=== PATIENT | male | born 1950 | race Caucasian/White ===

== ENCOUNTER 2017-02-10 11:37 | Inpatient (IN) ==
--- NOTE | 2017-02-10 12:19 | Emergency Department Note ---
Disposition Clinical Impression: Tracheostomy in place, Peritoneal dialysis catheter in place, ESRD (end stage renal disease) on dialysis Syncope Qualifiers: Syncope type: unspecified Qualified Code(s): R55 - Syncope and collapse Disposition: Admitted As Inpatient Condition: Fair Time of Disposition: 15:28 Syncope HPI - General Chief Complaint: ED Syncope Stated Complaint: Syncopal Episode Time Seen by Provider: 02/10/17 11:48 Source: patient, family, EMS Limitations: other - History of Present Illness HPI Narrative: 58-year-old male history of laryngeal cancer with tracheostomy, and peritoneal dialysis, ESRD, presents after 2 episodes of syncopal events at home. Patient states that he was about an hour or so after dialysis, was bending over to tie his shoes, got up and then slumped over this was witnessed by his and son, he had a few seconds of loss of consciousness, and laid down for a while, EMS arrived and evaluated the patient. He then subsequently had another episode where he lost consciousness for a few seconds, is at the bedside, and had an episode of urinary incontinence as well. Patient does not really events, denies any chest pain or shortness of breath prior, does report a mild headache and has a history of headaches. Patient states that this has happened before, he has been on peritoneal dialysis for 3 years. 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 Number of episodes: 2 Duration: second(s) Prodromal Symptoms: none, other (after peritoneal dialysis) Witnessed: no Current Symptoms: back to baseline History: none - Related Data Home Medications Medication Instructions Recorded Confirmed Ferrous Sulfate 325 mg PO BID 06/23/15 03/19/16 Multivits,Ca,Min/Iron/FA/Lycop 1 tab PO DAILY 06/23/15 03/19/16 [Centrum Men's Tablet] Hydrocodone/Acetaminophen [Xodol 2.5 - 500 mg PO 1-3XD 08/24/15 03/19/16 10-300 Tablet] Doxazosin [Cardura] 1 mg PO DAILY 01/03/16 03/19/16 Aspirin [Adult Low Dose Aspirin EC] 81 mg PO DAILY 01/27/16 03/19/16 Folic Acid/Vit Bcomp,C [Dialyvite 1 tab PO DAILY 01/27/16 03/19/16 Tablet] Thiamine (B-1) [Vitamin B-1] 100 mg PO DAILY 01/27/16 03/19/16 Previous Rx's Medication Instructions Recorded OxyCODONE/APAP 5/325 [Percocet 1 tab PO Q8H PRN #15 tablet 01/29/16 5/325 MG] HYDROcodone/Acet 5/325 mg [Llewellyn 1 tab PO Q8H PRN #30 tab 03/08/16 5-325 mg] Levothyroxine [Synthroid] 50 mcg PO DAILY #30 tablet 03/08/16 Bacitracin/PolymyxinB OINT 1 appl TP BID #1 tube 03/17/16 [Polysporin] OxyCODONE Oral Soln [OxyCODONE 7.5 mg PO QID #100 mls 03/19/16 ORAL SOLN] Bacitracin/PolymyxinB OINT 1 appl TP BID tube 03/28/16 [Polysporin] Darbepoetin [Aranesp] 100 mcg SQ QWEEK syringe 03/28/16 FentaNYL PATCH [Duragesic] 75 mcg TD Q72H patch.td72 03/28/16 Gentamicin Oint [Garamycin] 1 appl TP DAILY tube 03/28/16 HYDROmorphone (PF) [Dilaudid] 2 mg IV Q3HR PRN #0 syringe 03/28/16 Levothyroxine Sodium [Synthroid] 25 mcg IV DAILY vial 03/28/16 MVI, adult with vitamin K 10 ml IV DAILY@1800 vial 03/28/16 [M.v.i. Adult] Naloxone [Narcan] 0.4 mg IV Q2MIN PRN #0 inj 03/28/16 Ondansetron [Zofran] 4 mg IV Q8HR PRN #0 vial 03/28/16 Perit. Dialysis with Dex 1.5 % 2,000 ml PERITONEAL Q6HR #0 ip.soln 03/28/16 [Dianeal with 1.5% Dextrose] Vancomycin [Vancocin] 1,000 mg IV Q48H vial 03/28/16 OxyCODONE Oral Soln [OxyCODONE 10 ml PO Q4-6H PRN #150 mls 04/19/16 ORAL SOLN] Allergies Allergy/AdvReac Type Severity Reaction Status Date / Time diazepam Allergy Intermediate Agitated Verified 02/22/16 14:39 Zolpidem [From Ambien] Crystal Hallucinati Verified 01/03/16 14:39 ng All systems ED: reviewed and negative except as stated. Constitutional: Denies: fever, chills, weakness ENT ED: Denies: ear pain, throat pain Cardiovascular: Denies: chest pain, palpitations Respiratory: Denies: cough, dyspnea, wheezes Gastrointestinal: Denies: abdominal pain, nausea, vomiting Genitourinary: Denies: urgency, dysuria, frequency Musculoskeletal: Denies: back pain, neck pain Integumentary: Denies: rash, abrasion Past Medical History - Past Medical History Attestation: Yes The following information was validated with the patient. Source: patient Medical history: Reports: cancer, dialysis, hypertension, renal disease, thyroid disease, other Surgical history: Reports: cataract, cholecystectomy, other (Hernia repair, laryngectomy) Psychiatric history: Reports: no psych history - Social History Smoking Status: Former smoker Smokeless Tobacco Status: No Alcohol use: Reports: none Drug use: Reports: none Physical Exam Constitutional: alert and oriented, in NAD, vital signs reviewed and wnl HEENT: NCAT, sclera anicteric, PERRLA bilaterally, normal external ears bilaterally, nasal septum nondeviated, average dentition, dry mucous membranes Neck: Midline tracheostomy is patent Resp: normal chest inspection, CTA bilaterally, no resp distress CV: RRR, no m/g/r GI: Soft, NTND, BS present, peritoneal dialysis port is patent Back: normal inspection, no tenderness to palpation Neuro: A&O3, no gross motor or sensory deficits bilaterally Skin: No rashes, skin warm, dry, intact - General Limitations: other General appearance: alert, in no apparent distress Course Course Narrative: 66-year-old male with 2 episodes of syncope, and appears to be possibly orthostatic versus vasovagal but he just had dialysis likely hypovolemic, his vital signs are within normal limits as is now low likelihood that this was a seizure, the setting of the 58-year-old dialysis patient with laryngeal cancer, we will get a baseline CT head and soft tissue neck to evaluate for space- occupying lesion or mass causing syncope fluids, treat headache reassess - Reevaluation(s) Reevaluation #1: Admitted to [facility] in stable condition Time: 15:27 Vital Signs Temperature 98.4 F 02/10/17 11:39 Pulse Rate 94 02/10/17 11:39 Respiratory Rate 16 02/10/17 11:39 Blood Pressure 139/69 02/10/17 11:39 O2 Sat by Pulse Oximetry 96 02/10/17 11:39 Temperature 98.4 F 02/10/17 11:39 Pulse Rate 99 02/10/17 14:05 Respiratory Rate 18 02/10/17 14:05 Blood Pressure 125/60 02/10/17 14:05 O2 Sat by Pulse Oximetry 100 02/10/17 14:05 Oxygen Delivery Oxygen Delivery Room Air Syncope - MDM Narrative Medical decision making narrative: 66-year-old admitted for syncope, risk factors of laryngeal cancer and peritoneal dialysis, likely this is a post dialysis hypotension, will admit for observation hospitalist service accepting, patient stable condition at time of admission is symptomatically - Differential Diagnosis Likely: syncope due to orthostatic hypotension, vasovagal syncope - Medical Records Medical records reviewed: Yes I reviewed the patient's medical records. - Lab Data Lab results reviewed: Yes I reviewed the patient's lab results. Result diagrams: 02/10/17 12:15 02/10/17 12:15 Lab Results 02/10/17 02/10/17 02/10/17 Range/Units 12:15 12:15 12:15 WBC 12.8 H (4.3-11.1) K/mcL RBC 3.03 L (4.19-5.50) M/mcL Hgb 9.3 L (12.9-16.9) g/dL Hct 29.4 L (37.5-50.1) % MCV 97.0 (83.0-100.0) fL MCH 30.7 (28.0-33.3) pg MCHC 31.6 (31.6-35.5) g/dL RDW 14.0 (11.5-14.5) % Plt Count 327 (140-400) K/mcL MPV 10.0 (9.4-12.4) fL Immature Gran % 0.6 (0-4) % Seg Neutrophils % 88.5 % Lymphocytes % 4.3 % Monocytes % 6.1 % Eosinophils % 0.3 % Basophils % 0.2 % Neutrophils # 11.3 H (1.6-8.9) K/mcL Lymphocytes # 0.6 (0.6-4.6) K/mcL Monocytes # 0.8 (0.0-1.3) K/mcL Eosinophils # 0.0 (0.0-0.6) K/mcL Basophils # 0.0 (0.0-0.2) K/mcL Immature Plt Fraction 2.8 (1.1-6.1) % PT 20.9 H (9.4-12.1) Seconds INR 1.9 APTT 33.5 (26.0-36.0) Seconds Sodium 140 (136-145) mEq/L Potassium 3.8 (3.5-4.5) mEq/L Chloride 103 (98-109) mEq/L Carbon Dioxide 25 (19-29) mEq/L BUN 42 H (8-26) mg/dL Creatinine 2.86 H (0.72-1.25) mg/dL Est GFR ( Amer) 27 L (> 60) Est GFR (Non-Af Amer) 22 L (> 60) BUN/Creatinine Ratio 15 (6-26) Glucose 143 H (70-99) mg/dL Calculated Osmolality 303 H (280-300) Calcium 8.8 (8.6-10.8) mg/dL Troponin I (0-0.03) ng/mL 02/10/17 Range/Units 12:15 WBC (4.3-11.1) K/mcL RBC (4.19-5.50) M/mcL Hgb (12.9-16.9) g/dL Hct (37.5-50.1) % MCV (83.0-100.0) fL MCH (28.0-33.3) pg MCHC (31.6-35.5) g/dL RDW (11.5-14.5) % Plt Count (140-400) K/mcL MPV (9.4-12.4) fL Immature Gran % (0-4) % Seg Neutrophils % % Lymphocytes % % Monocytes % % Eosinophils % % Basophils % % Neutrophils # (1.6-8.9) K/mcL Lymphocytes # (0.6-4.6) K/mcL Monocytes # (0.0-1.3) K/mcL Eosinophils # (0.0-0.6) K/mcL Basophils # (0.0-0.2) K/mcL Immature Plt Fraction (1.1-6.1) % PT (9.4-12.1) Seconds INR APTT (26.0-36.0) Seconds Sodium (136-145) mEq/L Potassium (3.5-4.5) mEq/L Chloride (98-109) mEq/L Carbon Dioxide (19-29) mEq/L BUN (8-26) mg/dL Creatinine (0.72-1.25) mg/dL Est GFR ( Amer) (> 60) Est GFR (Non-Af Amer) (> 60) BUN/Creatinine Ratio (6-26) Glucose (70-99) mg/dL Calculated Osmolality (280-300) Calcium (8.6-10.8) mg/dL Troponin I 0.03 (0-0.03) ng/mL - Radiology Data Radiology results reviewed: Yes I reviewed the patient's radiology results. Chest X-Ray 02/10/17 11:56 IMPRESSION: Mild bibasilar atelectasis versus pneumonia. D/ / Kolby Silva MD / Kolby Silva MD Interpreting Provider: Kolby Silva MD Head CT 02/10/17 11:56 IMPRESSION: No acute intracranial abnormality. Chronic small vessel ischemic changes similar to previous exam. Chronic sinus disease. D/ / Ramy Ventura MD / Ramy Ventura MD Interpreting Provider: Ramy Ventura MD Soft Tissue Neck CT 02/10/17 12:07 IMPRESSION: 1. Evaluation of the soft tissues is compromised due to lack of IV contrast. 2. Status post interval laryngectomy and tracheostomy. There is marked soft tissue swelling in the oropharynx and hypopharynx which may represent a combination of residual/recurrent tumor, as well as mucosal edema from post radiation changes. 3. Enlarged left cervical lymph nodes suspicious for metastatic lymphadenopathy. D/ / 02/10/2017 13:33:57 Maru Briggs MD / earnold Interpreting Provider: Maru Briggs MD - EKG Data EKG attestation: Yes I reviewed and interpreted this EKG. EKG shows normal: sinus rhythm (93 bpm ND 162 QRS 154 QTc 463 right bundle- branch block similar to previous EKG) [place]/QRS: RBBB Interpretation: no acute changes - Core Measures AMI Core Measures Followed: No Measure Exclusions: not indicated
[2017-02-10 12:21] LABS: Basophils % 0.2 %; Eosinophils % 0.3 %; Hematocrit 29.4 % (37.5-50.1); Hemoglobin 9.3 g/dL (12.9-16.9); Immature Granulocytes % 0.6 % (0-4); Immature Platelets 2.8 % (1.1-6.1); Lymphocytes # 0.6 K/mcL (0.6-4.6); Lymphocytes % 4.3 %; Mean Corpuscular HGB Conc 31.6 g/dL (31.6-35.5); Mean Corpuscular Hemoglobin 30.7 pg (28.0-33.3); Monocytes # 0.8 K/mcL (0.0-1.3); Monocytes % 6.1 %; Neutrophils # 11.3 K/mcL (1.6-8.9); Platelet Count 327 K/mcL (140-400); Red Blood Count 3.03 M/mcL (4.19-5.50); Segmented Neutrophils % 88.5 %
[2017-02-10 12:26] LABS: INR 1.9; Prothrombin Time 20.9 Seconds (9.4-12.1)
[2017-02-10 12:28] LABS: Activated Partial Thrombo Time 33.5 Seconds (26.0-36.0)
[2017-02-10 12:32] LABS: Calcium 8.8 mg/dL (8.6-10.8); Potassium 3.8 mEq/L (3.5-4.5)
[2017-02-10] MEDS ORDERED: 0.9 % Sodium Chloride 500 ML IVC ONE (13:00)
[2017-02-10] MEDS ORDERED: Ondansetron 4 MG/2 ML VIAL IVP ONE (13:01)
[2017-02-10] MEDS ORDERED: *HR* Morphine 2 MG/ML SYRINGE IV ONE (13:01)
--- NOTE | 2017-02-10 13:17 | Emergency Department Note ---
START Narrative - START START: I examined this patient and my medical decision-making was reviewed with the GLASS BLOWER/PA/Advanced Practice Nurse/Resident Physician. I agree with the documented findings, disposition and treatment plan as described except to the extent set forth below. 66-year-old male presents after a syncopal episode at home. Patient apparently had finished his daily peritoneal dialysis when he became lightheaded and lost consciousness. states the patient was sitting at the side of the bed, became incontinent, eyes rolled back in his head and tongue was sticking out of his mouth. No history of seizures in the past. Although patient has had similar occurrences before but was not worked up. No chest pain, shortness of breath, palpitations, diaphoresis noted today. Patient is cared for at [facility] for his throat cancer. He had a recent MRI 1 month ago showing enlargement of the cancer and no evidence of metastases at that time. Initial ECG shows normal sinus rhythm with a rate of 93 and multiple PACs. I recommended the patient be admitted to the hospital for continuation of Syncope. Patient initially requested to be transferred to [facility] for continuation of care as they follow the oncologist there. While arranging transfer the patient changed his mind and now agrees to stay at [facility]. 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 Jiménez within the next week.
[2017-02-10] MEDS ORDERED: *HR* Heparin 5,000 UNIT/ML VIAL IVP PRN (16:37)
[2017-02-10 17:10] LABS: Hematocrit 34.9 % (37.5-50.1); Mean Corpuscular HGB Conc 31.5 g/dL (31.6-35.5); Mean Corpuscular Hemoglobin 30.9 pg (28.0-33.3); Mean Platelet Volume 10.5 fL (9.4-12.4); Platelet Count 361 K/mcL (140-400); Red Blood Count 3.56 M/mcL (4.19-5.50)
[2017-02-10] MEDS ORDERED: Perit. Dialysis with Dex 1.5 % 2,000 ML PERITONEAL SCH (17:15)
--- NOTE | 2017-02-10 17:15 | Internal Med History&Physical ---
Date of Encounter: 02/10/17 Time of Encounter: 17:33 Assessment and Plan (1) ESRD (end stage renal disease) on dialysis Current visit: Yes Status: Acute Nephrology consul for peritoneal dialysis. Patient mentions that he is at his dry weight. denies that he is below his dry weight. (2) Atrial extrasystole Current visit: Yes Status: Acute I will start the patient metoprolol 25 mg twice a day. Check electrolytes and replace accordingly. Cardiology consultation (3) Laryngeal cancer Current visit: Yes Status: Acute Patient has a tracheostomy tube. Denies any increase in secretions or increasing shortness of breath. (4) Syncope Current visit: Yes Status: Acute Etiology unclear. He has prior history of DVT is on Coumadin INR is 1.9 will have to rule a pulmonary embolism. VQ scan will be ordered. Till then he will be started on heparin drip. Patients makes urine still have some kidney functions and so I do not want to give him any contrast. Orthotics will be checked. He had received a liter of fluid in the emergency room. Because of episode of loss of confidence to and I will also check EEG. 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 He will be under continuous telemetry monitoring. Start metoprolol 25 mg twice a day. Cardiology consultation. He really did not have any prodrome prior to the syncopal episodes. He mentioned that he had a very small ammount of red blood in his stool 3 days ago. Will monitor for any GI bleed Qualifiers: Syncope type: unspecified Qualified Code(s): R55 - Syncope and collapse Internal Medicine - H&P: HPI Chief complaint: syncope History of present illness: Mr. Porras is a 66 year old male with a history of laryngeal cancer, end-stage renal disease on peritoneal dialysis presents to the emergency room today with a global episode. Today patient had 2 episodes of syncope. 1st occurred while he was sitting on the kitchen table slid down his chair and lost consciousness for a short period less than a minute after which she regained consciousness spontaneously. He does not recall a prodrome prior to this event. Shortly afterwards he had another similar episode. mentioned that he had lost continent stearin but has not seen any seizure activity or tongue biting. She mentioned that he had these epistles before. He has history of DVT in mid-2016 is on Coumadin INR is 1.9. He denies any chest pain. He denies any increase in shortness of breath or sputum production throughout the tracheostomy. He denies any fevers or chills. mentioned that he was sweaty during this episode. No recent febrile illness. Patient analyzes every day peritoneal dialysis. He mentioned that his weight stable. he denies that he is below his dry weight. Past Med Surg Social Fam HX - Past Medical History Medical history: cancer, dialysis, hypertension, renal disease, thyroid disease , other Psychiatric history: no psych history - Past Surgical History Surgical History: cataract, cholecystectomy, other - Social History Smoking Status: Former smoker Smokeless Tobacco Status: No Alcohol use: none Drug use: none - Family History Mother History Unknown: Yes Adopted: No Family Member Ethnicity: Non- Living Status: Hx Family Cardiac Disorders: No Hx Family Respiratory Disorders: No Hx Family Cancer: No Hx Family GI Disorders: No Hx Family Endocrine Disorder: No Hx Family Neuromuscular Disorders: No Hx Family Neurologic Disorders: Yes Hx Family HEENT Disorders: No Hx Family Autoimmune Disorders: No Brother History Unknown: Yes Hx Family Cardiac Disorders: Yes (Hypertension) Hx Family Cancer: Yes (colon and prostate) Internal Medicine - H&P: Meds Ferrous Sulfate 325 mg PO BID 06/23/15 [History] Multivits,Ca,Min/Iron/FA/Lycop [Centrum Men's Tablet] 1 tab PO DAILY 06/23/15 [ History] Bacitracin/PolymyxinB OINT [Polysporin] 1 appl TP BID tube 03/28/16 [Rx] Calcium Carbonate [Tums] 500 mg PO TID 02/10/17 [History] Levothyroxine [Synthroid] 100 mcg PO DAILY 02/10/17 [History] Nut.tx.impaired Renal Fxn,Soy [Nepro Carb Steady] 1 each GTUBE AD 02/10/17 [ History] OxyCODONE Immed Rel [Roxicodone 5 MG] 5 - 10 mg PO Q4H PRN 02/10/17 [History] Warfarin [Coumadin] 5 mg PO SUMOWEFR 02/10/17 [History] Warfarin [Coumadin] 7.5 mg PO TUTHSA 02/10/17 [History] Allergies diazepam Allergy (Intermediate, Verified 02/22/16 14:39) Agitated Zolpidem [From Ambien] Adverse Reaction (Verified 01/03/16 14:39) Hallucinating All Systems PM: A 10-system review of systems was performed and is negative for pertinent findings except as documented above in the HPI. Review of systems: 10 point ROS is negative except for HPI - Constitutional Vitals: Temp Pulse Resp BP Pulse Ox 98.1 F 84 18 165/75 99 02/10/17 16:40 02/10/17 16:40 02/10/17 16:40 02/10/17 16:40 02/10/17 16:40 Exam: Gen.: patient is alert oriented not in distress. Cardiac: Normal S1 S2 frequent extrasystoles chest: clear to auscultation abdomen soft nontender nondistended normal bowel sounds lower extremity: lax calf muscles neuro no focal deficit Internal Med - H&P Results - Labs CBC & Chem 7: 02/10/17 16:54 02/10/17 12:15
[2017-02-10 17:16] LABS: INR 1.8
[2017-02-10 17:19] LABS: Activated Partial Thrombo Time 33.4 Seconds (26.0-36.0)
[2017-02-10] MEDS: Heparin 25,000 UNIT/500 ML D5W 25,000 UNIT/500 ML MLS IVC SCH (17:36)
[2017-02-10 19:35] LABS: Bilirubin,Urine Negative (Negative); Blood,Urine Small (Negative); Clarity,Urine Clear (Clear); Color,Urine Yellow (Yellow); Glucose,Urine (UA) Normal (Normal); Ketones,Urine Negative (Negative); Leukocyte Esterase,Urine Trace (Negative); Nitrite,Urine Negative (Negative); Protein,Urine >=300 mg/dL (Neg-Trace); Specific Gravity,Urine 1.013 (1.010-1.025); Urobilinogen,Urine Normal (Normal)
[2017-02-10 19:37] LABS: Bacteria,Urine None Seen per hpf (None-Few); Hyaline Casts,Urine None Seen per lpf (None-Few); RBC,Urine 0-3 per hpf (0-3); Squamous Epithelial Cell,Urine Moderate per lpf (None-Few); WBC,Urine 30-50 per hpf (0-3)
[2017-02-10] MEDS: *HR* OxyCODONE Immed Rel 5 MG TABLET PO PRN ×2 (20:04→23:56)
[2017-02-11 03:28] LABS: Calcium 8.5 mg/dL (8.6-10.8); Magnesium 1.3 mg/dL (1.6-2.6); Potassium 3.7 mEq/L (3.5-4.5)
[2017-02-11] MEDS: *HR* OxyCODONE Immed Rel 5 MG TABLET PO PRN ×5 (06:29→22:33)
[2017-02-11] MEDS ORDERED: *HR* Heparin 5,000 UNIT/ML VIAL ONE (08:40)
[2017-02-11 08:47] LABS: Basophils % 0.3 %; Eosinophils # 0.1 K/mcL (0.0-0.6); Eosinophils % 1.1 %; Hematocrit 29.2 % (37.5-50.1); Immature Granulocytes % 0.9 % (0-4); Lymphocytes # 1.1 K/mcL (0.6-4.6); Lymphocytes % 9.2 %; Mean Corpuscular HGB Conc 31.2 g/dL (31.6-35.5); Mean Corpuscular Hemoglobin 31.2 pg (28.0-33.3); Mean Platelet Volume 11.1 fL (9.4-12.4); Monocytes % 8.4 %; Neutrophils # 9.6 K/mcL (1.6-8.9); Platelet Count 321 K/mcL (140-400); Red Blood Count 2.92 M/mcL (4.19-5.50); Red Cell Distribution Width 14.1 % (11.5-14.5); Segmented Neutrophils % 80.1 %
[2017-02-11 08:48] LABS: Hemoglobin 9.1 g/dL (12.9-16.9)
[2017-02-11] MEDS: Multivit/Ca/Min/Fe/FA 1 TAB TABLET PO SCH (08:50)
[2017-02-11] MEDS: Bacitracin/PolymyxinB OINT 14.17 GM TUBE TP SCH ×3 (08:56→20:45)
[2017-02-11] MEDS: Perit. Dialysis with Dex 1.5 % 2,000 ML PERITONEAL SCH ×4 (08:59→20:40)
[2017-02-11] MEDS ORDERED: Magnesium Sulfate 2 GM in D5% in Water 100 ML IVPB ONE (10:16)
[2017-02-11] MEDS ORDERED: *HR* Morphine 2 MG/ML SYRINGE IV ONE (10:42)
[2017-02-11] MEDS ORDERED: *HR* Morphine 2 MG/ML SYRINGE ONE (10:48)
[2017-02-11 11:49] LABS: Prothrombin Time 22.4 Seconds (9.4-12.1)
--- NOTE | 2017-02-11 13:25 | Internal Med Progress Note ---
Date of Encounter: 02/11/17 Time of Encounter: 13:23 - Assessment and plan (1) Syncope Current Visit: Yes Status: Acute Assessment and plan: unclear if he passed out. as per the , he rolled his eyes and was unresposive for ~1 min. EKG does show PVCs, was started on BB, no PVCS on tele today. hemodynamically stable. has been started on heparin drip for possible PE, he is high risk with h/o DVT and active cancer. will continue until INR becomes therapeutic, CT with contrast not done due to CKD and he could not complete V/Q scan. he is not hypoxic and has no chest pain, clinically PE less likely. EEG was ordered to r/o seizures, will follow results. he has no prior h/o seizures, CT head is negative. Qualifiers: Syncope type: unspecified Qualified Code(s): R55 - Syncope and collapse (2) Hypomagnesemia Current Visit: No Status: Acute Assessment and plan: has been replaced (3) Tracheostomy in place Current Visit: Yes Status: Acute (4) ESRD (end stage renal disease) on dialysis Current Visit: Yes Status: Acute Assessment and plan: on peritoneal HD. renal on board. (5) Laryngeal cancer Current Visit: Yes Status: Acute Assessment and plan: recent neck CT shows clinical progression of the disease he follows at [facility] and he does not want any oncological intervention here at [place] HE has f/u at [facility] on March, he was supposed to start new chemo pill which he refused initially but is agreeable to start now. He wishes to reamain full code for now. - Time Spent With Patient 25 - 35 minutes - Subjective Interval history: seen at the bedside, reports that he has headache. cannot talk due to trach but looks very restless and diaphoretic. denies chest pain or sob, fsg checked is 154. vitals stable and sats are stable. - Constitutional Vitals: Temp Pulse Resp BP Pulse Ox 98.1 F 78 16 150/78 92 02/11/17 11:23 02/11/17 11:23 02/11/17 11:23 02/11/17 11:23 02/11/17 11:23 General appearance: Present: A&O X 3 Exam: Gen.: patient is alert oriented Cardiac: Normal S1 S2 , no m/r/g chest: clear to auscultation abdomen soft nontender nondistended normal bowel sounds lower extremity: lax calf muscles neuro no focal deficit Internal Medicine: Result - Labs CBC & Chem 7: 02/11/17 03:03 02/11/17 03:03 Labs: Short CBC 02/10/17 02/11/17 Range/Units 16:54 03:03 WBC 15.0 H 11.9 H (4.3-11.1) K/mcL Hgb 11.0 L D 9.1 L D (12.9-16.9) g/dL Hct 34.9 L 29.2 L (37.5-50.1) % Plt Count 361 321 (140-400) K/mcL Neutrophils # 9.6 H (1.6-8.9) K/mcL BMP 02/11/17 03:03 Sodium 137 Potassium 3.7 Chloride 104 Carbon Dioxide 22 BUN 43 H Creatinine 2.88 H Glucose 139 H Calcium 8.5 L Urine 02/10/17 Range/Units 19:25 Urine Color Yellow (Yellow) Urine Clarity Clear (Clear) Urine pH 7.0 (5.0-8.0) pH Units Ur Specific [place] 1.013 (1.010-1.025) Urine Protein >=300 H (Neg-Trace) mg/dL Urine Glucose (UA) Normal (Normal) mg/dL - ABG Interpretation ABG results: PT/INR, D-dimer PT 22.4 Seconds (9.4-12.1) H 02/11/17 08:33 Consult Discharge Plan - Plan Referrals: Figueroa Navarro DO [Primary Care Provider] -
--- NOTE | 2017-02-11 13:59 | Electrocardiograph Report ---
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
--- NOTE | 2017-02-11 14:15 | Nephrology Consult Note ---
Date of Encounter: 02/11/17 Time of Encounter: 13:00 Assessment and Plan (1) ESRD (end stage renal disease) on dialysis Current Visit: Yes Status: Acute Pt typically does his PD at night via a cycler machine but since we do not have cyclers yet in the hospital, will revert to manual. Hemodynamics appears stable and appears euvolemic, hence will use regimen of 1.5 % dianeal every 6 hours Will check phos and start nepro Start laxative and stool softners (2) Laryngeal cancer Current Visit: Yes Status: Acute Per [facility] on outpatient (3) Syncope Current Visit: Yes Status: Acute Agree with beta-indira, telemetry and cardio evaluation Qualifiers: Syncope type: unspecified Qualified Code(s): R55 - Syncope and collapse (4) Hypomagnesemia Current Visit: No Status: Acute s/p repletion, will monitor levels (5) Acute blood loss anemia Current Visit: No Status: Acute Obtain stool guaiac and check iron levels History of Present Illness - Reason for Consult Consult date: 02/11/17 end stage renal disease Requesting physician: Adolfo Dennis - History of Present Illness 66 y o male with PMH of ESRD on PD for the past 3 years and recurrent head and neck cancer s/p resection and chemo admitted s/p witnessed possible syncope. Per , Pt had an episode of unresponsiveness yesterday and another last night in the hospital and again this am each time preceeded by headaches. He denied lisa chest pain, palpitations N/V/D. He is actually scheduled to see Dr Jiménez tomorrow for recent onset of PVCs seen on EKG at our last appt. No fevers or chills. No abdominal pain though he reports some constipation the past week. Magnesium noted low requiring repletion today. He was also started on a beta-indira and on heparin gtt as his inr was sub-therapeuic. He is set to start new chemotherapy with everlimus but has yet to take. Past Med Surg Social Fam HX - Past Medical History Medical history: cancer, dialysis, hypertension, renal disease, thyroid disease , other Psychiatric history: no psych history - Past Surgical History Surgical History: cataract, cholecystectomy, other - Social History Smoking Status: Former smoker Smokeless Tobacco Status: No Alcohol use: none Drug use: none - Family History Mother History Unknown: Yes Adopted: No Family Member Ethnicity: Non- Living Status: Hx Family Cardiac Disorders: No Hx Family Respiratory Disorders: No Hx Family Cancer: No Hx Family GI Disorders: No Hx Family Endocrine Disorder: No Hx Family Neuromuscular Disorders: No Hx Family Neurologic Disorders: Yes Hx Family HEENT Disorders: No Hx Family Autoimmune Disorders: No Brother History Unknown: Yes Hx Family Cardiac Disorders: Yes (Hypertension) Hx Family Cancer: Yes (colon and prostate) Medications and Allergies Ferrous Sulfate 325 mg PO BID 06/23/15 [History] Multivits,Ca,Min/Iron/FA/Lycop [Centrum Men's Tablet] 1 tab PO DAILY 06/23/15 [ History] Bacitracin/PolymyxinB OINT [Polysporin] 1 appl TP BID tube 03/28/16 [Rx] Calcium Carbonate [Tums] 500 mg PO TID 02/10/17 [History] Levothyroxine [Synthroid] 100 mcg PO DAILY 02/10/17 [History] Nut.tx.impaired Renal Fxn,Soy [Nepro Carb Steady] 1 each GTUBE AD 02/10/17 [ History] OxyCODONE Immed Rel [Roxicodone 5 MG] 5 - 10 mg PO Q4H PRN 02/10/17 [History] Warfarin [Coumadin] 5 mg PO SUMOWEFR 02/10/17 [History] Warfarin [Coumadin] 7.5 mg PO TUTHSA 02/10/17 [History] Allergies diazepam Allergy (Intermediate, Verified 01/03/16 14:39) Agitated Zolpidem [From Ambien] Adverse Reaction (Verified 01/03/16 14:39) Hallucinating Review of Systems All Systems: reviewed and no additional remarkable complaints except as stated ( 10 systems reviewed) Exam - Vital Signs Vital signs: Initial Vital Signs Temp Pulse Resp BP Pulse Ox 98.4 F 94 16 139/69 96 02/10/17 11:39 02/10/17 11:39 02/10/17 11:39 02/10/17 11:39 02/10/17 11:39 Vital Signs - Last 8 Hours Temp Pulse Resp BP Pulse Ox 02/11/17 11:23 98.1 F 78 16 150/78 92 02/11/17 07:50 98.4 F 75 16 151/80 100 Intake and Output 02/10/17 02/11/17 02/11/17 23:59 07:59 15:59 Intake Total 0 / 0 550 / 550 537 / 537 Output Total 300 / 300 1000 / 1000 400 / 400 Balance -300 / -300 -450 / -450 137 / 137 Intake: IV Fluids 250 / 250 57 / 57 Heparin 25,000 UNIT/500 250 / 250 57 / 57 ML D5W 25,000 unit In 500 ml @ 11.6 UNIT/KG/HR 19. 994 mls/hr IVC .Q24H SUE Rx#:[id number] Oral 0 / 0 300 / 300 480 / 480 Output: Urine 300 / 300 1000 / 1000 400 / 400 Other: Meal Lunch Percent of Meal Consumed 75% Total Peritoneal Dialysis 2000 0 Output Weight 89.3 kg 86.239 kg Blood Glucose* 154 Patient Weight 02/11/17 23:59 Weight 86.239 kg - General Appearance General appearance: chronically ill (NAD) EENT: ATNC, mucous membranes moist Additional Comments: + trach Neck: no JVD, supple Cardiology: no edema, normal S1, normal S2 Gastrointestinal: no tenderness, no guarding Integumentary: warm and dry Neurologic: no focal deficit Musculoskeletal: no deformities Psychiatric: mood/affect appropriate, cooperative Results - Lab Results 02/12/17 02:44 02/12/17 02:44 Most recent lab results Calcium 8.5 mg/dL (8.6-10.8) L 02/11/17 03:03 Magnesium 1.3 mg/dL (1.6-2.6) L 02/11/17 03:03 Consult Discharge Plan - Plan Referrals: ColFigueroa alford DO [Primary Care Provider] - (Patient will call for an appointment per office)
[2017-02-11] MEDS ORDERED: *HR* Heparin 5,000 UNIT/ML VIAL IVP PRN (15:09)
[2017-02-11] MEDS: Heparin 25,000 UNIT/500 ML D5W 25,000 UNIT/500 ML MLS IVC SCH (15:51)
[2017-02-11 16:44] LABS: Albumin 2.3 g/dL (3.5-5.0); Phosphorous 3.7 mg/dL (2.3-4.7)
[2017-02-11 16:47] LABS: % Iron Saturation 24 % (20-55); Iron 57 mcg/dL (65-175); Transferrin 173 mg/dL (174-364)
[2017-02-11 17:07] LABS: Ferritin 1242 ng/ml (22-275)
[2017-02-12] MEDS: Perit. Dialysis with Dex 1.5 % 2,000 ML PERITONEAL SCH ×4 (02:20→19:55)
[2017-02-12] MEDS: *HR* OxyCODONE Immed Rel 5 MG TABLET PO PRN ×2 (02:46→08:10)
[2017-02-12 03:20] LABS: Basophils % 0.2 %; Eosinophils # 0.1 K/mcL (0.0-0.6); Hematocrit 30.1 % (37.5-50.1); Hemoglobin 9.5 g/dL (12.9-16.9); Immature Granulocytes % 0.9 % (0-4); Lymphocytes # 1.3 K/mcL (0.6-4.6); Lymphocytes % 10.3 %; Mean Corpuscular HGB Conc 31.6 g/dL (31.6-35.5); Mean Corpuscular Hemoglobin 30.8 pg (28.0-33.3); Mean Corpuscular Volume 97.7 fL (83.0-100.0); Mean Platelet Volume 10.7 fL (9.4-12.4); Monocytes % 7.8 %; Neutrophils # 10.1 K/mcL (1.6-8.9); Platelet Count 337 K/mcL (140-400); Red Blood Count 3.08 M/mcL (4.19-5.50); Red Cell Distribution Width 14.4 % (11.5-14.5); Segmented Neutrophils % 79.8 %
[2017-02-12 03:30] LABS: Calcium 8.8 mg/dL (8.6-10.8)
[2017-02-12 03:34] LABS: INR 1.8
[2017-02-12] MEDS: Multivit/Ca/Min/Fe/FA 1 TAB TABLET PO SCH (08:11)
[2017-02-12] MEDS: Bacitracin/PolymyxinB OINT 14.17 GM TUBE TP SCH ×2 (08:21→20:37)
[2017-02-12] MEDS: *HR* OxyCODONE/APAP 10/325 TABLET PO PRN ×3 (11:35→20:26)
[2017-02-12] MEDS: Heparin 25,000 UNIT/500 ML D5W 25,000 UNIT/500 ML MLS IVC SCH (11:35)
--- NOTE | 2017-02-12 11:59 | Nephrology Progress Note ---
Date of Encounter: 02/12/17 Time of Encounter: 11:30 - Assessment and Plan (1) ESRD (end stage renal disease) on dialysis Current Visit: Yes Status: Acute Continue PD q6 with 1.5% till discharge and then resume home regimen via cycler Continue nepro with meals, albumin of 2.3 noted Phos WNL off binders, will monitor (2) Laryngeal cancer Current Visit: Yes Status: Acute Per [facility] on outpatient (3) Syncope Current Visit: Yes Status: Acute Agree with cardio eval. No further syncopal episodes No events on telemetry Qualifiers: Syncope type: unspecified Qualified Code(s): R55 - Syncope and collapse (4) Hypomagnesemia Current Visit: No Status: Acute Repleted yesterday, will recheck level today. Will probably need magnesium supplements on discharge (5) Acute blood loss anemia Current Visit: No Status: Acute Hgb low but stable. Awaiting stool guaiac Iron studies noted, will dose with aranesp Subjective Interval history: Pt seen and examined with complaint of neck pain along with headache. He did not have breakfast as a result. Per nurse, PD proceeding very well with no complications. Objective - Vital Signs Vital signs: Vital Signs Temp Pulse Resp BP Pulse Ox 02/12/17 11:38 98 F 74 18 133/82 02/12/17 08:10 99 F 74 18 170/82 97 02/12/17 05:46 98.8 F 93 17 152/84 97 02/12/17 00:40 98.7 F 89 17 164/74 99 02/11/17 19:00 98.2 F 85 16 148/70 98 02/11/17 15:13 98.2 F 71 16 132/75 100 Intake and Output 02/11/17 02/12/17 02/12/17 23:59 07:59 15:59 Intake Total 480 / 480 500 / 500 Output Total 650 / 650 600 / 600 Balance 480 / 480 -650 / -650 -100 / -100 Intake: IV Fluids 500 / 500 Heparin 25,000 UNIT/500 500 / 500 ML D5W 25,000 unit In 500 ml @ 11.6 UNIT/KG/HR 19. 994 mls/hr IVC .Q24H SUE Rx#:[id number] Oral 480 / 480 Output: Urine 650 / 650 600 / 600 Other: Meal Dinner Percent of Meal Consumed 100% Total Peritoneal Dialysis 0 -100 -500 Output Weight 87.7 kg 87.6 kg 90.9 kg Patient Weight 02/12/17 23:59 Weight 90.9 kg - General Appearance General appearance: Present: chronically ill, frail EENT: Present: ATNC, mucous membranes moist Neck: Present: no JVD, supple Additional Comments: Good areation ant bilat Cardiology: Present: no edema, normal S1, normal S2 Gastrointestinal: Present: no tenderness, no guarding Additional Comments: PD catheter exit site with no drainage or erythema, flesh tone. +hernia around old healed NGT site Integumentary: Present: warm and dry Neurologic: Present: no focal deficit Musculoskeletal: Present: no deformities Psychiatric: Present: mood/affect appropriate - Lab 02/12/17 02:44 02/12/17 02:44 Most recent lab results Calcium 8.8 mg/dL (8.6-10.8) 02/12/17 02:44 Phosphorus 3.7 mg/dL (2.3-4.7) 02/11/17 14:47 Magnesium 1.3 mg/dL (1.6-2.6) L 02/11/17 03:03 Consult Discharge Plan - Plan Referrals: Figueroa Navarro DO [Primary Care Provider] - (Patient will call for an appointment per office)
[2017-02-12 12:05] LABS: Hepatitis B Surface Antigen Nonreactive (Nonreactive)
[2017-02-12 12:06] LABS: Hepatitis B Surface Antibody 13.59 mIU/mL
--- NOTE | 2017-02-12 12:15 | Cardiology Consult Note ---
Date of Encounter: 02/12/17 Time of Encounter: 12:00 Assessment and Plan (1) Syncope Current Visit: Yes Status: Acute x2 reported syncopal episodes in the past 2 weeks--both episodes occurred while seated. Etiology unclear. Telemetry reviewed, no significant findings to account for syncopal episodes. Check TSH, carotid (given hx of neck radiation), and limited echocardiogram. Will continue to monitor. Qualifiers: Syncope type: unspecified Qualified Code(s): R55 - Syncope and collapse (2) PVC (premature ventricular contraction) Current Visit: Yes Status: Acute Patient initially referred to [facility] d/t abnormal ECG with PVCs. Appointment canceled due to unexpected hospitalization. Telemetry reviewed: avg HR=85 SR. Frequent PACs and PVCs noted. Few multifocal PVCs. No NSVT noted. Agree with betablocker, continue to monitor telemetry (3) ESRD (end stage renal disease) on dialysis Current Visit: Yes Status: Acute ESRD on PD, Nephrology following. (4) Laryngeal cancer Current Visit: Yes Status: Acute Follows with [facility] as outpatient. Patient states he was recently started on a new oral chemotherapy agent. Discussion w patient/family: The assessment and plan as outlined above was discussed with the patient and/or family members who expressed understanding and agreement. All questions were answered. Thank you for involving us in the care of your patient. Please call with any questions. The patient will be discussed and reviewed with Dr. Strauss; changes to be made accordingly. History of Present Illness Consult date: 02/12/17 Requesting physician: Yana Richard Consult reason: PVCs--patient had outpatient Cardio appt Chief complaint: Syncope History of present illness: Mr. Porras is a 66 year old male with PMH significant for laryngeal CA (radical sx, chemo/radiation) s/p tracheostomy, DVT on coumadin, HTN, and ESRD (PD) who presented to the ED after x2 syncopal episodes over the past 2 weeks. He reports on both occurrences he was sitting up in a chair, developed a headache and lost consciousness for a few moments. Per H&P, family reported "seizure like " activity. Upon presentation to ED, CXR demonstrated mild bibasilar atelectasis vs. PNA; WBC elevated at 15.0. Upon exam this morning, low grade temp 99.0 noted. He was scheduled to see Dr. Locke as outpatient today (new visit) for abnormal ECG. Prior CV testing includes : TTE 03/23/16: EF 65%, mild LVDD Past Med Surg Social Fam HX - Past Medical History Attestation: Yes The following information was validated with the patient. Source: patient, old records reviewed Medical history: cancer, dialysis, hypertension, renal disease, thyroid disease Psychiatric history: no psych history - Past Surgical History Surgical History: cancer surgery, cataract, cholecystectomy, other (status post total laryngectomy) - Social History Smoking Status: Former smoker Smokeless Tobacco Status: No Alcohol use: none Drug use: none - Family History Mother History Unknown: Yes Adopted: No Family Member Ethnicity: Non- Living Status: Hx Family Cardiac Disorders: No Hx Family Respiratory Disorders: No Hx Family Cancer: No Hx Family GI Disorders: No Hx Family Endocrine Disorder: No Hx Family Neuromuscular Disorders: No Hx Family Neurologic Disorders: Yes Hx Family HEENT Disorders: No Hx Family Autoimmune Disorders: No Brother History Unknown: Yes Hx Family Cardiac Disorders: Yes (Hypertension) Hx Family Cancer: Yes (colon and prostate) Medications and Allergies Ferrous Sulfate 325 mg PO BID 06/23/15 [History] Multivits,Ca,Min/Iron/FA/Lycop [Centrum Men's Tablet] 1 tab PO DAILY 06/23/15 [ History] Bacitracin/PolymyxinB OINT [Polysporin] 1 appl TP BID tube 03/28/16 [Rx] Calcium Carbonate [Tums] 500 mg PO TID 02/10/17 [History] Levothyroxine [Synthroid] 100 mcg PO DAILY 02/10/17 [History] Nut.tx.impaired Renal Fxn,Soy [Nepro Carb Steady] 1 each GTUBE AD 02/10/17 [ History] OxyCODONE Immed Rel [Roxicodone 5 MG] 5 - 10 mg PO Q4H PRN 02/10/17 [History] Warfarin [Coumadin] 5 mg PO SUMOWEFR 02/10/17 [History] Warfarin [Coumadin] 7.5 mg PO TUTHSA 02/10/17 [History] Allergies diazepam Allergy (Intermediate, Verified 01/03/16 14:39) Agitated Zolpidem [From Ambien] Adverse Reaction (Verified 01/03/16 14:39) Hallucinating All Systems Review: A 10-system review of systems was performed and is negative for pertinent findings except as documented above in the HPI. - Cardiovascular Cardiovascular: as per HPI Physical Examination Vital Signs, Last 4 Hours Temp Pulse Resp BP 02/12/17 11:38 98 F 74 18 133/82 General: Conversant (tracheostomy), No Apparent Distress HEENT: Atraumatic Neck: Other (tracheostomy) Cardiac: Reg Rate and Rhythm, Normal S1 and S2 Lungs: Normal Breath Sounds Neuro: Alert and responsive Abdomen: Soft Extremities: Other (mild BLE edema) Results 02/12/17 02:44 02/12/17 02:44 Lab Results 02/11/17 02/11/17 02/12/17 14:47 21:20 02:44 WBC 12.6 H Hgb 9.5 L Hct 30.1 L Plt Count 337 INR APTT 78.6 H 78.7 H Sodium Potassium Chloride Carbon Dioxide BUN Creatinine Glucose Calcium 02/12/17 02/12/17 02:44 02:44 WBC Hgb Hct Plt Count INR 1.8 APTT Sodium 137 Potassium 4.0 Chloride 103 Carbon Dioxide 21 BUN 48 H Creatinine 3.02 H Glucose 107 H Calcium 8.8 Active Medications Bacitracin/Polymyxin B Sulfate (Polysporin) 1 appl TP BID [facility] Stop: 08/12/17 21:01 Last Admin: 02/12/17 08:21 Dose: Not Given Calcium Carbonate (Tums) 500 mg PO TID SUE PRN Reason: Protocol Stop: 08/12/17 21:01 Last Admin: 02/12/17 08:11 Dose: 500 mg Darbepoetin Lazaro (Aranesp) 100 mcg SQ QWEEK SUE PRN Reason: Protocol Stop: 08/14/17 12:16 Docusate Sodium (Colace) 100 mg PO BID SUE PRN Reason: Protocol Stop: 08/13/17 14:46 Last Admin: 02/12/17 08:11 Dose: 100 mg Ferrous Sulfate (Ferrous Sulfate) 325 mg PO BIDWM [facility] Stop: 08/14/17 17:01 Heparin Sodium (Porcine) (Heparin) 2,000 unit IVP Q6H PRN PRN Reason: SEE COMMENTS Stop: 08/12/17 16:38 Last Admin: 02/11/17 08:52 Dose: 2,000 unit Heparin Sodium (Porcine) (Heparin) 4,000 unit IVP Q6HR PRN PRN Reason: PROTOCOL Stop: 08/13/17 15:10 Heparin Sodium/Dextrose (Heparin 25,000 Unit/500 Ml D5w) 25,000 unit in 500 mls @ 19.994 mls/hr IVC .Q24H SUE; 11.6 UNIT/KG/HR PRN Reason: Protocol Stop: 08/12/17 16:46 Last Admin: 02/12/17 11:35 Dose: 15.02 unit/kg/hr, 25.9 mls/hr Peritoneal Dialysis Solution (Dianeal With 1.5% Dextrose) 2,000 mls @ 2,000 mls /hr PERITONEAL Q6H [facility] Stop: 08/13/17 14:01 Last Admin: 02/12/17 09:06 Dose: 2,000 mls/hr Levothyroxine Sodium (Synthroid) 100 mcg PO DAILY [facility] Stop: 08/13/17 09:01 Last Admin: 02/12/17 08:11 Dose: 100 mcg Metoprolol Tartrate (Lopressor) 25 mg PO BID [facility] Stop: 08/12/17 17:01 Last Admin: 02/12/17 08:11 Dose: 25 mg Multivitamins/Calcium (Thera M Plus) 1 tab PO DAILY [facility] Stop: 08/13/17 09:01 Last Admin: 02/12/17 08:11 Dose: 1 tab Oxycodone HCl (Roxicodone) 5 mg PO Q4H PRN PRN Reason: Moderate Pain (4-6) Stop: 08/12/17 16:39 Oxycodone/Acetaminophen (Percocet 10/325) 1 each PO Q4HR PRN PRN Reason: Severe Pain (7-10) Stop: 08/14/17 11:11 Last Admin: 02/12/17 11:35 Dose: 1 each Polyethylene Glycol (Miralax) 17 gm PO DAILY PRN PRN Reason: Constipation Stop: 08/13/17 14:32 Last Admin: 02/11/17 18:05 Dose: 17 gm Warfarin Sodium (Coumadin) 5 mg PO SUMOWEFR [facility] Stop: 08/14/17 18:01 Warfarin Sodium (Coumadin) 7.5 mg PO TUTHSA [facility] Stop: 08/15/17 18:01 - Imaging and Cardiology Echo: pending, report reviewed Other Results: 24 hour tele: avg HR=85 SR. Frequent PACs, PVCs. Multifocal at times - EKG Interpretation EKG results cardiology: personally reviewed Consult Discharge Plan - Plan Referrals: Figueroa Navarro DO [Primary Care Provider] - (Patient will call for an appointment per office)
[2017-02-12 12:35] LABS: Magnesium 1.9 mg/dL (1.6-2.6)
[2017-02-12 13:01] LABS: Thyroid Stimulating Hormone 80.111 mcIU/mL (0.350-4.840)
--- NOTE | 2017-02-12 13:14 | EEG/EMG/Oth Biometrics Report ---
EEG Procedure Report Date of procedure: 02/12/17 EEG Procedure: Routine EEG Procedure Note: This EEG was acquired with standard international 1020 system with EKG recording. The background EEG activity was characterized by the presence of posterior dominant alpha rhythm with the best frequency up to 10 Hz. The background activity was reactive to eye openings. Sleep stages were characterized by the presence of background fragmentation, vertex waves, K complexes, and sleep spindles. There are no electrographic seizures identified during this tracing. There are no epileptiform discharges and focal slowing noted during this recording. Photic stimulation produced no abnormalities. Hyperventilation procedure was not performed EKG tracing showed no significant cardiac dysrhythmia. Impression: This is essentially a normal awake and asleep EEG. Clinical Correlation: Normal EEGs, however, do not exclude epilepsy. Clinical correlation advised.
[2017-02-12] MEDS: Darbepoetin 100 MCG/0.5 ML SYRINGE SQ SCH (14:14)
--- NOTE | 2017-02-12 14:18 | Internal Med Progress Note ---
Date of Encounter: 02/12/17 Time of Encounter: 14:15 - Assessment and plan (1) Syncope Current Visit: Yes Status: Acute Assessment and plan: unclear if he passed out. as per the , he rolled his eyes and was unresposive for ~1 min. EKG does show PVCs, was started on BB, no PVCS on tele , cardio has been consulted. have ordered ECHO. follow results. hemodynamically stable. has been started on heparin drip for possible PE, he is high risk with h/o DVT and active cancer. will continue until INR becomes therapeutic, CT with contrast not done due to CKD and he could not complete V/Q scan. he is not hypoxic and has no chest pain, clinically PE less likely. EEG was ordered to r/o seizures, negative he has no prior h/o seizures, CT head is negative. TSH is high, will order free t3 and t4, but will not add thyroid medication for now, will need TFTs to be rechecked when stable Qualifiers: Syncope type: unspecified Qualified Code(s): R55 - Syncope and collapse (2) Hypomagnesemia Current Visit: No Status: Acute Assessment and plan: has been replaced (3) Tracheostomy in place Current Visit: Yes Status: Acute (4) ESRD (end stage renal disease) on dialysis Current Visit: Yes Status: Acute Assessment and plan: on peritoneal HD. renal on board. (5) Laryngeal cancer Current Visit: Yes Status: Acute Assessment and plan: recent neck CT shows clinical progression of the disease he follows at [facility] and he does not want any oncological intervention here at [place] HE has f/u at [facility] on March, he was supposed to start new chemo pill which he refused initially but is agreeable to start now. He wishes to reamain full code for now. - Time Spent With Patient 25 - 35 minutes - Subjective Interval history: seen at the bedside, appears much better but says he still has some headache cannot talk due to trach but looks comfortable today. denies chest pain or so. - Constitutional Vitals: Temp Pulse Resp BP Pulse Ox 98 F 74 18 133/82 97 02/12/17 11:38 02/12/17 11:38 02/12/17 11:38 02/12/17 11:38 02/12/17 08:10 General appearance: Present: A&O X 3 Exam: Gen.: patient is alert oriented Cardiac: Normal S1 S2 , no m/r/g chest: clear to auscultation abdomen soft nontender nondistended normal bowel sounds lower extremity: lax calf muscles neuro no focal deficit Internal Medicine: Result - Labs CBC & Chem 7: 02/12/17 02:44 02/12/17 02:44 Labs: Short CBC 02/12/17 Range/Units 02:44 WBC 12.6 H (4.3-11.1) K/mcL Hgb 9.5 L (12.9-16.9) g/dL Hct 30.1 L (37.5-50.1) % Plt Count 337 (140-400) K/mcL Neutrophils # 10.1 H (1.6-8.9) K/mcL BMP 02/12/17 02:44 Sodium 137 Potassium 4.0 Chloride 103 Carbon Dioxide 21 BUN 48 H Creatinine 3.02 H Glucose 107 H Calcium 8.8 Liver Function 02/11/17 Range/Units 14:47 Albumin 2.3 L (3.5-5.0) g/dL - ABG Interpretation ABG results: PT/INR, D-dimer PT 20.0 Seconds (9.4-12.1) H 02/12/17 02:44 Consult Discharge Plan - Plan Referrals: Figueroa Navarro DO [Primary Care Provider] - (Patient will call for an appointment per office)
[2017-02-12] MEDS: *HR* Warfarin 5 MG TABLET PO SCH (17:59)
[2017-02-13] MEDS: Perit. Dialysis with Dex 1.5 % 2,000 ML PERITONEAL SCH ×4 (02:13→20:53)
[2017-02-13] MEDS: *HR* OxyCODONE/APAP 10/325 TABLET PO PRN ×4 (02:17→20:53)
[2017-02-13] MEDS: Multivit/Ca/Min/Fe/FA 1 TAB TABLET PO SCH (07:58)
--- NOTE | 2017-02-13 08:23 | ECHO - Doppler Report ---
Limited Echocardiogram Name: Wilfredo Porras Date of Study: 02/12/2017 Date: 1950 Ht: 69.0 in Medical Record#: [id number] Age: 66 Wt: 200.0 lb Gender: Male BSA: 2.07 Order #: [id number] Location: [facility] Room #: [id number] Reading Physician: Ney Michael MD, [facility] Stone Layer: Cecily Penn Ordering Physician: Yenifer Macario CNP Primary Physician: Figueroa Navarro DO Indications: PVC'S, Syncope Impressions: Normal LV systolic function, LVEF 65%. Mild concentric left ventricular hypertrophy. Normal right ventricular size and function. Mildly dilated left atrium. Mildly dilated right atrium. The aortic root is mildly dilated, measuring 4.1cm at the sinuses of Valsalva. There is an echodensity on the anterior leaflet of the mitral valve concerning for a vegetation. Valvular function was not assessed on this limited study. Consider ordering a complete echocardiogram to evaluate valvular function. Left Ventricular Wall Motion: Rest Echo Findings All wall segments showed normal motion. Findings: Study Quality * Technically sub-optimal due to clinical status. Patient sitting up during exam. ECG Findings * Sinus rhythm with PACs. Left Ventricle * Normal LV systolic function, LVEF 65%. * Normal LV chamber size. * Mild concentric left ventricular hypertrophy. Right Ventricle * Normal right ventricular size and function. Left Atrium * Mildly dilated left atrium. Right Atrium * Mildly dilated right atrium. Mitral Valve * Moderate mitral annular calcification * Mildly thickened mitral valve leaflets. * There is an echodensity on the anterior leaflet of the mitral valve concerning for a vegetation. Aorta * The aortic root is mildly dilated, measuring 4.1cm at the sinuses of Valsalva. Pericardium * There is no pericardial effusion present. IVC * The IVC is not well evaluated. Appears mildly dilated. History 03/23/2016 a Previous Echo was performed. Measurements: BP: 133/ 82 2D Normal Values RVIDd: 3.30 cm IVSd: 1.20 cm 0.6 - 1.0 cm LVIDd: 4.90 cm 3.7 - 5.6 cm LVPWd: 1.20 cm 0.6 - 1.1 cm LVIDs: 3.20 cm 1.5 - 3.6 cm AO: 4.10 cm < 4.0 cm %FS: 34.70 cm >25 % LA volume: 72 Updated by Ney Michael MD, FACC on 02/13/2017 8:18:05 AM electronically signed on 02/13/2017 8:18:41 AM with status of Final Wall Motion Murphy: 1=Normal, 2=Hypokinesis, 3=Akinesis, 4=Dyskinesis, 5=Aneurysmal, 6=Hyperkinetic, X=Not Visualized (Blank)=Missing
[2017-02-13 09:04] LABS: INR 1.5; Prothrombin Time 16.8 Seconds (9.4-12.1)
[2017-02-13 09:07] LABS: Activated Partial Thrombo Time 61.1 Seconds (26.0-36.0)
--- NOTE | 2017-02-13 10:07 | Cardiology Progress Note ---
Date of Encounter: 02/13/17 Time of Encounter: 10:02 Assessment and Plan (1) Syncope Current Visit: Yes Status: Acute Reported syncopal episode x2 during peritoneal dialysis witnessed by . No recurrent episodes. May be secondary to hypotension during peritoneal dialysis. TTE-EF 65%, mild concentric LVH, mildly dilated bilateral atrium, mildly dilated aortic root at 4.1cm, echodensity seen on anterior leaflet of mitral valve, possible vegitation. Full echocardiogram for further evaluation recommended. Not a good candidate for MERLIN. Echo ordered. He is afebrile. Denies chills. WBC mildly elevated. 24 hour Telemetry review shows SR with PAC and occasional PVC. Occasional multifocal scott seen. Metoprolol was started for PVC. Orthostatic vitals negative. EEG was negative for seizures. Carotid US pending. Primary team started heparin gtt d/t concern for possible PE. He cannot undergo CT d/t CKD. He is on coumadin for DVT and was subtherapeutic on INR. We will follow echocardiogram with you. Qualifiers: Syncope type: unspecified Qualified Code(s): R55 - Syncope and collapse Discussion w patient/family: The assessment and plan as outlined above was discussed with the patient and/or family members who expressed understanding and agreement. All questions were answered. Thank you for involving us in the care of your patient. Please call with any questions. Subjective Principal diagnosis: syncope Interval history: No new events overnight. reports pt was coughing up yellow sputum yesterday. He denies fever or chills. Objective Vital Signs, Last 4 Hours Temp Pulse Resp BP Pulse Ox 02/13/17 08:06 98.5 F 85 18 177/75 97 General: Conversant, No Apparent Distress HEENT: Atraumatic, Normocephaly, Mucus Membranes Moist Neck: No JVD, Normal carotid pulses Cardiac: Reg Rate and Rhythm, Normal S1 and S2, No Murmur Lungs: Normal Breath Sounds, No Wheeze, Rales, Rhonchi, Other (diminished bases) Neuro: Alert and responsive, No focal deficits noted Abdomen: Soft, Non-Tender Skin: No rashes noted on visualized skin Musculoskeletal: No Chest Wall Tenderness Extremities: No Clubbing, No Cyanosis, Normal Pulses, Other (Trace BLE edema. ) Results 02/12/17 02:44 02/12/17 02:44 Lab Results 02/12/17 02/12/17 02/13/17 02:44 22:05 01:34 INR APTT > 360.0 H* D 33.3 D Magnesium 1.9 TSH 80.111 H 02/13/17 08:26 INR 1.5 APTT 61.1 H D Magnesium TSH - Imaging and Cardiology Chest Xray: report reviewed Echo: report reviewed (EF 65%, mild concentric LVH, mildly dilated bilateral atrium, mildly dilated aortic root at 4.1cm, echodensity seen on anterior leaflet of mitral valve.) Other Results: EEG -normal - EKG Interpretation EKG results cardiology: other (Telemetry review shows SR with PAC and occasional PVC. Occasional multifocal scott seen.) Consult Discharge Plan - Plan Referrals: Figueroa Navarro DO [Primary Care Provider] - (Patient will call for an appointment per office)
[2017-02-13] MEDS: Heparin 25,000 UNIT/500 ML D5W 25,000 UNIT/500 ML MLS IVC SCH (10:48)
[2017-02-13] MEDS: Bacitracin/PolymyxinB OINT 14.17 GM TUBE TP SCH ×2 (13:22→21:28)
[2017-02-13] MEDS: *HR* OxyCODONE Immed Rel 5 MG TABLET PO PRN (14:02)
--- NOTE | 2017-02-13 15:26 | Carotid Imaging Report ---
Carotid Duplex Patient Name:Wilfredo Porras Order Number:[id number] Procedure Date:02/12/2017 Date:9Age:66 yrs Gender:Male Lt BP:133 / 82 mmHg Rt.BP:133 / 82 mmHgHeart Rate: Location:[facility] Room #: 2A35 Investment Manager:Cecily Penn Referring MD:Yenifer Macario [employer] TEACHER button tacker:Figueroa Navarro DO Reading MD:Arcenio Cali MD , FACS Primary Indications:syncope Impressions: Findings: Bilateral mid ICA has a severe, 60-79% stenosis. Recommendations: Risk Factor Modification, Suggest clinical correlation, and Follow up exam 6 months. After imaging the patient returned to their room. Findings Carotid Duplex: Right: The right proximal common carotid artery has a PSV of 110 cm/s and a EDV of 13 cm/s. The right mid common carotid artery has a PSV of 112 cm/s and a EDV of 17 cm/s. The right distal common carotid artery has a PSV of 101 cm/s and a EDV of 18 cm/s. The right bifurcation has a PSV of 90 cm/s and a EDV of 20 cm/s. There is 60-79% stenosis in the right proximal internal carotid artery with a PSV of 215 cm/s and a EDV of 44 cm/s. There is 60-79% stenosis in the right mid internal carotid artery with a PSV of 257 cm/s and a EDV of 58 cm/s. There is 40-59% stenosis in the right distal internal carotid artery with a PSV of 223 cm/s and a EDV of 36 cm/s. The right eca has a PSV of 119 cm/s and a EDV of 13 cm/s. The right vertebral artery has a PSV of 39 cm/s and a EDV of 11 cm/s. Left: The left proximal common carotid artery has a PSV of 92 cm/s and a EDV of 13 cm/s. The left mid common carotid artery has a PSV of 90 cm/s and a EDV of 8 cm/s. The left distal common carotid artery has a PSV of 80 cm/s and a EDV of 9 cm/s. The left bifurcation has a PSV of 54 cm/s and a EDV of 8 cm/s. There is 40-59% stenosis in the left proximal internal carotid artery with a PSV of 184 cm/s and a EDV of 45 cm/s. There is 60-79% stenosis in the left mid internal carotid artery with a PSV of 332 cm/s and a EDV of 57 cm/s. There is 40-59% stenosis in the left distal internal carotid artery with a PSV of 163 cm/s and a EDV of 26 cm/s. The left eca has a PSV of 93 cm/s and a EDV of 11 cm/s. The left vertebral artery has a PSV of 66 cm/s and a EDV of 7 cm/s. Prior Study: No prior study available for comparison. Carotid Results Right PSV EDV Assessment Proximal CCA 110 13 Normal Mid CCA 112 17 Normal Distal CCA 101 18 Normal Bifurcation 90 20 Normal Proximal ICA 215 44 60-79% stenosis Mid ICA 257 58 60-79% stenosis Distal ICA 223 36 40-59% stenosis ECA 119 13 Normal Vertebral Artery 39 11 Normal Left PSV EDV Assessment Proximal CCA 92 13 Normal Mid CCA 90 8 Normal Distal CCA 80 9 Normal Bifurcation 54 8 Normal Proximal ICA 184 45 40-59% stenosis Mid ICA 332 57 60-79% stenosis Distal ICA 163 26 40-59% stenosis ECA 93 11 Normal Vertebral Artery 66 7 Normal Ratio's Right ICA/CCA Ratio: 2.29 ICA/CCA Values: 257/112 Left ICA/CCA Ratio: 3.69 ICA/CCA Values: 332/90 Updated by Arcenio Cali MD, FACS on 02/13/2017 3:20:04 PM Arcenio Cali MD electronically signed on 02/13/2017 3:20:32 PM with status of Final
--- NOTE | 2017-02-13 17:09 | Nephrology Progress Note ---
Date of Encounter: 02/13/17 Time of Encounter: 17:07 - Assessment and Plan (1) ESRD (end stage renal disease) on dialysis Current Visit: Yes Status: Chronic Cont PD 1.5% dextrose q6hr If edema were to worsens, then would add 2.5% if needed Will check cell count with diff, given the WBC elevation (2) Leukocytosis Current Visit: Yes Status: Acute See above Qualifiers: Leukocytosis type: other Qualified Code(s): D72.828 - Other elevated white blood cell count Subjective Principal diagnosis: syncope Interval history: pt was s/e earlier today/this AM. His was at bedside. He did not report any N/V/D or abd pain. He denied any cloudiness or fibrin in the PD effluent. Objective - Vital Signs Vital signs: Vital Signs Temp Pulse Resp BP Pulse Ox 02/13/17 17:01 98.2 F 77 18 132/70 97 02/13/17 08:06 98.5 F 85 18 177/75 97 02/13/17 04:08 98.8 F 84 16 148/62 99 02/13/17 00:11 99.3 F 85 16 153/74 99 02/12/17 20:58 98.4 F 81 18 146/71 99 Intake and Output 02/13/17 02/13/17 02/13/17 07:59 15:59 23:59 Intake Total 0 / 0 695 / 695 Output Total 550 / 550 775 / 775 Balance -550 / -550 -80 / -80 Intake: IV Fluids 0 / 0 575 / 575 Heparin 25,000 UNIT/500 0 / 0 575 / 575 ML D5W 25,000 unit In 500 ml @ 11.6 UNIT/KG/HR 19. 994 mls/hr IVC .Q24H [facility] Rx#:[id number] Oral 0 / 0 120 / 120 Output: Urine 550 / 550 775 / 775 Other: Meal Lunch Percent of Meal Consumed 70% Total Peritoneal Dialysis 400 Output Weight 90.4 kg Patient Weight 02/13/17 23:59 Weight 90.4 kg - General Appearance General appearance: Present: well-developed, well-nourished, appears started age EENT: Present: PERRL, mucous membranes moist Additional Comments: previous scars noted Respiratory: Present: clear Cardiology: Present: edema (trace noted b/l), regular rate, normal S1, normal S2 Dialysis Vascular Access: Arteriovenous Fistula thrill: Yes bruit: Yes Additional Comments: Abd PD catheter with dressing C/D/I Gastrointestinal: Present: normoactive bowel sounds, no tenderness, no guarding Integumentary: Present: no rash, warm and dry Neurologic: Present: no focal deficit, no asterixis, alert and oriented x3 Additional Comments: Unable to impart loud vocalizations Musculoskeletal: Present: no deformities, no erythema, no cyanosis Psychiatric: Present: mood/affect appropriate, cooperative - Lab 02/12/17 02:44 02/12/17 02:44 Most recent lab results Calcium 8.8 mg/dL (8.6-10.8) 02/12/17 02:44 Phosphorus 3.7 mg/dL (2.3-4.7) 02/11/17 14:47 Magnesium 1.9 mg/dL (1.6-2.6) 02/12/17 02:44 Consult Discharge Plan - Plan Referrals: Figueroa Navarro DO [Primary Care Provider] - (Patient will call for an appointment per office)
[2017-02-13] MEDS ORDERED: *HR* Warfarin 7.5 MG TABLET PO SCH (18:00)
--- NOTE | 2017-02-13 21:01 | Vascular/Endovasc Consult Note ---
Date of Encounter: 02/13/17 Time of Encounter: 20:58 Assessment and Plan (1) Carotid stenosis, bilateral Current Visit: Yes Status: Chronic The patient demonstrates bilateral carotid artery disease by duplex scanning. The degree of stenosis is 60-79% by our criteria. There appears to be no acute thrombus in the vessel or dissection. I doubt that the carotid artery disease as the cause of his 3 syncopal episodes. I reviewed this with the patient and his . I suggested follow-up scanning of the carotid artery in 6 months. I do not recommend angiography at this time. - History of Present Illness Consult date: 02/13/17 Consult reason: Syncope/abnormal carotid duplex scan Chief complaint: Syncope History of present illness: Mr. Porras is a 66 year old male Who was admitted on Sunday after 2 episodes of syncope while at home. The patient then had a third episode on Sunday while here at the hospital. These episodes last only 30-60 seconds. The patient does realize after they occur that he has had a syncopal episode. He denies any previous similar problems. He has no residual effect or post ictal issues. He did have one episode which was a second episode on Sunday when he lost bladder continence. He had a carotid duplex scan performed which demonstrates a 6079% stenosis bilaterally. Of note he is status post laryngeal resection with a permanent tracheostomy. He is also status post radiation therapy of 35 treatments to his left neck. The patient does not recall any previous carotid duplex scans. The patient does not have a history of previous strokes or TIAs. Past Med Surg Social Fam HX - Past Medical History Medical history: cancer, dialysis, hypertension, renal disease, thyroid disease Psychiatric history: no psych history - Past Surgical History Surgical History: cancer surgery, cataract, cholecystectomy, other (status post total laryngectomy) - Social History Smoking Status: Former smoker Smokeless Tobacco Status: No Alcohol use: none Drug use: none - Family History Mother History Unknown: Yes Adopted: No Family Member Ethnicity: Non- Living Status: Hx Family Cardiac Disorders: No Hx Family Respiratory Disorders: No Hx Family Cancer: No Hx Family GI Disorders: No Hx Family Endocrine Disorder: No Hx Family Neuromuscular Disorders: No Hx Family Neurologic Disorders: Yes Hx Family HEENT Disorders: No Hx Family Autoimmune Disorders: No Brother History Unknown: Yes Hx Family Cardiac Disorders: Yes (Hypertension) Hx Family Cancer: Yes (colon and prostate) Medications and Allergies Ferrous Sulfate 325 mg PO BID 06/23/15 [History] Multivits,Ca,Min/Iron/FA/Lycop [Centrum Men's Tablet] 1 tab PO DAILY 06/23/15 [ History] Bacitracin/PolymyxinB OINT [Polysporin] 1 appl TP BID tube 03/28/16 [Rx] Calcium Carbonate [Tums] 500 mg PO TID 02/10/17 [History] Levothyroxine [Synthroid] 100 mcg PO DAILY 02/10/17 [History] Nut.tx.impaired Renal Fxn,Soy [Nepro Carb Steady] 1 each GTUBE AD 02/10/17 [ History] OxyCODONE Immed Rel [Roxicodone 5 MG] 5 - 10 mg PO Q4H PRN 02/10/17 [History] Warfarin [Coumadin] 5 mg PO SUMOWEFR 02/10/17 [History] Warfarin [Coumadin] 7.5 mg PO TUTHSA 02/10/17 [History] Allergies diazepam Allergy (Intermediate, Verified 01/03/16 14:39) Agitated Zolpidem [From Ambien] Adverse Reaction (Verified 01/03/16 14:39) Hallucinating All Systems Review: A 10-system review of systems was performed and is negative for pertinent findings except as documented above in the HPI. Exam Vital Signs, Last 4 Hours Temp Pulse Resp BP Pulse Ox 02/13/17 17:01 98.2 F 77 18 132/70 97 General: Present: No Apparent Distress HEENT: Present: Other (Patient has facial symmetry. He is status post previous radical neck dissection and has a permanent tracheostomy. This is a minimally effective at speech.) Consult Discharge Plan - Plan Referrals: Figueroa Navarro DO [Primary Care Provider] - (Patient will call for an appointment per office)
[2017-02-14] MEDS: Perit. Dialysis with Dex 1.5 % 2,000 ML PERITONEAL SCH ×4 (02:05→20:21)
[2017-02-14] MEDS: Ondansetron 4 MG/2 ML VIAL IV PRN ×3 (02:05→23:07)
[2017-02-14] MEDS: *HR* OxyCODONE/APAP 10/325 TABLET PO PRN ×4 (02:05→21:21)
[2017-02-14 05:59] LABS: Basophils % 0.3 %; Eosinophils # 0.1 K/mcL (0.0-0.6); Eosinophils % 1.1 %; Hematocrit 23.3 % (37.5-50.1); Immature Granulocytes % 2.2 % (0-4); Lymphocytes # 1.1 K/mcL (0.6-4.6); Mean Corpuscular HGB Conc 31.8 g/dL (31.6-35.5); Mean Corpuscular Hemoglobin 31.5 pg (28.0-33.3); Mean Corpuscular Volume 99.1 fL (83.0-100.0); Mean Platelet Volume 11.6 fL (9.4-12.4); Monocytes # 1.1 K/mcL (0.0-1.3); Monocytes % 8.5 %; Neutrophils # 10.5 K/mcL (1.6-8.9); Platelet Count 278 K/mcL (140-400); Red Blood Count 2.35 M/mcL (4.19-5.50); Red Cell Distribution Width 14.6 % (11.5-14.5); Segmented Neutrophils % 79.9 %
[2017-02-14 06:03] LABS: Hemoglobin 7.4 g/dL (12.9-16.9)
[2017-02-14 06:09] LABS: Calcium 8.3 mg/dL (8.6-10.8); Potassium 3.6 mEq/L (3.5-4.5)
--- NOTE | 2017-02-14 08:49 | Cardiology Progress Note ---
Date of Encounter: 02/14/17 Time of Encounter: 08:44 Assessment and Plan (1) Syncope Current Visit: Yes Status: Acute Reported syncopal episode x2 during peritoneal dialysis witnessed by . No recurrent episodes. May be secondary to hypotension during peritoneal dialysis. Currently receiving peritoneal dialysis and c/o lightheadedness, dizziness, nausea and vomiting. B/p currently stable. No arrhythmias seen. Also had nausea and vomiting through the night. TTE-EF 65%, mild concentric LVH, mildly dilated bilateral atrium, mildly dilated aortic root at 4.1cm, echodensity seen on anterior leaflet of mitral valve, possible vegetation. Full echocardiogram for further evaluation recommended. Not a good candidate for MERLIN. Echo ordered. He is afebrile. Denies chills. WBC mildly elevated. 24 hour Telemetry review shows SR with PAC and occasional PVC. Occasional multifocal scott seen.Avg HR 68. Metoprolol was started for PVC. Orthostatic vitals negative. EEG was negative for seizures. Carotid US showed bilateral 60-70% stenosis. Vascular surgery consulted. Syncope likely not caused by stenosis per vascular. Primary team started heparin gtt d/t concern for possible PE. He cannot undergo CT d/t CKD. He is on coumadin for DVT and was subtherapeutic on INR. We will follow echocardiogram with you. Qualifiers: Syncope type: unspecified Qualified Code(s): R55 - Syncope and collapse (2) Anemia Current Visit: No Status: Chronic Acute on chronic anemia. Hgb 7.4 this morning. C/o nausea and vomiting. Emesis is a ocasio to brown color per nursing staff. Occult stool ordered. Recommend serial hgb. B/p stable. Recommendations for anemia per primary team. Qualifiers: Anemia type: other cause Other causes of anemia: other cause, not classified Qualified Code(s): D64.89 - Other specified anemias (3) Carotid stenosis Current Visit: Yes Status: Acute Bilateral carotid stenosis at 60-79%. Vascular surgery consulted. Symptoms likely not d/t carotid stenosis per vascular surgery. F/u US/ angiogram in 6 mo. Qualifiers: Laterality: bilateral Qualified Code(s): I65.23 - Occlusion and stenosis of bilateral carotid arteries Discussion w patient/family: The assessment and plan as outlined above was discussed with the patient and/or family members who expressed understanding and agreement. All questions were answered. Thank you for involving us in the care of your patient. Please call with any questions. Subjective Principal diagnosis: syncope Interval history: No new events overnight. Objective Vital Signs, Last 4 Hours Temp Pulse Resp BP Pulse Ox 02/14/17 07:47 99.5 F 107 20 123/70 100 02/14/17 05:30 98.5 F 101 18 124/62 95 General: Conversant, No Apparent Distress, Other (Nonverbal) HEENT: Atraumatic, Normocephaly, Mucus Membranes Moist Neck: No JVD, Normal carotid pulses, Other (trach intact, moist cough) Cardiac: Reg Rate and Rhythm, Normal S1 and S2, No Murmur Lungs: Normal Breath Sounds, No Wheeze, Rales, Rhonchi Neuro: Alert and responsive, No focal deficits noted Abdomen: Soft, Non-Tender Skin: No rashes noted on visualized skin Musculoskeletal: No Chest Wall Tenderness Extremities: No Clubbing, No Cyanosis, No Edema, Normal Pulses Results 02/14/17 04:27 02/14/17 04:27 Lab Results 02/14/17 02/14/17 04:27 04:27 WBC 13.2 H Hgb 7.4 L D Hct 23.3 L Plt Count 278 Sodium 138 Potassium 3.6 Chloride 100 Carbon Dioxide 26 BUN 64 H D Creatinine 2.84 H Glucose 125 H Calcium 8.3 L - Imaging and Cardiology Echo: pending Consult Discharge Plan - Plan Referrals: Figueroa Navarro DO [Primary Care Provider] - (Patient will call for an appointment per office)
[2017-02-14] MEDS: Multivit/Ca/Min/Fe/FA 1 TAB TABLET PO SCH (09:23)
[2017-02-14 09:53] LABS: INR 2.2; Prothrombin Time 24.7 Seconds (9.4-12.1)
[2017-02-14] MEDS: Heparin 25,000 UNIT/500 ML D5W 25,000 UNIT/500 ML MLS IVC SCH (10:26)
--- NOTE | 2017-02-14 10:28 | ECHO - Doppler Report ---
Echocardiogram Name: Wilfredo Porras Date of Study: 02/13/2017 Date: 1950 Ht: 69.0 in Medical Record#: [id number] Age: 66 Wt: 199.0 lb Gender: Male BSA: 2.06 Order #: [id number] Location: [facility] Room #: [id number] Reading Physician: Jcoelyne Amaral DO Payroll Administrative Assistant: Ara Coles Ordering Physician: Phong Bledsoe CNP Primary Physician: Figueroa Navarro DO Indications: Possible vegetation on MV Impressions: LVEF 65%. Mild concentric hypertrophy of the left ventricle with basal septal hypertrophy. Normal right ventricular size and function. There is a small echodensity attached to the anterior mitral valve leaflet concerning for vegetation. Mild mitral regurgitation. No pulmonary hypertension. Dilated aortic root and ascending aorta. Findings communicated to ordering clinician. Left Ventricular Wall Motion: Rest Echo Findings All wall segments showed normal motion. Findings: Study Quality * Technically sub-optimal due to COPD. ECG Findings * Normal sinus rhythm. Mitral Valve * Mild mitral regurgitation. * Mild mitral annular calcification * There is a mobile echodensity possibly attached to AMVL. * No mitral stenosis. Aortic Valve * No aortic regurgitation. * Mildly calcified aortic valve leaflets. * No aortic stenosis. * Trileaflet aortic valve. Aorta * Dilated aortic root measuring 4.1 cm. * Dilated ascending aorta, measuring 4.5 cm. Tricuspid Valve * Trace tricuspid regurgitation. * Normal tricuspid valve structure. * Estimated RA pressure is 3 mmHg. * Estimated RVSP is 30 mmHg. * No pulmonary hypertension. Pulmonic Valve * Pulmonic valve is not well visualized. * No pulmonic stenosis. * Trace pulmonic regurgitation. Pulmonary Artery * Pulmonary artery not well visualized. Right Ventricle * Normal right ventricular structure and function. Left Ventricle * Mild left ventricular diastolic dysfunction. * Basal septal hypertrophy. No LVOTO. * Mild concentric left ventricular hypertrophy. * LVEF 65%. Right Atrium * Normal right atrial size. Interatrial Septum * No evidence of PFO by color Doppler. IVC * Normal IVC dimensions and inspiratory collapse. Pericardium * There is no pericardial effusion present. Left Atrium * Moderately dilated left atrium. History Hypertension Years 50 Packs 1 02/12/2017 a Previous Echo was performed. Measurements: BP: 132/ 70 2D Normal Values IVSd: 2.10 cm 0.6 - 1.0 cm LVIDd: 3.90 cm 3.7 - 5.6 cm LVPWd: 1.10 cm 0.6 - 1.1 cm LVIDs: 2.40 cm 1.5 - 3.6 cm AO: 3.70 cm < 4.0 cm %FS: 38.50 cm >25 % LA volume: Mitral Valve Peak E:1.01 m/sec Peak A:1.20 m/sec E/A Ratio:0.8 Peak E' Lat Jose:7.7 cm/s Peak E' Med Jose:5.36 cm/s E/E' Lat Ratio:13.1 E/E' Med Ratio:18.8 Tricuspid Valve TV Regurg Peak Grad: 27.00mmHg TV Regurg Peak Jose: 2.61m/sec Updated by Jocelyne Amaral on 02/14/2017 10:19:58 AM electronically signed on 02/14/2017 10:23:57 AM with status of Final Wall Motion Murphy: 1=Normal, 2=Hypokinesis, 3=Akinesis, 4=Dyskinesis, 5=Aneurysmal, 6=Hyperkinetic, X=Not Visualized (Blank)=Missing
--- NOTE | 2017-02-14 10:53 | Nephrology Progress Note ---
Date of Encounter: 02/14/17 Time of Encounter: 10:50 - Assessment and Plan (1) ESRD (end stage renal disease) on dialysis Current Visit: Yes Status: Chronic Cont PD 1.5% dextrose q6hr. No signs of Peritonitis. If edema were to worsens, then would add 2.5% prn Constipation can affect PD, by delaying emptying of an exchange. See below. Continue to follow a renal protective strategy. Thank you. (2) Leukocytosis Current Visit: Yes Status: Acute See above Qualifiers: Leukocytosis type: other Qualified Code(s): D72.828 - Other elevated white blood cell count (3) Constipation Current Visit: Yes Status: Acute Agree with Miralax, but he continues to have constipation and now associated with nausea this AM. I recommend a more potent laxative and/or enema. Qualifiers: Constipation type: slow transit constipation Qualified Code(s): K59.01 - Slow transit constipation (4) Syncope Current Visit: Yes Status: Acute As per primary. Qualifiers: Syncope type: unspecified Qualified Code(s): R55 - Syncope and collapse Subjective Principal diagnosis: syncope Interval history: pt was s/e earlier today/this AM. His was at bedside. He denied any cloudiness or fibrin in the PD effluent. Evaluated by cardio and CTS with carotid stenosis. Experiencing constipation and worsening nausea since yesterday Objective - Vital Signs Vital signs: Vital Signs Temp Pulse Resp BP Pulse Ox 02/14/17 07:47 99.5 F 107 20 123/70 100 02/14/17 05:30 98.5 F 101 18 124/62 95 02/14/17 02:05 98.9 F 99 18 119/59 94 02/13/17 21:09 98.3 F 90 18 151/67 02/13/17 20:59 98.3 F 90 16 151/67 93 02/13/17 17:01 98.2 F 77 18 132/70 97 Intake and Output 02/13/17 02/14/17 02/14/17 23:59 07:59 15:59 Intake Total 425 / 425 Output Total 275 / 275 Balance -275 / -275 425 / 425 Intake: IV Fluids 425 / 425 Heparin 25,000 UNIT/500 425 / 425 ML D5W 25,000 unit In 500 ml @ 11.6 UNIT/KG/HR 19. 994 mls/hr IVC .Q24H [facility] Rx#:[id number] Output: Urine 275 / 275 Other: Total Peritoneal Dialysis 400 200 Output Weight 89.5 kg 89.42 kg Patient Weight 02/14/17 23:59 Weight 89.42 kg - General Appearance General appearance: Present: well-developed, well-nourished, appears started age EENT: Present: PERRL, mucous membranes moist Additional Comments: neck scars noted Neck: Present: supple Respiratory: Present: clear Cardiology: Present: edema (trace pretibial pitting edema b/l), regular rate, regular rhythm, normal S1, normal S2 Dialysis Vascular Access: Arteriovenous Fistula thrill: Yes bruit: Yes Additional Comments: PD catheter without erythema. Undergoing an exchange during my exam. Gastrointestinal: Present: normoactive bowel sounds, no tenderness, no guarding , distended Integumentary: Present: no rash, warm and dry Neurologic: Present: no focal deficit, no asterixis, alert and oriented x3 Musculoskeletal: Present: no deformities, no erythema, no cyanosis Psychiatric: Present: mood/affect appropriate, cooperative - Lab 02/14/17 04:27 02/14/17 04:27 Most recent lab results Calcium 8.3 mg/dL (8.6-10.8) L 02/14/17 04:27 Phosphorus 3.7 mg/dL (2.3-4.7) 02/11/17 14:47 Magnesium 1.9 mg/dL (1.6-2.6) 02/12/17 02:44 Consult Discharge Plan - Plan Referrals: Figueroa Navarro DO [Primary Care Provider] - (Patient will call for an appointment per office)
[2017-02-14] MEDS ORDERED: Milk and Molasses Enema 200 ML RC ONE (10:55)
[2017-02-14 12:31] LABS: Appearance of Body Fluid Clear (Clear); Volume of Body Fluid 23 mL
--- NOTE | 2017-02-14 16:30 | Neurology - Consult Note ---
Date of Encounter: 02/14/17 Time of Encounter: 16:23 Assessment and Plan (1) Syncope Current Visit: Yes Status: Acute Patient has developed few episodes of syncopal episodes lasting less than one minute in duration, both in standing and sitting position, not associated with motor activity convulsion or tongue biting but one episodes was associated with urinary incontinence. Patient does have significant medical conditions wth ESRD on hemodialysis and acute blood loss, on top of bilateral carotid artery stenosis, it would be more likely that the syncopal episodes could be secondary to cerebral hypoperfusion, in which optimization of bp and hydration still the treatment. It is my opinion that these episodes are unlikely epileptic seizures. Other possible causes would include vertebrobasilar insufficiency which would require antiplatelet therapy and the patient is currently on coumadin, therefore further MRA of brain testing would likely not change and management. I offered empirical treatment for seizures but patient declinded and i agree with the decision. Next step would be to obtain prolonged ambulatory EEG recording as an outpatient. Please continue medical and supportive care. Thank you for the consultation Qualifiers: Syncope type: unspecified Qualified Code(s): R55 - Syncope and collapse History of Present Illness Chief complaint: syncopal episodes HPI: Mr. Porras is a 66 year old male with PMH significant for HTN, anemia, CKD on hemodialysis, history of recurrent syncope who is consulted regarding recurrent episodes of passing out spells. Patient interviewed in the presence of his , who provided the history. Patient has had few episodes of passing out spells lately. He also had one episode of such spell on Sunday. mentions that few years ago when he was not on Hemodialysis he developed 2-3 episodes and he had extensive work up and no significant causes were identified. Recently, he had few similar episodes, the first one was not witnessed by his . Reportedly he was standing up and passed out. The other few episodes can occur in sitting position. his eyes rolled back and he would slowly collapse, looks like he could hear his but would not respond. The spells last no more than one minute and they were not associated with motor activity. One episode was associated with urinary incontinence. No tongue biting was reported. Does ahve bilateral carotid artery stenosis of 60-79%. CT of head showed no acute intracranial abnormality. During the episodes, his bp could be around 120/50-60 range. EEG was reported normal study. Past Med Surg Social Fam HX - Past Medical History Medical history: cancer, dialysis, hypertension, renal disease, thyroid disease Psychiatric history: no psych history - Past Surgical History Surgical History: cancer surgery, cataract, cholecystectomy, other (status post total laryngectomy) - Social History Smoking Status: Former smoker Smokeless Tobacco Status: No Alcohol use: none Drug use: none - Family History Mother History Unknown: Yes Adopted: No Family Member Ethnicity: Non- Living Status: Hx Family Cardiac Disorders: No Hx Family Respiratory Disorders: No Hx Family Cancer: No Hx Family GI Disorders: No Hx Family Endocrine Disorder: No Hx Family Neuromuscular Disorders: No Hx Family Neurologic Disorders: Yes Hx Family HEENT Disorders: No Hx Family Autoimmune Disorders: No Brother History Unknown: Yes Hx Family Cardiac Disorders: Yes (Hypertension) Hx Family Cancer: Yes (colon and prostate) Medications and Allergies Ferrous Sulfate 325 mg PO BID 06/23/15 [History] Multivits,Ca,Min/Iron/FA/Lycop [Centrum Men's Tablet] 1 tab PO DAILY 06/23/15 [ History] Bacitracin/PolymyxinB OINT [Polysporin] 1 appl TP BID tube 03/28/16 [Rx] Calcium Carbonate [Tums] 500 mg PO TID 02/10/17 [History] Levothyroxine [Synthroid] 100 mcg PO DAILY 02/10/17 [History] Nut.tx.impaired Renal Fxn,Soy [Nepro Carb Steady] 1 each GTUBE AD 02/10/17 [ History] OxyCODONE Immed Rel [Roxicodone 5 MG] 5 - 10 mg PO Q4H PRN 02/10/17 [History] Warfarin [Coumadin] 5 mg PO SUMOWEFR 02/10/17 [History] Warfarin [Coumadin] 7.5 mg PO TUTHSA 02/10/17 [History] Allergies diazepam Allergy (Intermediate, Verified 01/03/16 14:39) Agitated Zolpidem [From Ambien] Adverse Reaction (Verified 01/03/16 14:39) Hallucinating All Systems: A 10-system review of systems was performed and is negative for pertinent findings except as documented above in the HPI. Physical Examination - Vital Signs Vital Signs: Initial Vital Signs Temp Pulse Resp BP Pulse Ox 98.4 F 94 16 139/69 96 02/10/17 11:39 02/10/17 11:39 02/10/17 11:39 02/10/17 11:39 02/10/17 11:39 - Constitutional General appearance: comfortable - Neurologic Sensorimotor examination: intact Detailed motor examination: grossly full strength in all extremities Motor examination - right side: 03/16: deltoids, biceps, triceps, wrist flexion, wrist extension, cigar packer and picker, hip flexors, tibialis Anterior, quadriceps, toe extension (EHL), plantarflexion Motor examination - left side: 03/16: deltoids, biceps, triceps, wrist flexion, wrist extension, hip flexors, cigar packer and picker, quadriceps, tibialis Anterior, toe extension (EHL), plantarflexion Detailed sensory examination: intact Posture: other Reflexes: Biceps: 1+, Triceps: 1+, Brachioradialis: 1+, Patella: 1+, Achilles: 1 + Mental Status Examination: awake, alert, oriented to person, oriented to place, oriented to time, follows commands appropriately, answers questions appropriately, no agnosia, no aphasia, no aproxia Cranial nerve examination: PERRL, EOMI, visual chery intact, corneal reflexes brisk symmetrically, sensory to face intact, mastication intact, no facial asymmetry is present, no dysarthria, hearing is intact symmetrically, soft palate elevates bilaterally upon phonation, gag reflex intact, flexes SCM and trapezius muscles symmetrically with full power, tongue protrudes midline, no atrophy or facial fasiculations present Results - Laboratory Findings CBC and BMP: 02/14/17 04:27 02/14/17 04:27 Abnormal lab findings: Abnormal lab results WBC 13.2 K/mcL (4.3-11.1) H 02/14/17 04:27 RBC 2.35 M/mcL (4.19-5.50) L 02/14/17 04:27 Hgb 7.4 g/dL (12.9-16.9) L D 02/14/17 04:27 Hct 23.3 % (37.5-50.1) L 02/14/17 04:27 RDW 14.6 % (11.5-14.5) H 02/14/17 04:27 Neutrophils # 10.5 K/mcL (1.6-8.9) H 02/14/17 04:27 PT 24.7 Seconds (9.4-12.1) H 02/14/17 09:41 APTT 71.7 Seconds (26.0-36.0) H 02/13/17 14:54 BUN 64 mg/dL (8-26) H D 02/14/17 04:27 Creatinine 2.84 mg/dL (0.72-1.25) H 02/14/17 04:27 Est GFR ( Amer) 27 (> 60) L 02/14/17 04:27 Est GFR (Non-Af Amer) 22 (> 60) L 02/14/17 04:27 Glucose 125 mg/dL (70-99) H 02/14/17 04:27 POC Glucose 154 (58-89) H 02/11/17 10:38 Calculated Osmolality 306 (280-300) H 02/14/17 04:27 Calcium 8.3 mg/dL (8.6-10.8) L 02/14/17 04:27 Iron 57 mcg/dL (65-175) L 02/11/17 14:47 Transferrin 173 mg/dL (174-364) L 02/11/17 14:47 Ferritin 1242 ng/ml (22-275) H 02/11/17 14:47 Albumin 2.3 g/dL (3.5-5.0) L 02/11/17 14:47 TSH 80.111 mcIU/mL (0.350-4.840) H 02/12/17 02:44 Urine Protein >=300 mg/dL (Neg-Trace) H 02/10/17 19:25 Urine Blood Small (Negative) H 02/10/17 19:25 Ur Leukocyte Esterase Trace (Negative) H 02/10/17 19:25 Urine Microscopic WBC 30-50 per hpf (0-3) H 02/10/17 19:25 Ur Squamous Epith Cells Moderate per lpf (None-Few) H 02/10/17 19:25 Nasal Screen MRSA (PCR) Positive (Negative) A 02/12/17 21:00 Consult Discharge Plan - Plan Referrals: Colopy,Figueroa Blunt DO [Primary Care Provider] - (Patient will call for an appointment per office)
--- NOTE | 2017-02-14 17:30 | Internal Med Progress Note ---
Date of Encounter: 02/13/17 Time of Encounter: 12:45 - Assessment and plan (1) Syncope Current Visit: Yes Status: Acute Assessment and plan: Admitted with recurrent episodes of syncope and near syncope. Telemetry monitoring uneventful. Serial troponins not suggestive of ACS. Cardiology follow-up appreciated. Limited Echocardiogram shows preserved EF and possible density suggestive of vegetation on mitral valve leaflet. Recommend complete TTE. Patient is a poor candidate for [facility] due to underlying laryngeal cancer and tracheostomy. CT head done in the emergency room showed no acute abnormality. EEG has been done, not suggestive of seizure. Bilateral carotid Doppler reviewed, shows 60- 79% stenosis in bilateral mid ICA, will consult vascular surgery for further recommendations. Qualifiers: Syncope type: unspecified Qualified Code(s): R55 - Syncope and collapse (2) Tracheostomy in place Current Visit: Yes Status: Chronic (3) Hypothyroidism Current Visit: Yes Status: Chronic Assessment and plan: Continue home dose of levothyroxine. TSH noted to be elevated, we will check free T4 and free T3. Qualifiers: Hypothyroidism type: unspecified Qualified Code(s): E03.9 - Hypothyroidism , unspecified (4) ESRD (end stage renal disease) on dialysis Current Visit: Yes Status: Chronic Assessment and plan: Nephrology has been consulted for dialysis needs. Patient continues to receive regular peritoneal dialysis sessions while in the hospital. (5) Laryngeal cancer Current Visit: Yes Status: Chronic Assessment and plan: Patient follows with [facility]. (6) Carotid stenosis, bilateral Current Visit: Yes Status: Chronic Assessment and plan: Vascular surgery consulted, will follow-up recommendations. (7) Secondary hyperparathyroidism (of renal origin) Current Visit: Yes Status: Chronic - Subjective Interval history: Feels better. Unable to verbalize much information due to the presence of tracheostomy. History obtained from at bedside. Continues to have intermittent episodes of syncope and near syncope. No weakness seizure like activity. No chest pain, shortness of breath or dizziness. - Constitutional Vitals: Temp Pulse Resp BP Pulse Ox 98.3 F 88 18 117/67 95 02/14/17 16:01 02/14/17 16:01 02/14/17 16:01 02/14/17 16:01 02/14/17 16:01 General appearance: Present: A&O X 3 - Neck Neck exam general surgery: Present: supple, trachea midline. Absent: lymphadenopathy Additional comments: Tracheostomy in place. - Respiratory Respiratory exam: Present: CTAB. Absent: accessory muscle use, rales, rhonchi, wheezes - Cardiovascular Cardiovascular exam: Present: RRR, +S1, +S2. Absent: diastolic murmur, gallop, rubs, systolic murmur - GI/Abdominal GI/Abdominal exam: Present: normal bowel sounds, soft, no peritoneal signs. Absent: distended, tenderness - Extremities Exam Extremities exam: Present: full ROM, pedal edema, warm, radial pulses palpable and symetrical. Absent: calf tenderness, cyanotic - Neurological Exam Neurological exam: Present: CN II-XII intact, oriented X3, no focal deficits. Absent: pronater drift, facial droop, speech deficit Internal Medicine: Result - Labs CBC & Chem 7: 02/14/17 04:27 02/14/17 04:27 Labs: Short CBC 02/14/17 Range/Units 04:27 WBC 13.2 H (4.3-11.1) K/mcL Hgb 7.4 L D (12.9-16.9) g/dL Hct 23.3 L (37.5-50.1) % Plt Count 278 (140-400) K/mcL Neutrophils # 10.5 H (1.6-8.9) K/mcL BMP 02/14/17 04:27 Sodium 138 Potassium 3.6 Chloride 100 Carbon Dioxide 26 BUN 64 H D Creatinine 2.84 H Glucose 125 H Calcium 8.3 L - ABG Interpretation ABG results: PT/INR, D-dimer PT 24.7 Seconds (9.4-12.1) H 02/14/17 09:41 Consult Discharge Plan - Plan Referrals: Figueroa Navarro DO [Primary Care Provider] - (Patient will call for an appointment per office)
[2017-02-14] MEDS: *HR* Warfarin 5 MG TABLET PO SCH (17:45)
[2017-02-14] MEDS ORDERED: Vancomycin 1 EACH in D5% in Water 250 ML IVPB SCH (18:00)
[2017-02-14] MEDS ORDERED: 0.9 % Sodium Chloride 250 ML ONE (18:10)
[2017-02-14] MEDS ORDERED: Vancomycin 1,750 MG in D5% in Water 500 ML IVPB ONE (18:26)
[2017-02-14] MEDS: *HR* OxyCODONE Immed Rel 5 MG TABLET PO PRN (18:26)
[2017-02-14] MEDS ORDERED: Vancomycin 1,250 MG in D5% in Water 250 ML IVPB ONE (18:31)
[2017-02-14] MEDS: Bacitracin/PolymyxinB OINT 14.17 GM TUBE TP SCH ×2 (19:47→22:04)
[2017-02-15] MEDS ORDERED: 0.9 % Sodium Chloride 250 ML ONE (02:27)
[2017-02-15] MEDS: Perit. Dialysis with Dex 1.5 % 2,000 ML PERITONEAL SCH ×4 (02:42→20:09)
[2017-02-15] MEDS: *HR* OxyCODONE/APAP 10/325 TABLET PO PRN ×4 (02:42→20:12)
[2017-02-15] MEDS: Multivit/Ca/Min/Fe/FA 1 TAB TABLET PO SCH (08:03)
[2017-02-15] MEDS: Bacitracin/PolymyxinB OINT 14.17 GM TUBE TP SCH ×2 (08:04→20:13)
--- NOTE | 2017-02-15 08:21 | Nephrology Progress Note ---
Date of Encounter: 02/15/17 Time of Encounter: 08:21 - Assessment and Plan (1) ESRD (end stage renal disease) on dialysis Current Visit: Yes Status: Acute Continue PD treatments as prescribed Getting better exchanges now that patient has had a BM Needs renal diet Avoid nephrotoxins if possible (2) Syncope Current Visit: Yes Status: Acute per primary team Qualifiers: Syncope type: unspecified Qualified Code(s): R55 - Syncope and collapse (3) Laryngeal cancer Current Visit: Yes Status: Chronic (4) Anemia Current Visit: No Status: Chronic Yesterday hgb 7.5 Today's labs pending Received transfusion last night Positive stool occult blood Recommend GI workup Transfuse per parameters Goal hgb 10-11 Qualifiers: Anemia type: other cause Other causes of anemia: other cause, not classified Qualified Code(s): D64.89 - Other specified anemias Subjective Principal diagnosis: syncope Interval history: Patient seen and examined. at bedside. Denies any N/V/D. Had BM yesterday with positive occult blood. Received transfusion last night, today's labs pending. Objective - Vital Signs Vital signs: Vital Signs Temp Pulse Resp BP Pulse Ox 02/15/17 07:00 98.5 F 92 17 131/64 95 02/15/17 05:51 98.8 F 101 16 118/65 95 02/15/17 03:14 98.9 F 16 131/67 02/15/17 02:59 98.1 F 16 126/52 96 02/14/17 23:23 98.6 F 95 17 130/56 93 02/14/17 21:15 97.6 F 89 18 118/62 97 02/14/17 19:47 98.2 F 87 16 128/70 99 02/14/17 18:39 98.2 F 82 14 133/63 97 02/14/17 18:16 97.8 F 97 14 125/62 99 02/14/17 16:01 98.3 F 88 18 117/67 95 02/14/17 11:58 99.0 F 102 19 118/68 98 Intake and Output 02/14/17 02/15/17 02/15/17 23:59 07:59 15:59 Intake Total 450 / 450 75 / 75 Output Total 250 / 250 Balance 200 / 200 75 / 75 Intake: IV Fluids 100 / 100 Rocephin 2,000 MG In 100 / 100 Dextrose 5% (Minibag+) 100 ML 100 ML @ 200 mls/ hr IVPB Q12HR [facility] Rx#: [id number] Oral 0 / 0 Blood Product 350 / 350 75 / 75 Rbcs Leuko Poor As-1 350 / 350 Unit [id number] Rbcs Leuko Poor As-1 75 / 75 Unit [id number] Output: Urine 250 / 250 Other: Total Peritoneal Dialysis 200 Output Stool Consistency formed Stool Color Black Weight 90.8 kg - General Appearance General appearance: Present: well-developed, well-nourished, chronically ill EENT: Present: ATNC, hearing intact, vision intact Neck: Present: supple Respiratory: Present: clear (decreased) Cardiology: Present: no edema, normal S1, normal S2 Gastrointestinal: Present: no tenderness, no guarding Integumentary: Present: warm and dry Neurologic: Present: alert and oriented x3 Psychiatric: Present: mood/affect appropriate, cooperative - Lab 02/14/17 04:27 02/14/17 04:27 Most recent lab results Calcium 8.3 mg/dL (8.6-10.8) L 02/14/17 04:27 Phosphorus 3.7 mg/dL (2.3-4.7) 02/11/17 14:47 Magnesium 1.9 mg/dL (1.6-2.6) 02/12/17 02:44 Consult Discharge Plan - Plan Referrals: Figueroa Navarro DO [Primary Care Provider] - (Patient will call for an appointment per office)
[2017-02-15 08:39] LABS: Basophils % 0.3 %; Eosinophils # 0.2 K/mcL (0.0-0.6); Eosinophils % 1.3 %; Hematocrit 25.5 % (37.5-50.1); Hemoglobin 8.4 g/dL (12.9-16.9); Immature Granulocytes % 2.4 % (0-4); Lymphocytes # 1.1 K/mcL (0.6-4.6); Lymphocytes % 7.1 %; Mean Corpuscular HGB Conc 32.9 g/dL (31.6-35.5); Mean Corpuscular Hemoglobin 31.5 pg (28.0-33.3); Mean Corpuscular Volume 95.5 fL (83.0-100.0); Monocytes # 1.3 K/mcL (0.0-1.3); Monocytes % 8.3 %; Neutrophils # 12.6 K/mcL (1.6-8.9); Nucleated Red Blood Cells 0.2 /100 WBC (0); Platelet Count 275 K/mcL (140-400); Red Blood Count 2.67 M/mcL (4.19-5.50); Red Cell Distribution Width 16.2 % (11.5-14.5); Segmented Neutrophils % 80.6 %
[2017-02-15 08:41] LABS: INR 2.9; Prothrombin Time 32.4 Seconds (9.4-12.1)
--- NOTE | 2017-02-15 10:03 | Cardiology Progress Note ---
Date of Encounter: 02/15/17 Time of Encounter: 09:57 Assessment and Plan (1) Endocarditis Current Visit: Yes Status: Acute Echocardiogram shows small, mobile echodensity noted on the atrial side of the mitral valve. Noted pt had MRSA bacteremia in March 2016. Discussed with Dr. Strauss, recommended treatment for possible vegetation. ID consulted and blood cultures pending. Qualifiers: Endocarditis type: infective Infective endocarditis organism: unspecified organism Chronicity: subacute Qualified Code(s): I33.0 - Acute and subacute infective endocarditis (2) Wide-complex tachycardia Current Visit: Yes Status: Acute 13 beat run wide complex tachycardia, slightly irregular, few multi-focal scott seen in telemetry review. Potassium 3.7 and magnesium 1.5 today. Replace to keep potassium 4.0 and magnesium at 2.0 or greater. Increase metoprolol as tolerated. TTE shows normal LVEF. EF 65%, mild concentric LVH, basal septal hypertrophy. Small echodensity seen on anterior mitral valve leaflet, concern for vegitation. Mild MR. Mild pulmonary hypertension. Continue to monitor telemetry. (3) Syncope Current Visit: Yes Status: Acute Reported syncopal episode x2 during peritoneal dialysis witnessed by . No recurrent episodes. May be secondary to hypotension during peritoneal dialysis. CT head negative. TTE-EF 65%, mild concentric LVH, mildly dilated bilateral atrium, mildly dilated aortic root at 4.1cm, echodensity seen on anterior leaflet of mitral valve, possible vegetation. 24 hour Telemetry review shows SR with PAC and occasional PVC. Occasional multifocal scott seen. One 13 beat run of VT seen at 0335. Avg HR 68. Metoprolol was started for PVC/ NSVT. Increase metoprolol Orthostatic vitals negative. EEG was negative for seizures. Carotid US showed bilateral 60-70% stenosis. Vascular surgery consulted. Syncope likely not caused by stenosis per vascular. Continue to monitor telemetry. Qualifiers: Syncope type: unspecified Qualified Code(s): R55 - Syncope and collapse (4) Anemia Current Visit: No Status: Chronic Yesterday hgb 7.5 improved to 8.4 after 2 units PRBC. C/o recurrent N/V with dark brown emesis. Stool occult positive. Recommend GI evaluation. Qualifiers: Anemia type: other cause Other causes of anemia: other cause, not classified Qualified Code(s): D64.89 - Other specified anemias (5) Carotid stenosis Current Visit: Yes Status: Acute Bilateral carotid stenosis at 60-79%. Vascular surgery consulted. Symptoms likely not d/t carotid stenosis per vascular surgery. F/u US/ angiogram in 6 mo. Qualifiers: Laterality: bilateral Qualified Code(s): I65.23 - Occlusion and stenosis of bilateral carotid arteries Discussion w patient/family: The assessment and plan as outlined above was discussed with the patient and/or family members who expressed understanding and agreement. All questions were answered. Thank you for involving us in the care of your patient. Please call with any questions. Subjective Principal diagnosis: syncope Interval history: No new events overnight. Competed peritoneal dialysis this morning without symptoms. C/o dizziness yesterday. Continued to have n/v last night with dark brown emesis. Objective Vital Signs, Last 4 Hours Temp Pulse Resp BP Pulse Ox 02/15/17 07:00 98.5 F 92 17 131/64 95 General: Conversant, No Apparent Distress, Other (non-verbal, shakes head yes and no. ) HEENT: Atraumatic, Normocephaly, Mucus Membranes Moist Neck: No JVD, Normal carotid pulses Cardiac: Reg Rate and Rhythm, Normal S1 and S2, No Murmur Lungs: Normal Breath Sounds, No Wheeze, Rales, Rhonchi, Other (Trach in place. ) Neuro: Alert and responsive, No focal deficits noted Abdomen: Soft, Non-Tender, Other (Peritoneal catheter intact with clear straw colored fluid. ) Skin: No rashes noted on visualized skin Musculoskeletal: No Chest Wall Tenderness Extremities: No Clubbing, No Cyanosis, No Edema, Normal Pulses Results 02/15/17 07:48 02/15/17 07:48 Lab Results 02/14/17 02/15/17 02/15/17 09:41 07:48 07:48 WBC 15.6 H Hgb 8.4 L Hct 25.5 L Plt Count 275 INR 2.2 2.9 - Imaging and Cardiology Echo: report reviewed - EKG Interpretation EKG results cardiology: other Consult Discharge Plan - Plan Referrals: Figueroa Navarro DO [Primary Care Provider] - (Patient will call for an appointment per office)
[2017-02-15 10:46] LABS: Calcium 8.3 mg/dL (8.6-10.8); Magnesium 1.5 mg/dL (1.6-2.6); Potassium 3.7 mEq/L (3.5-4.5)
[2017-02-15] MEDS ORDERED: Potassium Chloride Elixir 20 MEQ/15 ML UDC PO ONE (11:03)
[2017-02-15] MEDS ORDERED: Magnesium Sulfate 2 GM in D5% in Water 100 ML IVPB ONE (11:03)
--- NOTE | 2017-02-15 11:54 | Infectious Disease Consult ---
Date of Encounter: 02/15/17 Time of Encounter: 11:56 Assessment and Plan (1) Leukocytosis Status: Acute Assessment and plan: Etiology unclear. Not sure if this is related to the patient's mitral valve vegetation. Review of the record reveals that the patient has labs done at [facility] in November and his WBC was elevated at that time. No other labs have been done since then. CXR negative. Urinalysis negative. CT of the head negative. CT of the neck shows marked soft tissue swelling and enlarged cervical lymph nodes, but no mass or abscess. The patient denies any focal complaints. Peritoneal dialysis fluid sent for analysis and is negative. WBC up to 15.6 this morning with absolute neutrophilia. Blood cultures obtained 02/14/17 are pending x 2 sets. Vanc and Rocephin started by the primary team. Await culture results. Qualifiers: Leukocytosis type: unspecified Qualified Code(s): D72.829 - Elevated white blood cell count, unspecified (2) Mitral valve vegetation Status: Acute Assessment and plan: TTE revealed echodensity on the anterior leaf of the mitral valve, concerning for vegetation. Blood cultures drawn 02/14/17 are pending x 2 sets. The patient does have a history of MRSA bacteremia (MERLIN negative) in 03/2016, but according to the [facility] records, the patient received a four week course of IV Vancomycin, which would have been adequate treatment. The patient is immunocompromised secondary to his laryngeal cancer. He is getting ready to start PO everolimus chemotherapy. The patient meets one major Modified Daniels's Criteria. Await blood culture results. Check rheumatoid factor. Check Coxiella burnetti, Q-fever, and Brucella serologies. Repeat additional three sets of blood cultures now. Continue Vancomycin IV. Pharmacy to dose. Goal trough approximately 15. Continue Rocephin 2 grams IV Q24H. Duration of treatment depends on the clinical picture. Monitor renal function and for drug toxicities and dose-adjust antibiotics. (3) Syncope Status: Acute Assessment and plan: Etiology remains unclear. CT of the head, EEG, carotid dopplers, and cardiac workup negative for findings that can explain the patient's symptoms. Neurology, vascular, and cardiology consulted. Qualifiers: Syncope type: unspecified Qualified Code(s): R55 - Syncope and collapse (4) Carotid stenosis Status: Acute Assessment and plan: Vascular surgery consulted. No further workup required at this time. Per Vascular, unlikely cause of the patient's syncope. Qualifiers: Laterality: bilateral Qualified Code(s): I65.23 - Occlusion and stenosis of bilateral carotid arteries (5) Constipation Status: Acute Assessment and plan: Likely secondary to the pain medication use and decreased PO intake. Management per the primary team. 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 Status post total laryngectomy with tracheostomy. Repeat evaluation in July 2016 showed that the patient's cancer had advanced and is unresectable. (7) Status post tracheostomy Status: Acute (8) Chronic lower back pain Status: Chronic Qualifiers: Back pain laterality: unspecified Sciatica presence: without sciatica Qualified Code(s): M54.5 - Low back pain; G89.29 - Other chronic pain (9) End stage renal disease Status: Chronic Assessment and plan: Performs peritoneal dialysis. Nephrology consulted and following. (10) Anemia Status: Chronic Assessment and plan: Etiology unclear, but possible multifactorial. Stool guiac +. Hgb dropped to 7.4. Received 2 units of PRBCs. Improved to 8.4 today. Management per the primary team. Qualifiers: Anemia type: other cause Other causes of anemia: other cause, not classified Qualified Code(s): D64.89 - Other specified anemias Infectious Disease HPI - Data of Consult Patient: known to practice within the last 3 years Consult date: 02/15/17 Requesting Physician: Julee Webb MD Primary Care Provider: Figueroa Blunt Colopy - Consult Narrative Reason for consult: Endocarditis History of present illness: Mr. Porras is a 66 year old male with past medical history of laryngeal cancer status post total laryngectomy and tracheostomy, end-stage renal disease on peritoneal dialysis, hypertension, and hypothyroidism. The patient was admitted to the hospital February 10 for syncope. We are consulted February 15 for further evaluation and treatment recommendations regarding a mitral valve vegetation. The patient is a 66-year-old male with past medical history as stated above. The patient presented to the emergency department after he experienced 2 episodes of syncope while at home. Upon arrival, the patient was afebrile. He was mildly tachycardic, but otherwise hemodynamically stable. Laboratory studies revealed a white blood cell count 12.8 thousand with neutrophilic predominance. Troponin was negative. CT of the head was negative. Urinalysis was negative. X-ray showed mild basilar atelectasis versus pneumonia. A CT of the neck revealed marketed soft tissue swelling and a large left cervical lymph nodes, but no mass. The patient was admitted to the hospital for further evaluation and treatment. Nephrology was consulted for the management of the patient's peritoneal dialysis. Cardiology was consulted for workup regarding the syncope. Wears showed some stenosis and the vascular team was consulted. No further intervention was recommended at this time. Neurology was consulted and patient underwent an EEG that was negative. Transthoracic echo showed an echodensity on the anterior leaflet of the mitral valve. Blood cultures were obtained 2 sets. The patient was started on empiric vancomycin and Rocephin. We 've been asked to evaluate and make further recommendations. During my exam today, the patient endorses a history as stated above. His is at the bedside and due to the patient being unable to speak secondary to his total laryngectomy, she provides most of the history. She denies any fevers or chills or rigors. He denies any chest pain, shortness of breath, or cough. He denies any nausea or vomiting prior to admission, but states he has been spitting up some dark brown emesis. He denies any abdominal pain or urinary complaints. He states his appetite is been okay. He does report some chronic fatigue, but denies any night sweats. He states that the syncope does not appear to be related to any particular activity. He denies any prodromal symptoms. He does report a headache associated with the syncopal episodes that is located in the frontal region. He reports chronic anterior neck pain secondary to his previous radiation, but denies any neck stiffness. He complains of chronic lower back pain, but states this is his baseline. He denies any pain in his joints. He denies any oral thrush or new skin lesions. The patient lives at home his . He does not smoke, drink alcohol, or partaken any illicit drug use. He is retired. He denies any recent travel. He does have 2 dogs and a cat at home. He sees the [facility] for treatment of his laryngeal cancer. He is getting ready to start oral chemotherapy agent. CC: Julee Webb MD Past Med Surg Social Fam HX - Past Medical History Attestation: Yes The following information was validated with the patient. Source: patient, old records reviewed, nursing notes reviewed Medical history: cancer (SCC larynx status post total laryngectomy and chemo/ radiation), dialysis (Peritoneal dialysis), hypertension, renal disease, thyroid disease Psychiatric history: no psych history - Past Surgical History Surgical History: cancer surgery, cataract, cholecystectomy, tracheostomy, other (status post total laryngectomy) - Social History Smoking Status: Former smoker Smokeless Tobacco Status: No Alcohol use: none Drug use: none Occupational status: retired Current living situation: Home, With Family Activity Level: Independent ambulation Recent Out of Country Travel Within the Last 8 Weeks: No Exposure or Possible Exposure to Illness During Travel: No - Family History Mother History Unknown: Yes Adopted: No Family Member Ethnicity: Non- Living Status: Hx Family Cardiac Disorders: No Hx Family Respiratory Disorders: No Hx Family Cancer: No Hx Family GI Disorders: No Hx Family Endocrine Disorder: No Hx Family Neuromuscular Disorders: No Hx Family Neurologic Disorders: Yes Hx Family HEENT Disorders: No Hx Family Autoimmune Disorders: No Brother History Unknown: Yes Hx Family Cardiac Disorders: Yes (Hypertension) Hx Family Cancer: Yes (colon and prostate) Infectious Disease-CN:Meds Ferrous Sulfate 325 mg PO BID 06/23/15 [History] Multivits,Ca,Min/Iron/FA/Lycop [Centrum Men's Tablet] 1 tab PO DAILY 06/23/15 [ History] Bacitracin/PolymyxinB OINT [Polysporin] 1 appl TP BID tube 03/28/16 [Rx] Calcium Carbonate [Tums] 500 mg PO TID 02/10/17 [History] Levothyroxine [Synthroid] 100 mcg PO DAILY 02/10/17 [History] Nut.tx.impaired Renal Fxn,Soy [Nepro Carb Steady] 1 each GTUBE AD 02/10/17 [ History] OxyCODONE Immed Rel [Roxicodone 5 MG] 5 - 10 mg PO Q4H PRN 02/10/17 [History] Warfarin [Coumadin] 5 mg PO SUMOWEFR 02/10/17 [History] Warfarin [Coumadin] 7.5 mg PO TUTHSA 02/10/17 [History] Allergies diazepam Allergy (Intermediate, Verified 01/03/16 14:39) Agitated Zolpidem [From Ambien] Adverse Reaction (Verified 01/03/16 14:39) Hallucinating All systems: reviewed and no additional remarkable complaints except as stated Exam - Constitutional Vitals: Temp Pulse Resp BP Pulse Ox 98.5 F 92 17 131/64 95 02/15/17 07:00 02/15/17 07:00 02/15/17 07:00 02/15/17 07:00 02/15/17 07:00 General appearance: average body habitus, cooperative, no acute distress - Head Head exam: Present: atraumatic, normal inspection, normocephalic - Eye Eye exam: Present: EOMI, normal appearance, PERRL Pupils: Present: normal accommodation Additional comments: No subconjunctival hemorrhage noted. - ENT ENT exam: Present: mucous membranes moist - Neck Neck exam: Absent: lymphadenopathy, meningismus Additional comments: Tracheostomy midline with no drainage or erythema noted. - Respiratory Respiratory exam: Present: CTAB. Absent: rales, respiratory distress, rhonchi, wheezes - Cardiovascular Cardiovascular exam: Present: RRR, +S1, +S2. Absent: diastolic murmur, systolic murmur - GI/Abdominal GI/Abdominal exam: Present: normal bowel sounds, soft. Absent: distended, tenderness Additional comments: PD catheter noted to the left lower quadrant. No erythema, drainage, or tenderness noted. - Extremities Exam Extremities exam: Present: normal inspection. Absent: joint swelling, pedal edema, tenderness Additional comments: No endocarditis stigmata noted. - Back Exam Back exam: Present: normal inspection. Absent: paraspinal tenderness, vertebral tenderness - Neurological Exam Neurological exam: Present: alert, oriented X3, no focal deficits - Psychiatric Psychiatric exam: Present: normal affect, normal mood - Skin Skin exam: Present: dry, intact, normal color, warm Infectious Disease CN: Results - Labs CBC & Chem 7: 02/15/17 07:48 02/15/17 07:48 Serology: Serology 02/14/17 02/14/17 Range/Units 17:40 10:35 Fluid Source PD fluid Fluid Volume 23 mL Fluid Appearance Clear (Clear) Fluid RBC < 0.002 (No Ref Range) M/mcL Fld Tot Nucleated Cell 9 TNC/mcL Fluid Seg Neutrophil % 40.0 % Fld Band Neutrophil % TNP Fluid Lymphocytes % 60.0 % Fluid Monocytes % TNP Fluid Eosinophils % TNP Fluid Basophils % TNP Fluid Other Cells % TNP Stool Occult Blood Positive A (Negative) Consult Discharge Plan - Plan Referrals: ColopyFigueroa DO [Primary Care Provider] - (Patient will call for an appointment per office)
[2017-02-15] MEDS: *HR* OxyCODONE Immed Rel 5 MG TABLET PO PRN (12:18)
[2017-02-15] MEDS: Sennosides/Docusate Sodium TABLET PO SCH ×2 (13:32→20:12)
[2017-02-15] MEDS ORDERED: *HR* Warfarin 5 MG TABLET PO SCH (18:00)
[2017-02-15] MEDS ORDERED: Warfarin perPT PO PRN (18:00)
[2017-02-16] MEDS ORDERED: Vancomycin 1,500 MG in D5% in Water 250 ML IVPB ONE (02:00)
[2017-02-16] MEDS: Perit. Dialysis with Dex 1.5 % 2,000 ML PERITONEAL SCH ×4 (02:54→19:52)
[2017-02-16] MEDS: *HR* OxyCODONE/APAP 10/325 TABLET PO PRN ×2 (03:09→22:39)
[2017-02-16 04:37] LABS: Basophils % 0.3 %; Eosinophils # 0.3 K/mcL (0.0-0.6); Eosinophils % 2.1 %; Hematocrit 26.8 % (37.5-50.1); Hemoglobin 8.4 g/dL (12.9-16.9); Immature Granulocytes % 2.9 % (0-4); Lymphocytes # 1.1 K/mcL (0.6-4.6); Lymphocytes % 9.1 %; Mean Corpuscular HGB Conc 31.3 g/dL (31.6-35.5); Mean Corpuscular Hemoglobin 30.2 pg (28.0-33.3); Mean Corpuscular Volume 96.4 fL (83.0-100.0); Monocytes # 1.1 K/mcL (0.0-1.3); Monocytes % 8.8 %; Neutrophils # 9.3 K/mcL (1.6-8.9); Nucleated Red Blood Cells 0.5 /100 WBC (0); Platelet Count 278 K/mcL (140-400); Red Blood Count 2.78 M/mcL (4.19-5.50); Red Cell Distribution Width 16.5 % (11.5-14.5); Segmented Neutrophils % 76.8 %
[2017-02-16 04:48] LABS: INR 3.5; Prothrombin Time 39.4 Seconds (9.4-12.1)
[2017-02-16 04:53] LABS: Calcium 8.6 mg/dL (8.6-10.8)
[2017-02-16] MEDS: Sennosides/Docusate Sodium TABLET PO SCH ×2 (08:04→20:30)
[2017-02-16] MEDS: Multivit/Ca/Min/Fe/FA 1 TAB TABLET PO SCH (08:04)
[2017-02-16] MEDS: *HR* OxyCODONE Immed Rel 5 MG TABLET PO PRN ×4 (08:12→20:38)
[2017-02-16] MEDS: Bacitracin/PolymyxinB OINT 14.17 GM TUBE TP SCH ×2 (08:14→20:30)
--- NOTE | 2017-02-16 08:55 | Nephrology Progress Note ---
Date of Encounter: 02/16/17 Time of Encounter: 08:54 - Assessment and Plan (1) ESRD (end stage renal disease) on dialysis Current Visit: Yes Status: Chronic Cont PD 1.5% dextrose q6hr. No signs of Peritonitis. If edema were to worsens, then would add 2.5% prn. The pt indicated to me that he does not want 2.5% dextrose dwelling at this time, to avoid the cramping that he always has with his bag. The higher the dextrose the more the UF, which would help his edema. Will monitor. Constipation can affect PD, by delaying emptying of an exchange. See below. Appreciate ID and Pharmacy, re: Abx. Continue to follow a renal protective strategy. Thank you. (2) Leukocytosis Current Visit: Yes Status: Acute See above Qualifiers: Leukocytosis type: other Qualified Code(s): D72.828 - Other elevated white blood cell count (3) Constipation Current Visit: Yes Status: Acute Avoid constipation to help his PD draining process. Add prn enemas if needed. Qualifiers: Constipation type: slow transit constipation Qualified Code(s): K59.01 - Slow transit constipation (4) Syncope Current Visit: Yes Status: Acute As per primary. Qualifiers: Syncope type: unspecified Qualified Code(s): R55 - Syncope and collapse Subjective Principal diagnosis: syncope Interval history: pt was s/e earlier today/this AM. His was at bedside. He denied any cloudiness or fibrin in the PD effluent. Feeling well overall. Periodic constipation he said. He has been started on Abx for potential I.E.; discussed with Pharmacy yesterday afternoon. The pt indicated that he does not want to use 2.5% dextrose while here to avoid cramping. Objective - Vital Signs Vital signs: Vital Signs Temp Pulse Resp BP Pulse Ox 02/16/17 04:03 97.8 F 81 16 163/65 92 02/15/17 23:49 98.1 F 85 16 149/69 97 02/15/17 20:09 98.1 F 86 15 151/76 96 02/15/17 16:20 97.5 F L 78 17 134/68 94 02/15/17 11:00 97.4 F L 77 17 160/72 95 Intake and Output 02/15/17 02/16/17 02/16/17 23:59 07:59 15:59 Intake Total 100 / 100 0 / 0 120 / 120 Output Total 0 / 0 300 / 300 800 / 800 Balance 100 / 100 -300 / -300 -680 / -680 Intake: IV Fluids 100 / 100 Rocephin 2,000 MG In 100 / 100 Dextrose 5% (Minibag+) 100 ML 100 ML @ 200 mls/ hr IVPB Q12HR [facility] Rx#: [id number] Oral 0 / 0 0 / 0 120 / 120 Output: Urine 0 / 0 300 / 300 800 / 800 Other: Meal Breakfast Percent of Meal Consumed 10% Total Peritoneal Dialysis 200 -100 0 Output Weight 92.9 kg 93.5 kg 91.6 kg Patient Weight 02/16/17 23:59 Weight 91.6 kg - General Appearance General appearance: Present: well-developed, well-nourished, appears started age EENT: Present: PERRL, mucous membranes moist Additional Comments: Neck scars Neck: Present: supple Respiratory: Present: clear Cardiology: Present: edema (trace to 1+ pretibial pitting edema. ), normal S1, normal S2 Dialysis Vascular Access: Arteriovenous Fistula thrill: Yes bruit: Yes Additional Comments: Also PD catheter is C/D/I. No fibrin seen in the PD effluent yesterday. Gastrointestinal: Present: normoactive bowel sounds, no tenderness, no guarding Integumentary: Present: no rash, warm and dry Neurologic: Present: no focal deficit, no asterixis, alert and oriented x3 Musculoskeletal: Present: no deformities, no erythema, no cyanosis Psychiatric: Present: mood/affect appropriate, cooperative - Lab 02/16/17 03:20 02/16/17 03:20 Most recent lab results Calcium 8.6 mg/dL (8.6-10.8) 02/16/17 03:20 Phosphorus 3.0 mg/dL (2.3-4.7) 02/15/17 07:48 Magnesium 1.5 mg/dL (1.6-2.6) L 02/15/17 07:48 Consult Discharge Plan - Plan Referrals: Figueroa Navarro DO [Primary Care Provider] - (Patient will call for an appointment per office)
--- NOTE | 2017-02-16 09:11 | Infectious Disease Progress No ---
Date of Encounter: 02/16/17 Time of Encounter: 09:08 - Assessment and Plan (1) Leukocytosis Current Visit: No Status: Acute Etiology unclear. Not sure if this is related to the patient's mitral valve vegetation. Review of the record reveals that the patient has labs done at [facility] in November and his WBC was elevated at that time. No other labs have been done since then. CXR negative. Urinalysis negative. CT of the head negative. CT of the neck shows marked soft tissue swelling and enlarged cervical lymph nodes, but no mass or abscess. The patient denies any focal complaints. Peritoneal dialysis fluid sent for analysis and is negative. WBC improved to 12 this morning. Blood cultures obtained 02/14/17 are pending x 2 sets. Additional three sets drawn 02/16/16 are pending as well. Vanc and Rocephin started by the primary team. Await culture results. Qualifiers: Leukocytosis type: unspecified Qualified Code(s): D72.829 - Elevated white blood cell count, unspecified (2) Mitral valve vegetation Current Visit: Yes Status: Acute TTE revealed echodensity on the anterior leaf of the mitral valve, concerning for vegetation. Blood cultures drawn 02/14/17 are pending x 2 sets. The patient does have a history of MRSA bacteremia (MERLIN negative) in 03/2016, but according to the [facility] records, the patient received a four week course of IV Vancomycin, which would have been adequate treatment. The patient is immunocompromised secondary to his laryngeal cancer. He is getting ready to start PO everolimus chemotherapy. The patient meets one major Modified Daniels's Criteria. Await blood culture results. Check rheumatoid factor --> add to AM labs. Check Coxiella burnetti, Q-fever, and Brucella serologies --> pending. Blood cultures drawn 02/14/17 x 2 sets and 02/15/17 x 3 sets are pending. Continue Vancomycin IV. Pharmacy to dose. Goal trough approximately 15. Continue Rocephin 2 grams IV Q12H. Duration of treatment depends on the clinical picture. Monitor renal function and for drug toxicities and dose-adjust antibiotics. (3) Syncope Current Visit: Yes Status: Acute Etiology remains unclear. CT of the head, EEG, carotid dopplers, and cardiac workup negative for findings that can explain the patient's symptoms. Neurology, vascular, and cardiology consulted. Qualifiers: Syncope type: unspecified Qualified Code(s): R55 - Syncope and collapse (4) Carotid stenosis Current Visit: Yes Status: Acute Vascular surgery consulted. No further workup required at this time. Per Vascular, unlikely cause of the patient's syncope. Qualifiers: Laterality: bilateral Qualified Code(s): I65.23 - Occlusion and stenosis of bilateral carotid arteries (5) Constipation Current Visit: Yes Status: Acute Likely secondary to the pain medication use and decreased PO intake. Management per the primary team. Qualifiers: Constipation type: slow transit constipation Qualified Code(s): K59.01 - Slow transit constipation (6) Laryngeal squamous cell carcinoma Current Visit: Yes Status: Chronic Follows with the [facility] at [facility]. Status post total laryngectomy with tracheostomy. Repeat evaluation in July 2016 showed that the patient's cancer had advanced and is unresectable. (7) Status post tracheostomy Current Visit: No Status: Acute (8) Chronic lower back pain Current Visit: No Status: Chronic Qualifiers: Back pain laterality: unspecified Sciatica presence: without sciatica Qualified Code(s): M54.5 - Low back pain; G89.29 - Other chronic pain (9) End stage renal disease Current Visit: No Status: Chronic Performs peritoneal dialysis. Nephrology consulted and following. (10) Anemia Current Visit: No Status: Chronic Etiology unclear, but possible multifactorial. Stool guiac +. Hgb dropped to 7.4. Received 2 units of PRBCs. Improved to 8.4 today. Management per the primary team. Qualifiers: Anemia type: other cause Other causes of anemia: other cause, not classified Qualified Code(s): D64.89 - Other specified anemias - Subjective Interval history: Patient seen and examined. No acute events noted overnight. Patient sitting up on the side of the bed with his at the bedside. States he feels okay today. Reports frontal headache and chronic neck and back pain. Denies fevers or chills or rigors. Denies chest pain, shortness of breath, or cough. Denies nausea or vomiting. States he did not eat breakfast this morning because it was cold. Denies abdominal pain, but states he is constipated. Denies oral thrush or skin lesions. Denies syncope or dizziness. Infect Dis PN-Objective Data - Labs CBC & Chem 7: 02/16/17 03:20 02/16/17 03:20 Labs: Laboratory Results - last 24 hr 02/15/17 02/15/17 02/16/17 07:48 22:23 03:20 WBC RBC Hgb Hct MCV MCH MCHC RDW Plt Count MPV Immature Gran % Seg Neutrophils % Lymphocytes % Monocytes % Eosinophils % Basophils % Neutrophils # Lymphocytes # Monocytes # Eosinophils # Basophils # Nucleated RBCs/100 WBC PT 39.4 H INR 3.5 Sodium 136 Potassium 3.7 Chloride 102 Carbon Dioxide 22 BUN 63 H Creatinine 2.87 H Est GFR ( Amer) 27 L Est GFR (Non-Af Amer) 22 L BUN/Creatinine Ratio 22 Glucose 139 H Calculated Osmolality 302 H Calcium 8.3 L Phosphorus 3.0 Magnesium 1.5 L Iron 62 L % Saturation 28 Transferrin 161 L Ferritin 864 H Random Vancomycin 7.2 02/16/17 02/16/17 03:20 03:20 WBC 12.2 H RBC 2.78 L Hgb 8.4 L Hct 26.8 L MCV 96.4 MCH 30.2 MCHC 31.3 L RDW 16.5 H Plt Count 278 MPV 11.0 Immature Gran % 2.9 Seg Neutrophils % 76.8 Lymphocytes % 9.1 Monocytes % 8.8 Eosinophils % 2.1 Basophils % 0.3 Neutrophils # 9.3 H Lymphocytes # 1.1 Monocytes # 1.1 Eosinophils # 0.3 Basophils # 0.0 Nucleated RBCs/100 WBC 0.5 H PT INR Sodium 137 Potassium 4.0 Chloride 103 Carbon Dioxide 22 BUN 57 H Creatinine 3.03 H Est GFR ( Amer) 25 L Est GFR (Non-Af Amer) 21 L BUN/Creatinine Ratio 19 Glucose 111 H Calculated Osmolality 301 H Calcium 8.6 Phosphorus Magnesium Iron % Saturation Transferrin Ferritin Random Vancomycin Cultures: Serology 02/14/17 02/14/17 Range/Units 17:40 10:35 Fluid Source PD fluid Fluid Volume 23 mL Fluid Appearance Clear (Clear) Fluid RBC < 0.002 (No Ref Range) M/mcL Fld Tot Nucleated Cell 9 TNC/mcL Fluid Seg Neutrophil % 40.0 % Fld Band Neutrophil % TNP Fluid Lymphocytes % 60.0 % Fluid Monocytes % TNP Fluid Eosinophils % TNP Fluid Basophils % TNP Fluid Other Cells % TNP Stool Occult Blood Positive A (Negative) Exam - Constitutional Vitals: Temp Pulse Resp BP Pulse Ox 97.8 F 81 16 163/65 92 02/16/17 04:03 02/16/17 04:03 02/16/17 04:03 02/16/17 04:03 02/16/17 04:03 General appearance: average body habitus, cooperative, no acute distress - Head Head exam: Present: atraumatic, normal inspection, normocephalic - Eye Eye exam: Present: EOMI, normal appearance Pupils: Present: normal accommodation, PERRL Additional comments: No subconjunctival hemorrhage noted. - ENT ENT exam: Present: mucous membranes moist - Neck Neck exam: Present: normal inspection Additional comments: Trachea midline. Tracheostomy without erythema or drainage. Cannula out per patient at this time. - Respiratory Respiratory exam: Present: CTAB. Absent: rales, respiratory distress, rhonchi, wheezes - Cardiovascular Cardiovascular exam: Present: RRR, +S1, +S2 - GI/Abdominal GI/Abdominal exam: Present: distended (PD fluid dwelling), normal bowel sounds, soft. Absent: tenderness Additional comments: Upper abdominal hernia noted, easily reducible, minimal pain with palpation. - Extremities Exam Extremities exam: Present: normal inspection. Absent: joint swelling, pedal edema, tenderness - Back Exam Back exam: Present: normal inspection. Absent: paraspinal tenderness, vertebral tenderness - Neurological Exam Neurological exam: Present: alert, oriented X3, no focal deficits - Psychiatric Psychiatric exam: Present: normal affect, normal mood - Skin Skin exam: Present: dry, intact, normal color, warm Consult Discharge Plan - Plan Referrals: ColFigueroa alford DO [Primary Care Provider] - (Patient will call for an appointment per office)
[2017-02-16] MEDS ORDERED: Iron Sucrose Complex 200 MG in 0.9 % Sodium Chloride 100 ML IVPB ONE (16:00)
--- NOTE | 2017-02-16 17:30 | Internal Med Progress Note ---
Date of Encounter: 02/14/17 Time of Encounter: 13:00 - Assessment and plan (1) Endocarditis Current Visit: Yes Status: Acute Assessment and plan: Cardiology on board. Complete Echocardiogram still shows possibility of vegetation on the atrial side of the mitral valve. Case discussed with cardiology, given his underlying history of laryngeal cancer and that he is planning on beginning chemotherapy in a few weeks, it is decided to treat him for subacute bacterial endocarditis with long-term IV antibiotics. He only has one major Lynn criteria at this time. We will send 2 sets of blood cultures. Will start IV Rocephin and vancomycin given his previous MRSA bacteremia. Will consult ID for further recommendations. Qualifiers: Endocarditis type: infective Infective endocarditis organism: unspecified organism Chronicity: subacute Qualified Code(s): I33.0 - Acute and subacute infective endocarditis (2) Syncope Current Visit: Yes Status: Acute Assessment and plan: Admitted with recurrent episodes of syncope and near syncope. Telemetry monitoring uneventful. Serial troponins not suggestive of ACS. Cardiology follow-up appreciated. No cardiac etiology for syncope determined at this time. CT head done in the emergency room showed no acute abnormality. EEG has been done, not suggestive of seizure. Neurology consulted, could be vertebral basilar disease, for which no treatment can be offered at this time. Patient could also be having possible episodes of seizures and empiric antiepileptic therapy has been suggested to the patient who declined at this time. Bilateral carotid Doppler reviewed, shows 60-79% stenosis in bilateral mid ICA ; vascular surgery consult appreciated, recommend repeat carotid ultrasound in 6 months and no further intervention at this time. Qualifiers: Syncope type: unspecified Qualified Code(s): R55 - Syncope and collapse (3) Tracheostomy in place Current Visit: Yes Status: Chronic (4) Hypothyroidism Current Visit: Yes Status: Chronic Assessment and plan: Continue home dose of levothyroxine. Qualifiers: Hypothyroidism type: unspecified Qualified Code(s): E03.9 - Hypothyroidism , unspecified (5) ESRD (end stage renal disease) on dialysis Current Visit: Yes Status: Chronic Assessment and plan: Nephrology has been consulted for dialysis needs. Patient continues to receive regular peritoneal dialysis sessions while in the hospital. Patient is noted to be severely constipated which is affecting peritoneal dialysate return. Enema has been ordered, will follow up. (6) Laryngeal cancer Current Visit: Yes Status: Chronic Assessment and plan: Patient follows with [facility]. (7) Carotid stenosis, bilateral Current Visit: Yes Status: Chronic Assessment and plan: Vascular surgery consulted, plan as above. (8) Secondary hyperparathyroidism (of renal origin) Current Visit: Yes Status: Chronic - Subjective Interval history: Denies chest pain, shortness of breath, palpitations. Tolerates oral diet. at bedside reports another episode of syncope earlier this morning. - Constitutional Vitals: Temp Pulse Resp BP Pulse Ox 98.3 F 71 17 164/77 98 02/16/17 16:09 02/16/17 16:09 02/16/17 16:09 02/16/17 16:09 02/16/17 16:09 General appearance: Present: A&O X 3 - Respiratory Respiratory exam: Present: CTAB. Absent: accessory muscle use, rales, rhonchi, wheezes - Cardiovascular Cardiovascular exam: Present: RRR, +S1, +S2. Absent: diastolic murmur, gallop, rubs, systolic murmur - GI/Abdominal GI/Abdominal exam: Present: normal bowel sounds, soft, no peritoneal signs. Absent: distended, tenderness - Neurological Exam Neurological exam: Present: CN II-XII intact, oriented X3, no focal deficits. Absent: pronater drift, facial droop, speech deficit Internal Medicine: Result - Labs CBC & Chem 7: 02/16/17 03:20 02/16/17 03:20 Labs: Short CBC 02/16/17 Range/Units 03:20 WBC 12.2 H (4.3-11.1) K/mcL Hgb 8.4 L (12.9-16.9) g/dL Hct 26.8 L (37.5-50.1) % Plt Count 278 (140-400) K/mcL Neutrophils # 9.3 H (1.6-8.9) K/mcL BMP 02/16/17 03:20 Sodium 137 Potassium 4.0 Chloride 103 Carbon Dioxide 22 BUN 57 H Creatinine 3.03 H Glucose 111 H Calcium 8.6 - ABG Interpretation ABG results: PT/INR, D-dimer PT 39.4 Seconds (9.4-12.1) H 02/16/17 03:20 Consult Discharge Plan - Plan Referrals: Figueroa Navarro DO [Primary Care Provider] - (Patient will call for an appointment per office)
[2017-02-17] MEDS: Perit. Dialysis with Dex 1.5 % 2,000 ML PERITONEAL SCH ×4 (02:12→19:59)
[2017-02-17] MEDS ORDERED: Vancomycin 1,250 MG in D5% in Water 250 ML IVPB ONE (03:00)
[2017-02-17] MEDS: *HR* OxyCODONE Immed Rel 5 MG TABLET PO PRN ×3 (04:40→22:16)
[2017-02-17] MEDS: *HR* OxyCODONE/APAP 10/325 TABLET PO PRN (06:30)
[2017-02-17 06:47] LABS: INR 3.5; Prothrombin Time 39.5 Seconds (9.4-12.1)
[2017-02-17 06:55] LABS: BUN/Creatinine Ratio 15 (6-26); Calcium 8.5 mg/dL (8.6-10.8); Carbon Dioxide 22 mEq/L (19-29); Chloride 104 mEq/L (98-109); Glucose 123 mg/dL (70-99); Osmolality,Calculated 295 (280-300); Potassium 3.8 mEq/L (3.5-4.5); Sodium 137 mEq/L (136-145); eGFR For African Americans 28 (> 60); eGFR For Non-African Americans 23 (> 60)
[2017-02-17 06:56] LABS: Basophils % 0.4 %; Eosinophils # 0.2 K/mcL (0.0-0.6); Eosinophils % 2.2 %; Hematocrit 25.1 % (37.5-50.1); Hemoglobin 7.9 g/dL (12.9-16.9); Immature Granulocytes % 2.3 % (0-4); Lymphocytes # 0.8 K/mcL (0.6-4.6); Lymphocytes % 8.7 %; Mean Corpuscular HGB Conc 31.5 g/dL (31.6-35.5); Mean Corpuscular Volume 98.4 fL (83.0-100.0); Mean Platelet Volume 10.6 fL (9.4-12.4); Monocytes % 10.7 %; Neutrophils # 7.2 K/mcL (1.6-8.9); Nucleated Red Blood Cells 0.5 /100 WBC (0); Platelet Count 254 K/mcL (140-400); Red Blood Count 2.55 M/mcL (4.19-5.50); Red Cell Distribution Width 16.3 % (11.5-14.5); Segmented Neutrophils % 75.7 %
[2017-02-17 07:06] LABS: Blood Urea Nitrogen 41 mg/dL (8-26)
[2017-02-17 07:20] LABS: Triiodothyronine (T3) Free 1.35 pg/mL (1.71-3.71)
[2017-02-17] MEDS: Multivit/Ca/Min/Fe/FA 1 TAB TABLET PO SCH (08:05)
[2017-02-17] MEDS: Sennosides/Docusate Sodium TABLET PO SCH ×2 (08:06→20:12)
[2017-02-17] MEDS: Bacitracin/PolymyxinB OINT 14.17 GM TUBE TP SCH ×2 (09:33→20:00)
--- NOTE | 2017-02-17 09:49 | Nephrology Progress Note ---
Date of Encounter: 02/17/17 Time of Encounter: 09:15 - Assessment and Plan (1) ESRD (end stage renal disease) on dialysis Current Visit: Yes Status: Chronic No new recommendations, but continue PD 1.5% dextrose q6hr. No signs of Peritonitis. If edema were to worsen, then would add 2.5% prn. The pt indicated to me that he does not want 2.5% dextrose dwelling at this time, to avoid the cramping that he always has with his bag. The higher the dextrose the more the UF, which would help his edema. Will monitor. Constipation can affect PD, by delaying emptying of an exchange. See below. Appreciate ID and Pharmacy, re: Abx. Continue to follow a renal protective strategy. Thank you. (2) Leukocytosis Current Visit: Yes Status: Acute See above Qualifiers: Leukocytosis type: other Qualified Code(s): D72.828 - Other elevated white blood cell count (3) Constipation Current Visit: Yes Status: Acute Avoid constipation to help his PD draining process. Add prn enemas if needed. Qualifiers: Constipation type: slow transit constipation Qualified Code(s): K59.01 - Slow transit constipation (4) Syncope Current Visit: Yes Status: Acute As per primary. Qualifiers: Syncope type: unspecified Qualified Code(s): R55 - Syncope and collapse (5) Anemia Current Visit: No Status: Chronic Acute on chronic anemia: trend H/H and despite having received Aranesp (a form of EPO), his Hgb has been dropping again after having received 2U PRBCs a few days ago. Will defer any GIB work up to the primary team, if indicated. The pt will be due for another dose of Aranesp next week. Qualifiers: Anemia type: other cause Other causes of anemia: chronic disease, other Qualified Code(s): D63.8 - Anemia in other chronic diseases classified elsewhere Subjective Principal diagnosis: syncope Interval history: pt was s/e earlier today/this AM. His was at bedside. He indicated that he did not sleep well last night. He was in the middle of a PD exchange and the effluent bag did not demonstrate fibrin or blood, just clear in color. He did not report any new complaints but was wanting to rest. Objective - Vital Signs Vital signs: Vital Signs Temp Pulse Resp BP Pulse Ox 02/17/17 06:15 98.0 F 83 18 158/73 94 02/17/17 03:54 98 F 88 18 145/68 96 02/16/17 23:35 98.3 F 90 18 158/80 96 02/16/17 19:59 98.0 F 82 22 170/74 94 02/16/17 16:09 98.3 F 71 17 164/77 98 02/16/17 11:27 98.0 F 76 20 155/74 98 Intake and Output 02/16/17 02/17/17 02/17/17 23:59 07:59 15:59 Intake Total 600 / 600 0 / 0 Output Total 600 / 600 Balance 600 / 600 -600 / -600 Intake: IV Fluids 100 / 100 Rocephin 2,000 MG In 100 / 100 Dextrose 5% (Minibag+) 100 ML 100 ML @ 200 mls/ hr IVPB Q12HR [facility] Rx#: [id number] Oral 500 / 500 0 / 0 Output: Urine 600 / 600 Other: Total Peritoneal Dialysis 0 -500 -100 Output Weight 92.4 kg 91.3 kg 90.8 kg Patient Weight 02/17/17 23:59 Weight 90.8 kg - General Appearance General appearance: Present: well-developed, well-nourished, fatigue EENT: Present: PERRL, mucous membranes moist Neck: Present: supple Respiratory: Present: clear Cardiology: Present: edema (trace to 1+ pretibial pitting edema b/l), regular rate, normal S1, normal S2 Dialysis Vascular Access: Arteriovenous Fistula thrill: Yes bruit: Yes Additional Comments: PD catheter was C/D/I Gastrointestinal: Present: normoactive bowel sounds, no tenderness, no guarding , no organomegaly Integumentary: Present: no rash, warm and dry Neurologic: Present: no focal deficit, no asterixis, alert and oriented x3 Musculoskeletal: Present: no deformities, no erythema, no cyanosis Psychiatric: Present: mood/affect appropriate, cooperative - Lab 02/17/17 06:09 02/17/17 06:09 Most recent lab results Calcium 8.5 mg/dL (8.6-10.8) L 02/17/17 06:09 Phosphorus 3.0 mg/dL (2.3-4.7) 02/15/17 07:48 Magnesium 1.5 mg/dL (1.6-2.6) L 02/15/17 07:48 Consult Discharge Plan - Plan Referrals: Colopy,Figueroa Blunt DO [Primary Care Provider] - (Patient will call for an appointment per office)
[2017-02-18] MEDS: Perit. Dialysis with Dex 1.5 % 2,000 ML PERITONEAL SCH ×4 (02:28→20:05)
[2017-02-18] MEDS: *HR* OxyCODONE Immed Rel 5 MG TABLET PO PRN ×3 (06:55→17:10)
[2017-02-18 07:33] LABS: Basophils % 0.3 %; Eosinophils # 0.2 K/mcL (0.0-0.6); Hematocrit 27.7 % (37.5-50.1); Hemoglobin 8.8 g/dL (12.9-16.9); Immature Granulocytes % 1.4 % (0-4); Lymphocytes # 1.1 K/mcL (0.6-4.6); Lymphocytes % 12.5 %; Mean Corpuscular HGB Conc 31.8 g/dL (31.6-35.5); Mean Corpuscular Hemoglobin 31.1 pg (28.0-33.3); Mean Corpuscular Volume 97.9 fL (83.0-100.0); Mean Platelet Volume 10.5 fL (9.4-12.4); Monocytes # 0.9 K/mcL (0.0-1.3); Monocytes % 10.3 %; Neutrophils # 6.4 K/mcL (1.6-8.9); Platelet Count 280 K/mcL (140-400); Red Blood Count 2.83 M/mcL (4.19-5.50); Red Cell Distribution Width 16.6 % (11.5-14.5); Segmented Neutrophils % 73.5 %
[2017-02-18 07:38] LABS: INR 2.3
[2017-02-18 07:51] LABS: Calcium 8.7 mg/dL (8.6-10.8); Magnesium 1.7 mg/dL (1.6-2.6); Phosphorous 3.1 mg/dL (2.3-4.7)
[2017-02-18] MEDS: Multivit/Ca/Min/Fe/FA 1 TAB TABLET PO SCH (08:04)
[2017-02-18] MEDS: Sennosides/Docusate Sodium TABLET PO SCH ×2 (08:04→20:11)
[2017-02-18] MEDS: Bacitracin/PolymyxinB OINT 14.17 GM TUBE TP SCH ×2 (08:05→20:11)
[2017-02-18] MEDS ORDERED: Vancomycin 1,000 MG in D5% in Water 250 ML IVPB ONE (11:00)
--- NOTE | 2017-02-18 12:22 | Nephrology Progress Note ---
Date of Encounter: 02/18/17 Time of Encounter: 09:15 - Assessment and Plan (1) ESRD (end stage renal disease) on dialysis Current Visit: Yes Status: Chronic Continue PD 1.5% dextrose q6hr, but I will add in 2.5% dextrose to target his edema, which appears to have worsened in the last 24-48hr. No signs of Peritonitis. Constipation can affect PD, by delaying emptying of an exchange. He is indicating that he wants another enema. Avoid constipation for PD patients. Appreciate ID and Pharmacy, re: Abx. Continue to follow a renal protective strategy. Thank you. (2) Leukocytosis Current Visit: Yes Status: Acute See above Qualifiers: Leukocytosis type: other Qualified Code(s): D72.828 - Other elevated white blood cell count (3) Constipation Current Visit: Yes Status: Acute Avoid constipation to help his PD draining process. Add prn enemas if needed. Qualifiers: Constipation type: slow transit constipation Qualified Code(s): K59.01 - Slow transit constipation (4) Syncope Current Visit: Yes Status: Acute As per primary. Qualifiers: Syncope type: unspecified Qualified Code(s): R55 - Syncope and collapse (5) Anemia Current Visit: No Status: Chronic Acute on chronic anemia: trend H/H and despite having received Aranesp (a form of EPO), his Hgb has been dropping again after having received 2U PRBCs a few days ago. Will defer any GIB work up to the primary team, if indicated. The pt will be due for another dose of Aranesp next week. Qualifiers: Anemia type: other cause Other causes of anemia: chronic disease, other Qualified Code(s): D63.8 - Anemia in other chronic diseases classified elsewhere Subjective Principal diagnosis: syncope Interval history: pt was s/e earlier today/this AM. His was at bedside. Worsening constipation again, he reported. He asked for more of the 2.5% dextrose ( earlier this week, he had asked to avoid 2.5% dextrose for his PD, which tends to cause cramping). He did not indicate any new PD issues. Objective - Vital Signs Vital signs: Vital Signs Temp Pulse Resp BP Pulse Ox 02/18/17 10:50 97.9 F 73 17 146/69 99 02/18/17 07:13 98.0 F 83 18 152/64 96 02/18/17 03:20 98.9 F 86 18 160/68 96 02/17/17 21:33 98.1 F 82 18 163/73 100 02/17/17 14:51 98.0 F 72 17 121/71 99 Intake and Output 02/17/17 02/18/17 02/18/17 23:59 07:59 15:59 Intake Total 200 / 200 0 / 0 100 / 100 Output Total 450 / 450 Balance 200 / 200 0 / 0 -350 / -350 Intake: IV Fluids 100 / 100 100 / 100 Rocephin 2,000 MG In 100 / 100 100 / 100 Dextrose 5% (Minibag+) 100 ML 100 ML @ 200 mls/ hr IVPB Q12HR [facility] Rx#: [id number] Oral 100 / 100 0 / 0 Output: Urine 450 / 450 Other: Total Peritoneal Dialysis -100 0 0 Output # Voids 1 Weight 92.1 kg 90.9 kg 90.7 kg Patient Weight 02/18/17 23:59 Weight 90.7 kg - General Appearance General appearance: Present: well-developed, well-nourished, appears started age EENT: Present: ATNC, mucous membranes moist Additional Comments: Neck scars Respiratory: Present: clear Cardiology: Present: edema (1-2+ pretibial pitting edema b/l), regular rate, regular rhythm, normal S1, normal S2 Dialysis Vascular Access: Arteriovenous Fistula thrill: Yes bruit: Yes Additional Comments: PD catheter was C/D/I Gastrointestinal: Present: normoactive bowel sounds, no tenderness, no guarding Integumentary: Present: no rash, warm and dry Neurologic: Present: no focal deficit, no asterixis, alert and oriented x3 Musculoskeletal: Present: no deformities, no erythema, no cyanosis Psychiatric: Present: mood/affect appropriate, cooperative - Lab 02/18/17 07:03 02/18/17 07:03 Most recent lab results Calcium 8.7 mg/dL (8.6-10.8) 02/18/17 07:03 Phosphorus 3.1 mg/dL (2.3-4.7) 02/18/17 07:03 Magnesium 1.7 mg/dL (1.6-2.6) 02/18/17 07:03 Consult Discharge Plan - Plan Referrals: Colopy,Figueroa R, DO [Primary Care Provider] - (Patient will call for an appointment per office)
[2017-02-18] MEDS ORDERED: Milk and Molasses Enema 200 ML RC ONE (12:30)
[2017-02-18] MEDS ORDERED: PERITON. DIALYSIS 13-DEX 2.5 % 2,000 ML PERITONEAL ONE ×2 (14:00→16:00)
--- NOTE | 2017-02-18 14:35 | Internal Med Progress Note ---
Date of Encounter: 02/18/17 Time of Encounter: 14:30 - Assessment and plan (1) Endocarditis Current Visit: Yes Status: Acute Assessment and plan: Complete Echocardiogram shows possibility of vegetation on the atrial side of the mitral valve. He only has one major Bullock criteria at this time. Consulted infectious diseases, who agrees with current management; preliminary blood cultures remain negative. Continue IV vancomycin and Rocephin. Patient will require at least 4 weeks of IV antibiotics given his underlying immunosuppression and preparation for chemotherapy. Needs PICC line after negative blood cultures. Qualifiers: Endocarditis type: infective Infective endocarditis organism: unspecified organism Chronicity: subacute Qualified Code(s): I33.0 - Acute and subacute infective endocarditis (2) Syncope Current Visit: Yes Status: Resolved Qualifiers: Syncope type: unspecified Qualified Code(s): R55 - Syncope and collapse (3) Tracheostomy in place Current Visit: Yes Status: Chronic (4) Hypothyroidism Current Visit: Yes Status: Chronic Qualifiers: Hypothyroidism type: unspecified Qualified Code(s): E03.9 - Hypothyroidism , unspecified (5) ESRD (end stage renal disease) on dialysis Current Visit: Yes Status: Chronic Assessment and plan: Nephrology has been consulted for dialysis needs. Patient continues to receive regular peritoneal dialysis sessions while in the hospital. (6) Laryngeal cancer Current Visit: Yes Status: Chronic (7) Carotid stenosis, bilateral Current Visit: Yes Status: Chronic (8) Secondary hyperparathyroidism (of renal origin) Current Visit: Yes Status: Chronic - Subjective Interval history: Noted to be straining to defecate, just received enema. Complains of rectal pain. No nausea, vomiting, abdominal pain. No chest pain or shortness of breath. - Constitutional Vitals: Temp Pulse Resp BP Pulse Ox 97.9 F 73 17 146/69 99 02/18/17 10:50 02/18/17 10:50 02/18/17 10:50 02/18/17 10:50 02/18/17 10:50 General appearance: Present: A&O X 3, answers questions appropriately - Respiratory Respiratory exam: Present: CTAB. Absent: accessory muscle use, rales, rhonchi, wheezes - GI/Abdominal GI/Abdominal exam: Present: distended, normal bowel sounds, soft, no peritoneal signs. Absent: tenderness - Extremities Exam Extremities exam: Present: full ROM, pedal edema, warm, radial pulses palpable and symetrical. Absent: calf tenderness, cyanotic Internal Medicine: Result - Labs CBC & Chem 7: 02/22/17 04:30 02/22/17 04:30 Labs: Short CBC 02/18/17 Range/Units 07:03 WBC 8.7 (4.3-11.1) K/mcL Hgb 8.8 L (12.9-16.9) g/dL Hct 27.7 L (37.5-50.1) % Plt Count 280 (140-400) K/mcL Neutrophils # 6.4 (1.6-8.9) K/mcL BMP 02/18/17 07:03 Sodium 137 Potassium 4.0 Chloride 102 Carbon Dioxide 24 BUN 38 H Creatinine 3.03 H Glucose 126 H Calcium 8.7 - ABG Interpretation ABG results: PT/INR, D-dimer PT 26.0 Seconds (9.4-12.1) H 02/18/17 07:03 Consult Discharge Plan - Plan Referrals: Figueroa Navarro DO [Primary Care Provider] - (Patient will call for an appointment per office) Renetta Coles, IDENTIFICATION TECHNICIAN [Advanced Practice Nurse] - 03/06/17 9:00 am Prescriptions: CefTRIAXone [Rocephin] 2,000 mg IVPB Q12HR 37 Days Vancomycin [Vancocin] 1,000 mg IV DAILY 37 Days
--- NOTE | 2017-02-18 17:24 | Internal Med Progress Note ---
Date of Encounter: 02/15/17 Time of Encounter: 12:00 - Assessment and plan (1) Endocarditis Current Visit: Yes Status: Acute Assessment and plan: Complete Echocardiogram still shows possibility of vegetation on the atrial side of the mitral valve. He only has one major Campbell criteria at this time. Consulted infectious diseases, who agrees with current management and recommended sending 3 more sets of blood cultures. Follow final cultures and continue IV Rocephin and vancomycin at this time. Patient will require at least 4 weeks of IV antibiotics given his underlying immunosuppression and preparation for chemotherapy. Qualifiers: Endocarditis type: infective Infective endocarditis organism: unspecified organism Chronicity: subacute Qualified Code(s): I33.0 - Acute and subacute infective endocarditis (2) Syncope Current Visit: Yes Status: Acute Assessment and plan: Admitted with recurrent episodes of syncope and near syncope. Telemetry monitoring uneventful. Serial troponins not suggestive of ACS. Cardiology follow-up appreciated. No cardiac etiology for syncope determined at this time. CT head done in the emergency room showed no acute abnormality. EEG has been done, not suggestive of seizure. Neurology consulted, could be vertebral basilar disease, for which no treatment can be offered at this time. Patient could also be having possible episodes of seizures and empiric antiepileptic therapy has been suggested to the patient who declined at this time. Bilateral carotid Doppler reviewed, shows 60-79% stenosis in bilateral mid ICA ; vascular surgery consult appreciated, recommend repeat carotid ultrasound in 6 months and no further intervention at this time. Patient is having no further episodes of syncope now. Qualifiers: Syncope type: unspecified Qualified Code(s): R55 - Syncope and collapse (3) Tracheostomy in place Current Visit: Yes Status: Chronic (4) Hypothyroidism Current Visit: Yes Status: Chronic Assessment and plan: Continue home dose of levothyroxine. Qualifiers: Hypothyroidism type: unspecified Qualified Code(s): E03.9 - Hypothyroidism , unspecified (5) ESRD (end stage renal disease) on dialysis Current Visit: Yes Status: Chronic Assessment and plan: Nephrology has been consulted for dialysis needs. Patient continues to receive regular peritoneal dialysis sessions while in the hospital. (6) Laryngeal cancer Current Visit: Yes Status: Chronic (7) Carotid stenosis, bilateral Current Visit: Yes Status: Chronic (8) Secondary hyperparathyroidism (of renal origin) Current Visit: Yes Status: Chronic - Subjective Interval history: Reports no new complaints. Noted to be ambulating in hallways. No chest pain or shortness of breath. - Constitutional Vitals: Temp Pulse Resp BP Pulse Ox 98.0 F 75 16 122/63 100 02/18/17 15:21 02/18/17 15:21 02/18/17 15:21 02/18/17 15:21 02/18/17 15:21 General appearance: Present: A&O X 3, answers questions appropriately - Respiratory Respiratory exam: Present: CTAB. Absent: accessory muscle use, rales, rhonchi, wheezes - Cardiovascular Cardiovascular exam: Present: RRR, +S1, +S2. Absent: diastolic murmur, gallop, rubs, systolic murmur - GI/Abdominal GI/Abdominal exam: Present: normal bowel sounds, soft, no peritoneal signs. Absent: distended, tenderness Internal Medicine: Result - Labs CBC & Chem 7: 02/18/17 07:03 02/18/17 07:03 Labs: Short CBC 02/18/17 Range/Units 07:03 WBC 8.7 (4.3-11.1) K/mcL Hgb 8.8 L (12.9-16.9) g/dL Hct 27.7 L (37.5-50.1) % Plt Count 280 (140-400) K/mcL Neutrophils # 6.4 (1.6-8.9) K/mcL BMP 02/18/17 07:03 Sodium 137 Potassium 4.0 Chloride 102 Carbon Dioxide 24 BUN 38 H Creatinine 3.03 H Glucose 126 H Calcium 8.7 - ABG Interpretation ABG results: PT/INR, D-dimer PT 26.0 Seconds (9.4-12.1) H 02/18/17 07:03 Consult Discharge Plan - Plan Referrals: Figueroa Navarro DO [Primary Care Provider] - (Patient will call for an appointment per office)
[2017-02-18] MEDS: *HR* OxyCODONE/APAP 10/325 TABLET PO PRN (22:05)
[2017-02-19] MEDS: Perit. Dialysis with Dex 1.5 % 2,000 ML PERITONEAL SCH ×4 (02:18→20:11)
[2017-02-19 05:24] LABS: Basophils % 0.2 %; Eosinophils # 0.1 K/mcL (0.0-0.6); Hematocrit 28.1 % (37.5-50.1); Hemoglobin 8.8 g/dL (12.9-16.9); Immature Granulocytes % 1.1 % (0-4); Lymphocytes # 0.9 K/mcL (0.6-4.6); Lymphocytes % 6.8 %; Mean Corpuscular HGB Conc 31.3 g/dL (31.6-35.5); Mean Corpuscular Hemoglobin 31.1 pg (28.0-33.3); Mean Corpuscular Volume 99.3 fL (83.0-100.0); Mean Platelet Volume 10.6 fL (9.4-12.4); Monocytes # 1.2 K/mcL (0.0-1.3); Monocytes % 9.5 %; Neutrophils # 10.3 K/mcL (1.6-8.9); Platelet Count 313 K/mcL (140-400); Red Blood Count 2.83 M/mcL (4.19-5.50); Red Cell Distribution Width 16.4 % (11.5-14.5); Segmented Neutrophils % 81.4 %
[2017-02-19 05:27] LABS: INR 1.7; Prothrombin Time 18.6 Seconds (9.4-12.1)
[2017-02-19 05:39] LABS: Potassium 3.7 mEq/L (3.5-4.5)
[2017-02-19] MEDS: *HR* OxyCODONE/APAP 10/325 TABLET PO PRN ×4 (06:50→22:47)
[2017-02-19 08:20] LABS: Brucella Antibody Total <1:20 (<1:20)
[2017-02-19] MEDS: Sennosides/Docusate Sodium TABLET PO SCH ×2 (08:26→20:11)
[2017-02-19] MEDS: Multivit/Ca/Min/Fe/FA 1 TAB TABLET PO SCH (08:26)
[2017-02-19] MEDS: Bacitracin/PolymyxinB OINT 14.17 GM TUBE TP SCH ×2 (08:27→20:12)
--- NOTE | 2017-02-19 11:39 | Infectious Disease Progress No ---
Date of Encounter: 02/19/17 Time of Encounter: 11:36 - Assessment and Plan (1) Leukocytosis Current Visit: No Status: Acute Etiology unclear. Not sure if this is related to the patient's mitral valve vegetation. Improved. WBC 12.7 this morning. Review of the record reveals that the patient has labs done at [facility] in November and his WBC was elevated at that time. No other labs have been done since then. CXR negative. Urinalysis negative. CT of the head negative. CT of the neck shows marked soft tissue swelling and enlarged cervical lymph nodes, but no mass or abscess. The patient denies any focal complaints. Peritoneal dialysis fluid sent for analysis and is negative. Blood cultures obtained 02/14/17 are NGTD x 2 sets. Additional three sets drawn 02/16/16 are NGTD as well. Vanc and Rocephin started by the primary team. Qualifiers: Leukocytosis type: unspecified Qualified Code(s): D72.829 - Elevated white blood cell count, unspecified (2) Mitral valve vegetation Current Visit: Yes Status: Acute TTE revealed echodensity on the anterior leaf of the mitral valve, concerning for vegetation. Blood cultures drawn 02/14/17 are NGTD x 2 sets. The patient does have a history of MRSA bacteremia (MERLIN negative) in 03/2016, but according to the [facility] records, the patient received a four week course of IV Vancomycin, which would have been adequate treatment. The patient is immunocompromised secondary to his laryngeal cancer. He is getting ready to start PO everolimus chemotherapy. The patient meets one major Modified Daniels's Criteria. Rheumatoid factor negative. Check Coxiella burnetti, Q-fever, and Brucella serologies --> pending. Blood cultures drawn 02/14/17 x 2 sets and 02/15/17 x 3 sets are NGTD. Continue Vancomycin IV. Pharmacy to dose. Goal trough approximately 15. Continue Rocephin 2 grams IV Q12H. Duration of treatment depends on the clinical picture, but likely 6 weeks for culture negative endocarditis. Monitor renal function and for drug toxicities and dose-adjust antibiotics. Interventional radiology has been consulted for tunneled PICC line placement Check weekly CBC, BMP, and Vanc trough for the duration of treatment. Weekly PICC care per protocol. Follow up with ID 03/06/17 at 0900. The patient will need a repeat ECHO at the completion of treatment. (3) Syncope Current Visit: Yes Status: Acute Etiology remains unclear. CT of the head, EEG, carotid dopplers, and cardiac workup negative for findings that can explain the patient's symptoms. Neurology, vascular, and cardiology consulted. Qualifiers: Syncope type: unspecified Qualified Code(s): R55 - Syncope and collapse (4) Carotid stenosis Current Visit: Yes Status: Acute Vascular surgery consulted. No further workup required at this time. Per Vascular, unlikely cause of the patient's syncope. Qualifiers: Laterality: bilateral Qualified Code(s): I65.23 - Occlusion and stenosis of bilateral carotid arteries (5) Constipation Current Visit: Yes Status: Resolved Likely secondary to the pain medication use and decreased PO intake. Resolved. Management per the primary team. 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 Status post total laryngectomy with tracheostomy. Repeat evaluation in July 2016 showed that the patient's cancer had advanced and is unresectable. (7) Status post tracheostomy Current Visit: No Status: Acute (8) Chronic lower back pain Current Visit: No Status: Chronic Qualifiers: Back pain laterality: unspecified Sciatica presence: without sciatica Qualified Code(s): M54.5 - Low back pain; G89.29 - Other chronic pain (9) End stage renal disease Current Visit: No Status: Chronic Performs peritoneal dialysis. Nephrology consulted and following. (10) Anemia Current Visit: No Status: Chronic Etiology unclear, but possible multifactorial. Stool guiac +. Hgb dropped to 7.4. Received 2 units of PRBCs 4/5 and 4/6. Improved to 8.8 today. Management per the primary team. Qualifiers: Anemia type: other cause Other causes of anemia: chronic disease, other Qualified Code(s): D63.8 - Anemia in other chronic diseases classified elsewhere - Subjective Interval history: Patient seen and examined. Weekend notes reviewed. No acute events noted. Patient ambulating in the room with his at the bedside. States he feels okay today. Reports frontal headache and chronic neck and back pain. Denies fevers or chills or rigors. Denies chest pain, shortness of breath, or cough. Denies nausea or vomiting. Is currently NPO for possible tunneled PICC placement today, but states his appetite is improved. Denies abdominal pain. Reports liquid stool since he has been getting large amount of laxatives due to being constipated. Denies oral thrush or skin lesions. Denies syncope or dizziness. Infect Dis PN-Objective Data - Labs CBC & Chem 7: 02/19/17 04:05 02/19/17 04:05 Labs: Laboratory Results - last 24 hr 02/16/17 02/19/17 02/19/17 11:07 04:05 04:05 WBC RBC Hgb Hct MCV MCH MCHC RDW Plt Count MPV Immature Gran % Seg Neutrophils % Lymphocytes % Monocytes % Eosinophils % Basophils % Neutrophils # Lymphocytes # Monocytes # Eosinophils # Basophils # PT 18.6 H INR 1.7 Sodium Potassium Chloride Carbon Dioxide BUN Creatinine Est GFR ( Amer) Est GFR (Non-Af Amer) BUN/Creatinine Ratio Glucose Calculated Osmolality Calcium Random Vancomycin 20.4 Brucella Tot Ab Aggl <1:20 02/19/17 02/19/17 04:05 04:05 WBC 12.7 H RBC 2.83 L Hgb 8.8 L Hct 28.1 L MCV 99.3 MCH 31.1 MCHC 31.3 L RDW 16.4 H Plt Count 313 MPV 10.6 Immature Gran % 1.1 Seg Neutrophils % 81.4 Lymphocytes % 6.8 Monocytes % 9.5 Eosinophils % 1.0 Basophils % 0.2 Neutrophils # 10.3 H Lymphocytes # 0.9 Monocytes # 1.2 Eosinophils # 0.1 Basophils # 0.0 PT INR Sodium 136 Potassium 3.7 Chloride 98 Carbon Dioxide 26 BUN 38 H Creatinine 3.14 H Est GFR ( Amer) 24 L Est GFR (Non-Af Amer) 20 L BUN/Creatinine Ratio 12 Glucose 120 H Calculated Osmolality 292 Calcium 9.0 Random Vancomycin Brucella Tot Ab Aggl Cultures: Cultures 02/16/17 03:20 Blood Culture - Preliminary Peripheral Venipuncture No growth. 02/15/17 14:33 Blood Culture - Preliminary Peripheral Venipuncture No growth. 02/15/17 07:52 Blood Culture - Preliminary Peripheral Venipuncture No growth. 02/15/17 07:48 Blood Culture - Preliminary Peripheral Venipuncture No growth. Serology 02/16/17 02/14/17 02/14/17 Range/Units 11:07 17:40 10:35 Fluid Source PD fluid Fluid Volume 23 mL Fluid Appearance Clear (Clear) Fluid RBC < 0.002 (No Ref Range) M/mcL Fld Tot Nucleated Cell 9 TNC/mcL Fluid Seg Neutrophil % 40.0 % Fld Band Neutrophil % TNP Fluid Lymphocytes % 60.0 % Fluid Monocytes % TNP Fluid Eosinophils % TNP Fluid Basophils % TNP Fluid Other Cells % TNP Stool Occult Blood Positive A (Negative) Brucella Tot Ab Aggl <1:20 (<1:20) Exam - Constitutional Vitals: Temp Pulse Resp BP Pulse Ox 97.8 F 88 16 120/68 97 02/19/17 11:30 02/19/17 11:30 02/19/17 11:30 02/19/17 11:30 02/19/17 11:30 General appearance: average body habitus, cooperative, no acute distress - Head Head exam: Present: atraumatic, normal inspection, normocephalic - Eye Eye exam: Present: EOMI, normal appearance, PERRL Pupils: Present: normal accommodation Additional comments: No subconjunctival hemorrhage noted. - ENT ENT exam: Present: mucous membranes moist - Neck Neck exam: Present: normal inspection Additional comments: Tracheostomy stoma without erythema or drainage. Cannula in place. - Respiratory Respiratory exam: Present: CTAB. Absent: rales, respiratory distress, rhonchi, wheezes - Cardiovascular Cardiovascular exam: Present: RRR, +S1, +S2 - GI/Abdominal GI/Abdominal exam: Present: distended (PD fluid currently dwelling.), normal bowel sounds, soft. Absent: tenderness Additional comments: Large abdominal hernia noted to the supraumbilical area. PD catheter noted to the LLQ. - Extremities Exam Extremities exam: Present: normal inspection. Absent: joint swelling, pedal edema, tenderness Additional comments: No endocarditis stigmata noted. - Neurological Exam Neurological exam: Present: alert, oriented X3, no focal deficits - Psychiatric Psychiatric exam: Present: normal affect, normal mood - Skin Skin exam: Present: dry, intact, normal color, warm Consult Discharge Plan - Plan Referrals: ColFigueroa alford DO [Primary Care Provider] - (Patient will call for an appointment per office) Renetta Coles, FLANGE TURNER [Advanced Practice Nurse] - 03/06/17 9:00 am
[2017-02-19] MEDS ORDERED: Vancomycin 500 MG in D5% in Water (Mini-Bag+) 100 ML IVPB ONE (12:00)
[2017-02-19] MEDS: Darbepoetin 100 MCG/0.5 ML SYRINGE SQ SCH (13:12)
[2017-02-19] MEDS ORDERED: *HR* Heparin 5,000 UNIT/ML VIAL IVP ONE (14:00)
[2017-02-19] MEDS ORDERED: *HR* Heparin 5,000 UNIT/ML VIAL IVP PRN ×2 (14:00)
[2017-02-19 14:23] LABS: Hemoglobin 8.1 g/dL (12.9-16.9); Mean Corpuscular HGB Conc 31.2 g/dL (31.6-35.5); Mean Corpuscular Hemoglobin 31.5 pg (28.0-33.3); Mean Corpuscular Volume 101.2 fL (83.0-100.0); Mean Platelet Volume 10.6 fL (9.4-12.4); Platelet Count 291 K/mcL (140-400); Red Blood Count 2.57 M/mcL (4.19-5.50)
[2017-02-19 14:31] LABS: INR 1.7; Prothrombin Time 18.4 Seconds (9.4-12.1)
[2017-02-19 14:36] LABS: Activated Partial Thrombo Time 30.8 Seconds (26.0-36.0)
[2017-02-19] MEDS ORDERED: 0.9 % Sodium Chloride 1,000 ML ONE (14:52)
[2017-02-19] MEDS: Heparin 25,000 UNIT/500 ML D5W 25,000 UNIT/500 ML MLS IVC SCH (15:05)
--- NOTE | 2017-02-19 17:57 | Internal Med Progress Note ---
Date of Encounter: 02/16/17 Time of Encounter: 13:00 - Assessment and plan (1) Endocarditis Current Visit: Yes Status: Acute Assessment and plan: Complete Echocardiogram shows possibility of vegetation on the atrial side of the mitral valve. He only has one major [place] criteria at this time. Consulted infectious diseases, who agrees with current management; follow-up blood cultures results. Continue IV vancomycin and Rocephin. Patient will require at least 4 weeks of IV antibiotics given his underlying immunosuppression and preparation for chemotherapy. Needs PICC line after negative blood cultures. Qualifiers: Endocarditis type: infective Infective endocarditis organism: unspecified organism Chronicity: subacute Qualified Code(s): I33.0 - Acute and subacute infective endocarditis (2) Constipation Current Visit: Yes Status: Acute Assessment and plan: Patient continues to have constipation despite being on senna plus; we will start scheduled MiraLAX and monitor closely. Qualifiers: Constipation type: slow transit constipation Qualified Code(s): K59.01 - Slow transit constipation (3) Syncope Current Visit: Yes Status: Acute Qualifiers: Syncope type: unspecified Qualified Code(s): R55 - Syncope and collapse (4) Tracheostomy in place Current Visit: Yes Status: Chronic (5) Hypothyroidism Current Visit: Yes Status: Chronic Assessment and plan: Continue home dose of levothyroxine. Qualifiers: Hypothyroidism type: unspecified Qualified Code(s): E03.9 - Hypothyroidism , unspecified (6) ESRD (end stage renal disease) on dialysis Current Visit: Yes Status: Chronic Assessment and plan: Nephrology has been consulted for dialysis needs. Patient continues to receive regular peritoneal dialysis sessions while in the hospital. (7) Laryngeal cancer Current Visit: Yes Status: Chronic (8) Carotid stenosis, bilateral Current Visit: Yes Status: Chronic (9) Secondary hyperparathyroidism (of renal origin) Current Visit: Yes Status: Chronic - Subjective Interval history: Reports no new complaints. Noted to be ambulating in hallways. No chest pain or shortness of breath. - Constitutional Vitals: Temp Pulse Resp BP Pulse Ox 98.6 F 80 16 102/68 97 02/19/17 16:58 02/19/17 16:58 02/19/17 16:58 02/19/17 16:58 02/19/17 16:58 General appearance: Present: A&O X 3, answers questions appropriately - Respiratory Respiratory exam: Present: CTAB. Absent: accessory muscle use, rales, rhonchi, wheezes - Cardiovascular Cardiovascular exam: Present: RRR, +S1, +S2. Absent: diastolic murmur, gallop, rubs, systolic murmur - GI/Abdominal GI/Abdominal exam: Present: normal bowel sounds, soft, no peritoneal signs. Absent: distended, tenderness - Extremities Exam Extremities exam: Present: full ROM, pedal edema, warm, radial pulses palpable and symetrical. Absent: calf tenderness, cyanotic Internal Medicine: Result - Labs CBC & Chem 7: 02/19/17 14:11 02/19/17 04:05 Labs: Short CBC 02/19/17 02/19/17 Range/Units 04:05 14:11 WBC 12.7 H 14.8 H (4.3-11.1) K/mcL Hgb 8.8 L 8.1 L (12.9-16.9) g/dL Hct 28.1 L 26.0 L (37.5-50.1) % Plt Count 313 291 (140-400) K/mcL Neutrophils # 10.3 H (1.6-8.9) K/mcL BMP 02/19/17 04:05 Sodium 136 Potassium 3.7 Chloride 98 Carbon Dioxide 26 BUN 38 H Creatinine 3.14 H Glucose 120 H Calcium 9.0 - ABG Interpretation ABG results: PT/INR, D-dimer PT 18.4 Seconds (9.4-12.1) H 02/19/17 14:11 Consult Discharge Plan - Plan Referrals: Figueroa Navarro DO [Primary Care Provider] - (Patient will call for an appointment per office) Renetta Coles, SKEIN YARN DRIER [Advanced Practice Nurse] - 03/06/17 9:00 am
[2017-02-20] MEDS: Perit. Dialysis with Dex 1.5 % 2,000 ML PERITONEAL SCH ×4 (02:05→20:09)
[2017-02-20 05:45] LABS: INR 1.4; Prothrombin Time 15.6 Seconds (9.4-12.1)
--- NOTE | 2017-02-20 06:24 | Nephrology Progress Note ---
Date of Encounter: 02/19/17 Time of Encounter: 06:21 - Assessment and Plan (1) ESRD (end stage renal disease) on dialysis Current Visit: Yes Status: Acute Patient is on CAPD. Will continue with current prescription. Patient seems to be doing well from a renal standpoint. (2) Endocarditis Current Visit: Yes Status: Acute Patient on antibiotics. Awaiting tunneled line for outpatient antibiotics. Qualifiers: Endocarditis type: infective Infective endocarditis organism: unspecified organism Chronicity: subacute Qualified Code(s): I33.0 - Acute and subacute infective endocarditis Subjective Principal diagnosis: syncope Interval history: Patient seen and evaluated. He is sitting on the edge of the bed. He has no new complaints, but is frustrated at not being able to leave. His family member is at the bedside. Objective - Vital Signs Vital signs: Vital Signs Temp Pulse Resp BP Pulse Ox 02/20/17 04:21 98.1 F 90 18 152/60 95 02/19/17 23:53 98.2 F 80 18 147/68 95 02/19/17 19:21 98.9 F 76 18 120/69 92 02/19/17 16:58 98.6 F 80 16 102/68 97 02/19/17 13:12 120/68 02/19/17 11:30 97.8 F 88 16 120/68 97 02/19/17 07:52 97.7 F 97 18 145/70 97 Intake and Output 02/19/17 02/19/17 02/20/17 15:59 23:59 07:59 Intake Total 472 / 472 28 / 28 Output Total 150 / 150 450 / 450 Balance 322 / 322 -422 / -422 Intake: IV Fluids 272 / 272 28 / 28 Heparin 25,000 UNIT/500 172 / 172 28 / 28 ML D5W 25,000 unit In 500 ml @ 14 UNIT/KG/HR 25. 088 mls/hr IVC .[id number] SUE Rx#:[id number] Rocephin 2,000 MG In 100 / 100 Dextrose 5% (Minibag+) 100 ML 100 ML @ 200 mls/ hr IVPB Q12HR SUE Rx#: [id number] Oral 200 / 200 Output: Urine 150 / 150 450 / 450 Other: Total Peritoneal Dialysis 0 0 100 Output Stool Size Large Stool Consistency formed Weight 89.6 kg 90.6 kg 92.6 kg Patient Weight 02/20/17 23:59 Weight 92.6 kg - General Appearance General appearance: Present: well-developed, well-nourished EENT: Present: ATNC Neck: Present: supple Respiratory: Present: clear Cardiology: Present: regular rate Integumentary: Present: warm and dry Additional Comments: ambulating in the room and in the hallway Psychiatric: Present: mood/affect appropriate - Lab 02/19/17 14:11 02/19/17 04:05 Most recent lab results Calcium 9.0 mg/dL (8.6-10.8) 02/19/17 04:05 Phosphorus 3.1 mg/dL (2.3-4.7) 02/18/17 07:03 Magnesium 1.7 mg/dL (1.6-2.6) 02/18/17 07:03 Consult Discharge Plan - Plan Referrals: Figueroa Navarro DO [Primary Care Provider] - (Patient will call for an appointment per office) Renetta Coles, [employer] TUBE TENDER [Advanced Practice Nurse] - 03/06/17 9:00 am
[2017-02-20] MEDS: Sennosides/Docusate Sodium TABLET PO SCH ×2 (08:32→20:09)
[2017-02-20] MEDS: Multivit/Ca/Min/Fe/FA 1 TAB TABLET PO SCH (08:33)
[2017-02-20] MEDS: Bacitracin/PolymyxinB OINT 14.17 GM TUBE TP SCH ×2 (08:33→21:03)
[2017-02-20] MEDS: *HR* OxyCODONE/APAP 10/325 TABLET PO PRN ×4 (08:46→22:22)
--- NOTE | 2017-02-20 09:49 | Nephrology Progress Note ---
Date of Encounter: 02/20/17 Time of Encounter: 09:47 - Assessment and Plan (1) ESRD (end stage renal disease) on dialysis Current Visit: Yes Status: Acute Continue PD treatments as prescribed Vanco to be dosed by pharmacy Avoid nephrotoxins if possible (2) Syncope Current Visit: Yes Status: Acute per primary team Qualifiers: Syncope type: unspecified Qualified Code(s): R55 - Syncope and collapse (3) Laryngeal cancer Current Visit: Yes Status: Chronic (4) Anemia Current Visit: No Status: Chronic Yesterday hgb 8.1 No labs yet today Transfuse per parameters Goal hgb 10-11 Qualifiers: Anemia type: other cause Other causes of anemia: chronic disease, other Qualified Code(s): D63.8 - Anemia in other chronic diseases classified elsewhere (5) Endocarditis Current Visit: Yes Status: Acute Continue antibiotics Awaiting tunneled line for outpatient antibiotics Qualifiers: Endocarditis type: infective Infective endocarditis organism: unspecified organism Chronicity: subacute Qualified Code(s): I33.0 - Acute and subacute infective endocarditis Subjective Principal diagnosis: syncope Interval history: Patient seen and examined. at bedside. Denies any N/V/D. States getting a PICC line and may even get to go home today. Objective - Vital Signs Vital signs: Vital Signs Temp Pulse Resp BP Pulse Ox 02/20/17 06:53 98.6 F 85 18 162/69 95 02/20/17 04:21 98.1 F 90 18 152/60 95 02/19/17 23:53 98.2 F 80 18 147/68 95 02/19/17 19:21 98.9 F 76 18 120/69 92 02/19/17 16:58 98.6 F 80 16 102/68 97 02/19/17 13:12 120/68 02/19/17 11:30 97.8 F 88 16 120/68 97 Intake and Output 02/19/17 02/20/17 02/20/17 23:59 07:59 15:59 Intake Total 472 / 472 288 / 288 39 / 39 Output Total 150 / 150 570 / 570 Balance 322 / 322 -282 / -282 39 / 39 Intake: IV Fluids 272 / 272 288 / 288 39 / 39 Heparin 25,000 UNIT/500 172 / 172 188 / 188 39 / 39 ML D5W 25,000 unit In 500 ml @ 14 UNIT/KG/HR 25. 088 mls/hr IVC .[id number] SUE Rx#:[id number] Rocephin 2,000 MG In 100 / 100 100 / 100 Dextrose 5% (Minibag+) 100 ML 100 ML @ 200 mls/ hr IVPB Q12HR SUE Rx#: [id number] Oral 200 / 200 Output: Urine 150 / 150 570 / 570 Other: Meal NPO Total Peritoneal Dialysis 0 100 Output Stool Size Large Stool Consistency formed Weight 90.6 kg 92.6 kg Patient Weight 02/20/17 23:59 Weight 92.6 kg - General Appearance General appearance: Present: well-developed, well-nourished EENT: Present: ATNC, hearing intact, vision intact Neck: Present: supple Respiratory: Present: clear Cardiology: Present: no edema, normal S1, normal S2 Dialysis Vascular Access: Arteriovenous Fistula Gastrointestinal: Present: no tenderness, no guarding Integumentary: Present: warm and dry Neurologic: Present: alert and oriented x3 Psychiatric: Present: mood/affect appropriate, cooperative - Lab 02/19/17 14:11 02/19/17 04:05 Most recent lab results Calcium 9.0 mg/dL (8.6-10.8) 02/19/17 04:05 Phosphorus 3.1 mg/dL (2.3-4.7) 02/18/17 07:03 Magnesium 1.7 mg/dL (1.6-2.6) 02/18/17 07:03 Consult Discharge Plan - Plan Referrals: Figueroa Navarro DO [Primary Care Provider] - (Patient will call for an appointment per office) Renetta Coles, PARACHUTE RIGGER [Advanced Practice Nurse] - 03/06/17 9:00 am
--- NOTE | 2017-02-20 10:06 | Infectious Disease Progress No ---
Date of Encounter: 02/20/17 Time of Encounter: 10:04 - Assessment and Plan (1) Leukocytosis Current Visit: No Status: Acute Etiology unclear. Not sure if this is related to the patient's mitral valve vegetation. Improved. WBC 12.7 yesterday, but not repeated this morning. Had previously normalized over the weekend. Review of the record reveals that the patient has labs done at [facility] in November and his WBC was elevated at that time. No other labs have been done since then. CXR negative. Urinalysis negative. CT of the head negative. CT of the neck shows marked soft tissue swelling and enlarged cervical lymph nodes, but no mass or abscess. The patient denies any focal complaints. Peritoneal dialysis fluid sent for analysis and is negative. Blood cultures obtained 02/14/17 are negative x 2 sets. Additional three sets drawn 02/16/16 are negative as well. Vanc and Rocephin started by the primary team. Qualifiers: Leukocytosis type: unspecified Qualified Code(s): D72.829 - Elevated white blood cell count, unspecified (2) Mitral valve vegetation Current Visit: Yes Status: Acute TTE revealed echodensity on the anterior leaf of the mitral valve, concerning for vegetation. Blood cultures drawn 02/14/17 are NGTD x 2 sets. The patient does have a history of MRSA bacteremia (MERLIN negative) in 03/2016, but according to the [facility] records, the patient received a four week course of IV Vancomycin, which would have been adequate treatment. The patient is immunocompromised secondary to his laryngeal cancer. He is getting ready to start PO everolimus chemotherapy. The patient meets one major Modified Daniels's Criteria. Rheumatoid factor negative. Check Coxiella burnetti, Q-fever, and Brucella serologies --> negative. Blood cultures drawn 02/14/17 x 2 sets and 02/15/17 x 3 sets are negative. Given that the entire workup has not revealed a causative organism, we will treat for culture-negative endocarditis. Continue Vancomycin IV. Pharmacy to dose. Goal trough approximately 15. Continue Rocephin 2 grams IV Q12H. Duration of treatment depends on the clinical picture, but likely 6 weeks for culture negative endocarditis. Monitor renal function and for drug toxicities and dose-adjust antibiotics. Interventional radiology has been consulted for tunneled PICC line placement. Check weekly CBC, BMP, and Vanc trough for the duration of treatment. Weekly PICC care per protocol. Follow up with ID 03/06/17 at 0900. The patient will need a repeat ECHO at the completion of treatment. (3) Syncope Current Visit: Yes Status: Acute Etiology remains unclear. He has had no further episodes. CT of the head, EEG, carotid dopplers, and cardiac workup negative for findings that can explain the patient's symptoms. Neurology, vascular, and cardiology consulted. Qualifiers: Syncope type: unspecified Qualified Code(s): R55 - Syncope and collapse (4) Carotid stenosis Current Visit: Yes Status: Acute Vascular surgery consulted. No further workup required at this time. Per Vascular, unlikely cause of the patient's syncope. Qualifiers: Laterality: bilateral Qualified Code(s): I65.23 - Occlusion and stenosis of bilateral carotid arteries (5) Constipation Current Visit: Yes Status: Acute Likely secondary to the pain medication use and decreased PO intake. Resolved. Management per the primary team. 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 Status post total laryngectomy with tracheostomy. Repeat evaluation in July 2016 showed that the patient's cancer had advanced and is unresectable. (7) Status post tracheostomy Current Visit: No Status: Acute (8) Chronic lower back pain Current Visit: No Status: Chronic Qualifiers: Back pain laterality: unspecified Sciatica presence: without sciatica Qualified Code(s): M54.5 - Low back pain; G89.29 - Other chronic pain (9) End stage renal disease Current Visit: No Status: Chronic Performs peritoneal dialysis. Nephrology consulted and following. (10) Anemia Current Visit: No Status: Chronic Etiology unclear, but possible multifactorial. Stool guiac +. Hgb dropped to 7.4. Received 2 units of PRBCs / and 6. Hgb 8.1 today. Management per the primary team. Qualifiers: Anemia type: other cause Other causes of anemia: chronic disease, other Qualified Code(s): D63.8 - Anemia in other chronic diseases classified elsewhere - Subjective Interval history: Patient seen and examined. No acute events noted overnight. Patient sitting up on the side of the bed with his at the bedside. States he feels okay today , but is eager to go home. Reports frontal headache and chronic neck and back pain. Denies fevers or chills or rigors. Denies chest pain, shortness of breath , or cough. Denies nausea or vomiting. Is currently NPO for possible tunneled PICC placement today, but states his appetite is improved and he ate most of his dinner last night. Denies abdominal pain. Reports large soft BM last night. Denies oral thrush or skin lesions. Denies syncope or dizziness. Infect Dis PN-Objective Data - Labs CBC & Chem 7: 02/19/17 14:11 02/19/17 04:05 Labs: Laboratory Results - last 24 hr 02/16/17 02/19/17 02/19/17 11:07 14:11 14:11 WBC 14.8 H RBC 2.57 L Hgb 8.1 L Hct 26.0 L MCV 101.2 H MCH 31.5 MCHC 31.2 L RDW 17.0 H Plt Count 291 MPV 10.6 PT 18.4 H INR 1.7 APTT 30.8 D C.burnetii Phase I IgG NEGATIVE C.burnetii Phase I IgM NEGATIVE C.burnetii Phase II IgG NEGATIVE C.burnetii Phase II IgM NEGATIVE 02/19/17 02/20/17 22:41 05:22 WBC RBC Hgb Hct MCV MCH MCHC RDW Plt Count MPV PT 15.6 H INR 1.4 APTT 69.0 H D 56.0 H C.burnetii Phase I IgG C.burnetii Phase I IgM C.burnetii Phase II IgG C.burnetii Phase II IgM Cultures: Cultures 02/16/17 03:20 Blood Culture - Preliminary Peripheral Venipuncture No growth. 02/15/17 14:33 Blood Culture - Preliminary Peripheral Venipuncture No growth. 02/15/17 07:52 Blood Culture - Preliminary Peripheral Venipuncture No growth. 02/15/17 07:48 Blood Culture - Preliminary Peripheral Venipuncture No growth. Serology 02/16/17 02/14/17 02/14/17 Range/Units 11:07 17:40 10:35 Fluid Source PD fluid Fluid Volume 23 mL Fluid Appearance Clear (Clear) Fluid RBC < 0.002 (No Ref Range) M/mcL Fld Tot Nucleated Cell 9 TNC/mcL Fluid Seg Neutrophil % 40.0 % Fld Band Neutrophil % TNP Fluid Lymphocytes % 60.0 % Fluid Monocytes % TNP Fluid Eosinophils % TNP Fluid Basophils % TNP Fluid Other Cells % TNP Stool Occult Blood Positive A (Negative) Brucella Tot Ab Aggl <1:20 (<1:20) C.burnetii Phase I IgG NEGATIVE (Negative) C.burnetii Phase I IgM NEGATIVE (Negative) C.burnetii Phase II IgG NEGATIVE (Negative) C.burnetii Phase II IgM NEGATIVE (Negative) Exam - Constitutional Vitals: Temp Pulse Resp BP Pulse Ox 98.6 F 85 18 162/69 95 02/20/17 06:53 02/20/17 06:53 02/20/17 06:53 02/20/17 06:53 02/20/17 06:53 General appearance: average body habitus, cooperative, no acute distress - Head Head exam: Present: atraumatic, normal inspection, normocephalic - Eye Eye exam: Present: EOMI, normal appearance, PERRL Pupils: Present: normal accommodation Additional comments: No subconjunctival hemorrhage noted. - ENT ENT exam: Present: mucous membranes moist - Neck Neck exam: Present: normal inspection Additional comments: Tracheostomy midline with cannula in place. No erythema or drainage noted. - Respiratory Respiratory exam: Present: CTAB. Absent: rales, respiratory distress, rhonchi, wheezes - Cardiovascular Cardiovascular exam: Present: RRR, +S1, +S2 - GI/Abdominal GI/Abdominal exam: Present: distended (PD fluid infusing at this time.), normal bowel sounds, soft. Absent: tenderness Additional comments: Abdominal hernia noted to the LUQ. PD catheter noted to the LLQ without erythema , drainage, or tenderness. Previously drained PD fluid clear and pale yellow. - Extremities Exam Extremities exam: Present: pedal edema (Trace BLE). Absent: joint swelling, tenderness - Neurological Exam Neurological exam: Present: alert, oriented X3, no focal deficits - Psychiatric Psychiatric exam: Present: normal affect, normal mood - Skin Skin exam: Present: dry, intact, normal color, warm Additional comments: No endocarditis stigmata noted. Consult Discharge Plan - Plan Referrals: Figueroa Navarro DO [Primary Care Provider] - (Patient will call for an appointment per office) Renetta Coles, FLAME CHANNELER [Advanced Practice Nurse] - 03/06/17 9:00 am
[2017-02-20] MEDS: Heparin 25,000 UNIT/500 ML D5W 25,000 UNIT/500 ML MLS IVC SCH ×2 (10:55→18:07)
[2017-02-20] MEDS ORDERED: Vancomycin 500 MG in D5% in Water (Mini-Bag+) 100 ML IVPB ONE (14:00)
[2017-02-20 16:51] LABS: Activated Partial Thrombo Time 29.7 Seconds (26.0-36.0)
--- NOTE | 2017-02-20 17:23 | Internal Med Progress Note ---
<Lamberto Bocanegra - Last Filed: 02/20/17 17:19> Date of Encounter: 02/20/17 Time of Encounter: 11:40 - Assessment and plan (1) Syncope Current Visit: Yes Status: Acute Assessment and plan: etiology unclear at this time. No Seizure activity on EEG. Possibly from bilateral severe Carotid stenosis. Not a surgical candidate at this time per Vascular surgery. Will need follow up carotid in 6 months. No further episodes since admission. (2) Mitral valve vegetation Current Visit: Yes Status: Acute Assessment and plan: Possibly culture negative endocarditis? currently on Vancomycin and rocephin. vancomycin trough 19.1 Duration of antibiotics will be determined by clinical course but will likely need 6 weeks of IV antibiotics. Patient scheduled for PICC line today but did not get because of other more pressing procedures in the IR department. Will keep NPO and hold heparin at 0700 for procedure tomorrow. Has follow up with ID . appreciate their input (3) Carotid stenosis Current Visit: Yes Status: Acute Assessment and plan: sever bilateral follow up with Vascular surgery. (4) Laryngeal squamous cell carcinoma Current Visit: Yes Status: Acute Assessment and plan: follow up with oncologist at the [facility]. (5) Status post tracheostomy Current Visit: Yes Status: Acute (6) End stage renal disease Current Visit: Yes Status: Acute Assessment and plan: nephrology following. (7) Anemia Current Visit: Yes Status: Acute Assessment and plan: stable. no active bleeding. adequate B12 folate and ferritin. Likely from ESRD. On darbopoetin. (8) Leukocytosis Current Visit: Yes Status: Acute Assessment and plan: trending up. however patient dose not appear toxic or ill on exam. Possibly from vegetation? Will continue to monitor. May need further workup if not improving. (9) Chronic anticoagulation Current Visit: Yes Status: Acute Assessment and plan: for history of DVT. (10) History of DVT (deep vein thrombosis) Current Visit: Yes Status: Acute - Subjective Interval history: No major events overnight. Patient is NPO and Heparin Gtt. held for PICC line insertion today. Patient denies any aches or pains. he denies any further epsidoses of syncope or presyncope. He denies any focal motor or sensory defecits. He has no further complaints or concerns at this time. - Constitutional Vitals: Temp Pulse Resp BP Pulse Ox 97.4 F L 70 20 131/73 100 02/20/17 15:50 02/20/17 15:50 02/20/17 15:50 02/20/17 15:50 02/20/17 15:50 Exam: General: This is a very pleasant well-developed well-nourished 66-year-old male he is most throat nonverbal as he sat at laryngectomy and tracheostomy with currently a stoma. However when he does speak he is orientated and answers most questions with shaking his head appropriately. He sitting up in bed appears to be comfortable in no acute distress this time. HEENT: Head is normocephalic and atraumatic. Anicteric sclera, pupils equally round reactive to light. Normal external appearance of ears nose and eyes. Moist mucous membranes. Tongue is midline. Does have a stoma present. No cervical or submandibular lymphadenopathy. Palpable on exam. Heart: Regular rate and rhythm without murmurs rubs or gallops. Lungs: Clear to auscultation bilaterally. Normal effort. This normal rise expanse of the chest wall bilaterally. Abdomen: Obese, nondistended, nontender to palpation. Bowel sounds positive in all quadrants. Musculoskeletal: Grossly normal for age no gross deformity noted. Extremities: There is no clubbing, cyanosis or edema. Integument: There is no rashes or lesions. Specifically I do not see any subungual hemorrhages or any splinter hemorrhages in the soft palate. No Janeway lesions, immune or embolic phenomena noted on my exam. Internal Medicine: Result - Labs CBC & Chem 7: 02/19/17 14:11 02/19/17 04:05 - ABG Interpretation ABG results: PT/INR, D-dimer PT 15.6 Seconds (9.4-12.1) H 02/20/17 05:22 Consult Discharge Plan - Plan Referrals: Figueroa Navarro DO [Primary Care Provider] - (Patient will call for an appointment per office) Renetta Coles, NOVELTY BALL[employer]ON ASSEMBLER AND PACKER [Advanced Practice Nurse] - 03/06/17 9:00 am <Evan Coy - Last Filed: 02/20/17 17:41> Date of Encounter: 02/20/17 - Constitutional Vitals: Temp Pulse Resp BP Pulse Ox 97.4 F L 70 20 131/73 100 02/20/17 15:50 02/20/17 15:50 02/20/17 15:50 02/20/17 15:50 02/20/17 15:50 Internal Medicine: Result - Labs CBC & Chem 7: 02/19/17 14:11 02/19/17 04:05 - ABG Interpretation ABG results: PT/INR, D-dimer PT 15.6 Seconds (9.4-12.1) H 02/20/17 05:22 - Attending Attestation I examined this patient and my medical decision-making was reviewed with the CENTRAL SUPPLY WORKER/PA/Advanced Practice Nurse/Resident Physician. I agree with the documented findings, disposition and treatment plan as described except to the extent set forth below. VEgetations in Echo. PICC line tomorrow. Possible d/c once inr therapeutic. D/C with patient and his .
[2017-02-20] MEDS ORDERED: *HR* Heparin 5,000 UNIT/ML VIAL IVP PRN ×2 (17:44)
[2017-02-20] MEDS ORDERED: *HR* Heparin 5,000 UNIT/ML VIAL IVP ONE (17:44)
[2017-02-20 18:01] LABS: INR 1.3; Prothrombin Time 13.9 Seconds (9.4-12.1)
[2017-02-21 01:34] LABS: Basophils # 0.1 K/mcL (0.0-0.2); Basophils % 0.4 %; Eosinophils # 0.3 K/mcL (0.0-0.6); Eosinophils % 2.4 %; Hematocrit 25.2 % (37.5-50.1); Immature Granulocytes % 1.3 % (0-4); Lymphocytes % 8.8 %; Mean Corpuscular HGB Conc 31.7 g/dL (31.6-35.5); Mean Corpuscular Hemoglobin 31.3 pg (28.0-33.3); Mean Corpuscular Volume 98.4 fL (83.0-100.0); Mean Platelet Volume 10.3 fL (9.4-12.4); Monocytes # 1.1 K/mcL (0.0-1.3); Monocytes % 9.2 %; Platelet Count 293 K/mcL (140-400); Red Blood Count 2.56 M/mcL (4.19-5.50); Red Cell Distribution Width 16.8 % (11.5-14.5); Segmented Neutrophils % 77.9 %
[2017-02-21 01:38] LABS: INR 1.3; Prothrombin Time 14.6 Seconds (9.4-12.1)
[2017-02-21 01:55] LABS: Calcium 8.3 mg/dL (8.6-10.8); Potassium 3.7 mEq/L (3.5-4.5)
[2017-02-21] MEDS: Perit. Dialysis with Dex 1.5 % 2,000 ML PERITONEAL SCH ×4 (02:09→20:06)
[2017-02-21] MEDS: *HR* OxyCODONE/APAP 10/325 TABLET PO PRN ×3 (06:37→20:53)
[2017-02-21] MEDS: Sennosides/Docusate Sodium TABLET PO SCH ×2 (07:55→20:06)
[2017-02-21] MEDS: Bacitracin/PolymyxinB OINT 14.17 GM TUBE TP SCH ×2 (07:55→20:07)
[2017-02-21] MEDS: Multivit/Ca/Min/Fe/FA 1 TAB TABLET PO SCH (07:55)
[2017-02-21] MEDS ORDERED: Heparin 1,000 UNITS/500 mL NS 500 ML ONE (10:11)
[2017-02-21] MEDS: Heparin 25,000 UNIT/500 ML D5W 25,000 UNIT/500 ML MLS IVC SCH ×2 (11:59→19:23)
--- NOTE | 2017-02-21 13:06 | Infectious Disease Progress No ---
Date of Encounter: 02/21/17 Time of Encounter: 09:30 - Assessment and Plan (1) Leukocytosis Current Visit: No Status: Acute Etiology unclear. Not sure if this is related to the patient's mitral valve vegetation. Improved back down to 11.7 this morning. Review of the record reveals that the patient has labs done at [facility] in November and his WBC was elevated at that time. CXR negative. Urinalysis negative. CT of the head negative. CT of the neck shows marked soft tissue swelling and enlarged cervical lymph nodes, but no mass or abscess. The patient denies any focal complaints. Peritoneal dialysis fluid sent for analysis and is negative. Blood cultures obtained 02/14/17 are negative x 2 sets. Additional three sets drawn 02/16/16 are negative as well. Vanc and Rocephin started by the primary team. Qualifiers: Leukocytosis type: unspecified Qualified Code(s): D72.829 - Elevated white blood cell count, unspecified (2) Mitral valve vegetation Current Visit: Yes Status: Acute TTE revealed echodensity on the anterior leaf of the mitral valve, concerning for vegetation. Blood cultures drawn 02/14/17 are NGTD x 2 sets. The patient does have a history of MRSA bacteremia (MERLIN negative) in 03/2016, but according to the [facility] records, the patient received a four week course of IV Vancomycin, which would have been adequate treatment. The patient is immunocompromised secondary to his laryngeal cancer. He is getting ready to start PO everolimus chemotherapy. The patient meets one major Modified Daniels's Criteria. Rheumatoid factor negative. Coxiella burnetti, Q-fever, and Brucella serologies --> negative. Blood cultures drawn 02/14/17 x 2 sets and 02/15/17 x 3 sets are negative. Given that the entire workup has not revealed a causative organism, we will treat for culture-negative endocarditis. Continue Vancomycin IV. Pharmacy to dose. Goal trough approximately 15. Continue Rocephin 2 grams IV Q12H. Duration of treatment depends on the clinical picture, but likely 6 weeks for culture negative endocarditis. Monitor renal function and for drug toxicities and dose-adjust antibiotics. Interventional radiology has been consulted for tunneled PICC line placement. Check weekly CBC, BMP, and Vanc trough for the duration of treatment. Weekly PICC care per protocol. Follow up with ID 03/06/17 at 0900. The patient will need a repeat ECHO at the completion of treatment. (3) Syncope Current Visit: Yes Status: Acute Etiology remains unclear. He has had no further episodes. CT of the head, EEG, carotid dopplers, and cardiac workup negative for findings that can explain the patient's symptoms. Neurology, vascular, and cardiology consulted. Qualifiers: Syncope type: unspecified Qualified Code(s): R55 - Syncope and collapse (4) Carotid stenosis Current Visit: Yes Status: Acute Vascular surgery consulted. No further workup required at this time. Per Vascular, unlikely cause of the patient's syncope. Qualifiers: Laterality: bilateral Qualified Code(s): I65.23 - Occlusion and stenosis of bilateral carotid arteries (5) Constipation Current Visit: Yes Status: Acute Likely secondary to the pain medication use and decreased PO intake. Resolved. Management per the primary team. 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 Status post total laryngectomy with tracheostomy. Repeat evaluation in July 2016 showed that the patient's cancer had advanced and is unresectable. (7) Status post tracheostomy Current Visit: No Status: Acute (8) Chronic lower back pain Current Visit: No Status: Chronic Qualifiers: Back pain laterality: unspecified Sciatica presence: without sciatica Qualified Code(s): M54.5 - Low back pain; G89.29 - Other chronic pain (9) End stage renal disease Current Visit: No Status: Chronic Performs peritoneal dialysis. Nephrology consulted and following. (10) Anemia Current Visit: No Status: Chronic Etiology unclear, but possible multifactorial. Stool guiac +. Hgb dropped to 7.4. Received 2 units of PRBCs 4/5 and 4/6. Hgb stable, around 8. Management per the primary team. Qualifiers: Anemia type: other cause Other causes of anemia: chronic disease, other Qualified Code(s): D63.8 - Anemia in other chronic diseases classified elsewhere - Subjective Interval history: Patient seen and examined. No acute events noted overnight. Patient sitting up on the side of the bed with his at the bedside. States he feels okay today , but is eager to go home. Reports frontal headache and chronic neck and back pain. Denies fevers or chills or rigors. Denies chest pain, shortness of breath , or cough. Denies nausea or vomiting. Is currently NPO for possible tunneled PICC placement today, but states his appetite is improved and he ate most of his dinner last night. Denies abdominal pain. Reports large soft BM yesterday. Denies oral thrush or skin lesions. Denies syncope or dizziness. Infect Dis PN-Objective Data - Labs CBC & Chem 7: 02/21/17 01:14 02/21/17 01:14 Labs: Laboratory Results - last 24 hr 02/20/17 02/21/17 02/21/17 16:22 01:14 01:14 WBC 11.6 H RBC 2.56 L Hgb 8.0 L Hct 25.2 L MCV 98.4 MCH 31.3 MCHC 31.7 RDW 16.8 H Plt Count 293 MPV 10.3 Immature Gran % 1.3 Seg Neutrophils % 77.9 Lymphocytes % 8.8 Monocytes % 9.2 Eosinophils % 2.4 Basophils % 0.4 Neutrophils # 9.0 H Lymphocytes # 1.0 Monocytes # 1.1 Eosinophils # 0.3 Basophils # 0.1 PT 13.9 H 14.6 H INR 1.3 1.3 APTT 29.7 Sodium Potassium Chloride Carbon Dioxide BUN Creatinine Est GFR ( Amer) Est GFR (Non-Af Amer) BUN/Creatinine Ratio Glucose Calculated Osmolality Calcium Vancomycin Trough 02/21/17 02/21/17 02/21/17 01:14 01:14 12:29 WBC RBC Hgb Hct MCV MCH MCHC RDW Plt Count MPV Immature Gran % Seg Neutrophils % Lymphocytes % Monocytes % Eosinophils % Basophils % Neutrophils # Lymphocytes # Monocytes # Eosinophils # Basophils # PT INR APTT 90.8 H D Sodium 136 Potassium 3.7 Chloride 100 Carbon Dioxide 28 BUN 35 H Creatinine 3.18 H Est GFR ( Amer) 24 L Est GFR (Non-Af Amer) 20 L BUN/Creatinine Ratio 11 Glucose 113 H Calculated Osmolality 291 Calcium 8.3 L Vancomycin Trough 16.7 Cultures: Cultures 02/16/17 03:20 Blood Culture - Final Peripheral Venipuncture No growth. 02/15/17 14:33 Blood Culture - Final Peripheral Venipuncture No growth. 02/15/17 07:48 Blood Culture - Final Peripheral Venipuncture No growth. 02/15/17 07:52 Blood Culture - Final Peripheral Venipuncture No growth. Serology 02/16/17 02/14/17 02/14/17 Range/Units 11:07 17:40 10:35 Fluid Source PD fluid Fluid Volume 23 mL Fluid Appearance Clear (Clear) Fluid RBC < 0.002 (No Ref Range) M/mcL Fld Tot Nucleated Cell 9 TNC/mcL Fluid Seg Neutrophil % 40.0 % Fld Band Neutrophil % TNP Fluid Lymphocytes % 60.0 % Fluid Monocytes % TNP Fluid Eosinophils % TNP Fluid Basophils % TNP Fluid Other Cells % TNP Stool Occult Blood Positive A (Negative) Brucella Tot Ab Aggl <1:20 (<1:20) C.burnetii Phase I IgG NEGATIVE (Negative) C.burnetii Phase I IgM NEGATIVE (Negative) C.burnetii Phase II IgG NEGATIVE (Negative) C.burnetii Phase II IgM NEGATIVE (Negative) - Impressions Impressions Guidance Ultrasound 02/21/17 00:00 IMPRESSION: Successful ultrasound and fluoroscopy guided tunneled catheter placement . D/ / Ramy Bell MD / Ramy Bell MD Interpreting Provider: Ramy Bell MD Insertion Tunneled Catheter 02/21/17 00:00 IMPRESSION: Successful ultrasound and fluoroscopy guided tunneled catheter placement . D/ / Ramy Bell MD / Ramy Bell MD Interpreting Provider: Ramy Bell MD Exam - Constitutional Vitals: Temp Pulse Resp BP Pulse Ox 98.0 F 73 18 158/65 100 02/21/17 11:58 02/21/17 11:58 02/21/17 11:58 02/21/17 11:58 02/21/17 11:58 General appearance: average body habitus, cooperative, no acute distress - Head Head exam: Present: atraumatic, normal inspection, normocephalic - Eye Eye exam: Present: EOMI, normal appearance Pupils: Present: normal accommodation, PERRL Additional comments: No subconjunctival hemorrhage noted. - ENT ENT exam: Present: mucous membranes moist - Neck Neck exam: Present: normal inspection Additional comments: Tracheostomy midline with cannula in place. No erythema or drainage noted. - Respiratory Respiratory exam: Present: CTAB. Absent: rales, respiratory distress, rhonchi, wheezes - Cardiovascular Cardiovascular exam: Present: RRR, +S1, +S2 - GI/Abdominal GI/Abdominal exam: Present: distended (PD fluid dwelling), normal bowel sounds, soft. Absent: tenderness Additional comments: Abdominal hernia noted to the LUQ. PD catheter noted to the LLQ. - Extremities Exam Extremities exam: Present: normal capillary refill, normal inspection. Absent: pedal edema - Neurological Exam Neurological exam: Present: alert, oriented X3, no focal deficits - Psychiatric Psychiatric exam: Present: normal affect, normal mood - Skin Skin exam: Present: dry, intact, normal color, warm Consult Discharge Plan - Plan Referrals: Colopy,Figueroa Blunt DO [Primary Care Provider] - (Patient will call for an appointment per office) Renetta Coles, SCRIPT READER [Advanced Practice Nurse] - 03/06/17 9:00 am
--- NOTE | 2017-02-21 13:24 | Nephrology Progress Note ---
Date of Encounter: 02/21/17 Time of Encounter: 13:22 - Assessment and Plan (1) ESRD (end stage renal disease) on dialysis Current Visit: Yes Status: Acute Patient is on CAPD. Will continue with current prescription. Patient seems to be doing well from a renal standpoint. (2) Endocarditis Current Visit: Yes Status: Acute Patient on antibiotics. S/P tunneled catheter for antibiotics. Qualifiers: Endocarditis type: infective Infective endocarditis organism: unspecified organism Chronicity: subacute Qualified Code(s): I33.0 - Acute and subacute infective endocarditis Subjective Principal diagnosis: syncope Interval history: Patient seen briefly. He has no complaint. He is about to eat lunch. Objective - Vital Signs Vital signs: Vital Signs Temp Pulse Resp BP Pulse Ox 02/21/17 11:58 98.0 F 73 18 158/65 100 02/21/17 10:55 65 16 144/69 95 02/21/17 10:50 65 16 154/71 100 02/21/17 10:37 65 13 154/76 96 02/21/17 07:46 98.0 F 87 16 152/57 97 02/21/17 05:24 98.0 F 80 18 178/79 100 02/21/17 00:13 98.0 F 80 18 136/68 94 02/20/17 19:19 97.6 F 80 18 134/58 98 02/20/17 15:50 97.4 F L 70 20 131/73 100 Intake and Output 02/20/17 02/21/17 02/21/17 23:59 07:59 15:59 Intake Total 100 / 100 318 / 318 182 / 182 Output Total 500 / 500 0 / 0 Balance 100 / 100 -182 / -182 182 / 182 Intake: IV Fluids 100 / 100 318 / 318 182 / 182 Heparin 25,000 UNIT/500 182 / 182 ML D5W 25,000 unit In 500 ml @ 14 UNIT/KG/HR 24. 892 mls/hr IVC .Q20H6M [facility] Rx#:[id number] Rocephin 2,000 MG In 100 / 100 Dextrose 5% (Minibag+) 100 ML 100 ML @ 200 mls/ hr IVPB Q12HR USE Rx#: [id number] Oral 0 / 0 Output: Urine 500 / 500 0 / 0 Other: Meal npo Total Peritoneal Dialysis 900 -100 Output Weight 90.1 kg 88.9 kg Patient Weight 02/21/17 23:59 Weight 88.9 kg - General Appearance General appearance: Present: well-developed, well-nourished, obese EENT: Present: ATNC Neck: Present: supple Cardiology: Present: regular rate Psychiatric: Present: mood/affect appropriate - Lab 02/21/17 01:14 02/21/17 01:14 Most recent lab results Calcium 8.3 mg/dL (8.6-10.8) L 02/21/17 01:14 Phosphorus 3.1 mg/dL (2.3-4.7) 02/18/17 07:03 Magnesium 1.7 mg/dL (1.6-2.6) 02/18/17 07:03 Consult Discharge Plan - Plan Referrals: Figueroa Navarro DO [Primary Care Provider] - (Patient will call for an appointment per office) Renetta Coles, [employer] [Advanced Practice Nurse] - 03/06/17 9:00 am
[2017-02-21] MEDS ORDERED: Vancomycin 500 MG in D5% in Water (Mini-Bag+) 100 ML IVPB ONE (14:00)
--- NOTE | 2017-02-21 14:28 | Internal Med Progress Note ---
<Lamberto Bocanegra - Last Filed: 02/21/17 14:20> Date of Encounter: 02/21/17 Time of Encounter: 14:20 - Assessment and plan (1) Syncope Current Visit: Yes Status: Acute Assessment and plan: etiology unclear at this time. No Seizure activity on EEG. Possibly from bilateral severe Carotid stenosis. Not a surgical candidate at this time per Vascular surgery. Will need follow up carotid in 6 months. No further episodes since admission. (2) Mitral valve vegetation Current Visit: Yes Status: Acute Assessment and plan: Possibly culture negative endocarditis? currently on Vancomycin and rocephin. vancomycin trough 19.1 Duration of antibiotics will be determined by clinical course but will likely need 6 weeks of IV antibiotics. Patient scheduled for PICC line today but did not get because of other more pressing procedures in the IR department. Will keep NPO and hold heparin at 0700 for procedure tomorrow. Has follow up with ID . appreciate their input (3) Carotid stenosis Current Visit: Yes Status: Acute Assessment and plan: sever bilateral follow up with Vascular surgery. (4) Laryngeal squamous cell carcinoma Current Visit: Yes Status: Acute Assessment and plan: follow up with oncologist at the [facility]. (5) Status post tracheostomy Current Visit: Yes Status: Acute (6) End stage renal disease Current Visit: Yes Status: Acute Assessment and plan: nephrology following. (7) Anemia Current Visit: Yes Status: Acute Assessment and plan: stable. no active bleeding. adequate B12 folate and ferritin. Likely from ESRD. On darbopoetin. (8) Leukocytosis Current Visit: Yes Status: Acute Assessment and plan: trending down. Possibly from vegetation? continue vanc and rocephin Will continue to monitor. (9) Chronic anticoagulation Current Visit: Yes Status: Acute Assessment and plan: for history of DVT. (10) History of DVT (deep vein thrombosis) Current Visit: Yes Status: Acute - Subjective Interval history: No major events overnight. Patient is NPO and Heparin Gtt. held for PICC line insertion again today. Patient denies any aches or pains. he denies any further epsidoses of syncope or presyncope. He denies any focal motor or sensory defecits. He does have some edema complains about some difficulty sleeping overnight. He has no further complaints or concerns at this time. - Constitutional Vitals: Temp Pulse Resp BP Pulse Ox 98.0 F 73 18 158/65 100 02/21/17 11:58 02/21/17 11:58 02/21/17 11:58 02/21/17 11:58 02/21/17 11:58 General appearance: Present: A&O X 3, answers questions appropriately - Head Head exam: Present: atraumatic, normocephalic - Eye Eye exam: Present: PERRL, conjuntiva pink, sclera anicteric Pupils: Present: PERRL - Neck Neck exam general surgery: Present: supple, trachea midline. Absent: lymphadenopathy Additional comments: stoma present. - Respiratory Respiratory exam: Present: CTAB. Absent: accessory muscle use, rales, rhonchi, wheezes - Cardiovascular Cardiovascular exam: Present: RRR, +S1, +S2. Absent: diastolic murmur, gallop, rubs, systolic murmur - GI/Abdominal GI/Abdominal exam: Present: normal bowel sounds, soft, no peritoneal signs. Absent: distended, tenderness - Extremities Exam Extremities exam: Present: warm, radial pulses palpable and symetrical. Absent : calf tenderness, cyanotic, pedal edema - Neurological Exam Neurological exam: Present: CN II-XII intact, oriented X3, no focal deficits. Absent: pronater drift, facial droop, speech deficit - Skin Skin exam: Present: dry, intact Internal Medicine: Result - Labs CBC & Chem 7: 02/21/17 01:14 02/21/17 01:14 Labs: Short CBC 02/21/17 Range/Units 01:14 WBC 11.6 H (4.3-11.1) K/mcL Hgb 8.0 L (12.9-16.9) g/dL Hct 25.2 L (37.5-50.1) % Plt Count 293 (140-400) K/mcL Neutrophils # 9.0 H (1.6-8.9) K/mcL BMP 02/21/17 01:14 Sodium 136 Potassium 3.7 Chloride 100 Carbon Dioxide 28 BUN 35 H Creatinine 3.18 H Glucose 113 H Calcium 8.3 L - ABG Interpretation ABG results: PT/INR, D-dimer PT 14.6 Seconds (9.4-12.1) H 02/21/17 01:14 - Impressions Impressions Guidance Ultrasound 02/21/17 00:00 IMPRESSION: Successful ultrasound and fluoroscopy guided tunneled catheter placement . D/ / Ramy Bell MD / Ramy Bell MD Interpreting Provider: Ramy Bell MD Insertion Tunneled Catheter 02/21/17 00:00 IMPRESSION: Successful ultrasound and fluoroscopy guided tunneled catheter placement . D/ / Ramy Bell MD / Ramy Bell MD Interpreting Provider: Ramy Bell MD Consult Discharge Plan - Plan Referrals: Figueroa Navarro DO [Primary Care Provider] - (Patient will call for an appointment per office) Renetta Coles BEHAVIOR SUPPORT SPECIALIST [Advanced Practice Nurse] - 03/06/17 9:00 am Prescriptions: CefTRIAXone [Rocephin] 2,000 mg IVPB Q12HR 37 Days Vancomycin [Vancocin] 1,000 mg IV DAILY 37 Days <Evan Coy - Last Filed: 02/21/17 18:23> Date of Encounter: 02/21/17 - Constitutional Vitals: Temp Pulse Resp BP Pulse Ox 98.1 F 74 16 138/65 99 02/21/17 16:10 02/21/17 16:10 02/21/17 16:10 02/21/17 16:10 02/21/17 16:10 Internal Medicine: Result - Labs CBC & Chem 7: 02/21/17 01:14 02/21/17 01:14 Labs: Short CBC 02/21/17 Range/Units 01:14 WBC 11.6 H (4.3-11.1) K/mcL Hgb 8.0 L (12.9-16.9) g/dL Hct 25.2 L (37.5-50.1) % Plt Count 293 (140-400) K/mcL Neutrophils # 9.0 H (1.6-8.9) K/mcL BMP 02/21/17 01:14 Sodium 136 Potassium 3.7 Chloride 100 Carbon Dioxide 28 BUN 35 H Creatinine 3.18 H Glucose 113 H Calcium 8.3 L - ABG Interpretation ABG results: PT/INR, D-dimer PT 14.6 Seconds (9.4-12.1) H 02/21/17 01:14 - Impressions Impressions Guidance Ultrasound 02/21/17 00:00 IMPRESSION: Successful ultrasound and fluoroscopy guided tunneled catheter placement . D/ / Ramy Bell MD / Ramy Bell MD Interpreting Provider: Ramy Bell MD Insertion Tunneled Catheter 02/21/17 00:00 IMPRESSION: Successful ultrasound and fluoroscopy guided tunneled catheter placement . D/ / Ramy Bell MD / Ramy Bell MD Interpreting Provider: Ramy Bell MD - Attending Attestation I examined this patient and my medical decision-making was reviewed with the NUT SORTER/PA/Advanced Practice Nurse/Resident Physician. I agree with the documented findings, disposition and treatment plan as described except to the extent set forth below. PCC line today. resume coumadin. monitor inr.
[2017-02-21] MEDS ORDERED: *HR* Warfarin 5 MG TABLET PO ONE (18:00)
[2017-02-22] MEDS: Perit. Dialysis with Dex 1.5 % 2,000 ML PERITONEAL SCH ×4 (02:23→20:24)
[2017-02-22] MEDS: *HR* OxyCODONE/APAP 10/325 TABLET PO PRN ×4 (02:45→21:00)
[2017-02-22 05:06] LABS: Basophils % 0.3 %; Eosinophils # 0.2 K/mcL (0.0-0.6); Eosinophils % 2.3 %; Hematocrit 24.2 % (37.5-50.1); Hemoglobin 7.8 g/dL (12.9-16.9); Immature Granulocytes % 1.2 % (0-4); Lymphocytes # 0.9 K/mcL (0.6-4.6); Lymphocytes % 8.8 %; Mean Corpuscular HGB Conc 32.2 g/dL (31.6-35.5); Mean Corpuscular Hemoglobin 32.1 pg (28.0-33.3); Mean Corpuscular Volume 99.6 fL (83.0-100.0); Mean Platelet Volume 10.6 fL (9.4-12.4); Monocytes # 1.1 K/mcL (0.0-1.3); Monocytes % 10.2 %; Neutrophils # 8.1 K/mcL (1.6-8.9); Platelet Count 298 K/mcL (140-400); Red Blood Count 2.43 M/mcL (4.19-5.50); Red Cell Distribution Width 16.9 % (11.5-14.5); Segmented Neutrophils % 77.2 %
[2017-02-22 05:09] LABS: INR 1.2; Prothrombin Time 13.2 Seconds (9.4-12.1)
[2017-02-22 05:17] LABS: Calcium 8.4 mg/dL (8.6-10.8); Potassium 3.4 mEq/L (3.5-4.5)
[2017-02-22] MEDS: Multivit/Ca/Min/Fe/FA 1 TAB TABLET PO SCH (08:02)
[2017-02-22] MEDS: Sennosides/Docusate Sodium TABLET PO SCH ×2 (08:03→20:25)
[2017-02-22] MEDS: Bacitracin/PolymyxinB OINT 14.17 GM TUBE TP SCH ×2 (08:03→21:06)
[2017-02-22] MEDS ORDERED: Potassium Chloride Elixir 20 MEQ/15 ML UDC PO ONE (09:38)
--- NOTE | 2017-02-22 09:39 | Nephrology Progress Note ---
Date of Encounter: 02/22/17 Time of Encounter: 09:36 - Assessment and Plan (1) ESRD (end stage renal disease) on dialysis Current Visit: Yes Status: Acute Continue PD treatments as prescribed Vanco to be dosed by pharmacy Avoid nephrotoxins if possible (2) Syncope Current Visit: Yes Status: Acute per primary team Qualifiers: Syncope type: unspecified Qualified Code(s): R55 - Syncope and collapse (3) Laryngeal cancer Current Visit: Yes Status: Chronic (4) Anemia Current Visit: No Status: Chronic Hgb 7.8 today (previously 8.0) Monitor closely Transfuse per parameters Goal hgb 10-11 Qualifiers: Anemia type: other cause Other causes of anemia: chronic disease, other Qualified Code(s): D63.8 - Anemia in other chronic diseases classified elsewhere Subjective Principal diagnosis: syncope Interval history: Patient seen and examined. at bedside. Denies any N/V/D. Doing well with no complaints Objective - Vital Signs Vital signs: Vital Signs Temp Pulse Resp BP Pulse Ox 02/22/17 07:25 98.2 F 90 18 143/71 93 02/22/17 04:13 98.5 F 85 18 138/59 99 02/22/17 00:05 98.4 F 80 16 171/68 100 02/21/17 21:01 98.3 F 82 16 158/72 100 02/21/17 16:10 98.1 F 74 16 138/65 99 02/21/17 11:58 98.0 F 73 18 158/65 100 02/21/17 10:55 65 16 144/69 95 02/21/17 10:50 65 16 154/71 100 02/21/17 10:37 65 13 154/76 96 Intake and Output 02/21/17 02/22/17 02/22/17 23:59 07:59 15:59 Intake Total 600 / 600 391 / 391 Output Total 0 / 0 700 / 700 Balance 600 / 600 -309 / -309 Intake: IV Fluids 600 / 600 391 / 391 Heparin 25,000 UNIT/500 500 / 500 391 / 391 ML D5W 25,000 unit In 500 ml @ 14 UNIT/KG/HR 24. 892 mls/hr IVC .Q20H6M [facility] Rx#:[id number] Rocephin 2,000 MG In 100 / 100 Dextrose 5% (Minibag+) 100 ML 100 ML @ 200 mls/ hr IVPB Q12HR [facility] Rx#: [id number] Oral 0 / 0 0 / 0 Output: Urine 0 / 0 700 / 700 Other: Total Peritoneal Dialysis -100 0 Output Weight 90.2 kg 89.8 kg Patient Weight 02/22/17 23:59 Weight 89.8 kg - General Appearance General appearance: Present: well-developed, well-nourished EENT: Present: ATNC, mucous membranes moist, hearing intact, vision intact Neck: Present: supple Respiratory: Present: clear Cardiology: Present: no edema, normal S1, normal S2 Dialysis Vascular Access: Arteriovenous Fistula Gastrointestinal: Present: no tenderness, no guarding Integumentary: Present: warm and dry Neurologic: Present: alert and oriented x3 Psychiatric: Present: mood/affect appropriate, cooperative - Lab 02/22/17 04:30 02/22/17 04:30 Most recent lab results Calcium 8.4 mg/dL (8.6-10.8) L 02/22/17 04:30 Phosphorus 3.1 mg/dL (2.3-4.7) 02/18/17 07:03 Magnesium 1.7 mg/dL (1.6-2.6) 02/18/17 07:03 Consult Discharge Plan - Plan Referrals: Figueroa Navarro DO [Primary Care Provider] - (Patient will call for an appointment per office) Renetta Coles, [employer]PLIANCE [employer]ICER [Advanced Practice Nurse] - 03/06/17 9:00 am Prescriptions: CefTRIAXone [Rocephin] 2,000 mg IVPB Q12HR 37 Days Vancomycin [Vancocin] 1,000 mg IV DAILY 37 Days
[2017-02-22] MEDS: Heparin 25,000 UNIT/500 ML D5W 25,000 UNIT/500 ML MLS IVC SCH (11:40)
--- NOTE | 2017-02-22 13:09 | Internal Med Progress Note ---
Date of Encounter: 02/17/17 Time of Encounter: 15:00 - Assessment and plan (1) Endocarditis Current Visit: Yes Status: Acute Assessment and plan: Complete Echocardiogram shows possibility of vegetation on the atrial side of the mitral valve. He only has one major [place] criteria at this time. Consulted infectious diseases, who agrees with current management; preliminary blood cultures remain negative. Continue IV vancomycin and Rocephin. Patient will require at least 4 weeks of IV antibiotics given his underlying immunosuppression and preparation for chemotherapy. Needs PICC line after negative blood cultures. Qualifiers: Endocarditis type: infective Infective endocarditis organism: unspecified organism Chronicity: subacute Qualified Code(s): I33.0 - Acute and subacute infective endocarditis (2) Constipation Current Visit: Yes Status: Acute Assessment and plan: Patient continues to have constipation despite being on senna plus; continue scheduled MiraLAX and plan for enema if resistant; Qualifiers: Constipation type: slow transit constipation Qualified Code(s): K59.01 - Slow transit constipation (3) Syncope Current Visit: Yes Status: Acute Assessment and plan: Admitted with recurrent episodes of syncope and near syncope. Telemetry monitoring uneventful. Serial troponins not suggestive of ACS. Cardiology follow-up appreciated. No cardiac etiology for syncope determined at this time. CT head done in the emergency room showed no acute abnormality. EEG has been done, not suggestive of seizure. Neurology consulted, could be vertebral basilar disease, for which no treatment can be offered at this time. Patient could also be having possible episodes of seizures and empiric antiepileptic therapy has been suggested to the patient who declined at this time. Bilateral carotid Doppler reviewed, shows 60-79% stenosis in bilateral mid ICA ; vascular surgery consult appreciated, recommend repeat carotid ultrasound in 6 months and no further intervention at this time. Patient is having no further episodes of syncope now. Qualifiers: Syncope type: unspecified Qualified Code(s): R55 - Syncope and collapse (4) Tracheostomy in place Current Visit: Yes Status: Chronic (5) Hypothyroidism Current Visit: Yes Status: Chronic Qualifiers: Hypothyroidism type: unspecified Qualified Code(s): E03.9 - Hypothyroidism , unspecified (6) ESRD (end stage renal disease) on dialysis Current Visit: Yes Status: Chronic Assessment and plan: Nephrology has been consulted for dialysis needs. Patient continues to receive regular peritoneal dialysis sessions while in the hospital. (7) Laryngeal cancer Current Visit: Yes Status: Chronic (8) Carotid stenosis, bilateral Current Visit: Yes Status: Chronic (9) Secondary hyperparathyroidism (of renal origin) Current Visit: Yes Status: Chronic - Subjective Interval history: Denies shortness of breath, chest pain, palpitations; continues to have constipation; - Constitutional Vitals: Temp Pulse Resp BP Pulse Ox 97.7 F 76 16 148/66 98 02/22/17 12:28 02/22/17 12:28 02/22/17 12:28 02/22/17 12:28 02/22/17 12:28 General appearance: Present: A&O X 3, answers questions appropriately - Respiratory Respiratory exam: Present: CTAB. Absent: accessory muscle use, rales, rhonchi, wheezes - Cardiovascular Cardiovascular exam: Present: RRR, +S1, +S2. Absent: diastolic murmur, gallop, rubs, systolic murmur - GI/Abdominal GI/Abdominal exam: Present: normal bowel sounds, soft (PD catheter in place), no peritoneal signs. Absent: distended, tenderness Internal Medicine: Result - Labs CBC & Chem 7: 02/22/17 04:30 02/22/17 04:30 Labs: Short CBC 02/22/17 Range/Units 04:30 WBC 10.5 (4.3-11.1) K/mcL Hgb 7.8 L (12.9-16.9) g/dL Hct 24.2 L (37.5-50.1) % Plt Count 298 (140-400) K/mcL Neutrophils # 8.1 (1.6-8.9) K/mcL BMP 02/22/17 04:30 Sodium 135 L Potassium 3.4 L Chloride 100 Carbon Dioxide 25 BUN 31 H Creatinine 3.13 H Glucose 129 H Calcium 8.4 L - ABG Interpretation ABG results: PT/INR, D-dimer PT 13.2 Seconds (9.4-12.1) H 02/22/17 04:30 Consult Discharge Plan - Plan Referrals: Figueroa Navarro DO [Primary Care Provider] - (Patient will call for an appointment per office) Renetta Coles, [employer] [Advanced Practice Nurse] - 03/06/17 9:00 am Prescriptions: CefTRIAXone [Rocephin] 2,000 mg IVPB Q12HR 37 Days Vancomycin [Vancocin] 1,000 mg IV DAILY 37 Days
--- NOTE | 2017-02-22 14:08 | Infectious Disease Progress No ---
Date of Encounter: 02/22/17 Time of Encounter: 14:06 - Assessment and Plan (1) Leukocytosis Current Visit: No Status: Acute Likely secondary to mitral valve vegetation. Resolved. Qualifiers: Leukocytosis type: unspecified Qualified Code(s): D72.829 - Elevated white blood cell count, unspecified (2) Mitral valve vegetation Current Visit: Yes Status: Acute TTE revealed echodensity on the anterior leaf of the mitral valve, concerning for vegetation. Blood cultures drawn 02/14/17 are NGTD x 2 sets. The patient does have a history of MRSA bacteremia (MERLIN negative) in 03/2016, but according to the [facility] records, the patient received a four week course of IV Vancomycin, which would have been adequate treatment. The patient is immunocompromised secondary to his laryngeal cancer. He is getting ready to start PO everolimus chemotherapy. The patient meets one major Modified Daniels's Criteria. Rheumatoid factor negative. Coxiella burnetti, Q-fever, and Brucella serologies --> negative. Blood cultures drawn 02/14/17 x 2 sets and 02/15/17 x 3 sets are negative. Given that the entire workup has not revealed a causative organism, we will treat for culture-negative endocarditis. Continue Vancomycin IV. Pharmacy to dose. Goal trough approximately 15. Continue Rocephin 2 grams IV Q12H. Duration of treatment depends on the clinical picture, but likely 6 weeks for culture negative endocarditis. Monitor renal function and for drug toxicities and dose-adjust antibiotics. Status post tunneled PICC line placement 02/21/17. Check weekly CBC, BMP, and Vanc trough for the duration of treatment. Weekly PICC care per protocol. Follow up with ID 03/06/17 at 0900. The patient will need a repeat ECHO at the completion of treatment. (3) Syncope Current Visit: Yes Status: Resolved Etiology remains unclear. He has had no further episodes. CT of the head, EEG, carotid dopplers, and cardiac workup negative for findings that can explain the patient's symptoms. Neurology, vascular, and cardiology consulted. Qualifiers: Syncope type: unspecified Qualified Code(s): R55 - Syncope and collapse (4) Carotid stenosis Current Visit: Yes Status: Chronic Vascular surgery consulted. No further workup required at this time. Per Vascular, unlikely cause of the patient's syncope. Qualifiers: Laterality: bilateral Qualified Code(s): I65.23 - Occlusion and stenosis of bilateral carotid arteries (5) Constipation Current Visit: Yes Status: Resolved Likely secondary to the pain medication use and decreased PO intake. Resolved. Management per the primary team. 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 Status post total laryngectomy with tracheostomy. Repeat evaluation in July 2016 showed that the patient's cancer had advanced and is unresectable. (7) Status post tracheostomy Current Visit: No Status: Acute (8) Chronic lower back pain Current Visit: No Status: Chronic Qualifiers: Back pain laterality: unspecified Sciatica presence: without sciatica Qualified Code(s): M54.5 - Low back pain; G89.29 - Other chronic pain (9) End stage renal disease Current Visit: No Status: Chronic Performs peritoneal dialysis. Nephrology consulted and following. (10) Anemia Current Visit: No Status: Chronic Etiology unclear, but possible multifactorial. Stool guiac +. Hgb dropped to 7.4. Received 2 units of PRBCs / and 02/15. Hgb stable, around 8. Management per the primary team. Qualifiers: Anemia type: other cause Other causes of anemia: chronic disease, other Qualified Code(s): D63.8 - Anemia in other chronic diseases classified elsewhere - Subjective Interval history: Patient seen and examined. No acute events noted overnight. Patient sitting up on the side of the bed with his and son at the bedside. States he feels okay today, but is eager to go home. Reports frontal headache and chronic neck and back pain. Denies fevers or chills or rigors. Denies chest pain, shortness of breath, or cough. Denies nausea or vomiting. States his appetite is improved and he ate most of his lunch. Denies abdominal pain. Reports large soft BM yesterday. Denies oral thrush or skin lesions. Denies syncope or dizziness. Infect Dis PN-Objective Data - Labs CBC & Chem 7: 02/22/17 04:30 02/22/17 04:30 Labs: Laboratory Results - last 24 hr 02/21/17 02/21/17 02/22/17 17:57 20:19 00:20 WBC RBC Hgb Hct MCV MCH MCHC RDW Plt Count MPV Immature Gran % Seg Neutrophils % Lymphocytes % Monocytes % Eosinophils % Basophils % Neutrophils # Lymphocytes # Monocytes # Eosinophils # Basophils # PT INR APTT 54.1 H 89.1 H D Sodium Potassium Chloride Carbon Dioxide BUN Creatinine Est GFR ( Amer) Est GFR (Non-Af Amer) BUN/Creatinine Ratio Glucose POC Glucose 130 H Calculated Osmolality Calcium 02/22/17 02/22/17 02/22/17 04:30 04:30 04:30 WBC 10.5 RBC 2.43 L Hgb 7.8 L Hct 24.2 L MCV 99.6 MCH 32.1 MCHC 32.2 RDW 16.9 H Plt Count 298 MPV 10.6 Immature Gran % 1.2 Seg Neutrophils % 77.2 Lymphocytes % 8.8 Monocytes % 10.2 Eosinophils % 2.3 Basophils % 0.3 Neutrophils # 8.1 Lymphocytes # 0.9 Monocytes # 1.1 Eosinophils # 0.2 Basophils # 0.0 PT 13.2 H INR 1.2 APTT Sodium 135 L Potassium 3.4 L Chloride 100 Carbon Dioxide 25 BUN 31 H Creatinine 3.13 H Est GFR ( Amer) 24 L Est GFR (Non-Af Amer) 20 L BUN/Creatinine Ratio 10 Glucose 129 H POC Glucose Calculated Osmolality 288 Calcium 8.4 L 02/22/17 02/22/17 06:35 13:00 WBC RBC Hgb Hct MCV MCH MCHC RDW Plt Count MPV Immature Gran % Seg Neutrophils % Lymphocytes % Monocytes % Eosinophils % Basophils % Neutrophils # Lymphocytes # Monocytes # Eosinophils # Basophils # PT INR APTT 95.9 H 82.3 H Sodium Potassium Chloride Carbon Dioxide BUN Creatinine Est GFR ( Amer) Est GFR (Non-Af Amer) BUN/Creatinine Ratio Glucose POC Glucose Calculated Osmolality Calcium Cultures: Cultures 02/16/17 03:20 Blood Culture - Final Peripheral Venipuncture No growth. 02/15/17 14:33 Blood Culture - Final Peripheral Venipuncture No growth. 02/15/17 07:48 Blood Culture - Final Peripheral Venipuncture No growth. 02/15/17 07:52 Blood Culture - Final Peripheral Venipuncture No growth. Serology 02/16/17 02/14/17 02/14/17 Range/Units 11:07 17:40 10:35 Fluid Source PD fluid Fluid Volume 23 mL Fluid Appearance Clear (Clear) Fluid RBC < 0.002 (No Ref Range) M/mcL Fld Tot Nucleated Cell 9 TNC/mcL Fluid Seg Neutrophil % 40.0 % Fld Band Neutrophil % TNP Fluid Lymphocytes % 60.0 % Fluid Monocytes % TNP Fluid Eosinophils % TNP Fluid Basophils % TNP Fluid Other Cells % TNP Stool Occult Blood Positive A (Negative) Brucella Tot Ab Aggl <1:20 (<1:20) C.burnetii Phase I IgG NEGATIVE (Negative) C.burnetii Phase I IgM NEGATIVE (Negative) C.burnetii Phase II IgG NEGATIVE (Negative) C.burnetii Phase II IgM NEGATIVE (Negative) Exam - Constitutional Vitals: Temp Pulse Resp BP Pulse Ox 97.7 F 76 16 148/66 98 02/22/17 12:28 02/22/17 12:28 02/22/17 12:28 02/22/17 12:28 02/22/17 12:28 General appearance: average body habitus, cooperative, no acute distress - Head Head exam: Present: atraumatic, normal inspection, normocephalic - Eye Eye exam: Present: EOMI, normal appearance, PERRL Pupils: Present: normal accommodation Additional comments: No subconjunctival hemorrhage noted. - ENT ENT exam: Present: mucous membranes moist - Neck Neck exam: Present: normal inspection Additional comments: Tracheostomy midline with cannula. O2 via room air. No erythema or drainage noted. - Respiratory Respiratory exam: Present: CTAB. Absent: rales, respiratory distress, rhonchi, wheezes - Cardiovascular Cardiovascular exam: Present: RRR, +S1, +S2 - GI/Abdominal GI/Abdominal exam: Present: distended (PD fluid dwelling), normal bowel sounds, soft. Absent: tenderness Additional comments: Large abdominal hernia noted to the LUQ. PD catheter noted to the LLQ. - Extremities Exam Extremities exam: Present: normal inspection. Absent: joint swelling, pedal edema, tenderness - Neurological Exam Neurological exam: Present: alert, oriented X3, no focal deficits - Psychiatric Psychiatric exam: Present: normal affect, normal mood - Skin Skin exam: Present: dry, intact, normal color, warm Additional comments: No endocarditis stigmata noted. - Additional findings Additional findings: Tunneled PICC line noted to the right upper chest with transparent dressing C/D/ I. No erythema, warmth, or tenderness noted. Consult Discharge Plan - Plan Referrals: Colopy,Figueroa Blunt DO [Primary Care Provider] - (Patient will call for an appointment per office) Renetta Coles, LEAK [employer]ECTION ENGINEER [Advanced Practice Nurse] - 03/06/17 9:00 am Prescriptions: CefTRIAXone [Rocephin] 2,000 mg IVPB Q12HR 37 Days Vancomycin [Vancocin] 1,000 mg IV DAILY 37 Days
[2017-02-22] MEDS ORDERED: Vancomycin 500 MG in D5% in Water (Mini-Bag+) 100 ML IVPB ONE (15:18)
--- NOTE | 2017-02-22 16:57 | Internal Med Progress Note ---
<Lamberto Bocanegra - Last Filed: 02/22/17 16:54> Date of Encounter: 02/22/17 Time of Encounter: 11:40 - Assessment and plan (1) Syncope Current Visit: Yes Status: Acute Assessment and plan: etiology unclear at this time. No Seizure activity on EEG. Possibly from bilateral severe Carotid stenosis. Not a surgical candidate at this time per Vascular surgery. Will need follow up carotid in 6 months. No further episodes since admission. (2) Mitral valve vegetation Current Visit: Yes Status: Acute Assessment and plan: Possibly culture negative endocarditis? currently on Vancomycin and rocephin. Duration of antibiotics will be determined by clinical course but will likely need 6 weeks of IV antibiotics. Patient now has PICC line. Has follow up with ID . appreciate their input (3) Carotid stenosis Current Visit: Yes Status: Acute Assessment and plan: sever bilateral follow up with Vascular surgery. (4) Laryngeal squamous cell carcinoma Current Visit: Yes Status: Acute Assessment and plan: follow up with oncologist at the [facility]. (5) Status post tracheostomy Current Visit: Yes Status: Acute (6) End stage renal disease Current Visit: Yes Status: Acute Assessment and plan: nephrology following. (7) Anemia Current Visit: Yes Status: Acute Assessment and plan: stable. no active bleeding. adequate B12 folate and ferritin. Likely from ESRD. On darbopoetin. (8) Leukocytosis Current Visit: Yes Status: Acute Assessment and plan: trending down. Possibly from vegetation? continue vanc and rocephin Will continue to monitor. (9) Chronic anticoagulation Current Visit: Yes Status: Acute Assessment and plan: for history of DVT 1 year ago. (10) History of DVT (deep vein thrombosis) Current Visit: Yes Status: Acute - Subjective Interval history: No major events overnight. Patient states he is feeling well today. he denies any chest pain or dyspnea. He denies any syncope or presyncope. He has no further complaints or concerns at this time. - Constitutional Vitals: Temp Pulse Resp BP Pulse Ox 97.7 F 76 16 148/66 98 02/22/17 12:28 02/22/17 12:28 02/22/17 12:28 02/22/17 12:28 02/22/17 12:28 General appearance: Present: A&O X 3, answers questions appropriately - Head Head exam: Present: atraumatic, normocephalic - Eye Eye exam: Present: PERRL, conjuntiva pink, sclera anicteric Pupils: Present: PERRL - Neck Neck exam general surgery: Present: supple, trachea midline. Absent: lymphadenopathy Additional comments: stoma present - Respiratory Respiratory exam: Present: CTAB. Absent: accessory muscle use, rales, rhonchi, wheezes - Cardiovascular Cardiovascular exam: Present: RRR, +S1, +S2. Absent: diastolic murmur, gallop, rubs, systolic murmur - GI/Abdominal GI/Abdominal exam: Present: normal bowel sounds, soft, no peritoneal signs. Absent: distended, tenderness - Extremities Exam Extremities exam: Present: warm, radial pulses palpable and symetrical. Absent : calf tenderness, cyanotic, pedal edema - Skin Skin exam: Present: dry, intact Internal Medicine: Result - Labs CBC & Chem 7: 02/22/17 04:30 02/22/17 04:30 Labs: Short CBC 02/22/17 Range/Units 04:30 WBC 10.5 (4.3-11.1) K/mcL Hgb 7.8 L (12.9-16.9) g/dL Hct 24.2 L (37.5-50.1) % Plt Count 298 (140-400) K/mcL Neutrophils # 8.1 (1.6-8.9) K/mcL BMP 02/22/17 04:30 Sodium 135 L Potassium 3.4 L Chloride 100 Carbon Dioxide 25 BUN 31 H Creatinine 3.13 H Glucose 129 H Calcium 8.4 L - ABG Interpretation ABG results: PT/INR, D-dimer PT 13.2 Seconds (9.4-12.1) H 02/22/17 04:30 Consult Discharge Plan - Plan Referrals: Figueroa Navarro DO [Primary Care Provider] - (Patient will call for an appointment per office) Renetta Coles, FERRYBOAT DECKHAND [Advanced Practice Nurse] - 03/06/17 9:00 am Prescriptions: CefTRIAXone [Rocephin] 2,000 mg IVPB Q12HR 37 Days Vancomycin [Vancocin] 1,000 mg IV DAILY 37 Days <Evan Coy - Last Filed: 02/22/17 18:38> Date of Encounter: 02/22/17 - Constitutional Vitals: Temp Pulse Resp BP Pulse Ox 97.5 F L 83 16 134/72 98 02/22/17 17:15 02/22/17 17:15 02/22/17 17:15 02/22/17 17:15 02/22/17 17:15 Internal Medicine: Result - Labs CBC & Chem 7: 02/22/17 04:30 02/22/17 04:30 Labs: Short CBC 02/22/17 Range/Units 04:30 WBC 10.5 (4.3-11.1) K/mcL Hgb 7.8 L (12.9-16.9) g/dL Hct 24.2 L (37.5-50.1) % Plt Count 298 (140-400) K/mcL Neutrophils # 8.1 (1.6-8.9) K/mcL BMP 02/22/17 04:30 Sodium 135 L Potassium 3.4 L Chloride 100 Carbon Dioxide 25 BUN 31 H Creatinine 3.13 H Glucose 129 H Calcium 8.4 L - ABG Interpretation ABG results: PT/INR, D-dimer PT 13.2 Seconds (9.4-12.1) H 02/22/17 04:30 - Attending Attestation I examined this patient and my medical decision-making was reviewed with the SCALLOP CUTTER/PA/Advanced Practice Nurse/Resident Physician. I agree with the documented findings, disposition and treatment plan as described except to the extent set forth below. Agree with Dr. Bocanegra. Possible d/c tomorrow. IV antibitoics for skilled nursing.
[2017-02-22] MEDS ORDERED: *HR* Warfarin 5 MG TABLET PO ONE (18:00)
[2017-02-23] MEDS: Perit. Dialysis with Dex 1.5 % 2,000 ML PERITONEAL SCH ×2 (02:30→08:09)
[2017-02-23] MEDS: *HR* OxyCODONE/APAP 10/325 TABLET PO PRN ×3 (03:39→14:08)
[2017-02-23 05:07] LABS: INR 1.4; Prothrombin Time 15.3 Seconds (9.4-12.1)
[2017-02-23] MEDS: Multivit/Ca/Min/Fe/FA 1 TAB TABLET PO SCH (08:12)
[2017-02-23] MEDS: Sennosides/Docusate Sodium TABLET PO SCH (08:12)
[2017-02-23] MEDS: Heparin 25,000 UNIT/500 ML D5W 25,000 UNIT/500 ML MLS IVC SCH (08:31)
--- NOTE | 2017-02-23 11:07 | Discharge Summary ---
<Lamberto Bocanegra - Last Filed: 02/23/17 11:33> Date of Encounter: 02/23/17 Time of Encounter: 10:59 - Discharge Diagnosis (1) Syncope Priority: Primary Status: Acute (2) Mitral valve vegetation Priority: Secondary Status: Acute (3) Carotid stenosis Priority: Secondary Status: Acute (4) Laryngeal squamous cell carcinoma Priority: Secondary Status: Acute (5) Status post tracheostomy Priority: Secondary Status: Acute (6) End stage renal disease Priority: Secondary Status: Acute (7) Anemia Priority: Secondary Status: Acute (8) Leukocytosis Priority: Secondary Status: Acute (9) Chronic anticoagulation Priority: Secondary Status: Acute (10) History of DVT (deep vein thrombosis) Priority: Secondary Status: Acute (11) Hypothyroidism Status: Acute - Discharge Medications Prescriptions: CefTRIAXone [Rocephin] 2,000 mg IVPB Q12HR 37 Days Levothyroxine [Synthroid] 125 mcg PO DAILY 30 Days Metoprolol [Lopressor] 50 mg PO BID 30 Days Sennosides/Docusate Sodium [Senna Plus] 2 each PO BID 30 Days Vancomycin [Vancocin] 500 mg IV Q48H 37 Days Home Medications: Ferrous Sulfate 325 mg PO BID 06/23/15 [History] Multivits,Ca,Min/Iron/FA/Lycop [Centrum Men's Tablet] 1 tab PO DAILY 06/23/15 [ History] Bacitracin/PolymyxinB OINT [Polysporin] 1 appl TP BID tube 03/28/16 [Rx] Calcium Carbonate [Tums] 500 mg PO TID 02/10/17 [History] Nut.tx.impaired Renal Fxn,Soy [Nepro Carb Steady] 1 each GTUBE AD 02/10/17 [ History] OxyCODONE Immed Rel [Roxicodone 5 MG] 5 - 10 mg PO Q4H PRN 02/10/17 [History] Warfarin [Coumadin] 5 mg PO SUMOWEFR 02/10/17 [History] Warfarin [Coumadin] 7.5 mg PO TUTHSA 02/10/17 [History] CefTRIAXone [Rocephin] 2,000 mg IVPB Q12HR 37 Days 02/21/17 [Rx] Darbepoetin [Aranesp] 100 mcg SQ Mo syringe 02/23/17 [Rx] Levothyroxine [Synthroid] 125 mcg PO DAILY 30 Days 02/23/17 [Rx] Metoprolol [Lopressor] 50 mg PO BID 30 Days 02/23/17 [Rx] Sennosides/Docusate Sodium [Senna Plus] 2 each PO BID 30 Days 02/23/17 [Rx] Vancomycin [Vancocin] 500 mg IV Q48H 37 Days 02/23/17 [Rx] Allergies/Adverse Reactions: Allergies diazepam Allergy (Intermediate, Verified 01/03/16 14:39) Agitated Zolpidem [From Ambien] Adverse Reaction (Verified 01/03/16 14:39) Hallucinating Procedures/tests Complete & Pending: Procedures Performed prior 72 hours Category Date Time Status IR cvc insrt tunnel wo prt/piecer up [IR] Routine IR 02/21/17 Completed IR us guide venous access [IR] Routine IR 02/21/17 Completed Date of admission: 02/13/17 16:21 Primary care physician: Figueroa Navarro Consults: 02/13/17 16:27 Consult to Vascular Surgery [CONS] Routine Consulting Provider: Vascular [facility] [place] Reason for Consult: Syncope with severe bilateral mid ICA stenosis Call Completed: Yes 02/14/17 14:31 Consult to Neurology [CONS] Routine Consulting Provider: [facility]rology [facility] Reason for Consult: Recurrent episodes of syncope, near syncope Call Completed: Yes 02/14/17 17:53 Consult to Infectious Diseases [CONS] Routine Consulting Provider: Infectious Disease [facility] Reason for Consult: Possible subacute bacterial endocarditis Call Completed: Yes 02/19/17 09:20 Consult to Interventional Radiology [CONS] Routine Consulting Provider: Radiology Interventional [facility] Reason for Consult: Tunneled picc line for chcf IV antibiotic treatment Call Completed: No Discharging clinician: Lamberto Bocanegra Anticipated date of discharge: 02/23/17 - Patient Status Disposition: Home Health Service Condition: Fair Functional capacity at discharge: independent ambulation Overall status at discharge: patient is progressing back to baseline - Ambulatory Orders Ambulatory Orders: Basic Metabolic Panel [CHEM] Time Frame: 2 Days, Facility: [facility], Location: Lab Complete Blood Count [HEME] Time Frame: 2 Days, Facility: [facility], Location: Lab Vancomycin,Trough [CHEM] Time Frame: 2 Days, Facility: [facility], Location: Lab - Discharge Instructions Instructions: Metoprolol (By mouth), Levothyroxine (By mouth), Laxative, Stimulant (By mouth), Ceftriaxone (Injection), Syncope (DC) Follow Up With: Figueroa Navarro DO [Primary Care Provider] - (Patient will call for an appointment per office) Renetta Coles CNP [Advanced Practice Nurse] - 03/06/17 9:00 am - Diet and Activity Activity: increase activity as tolerated Diet: advance to your usual diet, other (Renal diet) Hospital course: Mr. Porras is a 66 year old male with past medical history of laryngeal carcinoma that appears to be progressive with new lymphadenopathy of the neck. He does have a stoma prior tracheostomy. He was initially admitted for syncope he would undergo an extensive workup this included an EEG which was not indicative of epilepsy. He was offered antiepileptic treatment and possible further prolong monitoring however he declined it. Additionally he had bilateral carotid artery stenosis. However he was not symptomatic and so did not need emergent surgery at this time. He will need to have follow-up imaging follow-up with the vascular surgery. Additionally he was seen by cardiology. Will have an echocardiogram of the heart which would refill a mitral valve leaflet vegetation. Infectious disease was consultative. He would undergo multiple cultures as well as serology for Coxiella Brucella. However a causative organism was not identified. Case was discussed with his oncologist at the [facility]. He was scheduled to start a new chemotherapeutic will need to hold until his infection is resolved. Will treat his endocarditis is culture negative. Will discharge him on Rocephin and vancomycin to complete a 6 week course. He does have a follow-up appointment with infectious disease. He also will need a repeat echocardiogram after his course is completed. The patient does have anemia. Was started on erythropoietin agent. His hemoglobin has been stable. May consider colonoscopy as an outpatient and continued to trend down. No active bleeding at this time. Today the patient is stable he is ambulating tolerating a diet, having normal bowel and bladder function. I did stress to him the importance that he does have his vancomycin levels monitored we will set this up for him at home. However this is a patient that is still urinates and would like to keep all residual renal function he has left possible. The patient has no major vital sign or lab abnormalities will discharge him home this afternoon after he has received his dose of vancomycin after he has completed his peritoneal dialysis. He is currently on a heparin drip will be discontinued. He was placed on one as we needed to stop his Coumadin for placement of PICC line. His INR is trending up. He is on Coumadin for a DVT. This occurred approximately year ago. Therefore we will be able to safely send him home continue his own days of Coumadin. The patient voices back his understanding and agreement above plan. His is also in the room who is in agreement. We will have him follow-up in a week with his PCP - Time Spent with Patient Total time spent providing and/or coordinating discharge services: Greater than 30 minutes (I spent approximately 50 minutes discharging this patient.) - Constitutional Vitals: Temp Pulse Resp BP Pulse Ox 98.8 F 95 17 148/73 93 02/23/17 06:51 02/23/17 06:51 02/23/17 06:51 02/23/17 06:51 02/23/17 06:51 Exam: General: This is a well-developed well-nourished 58-year-old male who is alert and orientated to person place time and situation. He does not speak much as he does have a stoma however he answers all questions appropriately either with speaking or shaking his head yes or no. He is currently ambulating around his room in no acute distress at this time. HEENT: Head is normocephalic and atraumatic anicteric sclerae, pupils equally round reactive to light and accommodation. Moist mucous membranes. Neck is supple without mass or thyromegaly he does have a stoma. Heart: Regular rate and rhythm without murmurs rubs or gallops. Lungs: To auscultation bilaterally normal effort of breathing. Abdomen: Abdomen is soft, nondistended, nontender to palpation. It is a bit more full than yesterday however he currently has diastole in place. Musculoskeletal: Grossly normal for age no gross deformity is noted. Extremities: There is no clubbing, cyanosis or edema. Dynamic: No rashes or lesions noted. Specifically there is no scleral hemorrhages under the nails are in the soft palate. No immune phenomena noted on the hands or feet or in the skin. <Evan Coy - Last Filed: 02/24/17 15:10> Date of Encounter: 02/24/17 Date of admission: 02/13/17 16:21 Primary care physician: Figueroa Navarro Consults: 02/13/17 16:27 Consult to Vascular Surgery [CONS] Routine Consulting Provider: Vascular Surgery [facility] Reason for Consult: Syncope with severe bilateral mid ICA stenosis Call Completed: Yes 02/14/17 14:31 Consult to Neurology [CONS] Routine Consulting Provider: [facility] Reason for Consult: Recurrent episodes of syncope, near syncope Call Completed: Yes 02/14/17 17:53 Consult to Infectious Diseases [CONS] Routine Consulting Provider: Infectious Disease [place] Reason for Consult: Possible subacute bacterial endocarditis Call Completed: Yes 02/19/17 09:20 Consult to Interventional Radiology [CONS] Routine Consulting Provider: Radiology Interventional [facility] Reason for Consult: Tunneled picc line for chcf IV antibiotic treatment Call Completed: No Hospital course: Mr. Porras is a 66 year old male - Time Spent with Patient Total time spent providing and/or coordinating discharge services: - Constitutional Vitals: Temp Pulse Resp BP Pulse Ox 98.2 F 69 16 120/65 99 02/23/17 11:43 02/23/17 11:43 02/23/17 11:43 02/23/17 11:43 02/23/17 11:43 - Attending Attestation I examined this patient and my medical decision-making was reviewed with the MOUNTER SAXOPHONES/PA/Advanced Practice Nurse/Resident Physician. I agree with the documented findings, disposition and treatment plan as described except to the extent set forth below. D/C with iv antibioitcs.Follow upwith pcp.
--- NOTE | 2017-02-23 11:33 | Physician Discharge Referral ---
Home Health/Hosp Referral Info Transfer to: Home Health Provider in Charge Post Discharge: PCP - Diagnosis (1) Syncope Status: Acute (2) Mitral valve vegetation Status: Acute (3) Carotid stenosis Status: Acute (4) Laryngeal squamous cell carcinoma Status: Acute (5) Status post tracheostomy Status: Acute (6) End stage renal disease Status: Acute (7) Anemia Status: Acute (8) Leukocytosis Status: Acute (9) Chronic anticoagulation Status: Acute (10) History of DVT (deep vein thrombosis) Status: Acute (11) Hypothyroidism Status: Acute - Respiratory Orders Smoking Cessation: Smoking cessation has been advised. For more information, call the [place] Tobacco Quit Line at 0-348-URBU-NOW. - Services Needed Following services are medically necessary services: Nursing, Home Health Aide, Home Infusion Other Treatments: Please draw a vancomycin Trough in 48 hours. and send results to pharmacy and PCP. He will also need weekly CBC, BMP, and Vancomycin trough while on antibiotics. - Transfer Medications Prescriptions: CefTRIAXone [Rocephin] 2,000 mg IVPB Q12HR 37 Days Levothyroxine [Synthroid] 125 mcg PO DAILY 30 Days Metoprolol [Lopressor] 50 mg PO BID 30 Days Sennosides/Docusate Sodium [Senna Plus] 2 each PO BID 30 Days Vancomycin [Vancocin] 500 mg IV Q48H 37 Days Home Medications: Ferrous Sulfate 325 mg PO BID 06/23/15 [History] Multivits,Ca,Min/Iron/FA/Lycop [Centrum Men's Tablet] 1 tab PO DAILY 06/23/15 [ History] Bacitracin/PolymyxinB OINT [Polysporin] 1 appl TP BID tube 03/28/16 [Rx] Calcium Carbonate [Tums] 500 mg PO TID 02/10/17 [History] Nut.tx.impaired Renal Fxn,Soy [Nepro Carb Steady] 1 each GTUBE AD 02/10/17 [ History] OxyCODONE Immed Rel [Roxicodone 5 MG] 5 - 10 mg PO Q4H PRN 02/10/17 [History] Warfarin [Coumadin] 5 mg PO SUMOWEFR 02/10/17 [History] Warfarin [Coumadin] 7.5 mg PO TUTHSA 02/10/17 [History] CefTRIAXone [Rocephin] 2,000 mg IVPB Q12HR 37 Days 02/21/17 [Rx] Darbepoetin [Aranesp] 100 mcg SQ Mo syringe 02/23/17 [Rx] Levothyroxine [Synthroid] 125 mcg PO DAILY 30 Days 02/23/17 [Rx] Metoprolol [Lopressor] 50 mg PO BID 30 Days 02/23/17 [Rx] Sennosides/Docusate Sodium [Senna Plus] 2 each PO BID 30 Days 02/23/17 [Rx] Vancomycin [Vancocin] 500 mg IV Q48H 37 Days 02/23/17 [Rx] Allergies/Adverse Reactions: Allergies diazepam Allergy (Intermediate, Verified 01/03/16 14:39) Agitated Zolpidem [From Ambien] Adverse Reaction (Verified 01/03/16 14:39) Hallucinating Certification: Further, I certify that my clinical findings support that this patient is homebound (i.e. absences from home require considerable and taxing effort and are for medical reasons or orthodox services or infrequently or short duration when for other reasons) because: Homebound Reason: Patient requires assistance of a person or device to safely leave home, Leaving home requires considerable and taxing effort due to condition Attestation: My signature below is to certify that this patient is under my care and that I, or nurse practitioner, or a physician's nurse practitioner physicians assistant working with me, has a face-to -face encounter with this patient.
--- NOTE | 2017-02-23 11:43 | Infectious Disease Progress No ---
Date of Encounter: 02/23/17 Time of Encounter: 11:41 - Assessment and Plan (1) Leukocytosis Current Visit: No Status: Acute Likely secondary to mitral valve vegetation. Resolved. Qualifiers: Qualified Code(s): D72.829 - Elevated white blood cell count, unspecified (2) Mitral valve vegetation Current Visit: Yes Status: Acute TTE revealed echodensity on the anterior leaf of the mitral valve, concerning for vegetation. Blood cultures drawn 02/14/17 are NGTD x 2 sets. The patient does have a history of MRSA bacteremia (MERLIN negative) in 03/2016, but according to the [facility] records, the patient received a four week course of IV Vancomycin, which would have been adequate treatment. The patient is immunocompromised secondary to his laryngeal cancer. He is getting ready to start PO everolimus chemotherapy. The patient meets one major Modified Daniels's Criteria. Rheumatoid factor negative. Coxiella burnetti, Q-fever, and Brucella serologies --> negative. Blood cultures drawn 02/14/17 x 2 sets and 02/15/17 x 3 sets are negative. Given that the entire workup has not revealed a causative organism, we will treat for culture-negative endocarditis. Continue Vancomycin IV. Pharmacy to dose. Goal trough approximately 15. Continue Rocephin 2 grams IV Q12H. Duration of treatment depends on the clinical picture, but likely 6 weeks for culture negative endocarditis. Monitor renal function and for drug toxicities and dose-adjust antibiotics. Status post tunneled PICC line placement 02/21/17. Check weekly CBC, BMP, and Vanc trough for the duration of treatment. Weekly PICC care per protocol. Follow up with ID 03/06/17 at 0900. The patient will need a repeat ECHO at the completion of treatment. (3) Syncope Current Visit: Yes Status: Resolved Etiology remains unclear. He has had no further episodes. CT of the head, EEG, carotid dopplers, and cardiac workup negative for findings that can explain the patient's symptoms. Neurology, vascular, and cardiology consulted. Qualifiers: Qualified Code(s): R55 - Syncope and collapse (4) Carotid stenosis Current Visit: Yes Status: Chronic Vascular surgery consulted. No further workup required at this time. Per Vascular, unlikely cause of the patient's syncope. Qualifiers: Qualified Code(s): I65.23 - Occlusion and stenosis of bilateral carotid arteries (5) Constipation Current Visit: Yes Status: Resolved Likely secondary to the pain medication use and decreased PO intake. Resolved. Management per the primary team. Qualifiers: Qualified Code(s): K59.01 - Slow transit constipation (6) Laryngeal squamous cell carcinoma Current Visit: Yes Status: Chronic Follows with the [facility]. Status post total laryngectomy with tracheostomy. Repeat evaluation in July 2016 showed that the patient's cancer had advanced and is unresectable. (7) Status post tracheostomy Current Visit: No Status: Acute (8) Chronic lower back pain Current Visit: No Status: Chronic Qualifiers: Qualified Code(s): M54.5 - Low back pain; G89.29 - Other chronic pain (9) End stage renal disease Current Visit: No Status: Chronic Performs peritoneal dialysis. Nephrology consulted and following. (10) Anemia Current Visit: No Status: Chronic Etiology unclear, but possible multifactorial. Stool guiac +. Hgb dropped to 7.4. Received 2 units of PRBCs /5 and 02/15. Hgb stable, around 8. Management per the primary team. Qualifiers: Qualified Code(s): D63.8 - Anemia in other chronic diseases classified elsewhere - Subjective Interval history: Patient seen and examined. No acute events noted overnight. Patient ambulating in the hallway. States he feels okay today and is eager to go home. Reports frontal headache is better and has been more intermittent, but continues to report chronic neck and back pain. Denies fevers or chills or rigors. Denies chest pain, shortness of breath, or cough. Denies nausea or vomiting. States his appetite is improved. Denies abdominal pain. Reports large soft BM two days ago Denies oral thrush or skin lesions. Denies syncope or dizziness. Denies urinary complaints. Infect Dis PN-Objective Data - Labs CBC & Chem 7: 02/22/17 04:30 02/22/17 04:30 Labs: Laboratory Results - last 24 hr 02/22/17 02/22/17 02/22/17 13:00 14:20 19:00 PT INR APTT 82.3 H 73.9 H Vancomycin Trough 16.5 02/23/17 04:50 PT 15.3 H INR 1.4 APTT Vancomycin Trough Cultures: Cultures 02/16/17 03:20 Blood Culture - Final Peripheral Venipuncture No growth. 02/15/17 14:33 Blood Culture - Final Peripheral Venipuncture No growth. 02/15/17 07:48 Blood Culture - Final Peripheral Venipuncture No growth. 02/15/17 07:52 Blood Culture - Final Peripheral Venipuncture No growth. Serology 02/16/17 02/14/17 02/14/17 Range/Units 11:07 17:40 10:35 Fluid Source PD fluid Fluid Volume 23 mL Fluid Appearance Clear (Clear) Fluid RBC < 0.002 (No Ref Range) M/mcL Fld Tot Nucleated Cell 9 TNC/mcL Fluid Seg Neutrophil % 40.0 % Fld Band Neutrophil % TNP Fluid Lymphocytes % 60.0 % Fluid Monocytes % TNP Fluid Eosinophils % TNP Fluid Basophils % TNP Fluid Other Cells % TNP Stool Occult Blood Positive A (Negative) Brucella Tot Ab Aggl <1:20 (<1:20) C.burnetii Phase I IgG NEGATIVE (Negative) C.burnetii Phase I IgM NEGATIVE (Negative) C.burnetii Phase II IgG NEGATIVE (Negative) C.burnetii Phase II IgM NEGATIVE (Negative) Exam - Constitutional Vitals: Temp Pulse Resp BP Pulse Ox 98.8 F 95 17 148/73 93 02/23/17 06:51 02/23/17 06:51 02/23/17 06:51 02/23/17 06:51 02/23/17 06:51 General appearance: average body habitus, cooperative, no acute distress - Head Head exam: Present: atraumatic, normal inspection, normocephalic - Eye Eye exam: Present: EOMI, normal appearance, PERRL Pupils: Present: normal accommodation Additional comments: No subconjunctival hemorrhage noted. - ENT ENT exam: Present: mucous membranes moist - Neck Neck exam: Present: normal inspection Additional comments: Tracheostomy midline. Cannula currently out. No erythema or exudate noted. - Respiratory Respiratory exam: Present: CTAB. Absent: rales, respiratory distress, rhonchi, wheezes - Cardiovascular Cardiovascular exam: Present: RRR, +S1, +S2 - GI/Abdominal GI/Abdominal exam: Present: distended (PD fluid dwelling. ), normal bowel sounds , soft. Absent: tenderness Additional comments: Large abdominal hernia noted to the LUQ, non-tender. - Extremities Exam Extremities exam: Present: normal inspection. Absent: joint swelling, pedal edema, tenderness - Neurological Exam Neurological exam: Present: alert, oriented X3, no focal deficits - Psychiatric Psychiatric exam: Present: normal affect, normal mood - Skin Skin exam: Present: dry, intact, normal color, warm - Additional findings Additional findings: Tunneled PICC line noted to the right upper chest with transparent dressing C/D/ I. No erythema, tenderness, or drainage noted. Consult Discharge Plan - Plan Referrals: Figueroa Navarro DO [Primary Care Provider] - (Patient will call for an appointment per office) Renetta Coles, PHARMACY DIRECTOR [Advanced Practice Nurse] - 03/06/17 9:00 am Prescriptions: CefTRIAXone [Rocephin] 2,000 mg IVPB Q12HR 37 Days Levothyroxine [Synthroid] 125 mcg PO DAILY 30 Days Metoprolol [Lopressor] 50 mg PO BID 30 Days Sennosides/Docusate Sodium [Senna Plus] 2 each PO BID 30 Days Vancomycin [Vancocin] 500 mg IV Q48H 37 Days
[2017-02-23 11:48] VITALS: BP 120/65
[2017-02-23] MEDS ORDERED: Vancomycin 500 MG in D5% in Water (Mini-Bag+) 100 ML IVPB ONE (15:00)
[2017-02-23] MEDS ORDERED: Aminoglycoside Consult 1 EACH MC ONE (15:49)
[2017-02-23] MEDS ORDERED: *HR* Warfarin 5 MG TABLET PO ONE (18:00)
--- NOTE | 2017-02-26 14:55 | Internal Med Progress Note ---
Date of Encounter: 02/19/17 Time of Encounter: 13:30 - Assessment and plan (1) Endocarditis Status: Acute Assessment and plan: Complete Echocardiogram shows possibility of vegetation on the atrial side of the mitral valve. He only has one major Daniels criteria at this time. Consulted infectious diseases, who agrees with current management; preliminary blood cultures 5/5 remain negative. Continue IV vancomycin and Rocephin. Patient will require at least 4 weeks of IV antibiotics given his underlying immunosuppression and preparation for chemotherapy. Needs PICC line, d/w Nephrology and IR, patient needs tunneled CVC to avoid PICC line to save extremity veins for possible AVF in the future; IR to complete placement only after final reports of negative blood cultures is available; Qualifiers: Endocarditis type: infective Infective endocarditis organism: unspecified organism Chronicity: subacute Qualified Code(s): I33.0 - Acute and subacute infective endocarditis (2) Syncope Status: Resolved Qualifiers: Syncope type: unspecified Qualified Code(s): R55 - Syncope and collapse (3) Tracheostomy in place Status: Chronic (4) Hypothyroidism Status: Chronic Assessment and plan: Continue levothyroxine. Qualifiers: Hypothyroidism type: unspecified Qualified Code(s): E03.9 - Hypothyroidism , unspecified (5) ESRD (end stage renal disease) on dialysis Status: Chronic Assessment and plan: Nephrology has been consulted for dialysis needs. Patient continues to receive regular peritoneal dialysis sessions while in the hospital. (6) Laryngeal cancer Status: Chronic (7) Carotid stenosis, bilateral Status: Chronic Assessment and plan: Vascular surgery consulted, outpatient f/up. (8) Secondary hyperparathyroidism (of renal origin) Status: Chronic - Subjective Interval history: Reports no new complaints; had multiple bowel movements yesterday after receiving milk of magnesia enema; no chest pain, dyspnea, syncope; - Constitutional Vitals: Temp Pulse Resp BP Pulse Ox 98.2 F 69 16 120/65 99 02/23/17 11:43 02/23/17 11:43 02/23/17 11:43 02/23/17 11:43 02/23/17 11:43 General appearance: Present: A&O X 3, answers questions appropriately - Respiratory Respiratory exam: Present: CTAB. Absent: accessory muscle use, rales, rhonchi, wheezes - Cardiovascular Cardiovascular exam: Present: RRR, +S1, +S2. Absent: diastolic murmur, gallop, rubs, systolic murmur - Extremities Exam Extremities exam: Present: full ROM, pedal edema, warm, radial pulses palpable and symetrical. Absent: calf tenderness, cyanotic Internal Medicine: Result - Labs CBC & Chem 7: 02/22/17 04:30 02/22/17 04:30 - ABG Interpretation ABG results: PT/INR, D-dimer PT 15.3 Seconds (9.4-12.1) H 02/23/17 04:50 Consult Discharge Plan - Plan Instructions: Metoprolol (By mouth), Levothyroxine (By mouth), Laxative, Stimulant (By mouth), Ceftriaxone (Injection), Syncope (DC) Referrals: Figueroa Navarro DO [Primary Care Provider] - (Patient will call for an appointment per office) Renetta Coles, SOFTWARE SUPPORT TECHNICIAN [Advanced Practice Nurse] - 03/06/17 9:00 am Prescriptions: CefTRIAXone [Rocephin] 2,000 mg IVPB Q12HR 37 Days Levothyroxine [Synthroid] 125 mcg PO DAILY 30 Days Metoprolol [Lopressor] 50 mg PO BID 30 Days Sennosides/Docusate Sodium [Senna Plus] 2 each PO BID 30 Days Vancomycin [Vancocin] 500 mg IV Q48H 37 Days
== END 2017-02-23 15:50 | disposition home health service (06) | DRG 288 ==
LOC: 2ANU 11:37 → EMEROO 11:37 → SUATTDRO 15:03 → 2ANU 15:40 → SUATTDRO 02-13 16:21 → 2ANU 02-13 18:34
PROVIDERS: ADMIT Hospitalist; ATTEND Internal Medicine

== ENCOUNTER 2017-04-02 09:39 | Observation (INO) ==
--- NOTE | 2017-04-02 10:01 | Emergency Department Note ---
Disposition Clinical Impression: ESRD (end stage renal disease) Anemia Qualifiers: Anemia type: unspecified type Qualified Code(s): D64.9 - Anemia, unspecified Nasal fracture Qualifiers: Encounter type: initial encounter Fracture type: closed Qualified Code(s): S02.2XXA - Fracture of nasal bones, initial encounter for closed fracture Fall Qualifiers: Encounter type: initial encounter Qualified Code(s): W19.XXXA - Unspecified fall, initial encounter Syncope Qualifiers: Syncope type: unspecified Qualified Code(s): R55 - Syncope and collapse Disposition: Admitted As Inpatient Condition: Fair Time of Disposition: 13:07 General Adult HPI - General Chief complaint: ED Seizure Stated complaint: Seizure Time Seen by Provider: 04/02/17 09:53 Source: patient, family, EMS Mode of arrival: EMS Limitations: no limitations Nursing Notes Reviewed: Yes Vital Signs Reviewed: Yes - History of Present Illness HPI Narrative: 66-year-old male with multiple comorbidities including laryngeal cancer, ESRD on home PD (Dr. Wharton) presents for evaluation after mechanical fall and syncope. Patient's sister provided by the at bedside who states that the patient tripped and had a mechanical fall this morning while getting out of bed. Patient typically adulate with a cane. Density did hit his head with no LOC. Patient subsequently was sitting in his chair his witnessed him lose consciousness for approximately 2 minutes. describes his eyes rolling back of his head. Sticking out his tongue. No rhythmic shaking noted. Patient was unresponsive to external stimuli. notes that the patient did have some urinary incontinence. denies any postictal confusion. Denies any fevers. Denies any abdominal pain. No nausea or vomiting. No chest pain short of breath. Patient does not have a history of seizures but states he does have a history of these episodes that were not quite as severe or blacking out. Patient was on Coumadin therapy for DVT in his leg in the past but was held over the past 4 days due to hemoptysis from his laryngeal cancer. Patient does have dark stools related to possibly iron sulfate dictation. Pain Scale: 9 - Related Data Home Medications Medication Instructions Recorded Confirmed Ferrous Sulfate 325 mg PO BID 06/23/15 04/02/17 Multivits,Ca,Min/Iron/FA/Lycop 1 tab PO DAILY 06/23/15 04/02/17 [Centrum Men's Tablet] Calcium Carbonate [Tums] 500 mg PO TID 02/10/17 04/02/17 Nut.tx.impaired Renal Fxn,Soy 1 each GTUBE TID 02/10/17 04/02/17 [Nepro Carb Steady] Warfarin [Coumadin] 5 mg PO SUMOWEFRSA 02/10/17 04/02/17 Warfarin [Coumadin] 7.5 mg PO TU 02/10/17 04/02/17 Darbepoetin [Aranesp] 100 mcg SQ Q2W 04/02/17 04/02/17 Magnesium Oxide [Mag-Ox] 400 mg PO DAILY 04/02/17 04/02/17 Omeprazole [PriLOSEC] 40 mg PO DAILY 04/02/17 04/02/17 Previous Rx's Medication Instructions Recorded Bacitracin/PolymyxinB OINT 1 appl TP BID tube 03/28/16 [Polysporin] Levothyroxine [Synthroid] 125 mcg PO DAILY 30 Days 02/23/17 Metoprolol [Lopressor] 50 mg PO BID 30 Days 02/23/17 Sennosides/Docusate Sodium [Senna 2 each PO BID 30 Days 02/23/17 Plus] Allergies Allergy/AdvReac Type Severity Reaction Status Date / Time diazepam Allergy Intermediate Agitated Verified 01/03/16 14:39 Zolpidem [From Ambien] AdvReac Hallucinati Verified 01/03/16 14:39 ng All systems ED: reviewed and negative except as stated. Constitutional: Reports: as per HPI. Denies: fever Eyes: Reports: as per HPI ENT ED: Reports: as per HPI Cardiovascular: Reports: as per HPI Respiratory: Reports: as per HPI. Denies: cough, dyspnea Gastrointestinal: Reports: as per HPI. Denies: abdominal pain, nausea, vomiting Genitourinary: Reports: as per HPI Musculoskeletal: Reports: as per HPI Integumentary: Reports: as per HPI Neurological: Reports: as per HPI. Denies: headache Psychiatric: Reports: as per HPI Endocrine: Reports: as per HPI Hematological/Lymphatic: Reports: as per HPI Past Medical History - Past Medical History Medical history: Reports: cancer, dialysis, hypertension, renal disease, thyroid disease Surgical history: Reports: cancer surgery, cataract, cholecystectomy, tracheostomy, other (status post total laryngectomy) Psychiatric history: Reports: no psych history - Social History Smoking Status: Former smoker Smokeless Tobacco Status: No Alcohol use: Reports: none Drug use: Reports: none Physical Exam - General Limitations: no limitations General appearance: alert, in no apparent distress - Head Head exam: atraumatic, normocephalic, normal inspection, other (Small abrasion on the right forehead) - Eye Eye exam: Present: normal appearance, EOMI, scleral icterus - ENT ENT exam: other (Small abrasion on the anterior nasal bridge) - Neck Neck exam: Present: other (Tracheostomy stoma) - Chest Chest inspection: Present: normal inspection. Absent: symmetric chest wall rise - Respiratory Respiratory exam: Present: normal lung sounds bilaterally. Absent: respiratory distress - Cardiovascular Cardiovascular exam: Present: regular rate, normal rhythm - Abdominal Exam Abdominal exam: Present: soft, Non-Tender. Absent: guarding, rebound - Rectal Exam Resizer Operator present during exam: Yes Rectal exam: Present: normal rectal tone, heme (+) stool - Extremities Exam Extremities exam: Present: normal inspection. Absent: pedal edema - Back Exam Back exam: Present: normal inspection - Neurological Exam Neurological exam: Present: alert, oriented X3, CN II-XII intact - Expanded Neurological Exam Patient oriented to: Present: person, place, time Speech: Present: fluid speech Cranial nerves: EOM function (II, III, IV, ): Normal, facial sensation (V): Normal, facial palsy (VII): Normal, spinal accessory function (XI): Normal, tongue deviation (XII): Normal Cerebellar function: finger to nose: Normal Motor strength - LUE: 5/5 Motor strength - RUE: 5/5 Motor strength - LLE: 5/5 Motor strength - RLE: 5/5 - Skin Skin exam: Present: warm, dry, intact, normal color Course Course Narrative: Patient seen and examined upon arrival. Patient history provided by the at bedside. Patient is alert and oriented. She will get a CV workup including CT of the head, EKG, lab work including an INR as well as urinalysis. Disposition is pending. Vital Signs Temperature 97.8 F 04/02/17 09:41 Pulse Rate 65 04/02/17 09:41 Respiratory Rate 16 04/02/17 09:41 Blood Pressure 116/57 04/02/17 09:41 O2 Sat by Pulse Oximetry 100 04/02/17 09:41 Temperature 97.8 F 04/02/17 09:41 Pulse Rate 67 04/02/17 12:34 Respiratory Rate 15 04/02/17 12:34 Blood Pressure 136/62 04/02/17 12:34 O2 Sat by Pulse Oximetry 98 04/02/17 12:34 Oxygen Delivery Oxygen Delivery Room Air Medical Decision Making - MDM Narrative Medical decision making narrative: 66-year-old male with multiple comorbidities presents for evaluation of possible seizure versus syncope. During his course he was found with the patient is anemic at 7.5. Appears to be new. Patient does give a history of laryngeal cancer and has had several episodes of hemoptysis. Patient was on Coumadin therapy in the past. And has been off Coumadin since his hemoptysis. Patient also had positive occult stools. Patient possibly has a GI bleed versus upper source related to his laryngeal cancer. Patient did not have any seizure or syncope episodes while in the emergency department. Patient's EKG shows sinus rhythm without acute changes. Patient's troponin was negative. Patient's chemistry shows chronic kidney disease. Patient has a nonfocal neurologic exam. Patient does have a acute nasal fracture likely secondary to his fall today. Patient does not warrant any studies of the spinal fluid in the emergency department. Less likely this is a type of meningitis symptoms. Patient will be admitted to the hospital service for further evaluation and monitoring. Patient family are updated. Questions were answered at bedside. - Lab Data Lab results reviewed: Yes I reviewed the patient's lab results. Result diagrams: 04/02/17 11:02 04/02/17 11:02 Lab Results 04/02/17 04/02/17 04/02/17 Range/Units 11:02 11:02 11:02 WBC 14.5 H (4.3-11.1) K/mcL RBC 2.50 L (4.19-5.50) M/mcL Hgb 7.5 L (12.9-16.9) g/dL Hct 24.2 L (37.5-50.1) % MCV 96.8 (83.0-100.0) fL MCH 30.0 (28.0-33.3) pg MCHC 31.0 L (31.6-35.5) g/dL RDW 15.9 H (11.5-14.5) % Plt Count 358 (140-400) K/mcL MPV 9.9 (9.4-12.4) fL Immature Gran % 1.9 (0-4) % Seg Neutrophils % 89.3 % Lymphocytes % 2.6 % Monocytes % 5.7 % Eosinophils % 0.3 % Basophils % 0.2 % Neutrophils # 12.9 H (1.6-8.9) K/mcL Lymphocytes # 0.4 L (0.6-4.6) K/mcL Monocytes # 0.8 (0.0-1.3) K/mcL Eosinophils # 0.1 (0.0-0.6) K/mcL Basophils # 0.0 (0.0-0.2) K/mcL PT (9.4-12.1) Seconds INR Sodium 136 (136-145) mEq/L Potassium 3.9 (3.5-4.5) mEq/L Chloride 102 (98-109) mEq/L Carbon Dioxide 25 (19-29) mEq/L BUN 55 H (8-26) mg/dL Creatinine 3.31 H (0.72-1.25) mg/dL Est GFR ( Amer) 23 L (> 60) Est GFR (Non-Af Amer) 19 L (> 60) BUN/Creatinine Ratio 17 (6-26) Glucose 171 H (70-99) mg/dL Calculated Osmolality 301 H (280-300) Calcium 8.6 (8.6-10.8) mg/dL Total Bilirubin 0.3 (0.2-1.2) mg/dL AST 28 (5-34) Units/L ALT 41 (0-55) Units/L Alkaline Phosphatase 103 (38-126) Units/L Troponin I 0.02 (0-0.03) ng/mL Serum Total Protein 6.0 (6.0-8.3) g/dL Albumin 2.0 L (3.5-5.0) g/dL Globulin 4.0 H (2.4-3.5) g/dL Albumin/Globulin Ratio 0.5 L (1.1-2.2) 04/02/17 Range/Units 11:02 WBC (4.3-11.1) K/mcL RBC (4.19-5.50) M/mcL Hgb (12.9-16.9) g/dL Hct (37.5-50.1) % MCV (83.0-100.0) fL MCH (28.0-33.3) pg MCHC (31.6-35.5) g/dL RDW (11.5-14.5) % Plt Count (140-400) K/mcL MPV (9.4-12.4) fL Immature Gran % (0-4) % Seg Neutrophils % % Lymphocytes % % Monocytes % % Eosinophils % % Basophils % % Neutrophils # (1.6-8.9) K/mcL Lymphocytes # (0.6-4.6) K/mcL Monocytes # (0.0-1.3) K/mcL Eosinophils # (0.0-0.6) K/mcL Basophils # (0.0-0.2) K/mcL PT 13.6 H (9.4-12.1) Seconds INR 1.3 Sodium (136-145) mEq/L Potassium (3.5-4.5) mEq/L Chloride (98-109) mEq/L Carbon Dioxide (19-29) mEq/L BUN (8-26) mg/dL Creatinine (0.72-1.25) mg/dL Est GFR ( Amer) (> 60) Est GFR (Non-Af Amer) (> 60) BUN/Creatinine Ratio (6-26) Glucose (70-99) mg/dL Calculated Osmolality (280-300) Calcium (8.6-10.8) mg/dL Total Bilirubin (0.2-1.2) mg/dL AST (5-34) Units/L ALT (0-55) Units/L Alkaline Phosphatase (38-126) Units/L Troponin I (0-0.03) ng/mL Serum Total Protein (6.0-8.3) g/dL Albumin (3.5-5.0) g/dL Globulin (2.4-3.5) g/dL Albumin/Globulin Ratio (1.1-2.2) - Radiology Data Radiology results reviewed: Yes I reviewed the patient's radiology results. Head CT 04/02/17 09:53 IMPRESSION: 1. No acute intracranial abnormality. 2. Chronic microvascular ischemic change, stable. 3. Comminuted and mildly displaced right nasal bone fracture appears new compared to February of 2017. D/ / 04/02/2017 11:01:54 Asher Dotson MD / lgray Interpreting Provider: Asher Dotson MD Chest X-Ray 04/02/17 09:55 IMPRESSION: Mild cardiomegaly. No acute cardiopulmonary process. D/ / 04/02/2017 11:00:10 Asher Dotson MD / bcarter Interpreting Provider: Asher Dotson MD - EKG Data EKG #1 EKG shows normal: sinus rhythm Rate: normal [place]/QRS: normal, RBBB Q waves: v1 Ectopy: PVC When compared to previous EKG there are: changes noted Interpretation: nonspecific ST-T wave changes S.B.A.R. - S.B.A.RPaul Situation: Demographics Background: Presenting Complaint Assessment: Vital Signs, Course and respsone to treatment, Patient/Family Expectation Recommendation: Barrier(s) to disposition, Recommendation based on pending studies, treatments, or consults S.B.A.RPaul Report Given to: Dr. Seema Keen Repor Time: 12:30 Attestation Statement - Attestation Attestation: Patient was seen with resident physician. I reviewed the history, physical, assessment and plan, and agree with the findings. I also personally evaluated this patient and had [id number] time with this patient. 66-year-old male presents to the emergency department with chief complaint of fall and seizure. History is from the as patient is not a good historian. Patient states that he had a mechanical fall some point this morning falling forward and hitting his head. He does not remember the incident. says that after he fell he got up was in a chair and then had a subsequent loss of consciousness episode re-passed out for approximately 2 minutes. Patient himself states he does not remember that episode either. He did have incontinence of urine during one of the episodes. Patient had no postictal period chording to light. On examination vital signs stable. ENT patient has abrasions to the nose and forehead on the right side there are no step-offs or evidence of skull fracture. The neck and back are nontender. Heart and lungs normal. Abdomen is soft and nontender and clinically would not represent SBP. Extremities unremarkable. Neurologically patient is currently intact. Skin abrasions as noted on the head and face. We will get a CT scan of the head will also check laboratory testing. Also get an EKG and do a thorough workup. It is unclear if this is more of a syncopal episode or a mechanical fall with concussive syndrome. Patient does have a recent history of being on blood thinners which were stopped several days ago. Findings workup including nasal fracture, worsening anemia, the worsening renal failure, and the syncope. With this combination of factors he felt it important to bring the patient into the hospital for further evaluation continued stabilization and treatment. Patient hemodynamically remained stable while in the emergency department with no seizure activity. Hospitalist was notified and agreed to admit patient. I agree with the resident physician assessment plan.
[2017-04-02 11:14] LABS: Basophils % 0.2 %; Eosinophils # 0.1 K/mcL (0.0-0.6); Eosinophils % 0.3 %; Hematocrit 24.2 % (37.5-50.1); Immature Granulocytes % 1.9 % (0-4); Lymphocytes # 0.4 K/mcL (0.6-4.6); Lymphocytes % 2.6 %; Mean Corpuscular Volume 96.8 fL (83.0-100.0); Mean Platelet Volume 9.9 fL (9.4-12.4); Monocytes # 0.8 K/mcL (0.0-1.3); Monocytes % 5.7 %; Neutrophils # 12.9 K/mcL (1.6-8.9); Platelet Count 358 K/mcL (140-400); Red Cell Distribution Width 15.9 % (11.5-14.5); Segmented Neutrophils % 89.3 %
[2017-04-02 11:15] LABS: Hemoglobin 7.5 g/dL (12.9-16.9)
[2017-04-02 11:22] LABS: INR 1.3; Prothrombin Time 13.6 Seconds (9.4-12.1)
[2017-04-02 11:28] LABS: Albumin/Globulin Ratio 0.5 (1.1-2.2); Bilirubin,Total 0.3 mg/dL (0.2-1.2); Calcium 8.6 mg/dL (8.6-10.8); Potassium 3.9 mEq/L (3.5-4.5)
[2017-04-02] MEDS ORDERED: Acetaminophen 325 MG TABLET PO ONE (12:12)
[2017-04-02] MEDS ORDERED: Naloxone 0.4 MG/ML INJ IVP PRN (12:29)
[2017-04-02] MEDS ORDERED: Ondansetron 4 MG/2 ML VIAL IVP PRN (12:29)
--- NOTE | 2017-04-02 13:17 | Internal Med History&Physical ---
Date of Encounter: 04/02/17 Time of Encounter: 13:05 Assessment and Plan (1) Syncope Current visit: Yes Status: Acute Patient presented to the emergency room due to a staring episode is associated with urinary incontinence. Patient had similar episode last month and was in the hospital. He underwent an EEG and was evaluated by neurology. Given his bilateral severe carotid stenosis, his spells were felt to be related to mild cerebral hypoperfusion rather than seizures. Neurology recommended ambulatory long-term EEG monitoring to be performed as outpatient. At the time, antiplatelet drug therapy was offered to the patient who refused the same. Patient will be placed under observation and evaluated for any further seizure episodes. Will not obtain EEG or neurology input. The same was discussed with the family. Outpatient follow-up with neurology was recommended and the family is agreeable to the same. Patient will require outpatient ambulatory EEG monitoring at age by neurology for evaluation of these infrequent episodes. Qualifiers: Syncope type: unspecified Qualified Code(s): R55 - Syncope and collapse (2) Anemia Current visit: Yes Status: Chronic Patient has had hemoptysis in the setting of using Coumadin for his DVT. Coumadin has been held since . We will continue holding Coumadin. Hemoglobin of 7.5. Will repeat hemoglobin level later today. If hemoglobin less than 7, we will transfuse. His stools have been black. However, the patient has been on iron supplements. His arterial blood test is also positive. Again, the patient is on iron supplements which can yield false positive results. Qualifiers: Anemia type: other cause Other causes of anemia: acute posthemorrhagic Qualified Code(s): D62 - Acute posthemorrhagic anemia (3) ESRD on peritoneal dialysis Current visit: Yes Status: Chronic Patient is currently on peritoneal dialysis management by nephrology. Will consult nephrology for peritoneal dialysis while the patient is in the hospital. (4) Hypertension Current visit: Yes Status: Chronic Controlled blood pressure. Continue home medications. Low-sodium diet. Qualifiers: Hypertension type: essential hypertension Qualified Code(s): I10 - Essential (primary) hypertension (5) Hypothyroidism Current visit: Yes Status: Chronic Continue thyroid supplementation. Qualifiers: Hypothyroidism type: unspecified Qualified Code(s): E03.9 - Hypothyroidism , unspecified (6) Laryngeal cancer Current visit: No Status: Chronic Outpatient follow-up with [facility] for chemotherapy now that his infected endocarditis is resolved and the patient is off antibiotic therapy. Internal Medicine - H&P: HPI Chief complaint: Staring episode Admitted From: Emergency Dept Plans for Post Hospital Care: Home History of present illness: Mr. Porras is a 66 year old male with a history of laryngeal cancer status post laryngectomy, 35 episodes of irradiation and 3 episodes of chemotherapy with recent infective endocarditis status post 6 weeks of intravenous antiemetics via PICC line presents to the emergency department due to possible seizure episode. Patient is minimally verbal due to status post tracheostomy. He is currently compared by his was provided history. According to the , the patient was at his baseline this morning. He has been feeling weak and had difficulty getting out of the bed. The patient slid down the bed and later, felt flushed and hot. Hence, he removed his shirt and went out on the porch and sat down to get some air. When the was sitting in front of him, she notices that the patient had a staring episode for about 2 minutes which self resolved. She states that he was not responsive during that time. He also wet himself. She notices that he had some frothing around his mouth at that time. She denies that he had any tongue biting. Hence, the patient has been brought to the emergency department. In the emergency room, he has been found to have a hemoglobin level of 7.5. The patient and report that he has been coughing up blood recently which they attribute to the laryngeal cancer that continues to be active which requires further chemotherapy at [facility] and is currently pending resolution of his infection. The patient was on Coumadin. However, this was stopped on after he started experiencing hemoptysis. Past Med Surg Social Fam HX - Past Medical History Attestation: Yes The following information was validated with the patient. Source: patient, old records reviewed, obtained from family Medical history: cancer, dialysis, hypertension, renal disease, thyroid disease Psychiatric history: no psych history - Past Surgical History Surgical History: cancer surgery, cataract, cholecystectomy, tracheostomy, other (status post total laryngectomy) - Social History Smoking Status: Former smoker Smokeless Tobacco Status: No Alcohol use: none Drug use: none Current living situation: Home, With Family Activity Level: Independent ambulation - Family History Mother Adopted: No Family Member Ethnicity: Non- Living Status: Hx Family Cardiac Disorders: No Hx Family Respiratory Disorders: No Hx Family Cancer: No Hx Family GI Disorders: No Hx Family Endocrine Disorder: No Hx Family Neuromuscular Disorders: No Hx Family Neurologic Disorders: Yes Hx Family HEENT Disorders: No Hx Family Autoimmune Disorders: No Brother Hx Family Cardiac Disorders: Yes (Hypertension) Hx Family Cancer: Yes (colon and prostate) Internal Medicine - H&P: Meds Ferrous Sulfate 325 mg PO BID 06/23/15 [History] Multivits,Ca,Min/Iron/FA/Lycop [Centrum Men's Tablet] 1 tab PO DAILY 06/23/15 [ History] Bacitracin/PolymyxinB OINT [Polysporin] 1 appl TP BID tube 03/28/16 [Rx] Calcium Carbonate [Tums] 500 mg PO TID 02/10/17 [History] Nut.tx.impaired Renal Fxn,Soy [Nepro Carb Steady] 1 each GTUBE AD 02/10/17 [ History] Warfarin [Coumadin] 5 mg PO SUMOWEFR 02/10/17 [History] Warfarin [Coumadin] 7.5 mg PO TUTHSA 02/10/17 [History] Levothyroxine [Synthroid] 125 mcg PO DAILY 30 Days 02/23/17 [Rx] Metoprolol [Lopressor] 50 mg PO BID 30 Days 02/23/17 [Rx] Sennosides/Docusate Sodium [Senna Plus] 2 each PO BID 30 Days 02/23/17 [Rx] Darbepoetin [Aranesp] 100 mcg SQ Q2W 04/02/17 [History] Magnesium Oxide [Mag-Ox] 400 mg PO DAILY 04/02/17 [History] Omeprazole [PriLOSEC] 40 mg PO DAILY 04/02/17 [History] Allergies diazepam Allergy (Intermediate, Verified 01/03/16 14:39) Agitated Zolpidem [From Ambien] Adverse Reaction (Verified 01/03/16 14:39) Hallucinating All Systems PM: A 10-system review of systems was performed and is negative for pertinent findings except as documented above in the HPI. Review of systems: 10 systems have been reviewed and are negative except as mentioned in the history of present illness - Constitutional Vitals: Temp Pulse Resp BP Pulse Ox 97.8 F 67 15 136/62 98 04/02/17 09:41 04/02/17 12:34 04/02/17 12:34 04/02/17 12:34 04/02/17 12:34 Exam: Gen.: Lying in bed. No acute distress. Tracheostomy in place. Eyes: Pupils equal, round and reactive to light. Extraocular muscles intact. ENT: Moist mucous membranes. No oropharyngeal erythema or discharge. Chest: Clear to auscultation bilaterally. No adventitious sounds present. PICC line on the right side of the chest. CVS: First and second heart sounds present. No murmurs, rubs or gallops. Abdomen: Soft, nontender, nondistended. Bowel sounds present. No hepatosplenomegaly. Peritoneal dialysis catheter present. Skin: No decubitus ulcers appreciated. LASTEX THREAD WINDER: Cranial nerves II through XII grossly intact. Power 5/5 all over. Psychiatric: Alert, awake Lymphatic system: No lymphadenopathy appreciated Internal Med - H&P Results - Labs CBC & Chem 7: 04/02/17 11:02 04/02/17 11:02 Labs: Short CBC 04/02/17 Range/Units 11:02 WBC 14.5 H (4.3-11.1) K/mcL Hgb 7.5 L (12.9-16.9) g/dL Hct 24.2 L (37.5-50.1) % Plt Count 358 (140-400) K/mcL Neutrophils # 12.9 H (1.6-8.9) K/mcL BMP 04/02/17 11:02 Sodium 136 Potassium 3.9 Chloride 102 Carbon Dioxide 25 BUN 55 H Creatinine 3.31 H Glucose 171 H Calcium 8.6 Cardiac Enzymes 04/02/17 Range/Units 11:02 Troponin I 0.02 (0-0.03) ng/mL Liver Function 04/02/17 Range/Units 11:02 Total Bilirubin 0.3 (0.2-1.2) mg/dL AST 28 (5-34) Units/L ALT 41 (0-55) Units/L Alkaline Phosphatase 103 (38-126) Units/L Albumin 2.0 L (3.5-5.0) g/dL - EKG Data -: EKG Interpreted by Myself EKG shows normal: sinus rhythm, QRS complexes (Right bundle branch block), ST-T waves (Nonspecific ST-T changes) - Impressions ITS Impressions Head CT 04/02/17 09:53 IMPRESSION: 1. No acute intracranial abnormality. 2. Chronic microvascular ischemic change, stable. 3. Comminuted and mildly displaced right nasal bone fracture appears new compared to February of 2017. D/ / 04/02/2017 11:01:54 Asher Dotson MD / lgray Interpreting Provider: Asher Dotson MD Chest X-Ray 04/02/17 09:55 IMPRESSION: Mild cardiomegaly. No acute cardiopulmonary process. D/ / 04/02/2017 11:00:10 Asher Dotson MD / bcarter Interpreting Provider: Asher Dotson MD - Diagnostic Studies CT scan - head Status: image reviewed by me (No acute abnormalities detected)
--- NOTE | 2017-04-02 16:31 | Nephrology Consult Note ---
Date of Encounter: 04/02/17 Time of Encounter: 16:29 Assessment and Plan (1) ESRD on peritoneal dialysis Current Visit: Yes Status: Chronic ESRD on CAPD. Patient uses a cycler alternating 1.5 and 2.5 concentration bags. Will continue his same prescription. Renal dose medications for renal function. (2) Syncope Current Visit: Yes Status: Acute Per primary team. Could be related to anemia. Patient with leukocytosis, but no sign of systemic infection. This could be reactive. Patient possibly had a seizure episode as well. Qualifiers: Syncope type: unspecified Qualified Code(s): R55 - Syncope and collapse (3) Anemia Current Visit: Yes Status: Chronic Patient with recent scant hematemasis. He now has a hemoglobin of 7.5 and significant fatigue. Will order 1 unit prbc. May need to consult GI for evaluation Qualifiers: Anemia type: other cause Other causes of anemia: acute posthemorrhagic Qualified Code(s): D62 - Acute posthemorrhagic anemia (4) Hypertension Current Visit: Yes Status: Chronic Blood pressure controlled. Continue current management. Qualifiers: Hypertension type: essential hypertension Qualified Code(s): I10 - Essential (primary) hypertension (5) Laryngeal cancer Current Visit: No Status: Chronic Per primary team. History of Present Illness - Reason for Consult Consult date: 04/02/17 end stage renal disease - Chief Complaint Syncope - History of Present Illness Mr. Porras is a 66-year-old man with a history of end-stage renal disease who receives peritoneal dialysis under the direction of Dr. Hernandez. Patient presents after a syncopal episode at home. He has not been feeling well especially over the last 1-2 weeks. Over the last few days he reports some hematemesis. He chronically has dark-colored stool that has not changed recently. He denies hematuria or other sources of substantial bleeding. The day of admission apparently he was feeling slightly weak then his heard him fall and found that he had lost consciousness. At the time my evaluation the patient only complains of a headache. He denies chest pain or shortness of breath. He does have fatigue. The remainder of his review of systems appears to be stable or negative. Past Med Surg Social Fam HX - Past Medical History Medical history: cancer, DVT, dialysis, hypertension, renal disease, thyroid disease Psychiatric history: no psych history - Past Surgical History Surgical History: cancer surgery, cataract, cholecystectomy, tracheostomy, other - Social History Smoking Status: Former smoker Smokeless Tobacco Status: No Alcohol use: none Drug use: none - Family History Mother History Unknown: Yes Adopted: No Family Member Ethnicity: Non- Living Status: Hx Family Cardiac Disorders: No Hx Family Respiratory Disorders: No Hx Family Cancer: No Hx Family GI Disorders: No Hx Family Endocrine Disorder: No Hx Family Neuromuscular Disorders: No Hx Family Neurologic Disorders: Yes Hx Family HEENT Disorders: No Hx Family Autoimmune Disorders: No Brother History Unknown: Yes Hx Family Cardiac Disorders: Yes (Hypertension) Hx Family Cancer: Yes (colon and prostate) Medications and Allergies Ferrous Sulfate 325 mg PO BID 06/23/15 [History] Multivits,Ca,Min/Iron/FA/Lycop [Centrum Men's Tablet] 1 tab PO DAILY 06/23/15 [ History] Bacitracin/PolymyxinB OINT [Polysporin] 1 appl TP BID tube 03/28/16 [Rx] Calcium Carbonate [Tums] 500 mg PO TID 02/10/17 [History] Nut.tx.impaired Renal Fxn,Soy [Nepro Carb Steady] 1 each GTUBE TID 02/10/17 [ History] Warfarin [Coumadin] 5 mg PO SUMOWEFRSA 02/10/17 [History] Warfarin [Coumadin] 7.5 mg PO TU 02/10/17 [History] Levothyroxine [Synthroid] 125 mcg PO DAILY 30 Days 02/23/17 [Rx] Metoprolol [Lopressor] 50 mg PO BID 30 Days 02/23/17 [Rx] Sennosides/Docusate Sodium [Senna Plus] 2 each PO BID 30 Days 02/23/17 [Rx] Darbepoetin [Aranesp] 100 mcg SQ Q2W 04/02/17 [History] Magnesium Oxide [Mag-Ox] 400 mg PO DAILY 04/02/17 [History] Omeprazole [PriLOSEC] 40 mg PO DAILY 04/02/17 [History] Allergies diazepam Allergy (Intermediate, Verified 01/03/16 14:39) Agitated Zolpidem [From Ambien] Adverse Reaction (Verified 01/03/16 14:39) Hallucinating Review of Systems All Systems: reviewed and no additional remarkable complaints except as stated ( as documented in the HPI.) Exam - Vital Signs Vital signs: Initial Vital Signs Temp Pulse Resp BP Pulse Ox 97.8 F 65 16 116/57 100 04/02/17 09:41 04/02/17 09:41 04/02/17 09:41 04/02/17 09:41 04/02/17 09:41 Vital Signs - Last 8 Hours Resp BP 04/02/17 13:30 16 141/71 Intake and Output 04/02/17 04/02/17 04/02/17 07:59 15:59 23:59 Intake Total 480 / 480 Balance 480 / 480 Intake: Oral 480 / 480 Other: Meal Lunch Percent of Meal Consumed 100% - General Appearance General appearance: well-developed, well-nourished EENT: ATNC Neck: supple Respiratory: clear Cardiology: no edema, regular rate, regular rhythm Gastrointestinal: normoactive bowel sounds, no tenderness, no guarding Integumentary: warm and dry Neurologic: alert and oriented x3 Musculoskeletal: no cyanosis Psychiatric: mood/affect appropriate Results - Lab Results 04/02/17 11:02 04/02/17 11:02 Most recent lab results Calcium 8.6 mg/dL (8.6-10.8) 04/02/17 11:02 Consult Discharge Plan - Plan Referrals: Figueroa Navarro DO [Primary Care Provider] -
[2017-04-02 17:50] LABS: Hematocrit 26.5 % (37.5-50.1); Hemoglobin 8.4 g/dL (12.9-16.9); Mean Corpuscular HGB Conc 31.7 g/dL (31.6-35.5); Mean Corpuscular Hemoglobin 30.5 pg (28.0-33.3); Mean Corpuscular Volume 96.4 fL (83.0-100.0); Mean Platelet Volume 10.3 fL (9.4-12.4); Platelet Count 426 K/mcL (140-400); Red Blood Count 2.75 M/mcL (4.19-5.50); Red Cell Distribution Width 15.9 % (11.5-14.5)
[2017-04-02] MEDS: *HR* OxyCODONE Immed Rel 5 MG TABLET PO PRN (18:48)
[2017-04-02] MEDS: Perit. Dialysis with Dex 1.5 % 2,000 ML PERITONEAL SCH (18:49)
[2017-04-02] MEDS ORDERED: 0.9 % Sodium Chloride 250 ML ONE (18:59)
[2017-04-02] MEDS: Acetaminophen 325 MG TABLET PO PRN (22:19)
[2017-04-02 22:34] LABS: Bilirubin,Urine Negative (Negative); Blood,Urine Trace (Negative); Clarity,Urine Clear (Clear); Color,Urine Yellow (Yellow); Glucose,Urine (UA) 100 mg/dL (Normal); Ketones,Urine Negative (Negative); Leukocyte Esterase,Urine Small (Negative); Nitrite,Urine Negative (Negative); PH,Urine 6.5 pH Units (5.0-8.0); Protein,Urine >=300 mg/dL (Neg-Trace); Specific Gravity,Urine 1.016 (1.010-1.025); Urobilinogen,Urine Normal (Normal)
[2017-04-02 22:37] LABS: Bacteria,Urine None Seen per hpf (None-Few); Hyaline Casts,Urine None Seen per lpf (None-Few); RBC,Urine 0-3 per hpf (0-3); Squamous Epithelial Cell,Urine Many per lpf (None-Few); WBC,Urine 15-30 per hpf (0-3)
[2017-04-03] MEDS: PERITON. DIALYSIS 13-DEX 2.5 % 2,000 ML PERITONEAL SCH ×2 (00:04→11:49)
[2017-04-03] MEDS: *HR* OxyCODONE Immed Rel 5 MG TABLET PO PRN ×5 (00:10→22:31)
[2017-04-03 05:56] LABS: Basophils % 0.1 %; Eosinophils # 0.2 K/mcL (0.0-0.6); Eosinophils % 1.1 %; Hematocrit 26.2 % (37.5-50.1); Hemoglobin 8.4 g/dL (12.9-16.9); Immature Granulocytes % 1.7 % (0-4); Lymphocytes # 0.9 K/mcL (0.6-4.6); Lymphocytes % 6.5 %; Mean Corpuscular HGB Conc 32.1 g/dL (31.6-35.5); Mean Corpuscular Hemoglobin 30.4 pg (28.0-33.3); Mean Corpuscular Volume 94.9 fL (83.0-100.0); Mean Platelet Volume 10.5 fL (9.4-12.4); Monocytes # 1.2 K/mcL (0.0-1.3); Monocytes % 8.9 %; Neutrophils # 11.2 K/mcL (1.6-8.9); Platelet Count 343 K/mcL (140-400); Red Blood Count 2.76 M/mcL (4.19-5.50); Red Cell Distribution Width 16.9 % (11.5-14.5); Segmented Neutrophils % 81.7 %
[2017-04-03] MEDS: Perit. Dialysis with Dex 1.5 % 2,000 ML PERITONEAL SCH ×2 (06:09→18:15)
[2017-04-03 06:15] LABS: Albumin/Globulin Ratio 0.5 (1.1-2.2); Calcium 8.3 mg/dL (8.6-10.8); Globulin 3.8 g/dL (2.4-3.5); Phosphorous 3.8 mg/dL (2.3-4.7); Potassium 3.9 mEq/L (3.5-4.5); Total Protein 5.8 g/dL (6.0-8.3)
[2017-04-03 06:22] LABS: Bilirubin,Total 1.3 mg/dL (0.2-1.2)
--- NOTE | 2017-04-03 10:33 | Nephrology Progress Note ---
Date of Encounter: 04/03/17 Time of Encounter: 10:31 - Assessment and Plan (1) ESRD on peritoneal dialysis Current Visit: Yes Status: Chronic Continue current PD regimen Patient uses a cycler alternating 1.5 and 2.5 concentration bags (2) Anemia Current Visit: Yes Status: Chronic Hgb 8.4-stable Qualifiers: Anemia type: other cause Other causes of anemia: acute posthemorrhagic Qualified Code(s): D62 - Acute posthemorrhagic anemia (3) Laryngeal squamous cell carcinoma Current Visit: No Status: Acute per oncology/primary care team states patient wanted to 'give up' on Sunday but his daughter and sister talked him into continuing to fight. states cancer is growing, oncology team is aware and tell them this is the progression of the disease Recommend consult by palliative team Subjective Principal diagnosis: ESRD on peritoneal dialysis, syncope Interval history: Patient seen and examined. at bedside. Patient not feeling well today. Objective - Vital Signs Vital signs: Vital Signs Temp Pulse Resp BP Pulse Ox 04/03/17 10:01 98.2 F 90 17 145/72 97 04/03/17 08:08 98.2 F 102 18 124/53 100 04/03/17 04:20 97.8 F 115 18 138/67 100 04/02/17 23:18 98.1 F 72 16 122/56 99 04/02/17 19:45 97.8 F 78 14 143/68 100 04/02/17 19:39 97.8 F 87 14 134/69 98 04/02/17 13:30 16 141/71 Intake and Output 04/02/17 04/03/17 04/03/17 23:59 07:59 15:59 Intake Total 1120 / 1120 50 / 50 Balance 1120 / 1120 50 / 50 Intake: Oral 720 / 720 50 / 50 Blood Product 400 / 400 Rbcs Leuko Poor As-1 Irr 400 / 400 Unit [id number] Other: Meal Dinner Percent of Meal Consumed 100% Total Peritoneal Dialysis 280 Output # Voids 2 1 Weight 82.4 kg Patient Weight 04/03/17 23:59 Weight 82.4 kg - General Appearance General appearance: Present: chronically ill EENT: Present: ATNC Neck: Present: supple (lots of neck and facial swelling from cancer; states cancer is growing) Respiratory: Present: clear (decreased throughout) Cardiology: Present: edema (facial and neck area), normal S1, normal S2 Gastrointestinal: Present: no tenderness, no guarding Integumentary: Present: warm and dry Neurologic: Present: alert and oriented x3 - Lab 04/03/17 05:37 04/03/17 05:37 Most recent lab results Calcium 8.3 mg/dL (8.6-10.8) L 04/03/17 05:37 Phosphorus 3.8 mg/dL (2.3-4.7) 04/03/17 05:37 - VTE Documentation of Mechanical Device: Graduated compression elastic hosiery Consult Discharge Plan - Plan Referrals: ColopyFigueroa DO [Primary Care Provider] - (Patient will call for an appointment Per [facility]... )
[2017-04-03] MEDS: Acetaminophen 325 MG TABLET PO PRN (11:25)
[2017-04-03] MEDS ORDERED: *HR* OxyCODONE Immed Rel 5 MG TABLET PO PRN (13:10)
--- NOTE | 2017-04-03 13:56 | Internal Med Progress Note ---
Date of Encounter: 04/03/17 Time of Encounter: 13:50 - Assessment and plan (1) Syncope Current Visit: Yes Status: Acute Assessment and plan: Pt admitted after a witnessed episode of seizure like activity(staring episode with urinary incontinence). Reported history of such episodes in the past NO repeat episodes reported Pt also has history of carotid stenosis, will obtain carotid doppler to r/o hypoperfusion causes of this episode. Neurology consultation requested PT eval Qualifiers: Syncope type: unspecified Qualified Code(s): R55 - Syncope and collapse (2) Anemia Current Visit: Yes Status: Chronic Assessment and plan: s/p one unit PRBC transfusion Hemoptysis resolved at this time continue to hold Coumadin H&H low but acceptable will closely monitor and transfuse as needed Noted to have history of iron deficiency anemia, will continue home dose of iron supplementation Qualifiers: Anemia type: other cause Other causes of anemia: acute posthemorrhagic Qualified Code(s): D62 - Acute posthemorrhagic anemia (3) ESRD (end stage renal disease) on dialysis Current Visit: No Status: Acute Assessment and plan: Nephrology consultation appreciated continue dialysis sessions as per nephrology (4) History of DVT (deep vein thrombosis) Current Visit: No Status: Chronic Assessment and plan: On coumadin for history of DVT Coumadin on hold given recent hemoptysis and anemia will monitor off Coumadin at this time SCDs for DVT ppx (5) Hypertension Current Visit: Yes Status: Chronic Assessment and plan: BP within acceptable range continue home medications Noted to have sinus tachycardia, pt's BB dose was placed on hold upon admission , given labile BP readings, currently BP within acceptable range and will restart BB dose will closely monitor HR and BP Qualifiers: Hypertension type: essential hypertension Qualified Code(s): I10 - Essential (primary) hypertension (6) Leukocytosis Current Visit: No Status: Acute Assessment and plan: Of unclear etiology pt clinically asymptomatic, afebrile finished 6 weeks abx course for MRSA bacteremia Has a PICC line in place, will remove the PICC line and obtain peripheral and central blood cultures will monitor off abx at this time Qualifiers: Leukocytosis type: other Qualified Code(s): D72.828 - Other elevated white blood cell count (7) Hypothyroidism Current Visit: Yes Status: Chronic Assessment and plan: continue Levothyroxine Qualifiers: Hypothyroidism type: unspecified Qualified Code(s): E03.9 - Hypothyroidism , unspecified (8) Laryngeal cancer Current Visit: No Status: Chronic Assessment and plan: further treatment as per primary oncologist after discharge (9) Tracheostomy in place Current Visit: No Status: Chronic (10) DVT prophylaxis Current Visit: No Status: Acute Assessment and plan: SCD (11) Goals of care, counseling/discussion Current Visit: Yes Status: Acute Assessment and plan: Palliative care consultation requested to establish detention goals of care and code status - Subjective Interval history: Patient is a 66y/o male with hx of larygneal ca currently undergoing treatment, s/p tracheostomy who is admitted for evaluation of a syncopal episode concerning for seizure. Patient seen and examined with present at bedside. Pt does not communicate much at baseline due to his tracheostomy due to which presented majority of his history preceding to his admission. Pt has been having daily recurrent episodes of hemoptysis since last week. Last episode was on Sunday and according the family, patient's primary oncologist is aware and stated that this is expected given the progression of his disease. Pt states he does not want any acute or aggressive interventions, however family states that he is too weak to be taken care of at home and are concerned about this episode of seizure he had prior to his hospitalization. No further hemoptysis and seizures have been reported since hospitalization. - Constitutional Vitals: Temp Pulse Resp BP Pulse Ox 98.2 F 100 18 120/68 97 04/03/17 11:29 04/03/17 11:29 04/03/17 11:29 04/03/17 11:29 04/03/17 11:29 General appearance: Present: A&O X 3, no acute distress - Head Head exam: Present: atraumatic, normocephalic - Eye Eye exam: Present: normal appearance, conjuntiva pink, sclera anicteric - Neck Additional comments: tracheostomy - Respiratory Respiratory exam: Absent: respiratory distress, wheezes - Cardiovascular Cardiovascular exam: Present: +S1, +S2, tachycardia. Absent: diastolic murmur, gallop, rubs, systolic murmur - GI/Abdominal GI/Abdominal exam: Present: normal bowel sounds, soft, no peritoneal signs. Absent: distended, tenderness - Extremities Exam Extremities exam: Present: warm, radial pulses palpable and symetrical. Absent : calf tenderness, cyanotic, pedal edema - Neurological Exam Neurological exam: Present: strengths equal and symetr throughout. Absent: facial droop, speech deficit Internal Medicine: Result - Labs CBC & Chem 7: 04/03/17 05:37 04/03/17 05:37 Labs: Short CBC 04/02/17 04/03/17 Range/Units 17:40 05:37 WBC 17.7 H 13.8 H (4.3-11.1) K/mcL Hgb 8.4 L 8.4 L (12.9-16.9) g/dL Hct 26.5 L 26.2 L (37.5-50.1) % Plt Count 426 H 343 (140-400) K/mcL Neutrophils # 11.2 H (1.6-8.9) K/mcL BMP 04/03/17 05:37 Sodium 136 Potassium 3.9 Chloride 102 Carbon Dioxide 26 BUN 55 H Creatinine 3.43 H Glucose 136 H Calcium 8.3 L Liver Function 04/03/17 Range/Units 05:37 Total Bilirubin 1.3 H D (0.2-1.2) mg/dL AST 26 (5-34) Units/L ALT 36 (0-55) Units/L Alkaline Phosphatase 99 (38-126) Units/L Albumin 2.0 L (3.5-5.0) g/dL Urine 04/02/17 Range/Units 22:06 Urine Color Yellow (Yellow) Urine Clarity Clear (Clear) Urine pH 6.5 (5.0-8.0) pH Units Ur Specific [place] 1.016 (1.010-1.025) Urine Protein >=300 H (Neg-Trace) mg/dL Urine Glucose (UA) 100 H (Normal) mg/dL - ABG Interpretation ABG results: PT/INR, D-dimer PT 13.6 Seconds (9.4-12.1) H 04/02/17 11:02 - VTE Documentation of Mechanical Device: Graduated compression elastic hosiery Consult Discharge Plan - Plan Referrals: Figueroa Navarro DO [Primary Care Provider] - (Patient will call for an appointment Per [facility]... )
--- NOTE | 2017-04-03 15:10 | Palliative - Consult Note ---
Date of Encounter: 04/03/17 Time of Encounter: 13:45 - Assessment and Plan (1) Syncope Current Visit: Yes Status: Acute Assessment and plan: This is felt to be due to seizures. Etiology of the seizures is still being worked up although the possibility of vascular is considered as well as rupturable. The CT scan did not show any distinct pathology in the brain itself. He cannot see if there has been an MRI done or not. Qualifiers: Syncope type: unspecified Qualified Code(s): R55 - Syncope and collapse (2) Goals of care, counseling/discussion Current Visit: Yes Status: Acute Assessment and plan: The patient is currently full code, however the patient and family are discussing this this may change. Also care currently the patient is in interested in all aggressive care, however he does recognize that the full aggressive care does not seem to be working very well, and he is getting sick and tired of being sick and tired. And family were appraised of where hospice fits into this situation and will continue to evaluate. (3) Anemia Current Visit: Yes Status: Chronic Assessment and plan: Currently this is thought to be secondary to hemoptysis. he has been transfused and the hospitalist team will watch sleep. Qualifiers: Anemia type: other cause Other causes of anemia: acute posthemorrhagic Qualified Code(s): D62 - Acute posthemorrhagic anemia (4) ESRD on peritoneal dialysis Current Visit: Yes Status: Chronic Assessment and plan: Patient still wishes to continue his peritoneal dialysis. Being followed by nephrology. (5) Central line infection Current Visit: No Status: Acute Assessment and plan: Line was removed today. Disease has been following. Qualifiers: Encounter type: sequela Qualified Code(s): T80.219S - Unspecified infection due to central venous catheter, sequela (6) Laryngeal squamous cell carcinoma Current Visit: No Status: Acute Assessment and plan: Chemotherapy currently on hold due to the patient's endocarditis, plans are to continue chemotherapy with the patient's able to tolerate it. Is at least currently still interested in having the chemotherapy done. Is being done at [facility] at the [facility] and they will follow up there. Palliative-CN HPI - Data of Consult Patient: new to practice Requesting Physician: Beth De Jesus MD Primary Care Provider: Figueroa Navarro - Consult Narrative Palliative Care/Comfort Measures: Palliative care Reason for consult: goals History of present illness: Mr. Porras is a 66 year old male Patient is admitted for 2 syncopal episodes pseudoseizures and is another episode similar a month ago. She has been recommended for long-term EEG monitoring as outpatient. Concerned about patient having rodded vascular disease and this may be involved as well. The patient does have a history of laryngeal cancer status post laryngectomy 35 episodes of irradiation 3 episodes of chemotherapy area this is been complicated by what was felt to be a DVT in the right leg proximal. As well as with endocarditis. Patient just had a PICC line removed. She had been feeling very weak and hot and having a difficult time breathing he tripped on the gets of the bed and fell to the floor. Patient was then brought to the hospital. Had periods when he was during off into space actually having any tonic-clonic seizures. This time the patient is feeling somewhat better, planning of any pain anywhere and family his breathing is pretty decent. Be anemic when he came in was transfused. The patient has been coughing up blood however has not been profuse according to the family. Regard to the answer the family has been told that the cancer is progressing and getting bigger despite the chemotherapy however chemotherapy is continue to be plan it sounds like this is palliative in nature. She is able to eat and has a normal appetite and is having bowel movements. CC: Beth De Jesus MD seizure Past Med Surg Social Fam HX - Past Medical History Medical history: cancer, DVT, dialysis, hypertension, renal disease, thyroid disease Psychiatric history: no psych history - Past Surgical History Surgical History: cancer surgery, cataract, cholecystectomy, tracheostomy, other - Social History Smoking Status: Former smoker Smokeless Tobacco Status: No Alcohol use: none Drug use: none - Family History Mother History Unknown: Yes Adopted: No Family Member Ethnicity: Non- Living Status: Hx Family Cardiac Disorders: No Hx Family Respiratory Disorders: No Hx Family Cancer: No Hx Family GI Disorders: No Hx Family Endocrine Disorder: No Hx Family Neuromuscular Disorders: No Hx Family Neurologic Disorders: Yes Hx Family HEENT Disorders: No Hx Family Autoimmune Disorders: No Brother History Unknown: Yes Hx Family Cardiac Disorders: Yes (Hypertension) Hx Family Cancer: Yes (colon and prostate) Medications and Allergies Ferrous Sulfate 325 mg PO BID 06/23/15 [History] Multivits,Ca,Min/Iron/FA/Lycop [Centrum Men's Tablet] 1 tab PO DAILY 06/23/15 [ History] Bacitracin/PolymyxinB OINT [Polysporin] 1 appl TP BID tube 03/28/16 [Rx] Calcium Carbonate [Tums] 500 mg PO TID 02/10/17 [History] Nut.tx.impaired Renal Fxn,Soy [Nepro Carb Steady] 1 each GTUBE TID 02/10/17 [ History] Warfarin [Coumadin] 5 mg PO SUMOWEFRSA 02/10/17 [History] Warfarin [Coumadin] 7.5 mg PO TU 02/10/17 [History] Levothyroxine [Synthroid] 125 mcg PO DAILY 30 Days 02/23/17 [Rx] Metoprolol [Lopressor] 50 mg PO BID 30 Days 02/23/17 [Rx] Sennosides/Docusate Sodium [Senna Plus] 2 each PO BID 30 Days 02/23/17 [Rx] Darbepoetin [Aranesp] 100 mcg SQ Q2W 04/02/17 [History] Magnesium Oxide [Mag-Ox] 400 mg PO DAILY 04/02/17 [History] Omeprazole [PriLOSEC] 40 mg PO DAILY 04/02/17 [History] Allergies diazepam Allergy (Intermediate, Verified 01/03/16 14:39) Agitated Zolpidem [From Ambien] Adverse Reaction (Verified 01/03/16 14:39) Hallucinating - Constitutional Constitutional ROS PAL: frequent falls (Recently), no decreased appetite - EENT Eyes: no discharge, no pain Ears: no ear discharge, no ear pain Ears, nose, mouth, throat: facial pain (Since his fall), no dysphagia, no epistaxis - Cardiovascular Cardiovascular ROS: no chest pain, no chest pain at rest, no chest pain with activity - Respiratory Respiratory: dyspnea (This episode), hemoptysis - Gastrointestinal Gastrointestinal: no constipation, no diarrhea, no heartburn, no nausea, no vomiting - Genitourinary Genitourinary ROS male: no urinary frequency, no urinary hesitancy, no urinary incontinence - Musculoskeletal Musculoskeletal ROS IM: muscle weakness (Overall with this episode) - Integumentary ROS Integumentary: unusual bruising (She is on Coumadin), no sores - Neurological Neurological ROS: dizziness, syncope - Psychiatric Psychiatric general PM: depression (At times), hopelessness (At times), no change in appetite, no confusion, no homicidal ideation, no suicidal ideation - Endocrine Endocrine IM: as per HPI (Patient has a history of thyroid disease.) Palliative Care-Exam - Constitutional Vitals: Temp Pulse Resp BP Pulse Ox 98.2 F 100 18 120/68 97 04/03/17 11:29 04/03/17 11:29 04/03/17 11:29 04/03/17 11:29 04/03/17 11:29 General appearance: Present: no acute distress - Head Head Exam: Present: atraumatic, normal inspection - Eye Eye exam: Present: EOMI, normal appearance - ENT ENT exam: Present: mucous membranes moist - Neck Neck exam: Absent: normal inspection (Patient has a trach) - Respiratory Respiratory exam: Present: CTAB - Cardiovascular Cardiovascular exam: Present: RRR - GI/Abdominal Exam GI/Abdominal exam: Present: normal bowel sounds, soft. Absent: tenderness - Rectal Rectal Exam: Present: black stool (The patient has been on iron.) - Extremities Exam Extremities exam: Present: normal inspection, pedal edema. Absent: tenderness - Neurological Exam Neurological exam: Present: alert - Psychiatric Psychiatric exam: Present: normal affect, normal mood. Absent: agitated, anxious - Skin Skin exam: Present: dry, warm Internal Medicine - CN: Reslt - Labs CBC & Chem 7: 04/03/17 05:37 04/03/17 05:37 Labs: Short CBC 04/02/17 04/03/17 Range/Units 17:40 05:37 WBC 17.7 H 13.8 H (4.3-11.1) K/mcL Hgb 8.4 L 8.4 L (12.9-16.9) g/dL Hct 26.5 L 26.2 L (37.5-50.1) % Plt Count 426 H 343 (140-400) K/mcL Neutrophils # 11.2 H (1.6-8.9) K/mcL BMP 04/03/17 05:37 Sodium 136 Potassium 3.9 Chloride 102 Carbon Dioxide 26 BUN 55 H Creatinine 3.43 H Glucose 136 H Calcium 8.3 L Liver Function 04/03/17 Range/Units 05:37 Total Bilirubin 1.3 H D (0.2-1.2) mg/dL AST 26 (5-34) Units/L ALT 36 (0-55) Units/L Alkaline Phosphatase 99 (38-126) Units/L Albumin 2.0 L (3.5-5.0) g/dL Urine 04/02/17 Range/Units 22:06 Urine Color Yellow (Yellow) Urine Clarity Clear (Clear) Urine pH 6.5 (5.0-8.0) pH Units Ur Specific [place] 1.016 (1.010-1.025) Urine Protein >=300 H (Neg-Trace) mg/dL Urine Glucose (UA) 100 H (Normal) mg/dL - ABG Interpretation ABG results: PT/INR, D-dimer PT 13.6 Seconds (9.4-12.1) H 04/02/17 11:02 - Impressions Impressions Insertion Tunneled Catheter 04/03/17 00:00 IMPRESSION: Successful tunneled right internal jugular line PICC line removal D/ / Ramy Bell MD / Ramy Bell MD Interpreting Provider: Ramy Bell MD Consult Discharge Plan - Plan Referrals: ColopyFigueroa DO [Primary Care Provider] - (Patient will call for an appointment Per [facility]... ) Palliative Quality Palliative Quality: Screen for Code Status: Yes, Screen for Goals of Care: Yes, Screen for Pain: Yes, If Pain Regimen Started, Initiate Bowel Regimen: Yes, Screen for Nausea/Vomitting: Yes
--- NOTE | 2017-04-03 16:57 | Neurology - Consult Note ---
Date of Encounter: 04/03/17 Time of Encounter: 16:50 Assessment and Plan (1) Syncope Current Visit: No Status: Resolved I would tend to agree with Dr. Edward's previous synopsis of this case. It does not seem likely that he did not fact experience a generalized tonic-clonic seizure. I think that we are dealing with vasovagal episodes. He did have a prodrome this time which consisted of diaphoresis and he felt flushed. He was unconscious only for short period of time and did not have a postictal state, he did not have generalized tonic-clonic convulsions. I do not feel that antiepileptic therapy is indicated here. I did not feel that a repeat EEG is necessary. Thank you for allowing me to participate in your patient's care. I will reevaluate him at your request. The documentation in the history of HPI and plan were at least partially created by [employer] voice recognition technology by Dr. Richard. Errors in grammar, wording or other phrases may exist. If errors are found after the documentation signed, they will be addressed individually in the addendum section of this document when appropriate. Qualifiers: Syncope type: unspecified Qualified Code(s): R55 - Syncope and collapse History of Present Illness HPI: Mr. Porras is a 66 year old male who has a known history of several chronic conditions and including laryngeal cancer, end-stage renal disease who is being seen for a second time secondary to loss of consciousness. He was seen in the hospital by my associate Dr. Skaggs on 02/14/2017 after similar episode. Ultimately Dr. Skaggs performed a complete workup indeterminate and was likely a syncopal spell perhaps secondary to cerebral hypoperfusion as a result of bilateral carotid artery stenosis. He had an EEG which was essentially normal with first time. Apparently this time this gentleman was at home with his in the somehow tripped over a blanket and fell on the floor. He was able to get himself up and went outside to sit on the porch. Shortly thereafter he began feeling flushed. His was there and witnessed the episode. She states that his mouth was open and excessive saliva was coming out and then his eyes rolled back and he lost consciousness. He did lose urinary continence. However there was no generalized tonic-clonic activity. She estimates that he was unconscious for a minute or so. After arousal he was pale and diaphoretic. However he did not have postictal confusion or lethargy. He did not lose consciousness when he fell to the floor initially. He does not associate either of the episodes with having taken his medications. States he does not usually get lightheaded when he arises from a seated position. He denies excessive coughing prior to either episode. Upon admission his temp is 97.8, pulse rate 65, respirations 16, blood pressure 116/ 57. His O2 sat was 100%. His WBCs were initially elevated at 17.7, D1 was 55, creatinine 3.31. Sodium was 136. Calcium was 8.6, glucose was elevated at 171. CT scan of his head revealed no significant intracranial abnormalities. He states that he feels better since his PICC line was removed earlier today. He denies ever having a history of epilepsy. Past Med Surg Social Fam HX - Past Medical History Medical history: cancer, DVT, dialysis, hypertension, renal disease, thyroid disease Psychiatric history: no psych history - Past Surgical History Surgical History: cancer surgery, cataract, cholecystectomy, tracheostomy, other - Social History Smoking Status: Former smoker Smokeless Tobacco Status: No Alcohol use: none Drug use: none - Family History Mother History Unknown: Yes Adopted: No Family Member Ethnicity: Non- Living Status: Hx Family Cardiac Disorders: No Hx Family Respiratory Disorders: No Hx Family Cancer: No Hx Family GI Disorders: No Hx Family Endocrine Disorder: No Hx Family Neuromuscular Disorders: No Hx Family Neurologic Disorders: Yes Hx Family HEENT Disorders: No Hx Family Autoimmune Disorders: No Brother History Unknown: Yes Hx Family Cardiac Disorders: Yes (Hypertension) Hx Family Cancer: Yes (colon and prostate) Medications and Allergies Ferrous Sulfate 325 mg PO BID 06/23/15 [History] Multivits,Ca,Min/Iron/FA/Lycop [Centrum Men's Tablet] 1 tab PO DAILY 06/23/15 [ History] Bacitracin/PolymyxinB OINT [Polysporin] 1 appl TP BID tube 03/28/16 [Rx] Calcium Carbonate [Tums] 500 mg PO TID 02/10/17 [History] Nut.tx.impaired Renal Fxn,Soy [Nepro Carb Steady] 1 each GTUBE TID 02/10/17 [ History] Warfarin [Coumadin] 5 mg PO SUMOWEFRSA 02/10/17 [History] Warfarin [Coumadin] 7.5 mg PO TU 02/10/17 [History] Levothyroxine [Synthroid] 125 mcg PO DAILY 30 Days 02/23/17 [Rx] Metoprolol [Lopressor] 50 mg PO BID 30 Days 02/23/17 [Rx] Sennosides/Docusate Sodium [Senna Plus] 2 each PO BID 30 Days 02/23/17 [Rx] Darbepoetin [Aranesp] 100 mcg SQ Q2W 04/02/17 [History] Magnesium Oxide [Mag-Ox] 400 mg PO DAILY 04/02/17 [History] Omeprazole [PriLOSEC] 40 mg PO DAILY 04/02/17 [History] OxyCODONE Immed Rel [Roxicodone 5 MG] 5 - 10 mg PO Q4HR PRN 04/03/17 [History] Allergies diazepam Allergy (Intermediate, Verified 01/03/16 14:39) Agitated Zolpidem [From Ambien] Adverse Reaction (Verified 01/03/16 14:39) Hallucinating All Systems: A 10-system review of systems was performed and is negative for pertinent findings except as documented above in the HPI. Review of Systems: 10 point review of systems is consistent with a history of present illness and otherwise negative. Physical Examination - Vital Signs Vital Signs: Initial Vital Signs Temp Pulse Resp BP Pulse Ox 97.8 F 65 16 116/57 100 04/02/17 09:41 04/02/17 09:41 04/02/17 09:41 04/02/17 09:41 04/02/17 09:41 - Neurologic Detailed motor examination: full strength in all major muscle groups Motor examination - right side: 5/5: deltoids, biceps, triceps, wrist flexion, wrist extension, sports management intern, hip flexors, tibialis Anterior, quadriceps, toe extension (EHL), plantarflexion Motor examination - left side: 5/5: deltoids, biceps, triceps, wrist flexion, wrist extension, hip flexors, sports management intern, quadriceps, tibialis Anterior, toe extension (EHL), plantarflexion Mental Status Examination: awake, alert, oriented to person, oriented to place, oriented to time, follows commands appropriately, answers questions appropriately, no agnosia, no aphasia, no aproxia Cranial nerve examination: PERRL, EOMI, visual chery intact, corneal reflexes brisk symmetrically, sensory to face intact, mastication intact, no facial asymmetry is present, no dysarthria, hearing is intact symmetrically, soft palate elevates bilaterally upon phonation (He has had a laryngectomy and has a stoma.), gag reflex intact, flexes SCM and trapezius muscles symmetrically with full power, tongue protrudes midline Cerebellar examination: no dysmetria, performs finger to nose and heel to rose symmetrically without ataxia, no gait ataxia, no truncal ataxia, no difficulty with rapid alternating movements Results - Laboratory Findings CBC and BMP: 04/03/17 05:37 04/03/17 05:37 Abnormal lab findings: Abnormal lab results WBC 13.8 K/mcL (4.3-11.1) H 04/03/17 05:37 RBC 2.76 M/mcL (4.19-5.50) L 04/03/17 05:37 Hgb 8.4 g/dL (12.9-16.9) L 04/03/17 05:37 Hct 26.2 % (37.5-50.1) L 04/03/17 05:37 RDW 16.9 % (11.5-14.5) H 04/03/17 05:37 Neutrophils # 11.2 K/mcL (1.6-8.9) H 04/03/17 05:37 PT 13.6 Seconds (9.4-12.1) H 04/02/17 11:02 BUN 55 mg/dL (8-26) H 04/03/17 05:37 Creatinine 3.43 mg/dL (0.72-1.25) H 04/03/17 05:37 Est GFR ( Amer) 22 (> 60) L 04/03/17 05:37 Est GFR (Non-Af Amer) 18 (> 60) L 04/03/17 05:37 Glucose 136 mg/dL (70-99) H 04/03/17 05:37 POC Glucose 188 (58-89) H 04/03/17 09:57 Calcium 8.3 mg/dL (8.6-10.8) L 04/03/17 05:37 Total Bilirubin 1.3 mg/dL (0.2-1.2) H D 04/03/17 05:37 Serum Total Protein 5.8 g/dL (6.0-8.3) L 04/03/17 05:37 Albumin 2.0 g/dL (3.5-5.0) L 04/03/17 05:37 Globulin 3.8 g/dL (2.4-3.5) H 04/03/17 05:37 Albumin/Globulin Ratio 0.5 (1.1-2.2) L 04/03/17 05:37 Urine Protein >=300 mg/dL (Neg-Trace) H 04/02/17 22:06 Urine Glucose (UA) 100 mg/dL (Normal) H 04/02/17 22:06 Urine Blood Trace (Negative) H 04/02/17 22:06 Ur Leukocyte Esterase Small (Negative) H 04/02/17 22:06 Urine Microscopic WBC 15-30 per hpf (0-3) H 04/02/17 22:06 Ur Squamous Epith Cells Many per lpf (None-Few) H 04/02/17 22:06 Consult Discharge Plan - Plan Referrals: ColopyFigueroa DO [Primary Care Provider] - (Patient will call for an appointment Per [facility]... )
--- NOTE | 2017-04-03 17:16 | Electrocardiograph Report ---
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
--- NOTE | 2017-04-03 17:20 | Electrocardiograph Report ---
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
[2017-04-03] MEDS: Sennosides/Docusate Sodium TABLET PO SCH (20:07)
[2017-04-04] MEDS: PERITON. DIALYSIS 13-DEX 2.5 % 2,000 ML PERITONEAL SCH ×2 (00:01→12:11)
[2017-04-04] MEDS: *HR* OxyCODONE Immed Rel 5 MG TABLET PO PRN ×3 (04:54→19:28)
[2017-04-04 05:08] LABS: Basophils % 0.2 %; Eosinophils # 0.1 K/mcL (0.0-0.6); Eosinophils % 1.1 %; Hematocrit 26.5 % (37.5-50.1); Hemoglobin 8.6 g/dL (12.9-16.9); Immature Granulocytes % 1.5 % (0-4); Lymphocytes # 0.8 K/mcL (0.6-4.6); Lymphocytes % 6.8 %; Mean Corpuscular HGB Conc 32.5 g/dL (31.6-35.5); Mean Corpuscular Hemoglobin 30.8 pg (28.0-33.3); Mean Platelet Volume 10.7 fL (9.4-12.4); Monocytes # 1.1 K/mcL (0.0-1.3); Monocytes % 8.9 %; Neutrophils # 10.1 K/mcL (1.6-8.9); Platelet Count 353 K/mcL (140-400); Red Blood Count 2.79 M/mcL (4.19-5.50); Red Cell Distribution Width 16.5 % (11.5-14.5); Segmented Neutrophils % 81.5 %
[2017-04-04 05:25] LABS: Calcium 8.6 mg/dL (8.6-10.8); Magnesium 1.3 mg/dL (1.6-2.6); Phosphorous 3.6 mg/dL (2.3-4.7); Potassium 3.8 mEq/L (3.5-4.5)
[2017-04-04] MEDS: Perit. Dialysis with Dex 1.5 % 2,000 ML PERITONEAL SCH ×2 (06:16→18:47)
--- NOTE | 2017-04-04 07:46 | Palliative Progress Note ---
Date of Encounter: 04/04/17 Time of Encounter: 07:20 - Assessment and plan (1) Syncope Current Visit: Yes Status: Acute Assessment and plan: May very well be secondary to blood loss. Hemoccult was positive this morning. Hemoglobin is stable today. At 8.6 given that the patient wishes to have aggressive care still for his cancer. a GI workup appears to be indicated. Patient's got a lot of his care up at [facility]. And I believe Qualifiers: Syncope type: unspecified Qualified Code(s): R55 - Syncope and collapse (2) Goals of care, counseling/discussion Current Visit: Yes Status: Acute Assessment and plan: Long discussion with patient and yesterday remains a full code at this time also care are to continue to get therapy for laryngeal cancer. Cannot find any reference to this esophageal cancer that the family has told me about. They wish to have that worked up as well. At this time the patient is eligible for hospice, however does not wish to have it as he wishes to continue with aggressive care. He and the family expressed understanding aware hospice fits into the picture of his medical status. (3) Anemia Current Visit: Yes Status: Chronic Assessment and plan: This appears to be multifactorial the patient has coughed up some blood, however this stools are also heme positive and the patient has had more blood loss secondary counted for by history of(hemoptysis Qualifiers: Anemia type: other cause Other causes of anemia: acute posthemorrhagic Qualified Code(s): D62 - Acute posthemorrhagic anemia (4) ESRD on peritoneal dialysis Current Visit: Yes Status: Chronic Assessment and plan: The patient continues on peritoneal dialysis, nephrology is following. (5) Central line infection Current Visit: No Status: Acute Assessment and plan: Lines have been removed ashes disease has been following. Qualifiers: Encounter type: sequela Qualified Code(s): T80.219S - Unspecified infection due to central venous catheter, sequela (6) Laryngeal squamous cell carcinoma Current Visit: No Status: Acute Assessment and plan: Patient is still looking forward to getting some chemotherapy at [facility]. His may be dependent on his other medical comorbidities. - Time Spent With Patient Total time spent is greater than 50% in coordination of care (as documented) at patient's floor/unit and/or counseling patient: - Subjective Interval history: Patient is able to be no he is feeling fine this morning. His was in the room states that this morning early pressure dropped down a little bit low for him and he was somewhat altered at that time. Is not seem to be so now. He has no complaints over this time. - Constitutional Vitals: Abnormal lab results WBC 12.4 K/mcL (4.3-11.1) H 04/04/17 04:50 RBC 2.79 M/mcL (4.19-5.50) L 04/04/17 04:50 Hgb 8.6 g/dL (12.9-16.9) L 04/04/17 04:50 Hct 26.5 % (37.5-50.1) L 04/04/17 04:50 RDW 16.5 % (11.5-14.5) H 04/04/17 04:50 Neutrophils # 10.1 K/mcL (1.6-8.9) H 04/04/17 04:50 PT 13.6 Seconds (9.4-12.1) H 04/02/17 11:02 BUN 49 mg/dL (8-26) H 04/04/17 04:50 Creatinine 3.18 mg/dL (0.72-1.25) H 04/04/17 04:50 Est GFR ( Amer) 24 (> 60) L 04/04/17 04:50 Est GFR (Non-Af Amer) 20 (> 60) L 04/04/17 04:50 Glucose 129 mg/dL (70-99) H 04/04/17 04:50 POC Glucose 188 (58-89) H 04/03/17 09:57 Calculated Osmolality 301 (280-300) H 04/04/17 04:50 Magnesium 1.3 mg/dL (1.6-2.6) L 04/04/17 04:50 Total Bilirubin 1.3 mg/dL (0.2-1.2) H D 04/03/17 05:37 Serum Total Protein 5.8 g/dL (6.0-8.3) L 04/03/17 05:37 Albumin 2.0 g/dL (3.5-5.0) L 04/03/17 05:37 Globulin 3.8 g/dL (2.4-3.5) H 04/03/17 05:37 Albumin/Globulin Ratio 0.5 (1.1-2.2) L 04/03/17 05:37 Urine Protein >=300 mg/dL (Neg-Trace) H 04/02/17 22:06 Urine Glucose (UA) 100 mg/dL (Normal) H 04/02/17 22:06 Urine Blood Trace (Negative) H 04/02/17 22:06 Ur Leukocyte Esterase Small (Negative) H 04/02/17 22:06 Urine Microscopic WBC 15-30 per hpf (0-3) H 04/02/17 22:06 Ur Squamous Epith Cells Many per lpf (None-Few) H 04/02/17 22:06 Nasal Screen MRSA (PCR) Positive (Negative) A 04/03/17 20:45 Stool Occult Blood Positive (Negative) A 04/03/17 18:47 General appearance: Present: no acute distress - Head Head exam: Present: atraumatic, normal inspection - Eye Eye exam: Present: normal appearance - ENT ENT exam: Present: mucous membranes moist - Respiratory Respiratory exam: Present: CTAB - Cardiovascular Cardiovascular exam: Present: irregular rhythm - GI/Abdominal GI/Abdominal exam: Present: normal bowel sounds, soft. Absent: tenderness - Extremities Exam Extremities exam: Present: normal inspection. Absent: pedal edema, tenderness - Neurological Exam Neurological exam: Present: alert - Psychiatric Psychiatric exam: Absent: agitated, anxious - Skin Skin exam: Present: dry, warm Palliative Quality Palliative Quality: Screen for Code Status: Yes, Screen for Goals of Care: Yes, Screen for Pain: Yes, If Pain Regimen Started, Initiate Bowel Regimen: Yes, Screen for Nausea/Vomitting: Yes Code Status: 04/03/17 15:27 CODE [Resuscitation Status: Active] [RES] Routine Comment: Resuscitation Status: Full Code - Labs CBC & Chem 7: 04/04/17 04:50 04/04/17 04:50 Labs: Laboratory Results - last 24 hr 04/03/17 04/03/17 04/03/17 09:57 18:47 20:45 WBC RBC Hgb Hct MCV MCH MCHC RDW Plt Count MPV Immature Gran % Seg Neutrophils % Lymphocytes % Monocytes % Eosinophils % Basophils % Neutrophils # Lymphocytes # Monocytes # Eosinophils # Basophils # Sodium Potassium Chloride Carbon Dioxide BUN Creatinine Est GFR ( Amer) Est GFR (Non-Af Amer) BUN/Creatinine Ratio Glucose POC Glucose 188 H Calculated Osmolality Calcium Phosphorus Magnesium Nasal Screen MRSA (PCR) Positive A Stool Occult Blood Positive A 04/04/17 04/04/17 04:50 04:50 WBC 12.4 H RBC 2.79 L Hgb 8.6 L Hct 26.5 L MCV 95.0 MCH 30.8 MCHC 32.5 RDW 16.5 H Plt Count 353 MPV 10.7 Immature Gran % 1.5 Seg Neutrophils % 81.5 Lymphocytes % 6.8 Monocytes % 8.9 Eosinophils % 1.1 Basophils % 0.2 Neutrophils # 10.1 H Lymphocytes # 0.8 Monocytes # 1.1 Eosinophils # 0.1 Basophils # 0.0 Sodium 138 Potassium 3.8 Chloride 103 Carbon Dioxide 27 BUN 49 H Creatinine 3.18 H Est GFR ( Amer) 24 L Est GFR (Non-Af Amer) 20 L BUN/Creatinine Ratio 15 Glucose 129 H POC Glucose Calculated Osmolality 301 H Calcium 8.6 Phosphorus 3.6 Magnesium 1.3 L Nasal Screen MRSA (PCR) Stool Occult Blood - Impressions Impressions Insertion Tunneled Catheter 04/03/17 00:00 IMPRESSION: Successful tunneled right internal jugular line PICC line removal D/ / Ramy Bell MD / Ramy Bell MD Interpreting Provider: Ramy Bell MD - ABG Interpretation ABG results: PT/INR, D-dimer PT 13.6 Seconds (9.4-12.1) H 04/02/17 11:02 Consult Discharge Plan - Plan Referrals: Figueroa Navarro DO [Primary Care Provider] - (Patient will call for an appointment Per [facility]... )
[2017-04-04] MEDS ORDERED: Magnesium Sulfate 2 GM in D5% in Water 100 ML IVPB ONE (08:11)
[2017-04-04] MEDS ORDERED: Magnesium Oxide 400 MG TABLET PO SCH (09:00)
[2017-04-04] MEDS: Sennosides/Docusate Sodium TABLET PO SCH ×2 (10:52→19:28)
--- NOTE | 2017-04-04 11:00 | Transfer Summary ---
Date of Encounter: 04/04/17 Time of Encounter: 10:58 Transfer Discharge Sum: Diag - Discharge Diagnosis (1) Syncope Status: Acute (2) Anemia Status: Chronic (3) ESRD (end stage renal disease) on dialysis Status: Acute (4) History of DVT (deep vein thrombosis) Status: Chronic (5) Hypertension Status: Chronic (6) Leukocytosis Status: Acute (7) Hypothyroidism Status: Chronic (8) Laryngeal cancer Status: Chronic (9) Tracheostomy in place Status: Chronic (10) DVT prophylaxis Status: Acute (11) Goals of care, counseling/discussion Status: Acute Transfer Discharge Sum: Med - Medications Active and Home Medications: Home Medications Ferrous Sulfate 325 mg PO BID 06/23/15 [History Confirmed 04/02/17] Multivits,Ca,Min/Iron/FA/Lycop [Centrum Men's Tablet] 1 tab PO DAILY 06/23/15 [ History Confirmed 04/02/17] Bacitracin/PolymyxinB OINT [Polysporin] 1 appl TP BID tube 03/28/16 [Rx Confirmed 04/02/17] Calcium Carbonate [Tums] 500 mg PO TID 02/10/17 [History Confirmed 04/02/17] Nut.tx.impaired Renal Fxn,Soy [Nepro Carb Steady] 1 each GTUBE TID 02/10/17 [ History Confirmed 04/02/17] Warfarin [Coumadin] 5 mg PO SUMOWEFRSA 02/10/17 [History Confirmed 04/02/17] Warfarin [Coumadin] 7.5 mg PO TU 02/10/17 [History Confirmed 04/02/17] Levothyroxine [Synthroid] 125 mcg PO DAILY 30 Days 02/23/17 [Rx Confirmed ] Metoprolol [Lopressor] 50 mg PO BID 30 Days 02/23/17 [Rx Confirmed 04/02/17] Sennosides/Docusate Sodium [Senna Plus] 2 each PO BID 30 Days 02/23/17 [Rx Confirmed 04/02/17] Darbepoetin [Aranesp] 100 mcg SQ Q2W 04/02/17 [History Confirmed 04/02/17] Magnesium Oxide [Mag-Ox] 400 mg PO DAILY 04/02/17 [History Confirmed 04/02/17] Omeprazole [PriLOSEC] 40 mg PO DAILY 04/02/17 [History Confirmed 04/02/17] OxyCODONE Immed Rel [Roxicodone 5 MG] 5 - 10 mg PO Q4HR PRN 04/03/17 [History Confirmed 04/03/17] Active Medications Acetaminophen (Tylenol) 650 mg PO Q6HR PRN PRN Reason: Mild Pain (1-3) Stop: 10/02/17 12:30 Last Admin: 04/03/17 11:25 Dose: 650 mg Ferrous Sulfate (Ferrous Sulfate) 325 mg PO BIDWM [facility] Stop: 10/03/17 17:01 Last Admin: 04/04/17 10:51 Dose: 325 mg Peritoneal Dialysis Solution (Dianeal With 1.5% Dextrose) 2,000 mls @ 2,000 mls /hr PERITONEAL Q12HR [facility] Stop: 10/02/17 18:01 Last Admin: 04/04/17 06:16 Dose: 2,000 mls/hr Peritoneal Dialysis Solution (Dianeal With 2.5% Dextrose) 2,000 mls @ 2,000 mls /hr PERITONEAL Q12H [facility] Stop: 10/03/17 00:01 Last Admin: 04/04/17 00:01 Dose: 2,000 mls/hr Levothyroxine Sodium (Synthroid) 125 mcg PO 0630 [facility] Stop: 10/04/17 06:31 Last Admin: 04/04/17 06:16 Dose: 125 mcg Magnesium Oxide (Mag-Ox) 400 mg PO DAILY [facility] PRN Reason: Protocol Stop: 10/04/17 09:01 Last Admin: 04/04/17 10:52 Dose: 400 mg Metoprolol Tartrate (Lopressor) 50 mg PO BID [facility] Stop: 10/03/17 12:33 Last Admin: 04/04/17 10:51 Dose: 50 mg Naloxone HCl (Narcan) 0.4 mg IVP Q2MIN PRN PRN Reason: Opioid Reversal Stop: 10/02/17 12:30 Omeprazole (Prilosec) 40 mg PO DAILY [facility] Stop: 10/04/17 09:01 Last Admin: 04/04/17 10:51 Dose: 40 mg Ondansetron HCl (Zofran) 4 mg IVP Q8HR PRN PRN Reason: Nausea And Vomiting Stop: 10/02/17 12:30 Oxycodone HCl (Roxicodone) 5 mg PO Q4HR PRN PRN Reason: moderate to severe PAIN (4-10) Stop: 10/03/17 20:01 Last Admin: 04/04/17 10:52 Dose: 5 mg Senna/Docusate Sodium (Senna Plus) 2 each PO BID [facility] PRN Reason: Protocol Stop: 10/03/17 21:01 Last Admin: 04/04/17 10:52 Dose: 2 each Transfer Discharge Sum: Data Procedures and tests throughout hospitalization: Pending Orders 04/02/17 13:37 Placement to Observation Routine 04/02/17 18:00 Perit. Dialysis with Dex 1.5 % [Dianeal with 1.5% Dextrose] 2,000 ml PERITONEAL Q12HR 04/02/17 Lunch Regular Diet 04/03/17 00:00 Periton. Dialysis 13-Dex 2.5 % [Dianeal with 2.5% Dextrose] 2,000 ml PERITONEAL Q12H 04/03/17 12:34 Consult to Palliative Care [CONS] Stat 04/03/17 12:54 Culture,Blood [BC] Stat 04/03/17 13:05 Culture,Blood [BC] Stat 04/03/17 13:21 Consult to Interventional Radiology [CONS] Routine Consult to Physical Therapy [CONS] Routine 04/03/17 14:06 SCD [Intermittent pneumatic ivelisse] [RC] .CONTINUOUS 04/03/17 14:08 Metoprolol [Lopressor] 50 mg PO BID 04/03/17 15:27 CODE [Resuscitation Status: Active] [RES] Routine 04/03/17 16:03 OxyCODONE Immed Rel [Roxicodone] 5 mg PO Q4HR PRN 04/03/17 17:00 Ferrous Sulfate 325 mg PO BIDWM 04/03/17 21:00 Sennosides/Docusate Sodium [Senna Plus] 2 each PO BID 04/04/17 06:30 Levothyroxine [Synthroid] 125 mcg PO 30 04/04/17 09:00 Magnesium Oxide [Mag-Ox] 400 mg PO DAILY Omeprazole [PriLOSEC] 40 mg PO DAILY - Impressions ITS Impressions Insertion Tunneled Catheter 04/03/17 00:00 IMPRESSION: Successful tunneled right internal jugular line PICC line removal D/ / Ramy Bell MD / Ramy Bell MD Interpreting Provider: Ramy Bell MD Transfer Discharge Sum: Prov Date of admission: 04/02/17 12:55 Primary care physician: Figueroa Navarro Consults: 04/03/17 12:34 Consult to Palliative Care [CONS] Stat Comment: Consulting Provider: [facility]iative [facility] [place] Reason for Consult: goals of care/code status Call Completed: Yes 04/03/17 13:19 Consult to Neurology [CONS] Routine Consulting Provider: Neurology [facility] Reason for Consult: seizures Call Completed: Yes 04/03/17 13:21 Consult to Interventional Radiology [CONS] Routine Consulting Provider: Radiology [facility] Reason for Consult: removal of PICC Call Completed: Yes Consult to Physical Therapy [CONS] Routine Comment: Evaluate, develop and implement POC Reason for Consult: Weakness trouble with ambulation Attending physician on discharge: Beth De Jesus Discharging clinician: Beth De Jesus Anticipated date of transfer: 04/04/17 Receiving physician/facility: Dr. Granados at [facility] Transfer Discharge Sum: A/P - Plan Cognitive capacity at transfer: AAO X 3 Functional capacity at transfer: independent ambulation Overall status at transfer: patient is back to baseline Disposition: Transfer Other Transfer Discharge Sum: Hosp Hospital course: Mr. Porras is a 66 year old male with past medical history of laryngeal carcinoma, esophageal mass, end-stage renal disease, status post tracheostomy who was admitted for management of syncope. Patient was followed by neurology as there was a concern for seizure disorder. Patient's clinical presentation was more likely consistent with vasovagal syncope rather than seizure episodes. He underwent bilateral carotid Dopplers which were consistent with severe stenosis bilaterally. Patient was also noted to be anemic with positive occult blood stool. He was transfused 1 unit PRBC. Given patient's esophageal mass concern for further GI workup, [facility] was consulted for possible transfer. Given patient's severity of disease, he would benefit from subspecialties at [facility]. Dr. Granados at [facility] accepted the patient transfer patient will be transferred to [facility] once a bed is available. Patient and demonstrate understanding of his diagnosis and agree with the discharge care and plan. - Time Spent with Patient Total time spent providing and/or coordinating transfer services: Greater than 30 minutes Transfer Discharge Sum: Exam - Constitutional Vitals: Vital Signs Temp Pulse Resp BP Pulse Ox 04/04/17 06:30 97.9 F 80 15 126/53 98 04/04/17 03:48 98.9 F 92 16 109/47 97 04/03/17 23:13 98.8 F 84 16 133/55 98 04/03/17 19:04 98.1 F 81 16 157/83 99 04/03/17 16:12 97.8 F 83 18 131/66 100 04/03/17 11:29 98.2 F 100 18 120/68 97 Intake and Output 04/03/17 04/04/17 04/04/17 23:59 07:59 15:59 Output Total 100 / 100 Balance -100 / -100 Output: Urine 100 / 100 Other: Total Peritoneal Dialysis -140 -300 Output # Voids 1 Weight 82.3 kg 80.8 kg Patient Weight 04/04/17 23:59 Weight 80.8 kg General appearance: no acute distress, obese - Head Head exam: Present: atraumatic, normocephalic - Neck Additional comments: tracheostomy - Respiratory Respiratory exam: Present: CTAB. Absent: respiratory distress - Cardiovascular Cardiovascular exam: Present: RRR, +S1, +S2 - GI/Abdominal GI/Abdominal exam: Present: normal bowel sounds, soft. Absent: distended - Extremities Exam Extremities exam: Absent: calf tenderness, pedal edema - Neurological Exam Neurological exam: Present: oriented X3 - VTE Documentation of Mechanical Device: Graduated compression elastic hosiery
--- NOTE | 2017-04-04 12:10 | Nephrology Progress Note ---
Date of Encounter: 04/04/17 Time of Encounter: 12:07 - Assessment and Plan (1) ESRD on peritoneal dialysis Current Visit: Yes Status: Chronic Continue CAPD with the same prescription. (2) Syncope Current Visit: Yes Status: Acute Likely multifactorial. I spoke with Dr. De Jesus and patient will discharge to the [facility] in [place], [place]. I agree secondary to his complicated medical history. Carotid duplex reveals progression of his stenosis. Qualifiers: Syncope type: unspecified Qualified Code(s): R55 - Syncope and collapse (3) Anemia Current Visit: Yes Status: Chronic Monitor. Patient occasionally coughing/throwing up blood. Some concern for this being related to the progression of his cancer. Qualifiers: Anemia type: other cause Other causes of anemia: acute posthemorrhagic Qualified Code(s): D62 - Acute posthemorrhagic anemia (4) Hypertension Current Visit: Yes Status: Chronic Blood pressure is controlled. Qualifiers: Hypertension type: essential hypertension Qualified Code(s): I10 - Essential (primary) hypertension (5) Laryngeal cancer Current Visit: No Status: Chronic Patient being transferred to [facility] for further evaluation. Subjective Principal diagnosis: ESRD on peritoneal dialysis, syncope Interval history: Patient feeling a lot better. He is alert sitting up on the edge of the bed in very good spirits. ROS otherwise stable. Objective - Vital Signs Vital signs: Vital Signs Temp Pulse Resp BP Pulse Ox 04/04/17 11:28 98 04/04/17 06:30 97.9 F 80 15 126/53 98 04/04/17 03:48 98.9 F 92 16 109/47 97 04/03/17 23:13 98.8 F 84 16 133/55 98 04/03/17 19:04 98.1 F 81 16 157/83 99 04/03/17 16:12 97.8 F 83 18 131/66 100 Intake and Output 04/03/17 04/04/17 04/04/17 23:59 07:59 15:59 Output Total 100 / 100 Balance -100 / -100 Output: Urine 100 / 100 Other: Total Peritoneal Dialysis -140 -300 Output # Voids 1 Weight 82.3 kg 80.8 kg Patient Weight 04/04/17 23:59 Weight 80.8 kg - Lab 04/04/17 04:50 04/04/17 04:50 Most recent lab results Calcium 8.6 mg/dL (8.6-10.8) 04/04/17 04:50 Phosphorus 3.6 mg/dL (2.3-4.7) 04/04/17 04:50 Magnesium 1.3 mg/dL (1.6-2.6) L 04/04/17 04:50 - VTE Documentation of Mechanical Device: Graduated compression elastic hosiery Consult Discharge Plan - Plan Referrals: ColopyFigueroa DO [Primary Care Provider] - (Patient will call for an appointment Per [facility]... )
[2017-04-04 16:18] VITALS: BP 130/68
--- NOTE | 2017-04-04 16:38 | Electrocardiograph Report ---
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
--- NOTE | 2017-04-05 14:00 | Carotid Imaging Report ---
Carotid Duplex Patient Name:Wilfredo Porras Order Number:[id number] Procedure Date:04/04/2017 Date:9Age:66 yrs Gender:Male Rt.BP:126 / 53 mmHgHeart Rate: Location:[facility] Room #: [facility] [place] [employer] Specialist:Kelsi Nichols RVT, RDCS Referring MD:Jasvir Cadet MD rn acute care:Figueroa Navarro DO Reading MD:Yeyo Pena MD Primary Indications:syncope Risk Factors Yes/No Hypertension Yes Diabetes No Hypercholesterolemia No Smoking Current No Impressions: Likely bilateral critical internal carotid artery stenosis. Further evaluation is recommended. CTA, arteriogram, or surgical evaluation Recommendations: Test completed on 04/04/2017 at 9:58:51 am. Critical findings reported to Dr. De Jesus by kala gibson at 10:02:33 am on 04/04/2017 by Kelsi Nichols RVT, RDCS. Findings Carotid Duplex: Right: The right proximal common carotid artery has turbulent flow without plaque with a PSV of 152 cm/s and a EDV of 23 cm/s. The right mid common carotid artery has turbulent flow without plaque with a PSV of 143 cm/s and a EDV of 20 cm/s. The right distal common carotid artery has turbulent flow without plaque with a PSV of 117 cm/s and a EDV of 14 cm/s. The right bifurcation has a PSV of 98 cm/s and a EDV of 14 cm/s. There is smooth heterogeneous plaque. There is 60-79% stenosis in the right proximal internal carotid artery with a PSV of 308 cm/s and a EDV of 49 cm/s. There is smooth heterogeneous plaque. The right mid internal carotid artery has a PSV of 253 cm/s and a EDV of 34 cm/s. The right distal internal carotid artery has a PSV of 159 cm/s and a EDV of 30 cm/s. The right eca has a PSV of 126 cm/s and a EDV of 1 cm/s. The right vertebral artery has a PSV of 29 cm/s and a EDV of 8 cm/s. Left: The left proximal common carotid artery has a PSV of 82 cm/s and a EDV of 9 cm/s. The left mid common carotid artery has a PSV of 71 cm/s and a EDV of 9 cm/s. The left distal common carotid artery has a PSV of 55 cm/s and a EDV of 11 cm/s. The left bifurcation has a PSV of 43 cm/s and a EDV of 9 cm/s. There is smooth heterogeneous plaque. There is 80-99% stenosis in the left proximal internal carotid artery with a PSV of 600 cm/s and a EDV of 174 cm/s. There is irregular heterogeneous plaque. The left mid internal carotid artery has a PSV of 151 cm/s and a EDV of 34 cm/s. The left distal internal carotid artery has a PSV of 112 cm/s and a EDV of 33 cm/s. The left eca has a PSV of 158 cm/s and a EDV of 9 cm/s. The left vertebral artery has a PSV of 57 cm/s and a EDV of 12 cm/s. Carotid Results Right PSV EDV Assessment Proximal CCA 152 23 Mid CCA 143 20 Distal CCA 117 14 Bifurcation 98 14 Non Stenotic Plaque Proximal ICA 308 49 60-79% stenosis Mid ICA 253 34 Post stenotic flow Distal ICA 159 30 Post stenotic flow ECA 126 1 Vertebral Artery 29 8 Left PSV EDV Assessment Proximal CCA 82 9 Mid CCA 71 9 Distal CCA 55 11 Bifurcation 43 9 Non Stenotic Plaque Proximal ICA 600 174 80-99% stenosis Mid ICA 151 34 Post stenotic flow Distal ICA 112 33 Post stenotic flow ECA 158 9 Vertebral Artery 57 12 Ratio's Right ICA/CCA Ratio: 2.15 Left ICA/CCA Ratio: 8.45 Updated by Yeyo Pena MD on 04/05/2017 1:53:26 PM electronically signed on 04/05/2017 1:53:56 PM with status of Final
== END 2017-04-04 20:40 | disposition short-term general hospital (02) ==
LOC: EMEROO 09:39 → 2ANU 09:39 → SUATTDRO 12:55 → 2ANU 13:31
PROVIDERS: ADMIT Internal Medicine Sleep Medicine; ATTEND Internal Medicine

== ENCOUNTER 2017-05-25 15:31 | Observation (INO) ==
[2017-05-25 17:22] LABS: Basophils % 0.1 %; Eosinophils # 0.1 K/mcL (0.0-0.6); Eosinophils % 0.6 %; Hematocrit 21.2 % (37.5-50.1); Immature Granulocytes % 0.5 % (0-4); Lymphocytes # 0.6 K/mcL (0.6-4.6); Lymphocytes % 6.2 %; Mean Corpuscular HGB Conc 31.6 g/dL (31.6-35.5); Mean Corpuscular Hemoglobin 28.8 pg (28.0-33.3); Mean Platelet Volume 9.9 fL (9.4-12.4); Monocytes # 0.5 K/mcL (0.0-1.3); Monocytes % 5.7 %; Neutrophils # 8.1 K/mcL (1.6-8.9); Platelet Count 284 K/mcL (140-400); Red Blood Count 2.33 M/mcL (4.19-5.50); Red Cell Distribution Width 14.7 % (11.5-14.5); Segmented Neutrophils % 86.9 %
[2017-05-25 17:23] LABS: Hemoglobin 6.7 g/dL (12.9-16.9)
[2017-05-25 17:29] LABS: INR 1.1; Prothrombin Time 11.6 Seconds (9.4-12.1)
[2017-05-25 17:32] LABS: Activated Partial Thrombo Time 28.4 Seconds (26.0-36.0)
[2017-05-25 17:38] LABS: Calcium 7.5 mg/dL (8.6-10.8); Potassium 3.5 mEq/L (3.5-4.5)
--- NOTE | 2017-05-25 19:47 | Emergency Department Note ---
Disposition Clinical Impression: Symptomatic anemia, Elevated serum creatinine Disposition: Admitted As Inpatient Condition: Fair Referrals: Figueroa Navarro DO [Primary Care Provider] - Forms: ED Satisfaction Letter General Adult HPI - General Chief complaint: ED Recheck/Abnormal Lab/Rx Stated complaint: needs transfusion Time Seen by Provider: 05/25/17 17:22 Source: patient, family Limitations: language barrier - History of Present Illness HPI Narrative: Patient here for evaluation of fatigue and anemia. Patient has a history of laryngectomy and is on dialysis. Patient saw Dr. Akiko jensen who referred him to the ER for further evaluation of anemia and symptoms. Patient states that he has undergone 6 unit transfusion 2 weeks ago with no need for transfusion over the last week. Patient had an EGD performed showing an soft feel mass. Patient underwent carotid stent placement for mass effect. Patient's Coumadin was discontinued. Patient not undergo colonoscopy at this time. Patient rectal exam without overt sign of bleeding. Yesterday the patient did have some bleeding from his nose. Bleeding controlled at this time. Patient is adamant about not going back to [facility] at this time. Patient would like to be discharged after transfusion. She does not have chest pain or shortness of breath. Denies fever, nausea, vomiting, constipation, diarrhea. Pain Scale: 9 - Related Data Home Medications Medication Instructions Recorded Confirmed Ferrous Sulfate 325 mg GTUBE BID 06/23/15 05/25/17 Multivits,Ca,Min/Iron/FA/Lycop 1 tab PO DAILY 06/23/15 05/25/17 [Centrum Men's Tablet] Calcium Carbonate [Tums] 500 mg GTUBE TID 02/10/17 05/25/17 Nut.tx.impaired Renal Fxn,Soy 1,422 ml GTUBE AD 02/10/17 05/25/17 [Nepro Carb Steady] Darbepoetin [Aranesp] 100 mcg SQ Q2W 04/02/17 04/02/17 Magnesium Oxide [Mag-Ox] 400 mg PO DAILY 04/02/17 05/25/17 Omeprazole [PriLOSEC] 40 mg PO DAILY 04/02/17 05/25/17 OxyCODONE Immed Rel [Roxicodone 5 5 - 10 mg PO Q4HR PRN 04/03/17 05/25/17 MG] Aspirin 325 mg PO DAILY 05/25/17 05/25/17 Bacitracin/PolymyxinB OINT 1 appl TP DAILY 05/25/17 05/25/17 [Polysporin] Clopidogrel [Plavix] 75 mg PO DAILY 05/25/17 05/25/17 Docusate [Colace] 100 mg PO BID 05/25/17 05/25/17 Everolimus [Afinitor] 7.5 mg PO DAILY 05/25/17 05/25/17 Levothyroxine [Synthroid] 100 mcg PO 0630 05/25/17 05/25/17 Metoprolol [Lopressor] 50 mg PO BID PRN 05/25/17 05/25/17 Sennosides/Docusate Sodium [Senna 2 each PO BID PRN 05/25/17 05/25/17 Plus] levETIRAcetam [Keppra] 250 mg PO BID 05/25/17 05/25/17 Allergies Allergy/AdvReac Type Severity Reaction Status Date / Time diazepam Allergy Intermediate Agitated Verified 05/25/17 16:14 Zolpidem [From Ambien] AdvReac Hallucinati Verified 05/25/17 16:14 ng Review of Systems: CONSTITUTIONAL: Fatigue and weakness No weight loss, fever, chills, HEENT: Eyes: No visual changes. Ears, Nose, Throat: No hearing loss, difficulty talking or unable to swallow. SKIN: No rash or itching. CARDIOVASCULAR: Dizziness No chest pain, chest pressure or chest discomfort. No palpitations or edema. RESPIRATORY: No shortness of breath, cough or sputum. GASTROINTESTINAL: No anorexia, nausea, vomiting or diarrhea. No abdominal pain or blood. GENITOURINARY: No burning on urination or hematuria. NEUROLOGICAL: No headache, syncope, paralysis, ataxia, numbness or tingling in the extremities. No change in bowel or bladder control. MUSCULOSKELETAL: No muscle pain, back pain, joint pain or stiffness. Past Medical History - Past Medical History Medical history: Reports: cancer, DVT, dialysis, hypertension, renal disease, thyroid disease Surgical history: Reports: cancer surgery, cataract, cholecystectomy, tracheostomy, other Psychiatric history: Reports: no psych history - Social History Smoking Status: Former smoker Smokeless Tobacco Status: No Alcohol use: Reports: none Drug use: Reports: none Physical Exam General appearance: NAD, conversant Eyes: anicteric sclerae, moist conjunctivae; PERRL HENT: Atraumatic; oropharynx clear with moist mucous membranes and no mucosal ulcerations Neck: Normal inspection; Trachea midline; FROM, supple Lungs: CTA, with normal respiratory effort and no intercostal retractions CV: RRR, no MRGs Abdomen: Soft, non-tender; no rebound or gaurding Rectal exam with green nonbloody stool, not melanotic Extremities: No peripheral edema or extremity lymphadenopathy Skin: Normal temperature; no rash, ulcers or lesions Psych: Appropriate mood and affect Neuro: alert and oriented to person, place and time - General Limitations: language barrier General appearance: alert Course - Consultations Consultation #1: Discussed with Dr. Wharton. Patient is well-known to her and sent to the emergency department for further evaluation of fatigue and dizziness with standing. Patient has had a recent history of admission to [facility] where he received 6 units of blood and underwent an EGD showing esophageal mass. The patient had a carotid stent placed secondary to mass effect. Patient was taken off his Coumadin is continuing to be on aspirin and Plavix. Patient is underwent recent new chemotherapy medication which they are waiting to see if there is any positive effect. She feels that there is no other intervention regarding his cancer or [facility] that can be done at this time and that the patient is able to undergo his evaluation of anemia including blood transfusion and possible colonoscopy at this hospital. The patient does not want to be transferred to [facility] secondary to personal preference. Patient wants to be discharged after transfusion but understands that he needs to ensure that his hemoglobin is stable. Consultation #2: Discussed the hospitalist. Patient accepted for admission. Vital Signs Temperature 97.9 F 05/25/17 16:10 Pulse Rate 94 05/25/17 16:10 Respiratory Rate 20 05/25/17 16:10 Blood Pressure 136/71 05/25/17 16:10 O2 Sat by Pulse Oximetry 99 05/25/17 16:10 Temperature 97.9 F 05/25/17 16:10 Pulse Rate 94 05/25/17 16:10 Respiratory Rate 20 05/25/17 16:10 Blood Pressure 136/71 05/25/17 16:10 O2 Sat by Pulse Oximetry 99 05/25/17 16:10 Oxygen Delivery Oxygen Delivery Room Air Medical Decision Making - Medical Records Medical records reviewed: Yes I reviewed the patient's medical records. - Lab Data Lab results reviewed: Yes I reviewed the patient's lab results. Result diagrams: 05/25/17 17:13 05/25/17 17:13 Lab Results 05/25/17 05/25/17 05/25/17 Range/Units 17:13 17:13 17:13 WBC 9.3 (4.3-11.1) K/mcL RBC 2.33 L (4.19-5.50) M/mcL Hgb 6.7 L (12.9-16.9) g/dL Hct 21.2 L (37.5-50.1) % MCV 91.0 (83.0-100.0) fL MCH 28.8 (28.0-33.3) pg MCHC 31.6 (31.6-35.5) g/dL RDW 14.7 H (11.5-14.5) % Plt Count 284 (140-400) K/mcL MPV 9.9 (9.4-12.4) fL Immature Gran % 0.5 (0-4) % Seg Neutrophils % 86.9 % Lymphocytes % 6.2 % Monocytes % 5.7 % Eosinophils % 0.6 % Basophils % 0.1 % Neutrophils # 8.1 (1.6-8.9) K/mcL Lymphocytes # 0.6 (0.6-4.6) K/mcL Monocytes # 0.5 (0.0-1.3) K/mcL Eosinophils # 0.1 (0.0-0.6) K/mcL Basophils # 0.0 (0.0-0.2) K/mcL PT 11.6 (9.4-12.1) Seconds INR 1.1 APTT 28.4 (26.0-36.0) Seconds Sodium 137 (136-145) mEq/L Potassium 3.5 (3.5-4.5) mEq/L Chloride 100 (98-109) mEq/L Carbon Dioxide 26 (19-29) mEq/L BUN 48 H (8-26) mg/dL Creatinine 4.29 H (0.72-1.25) mg/dL Est GFR ( Amer) 17 L (> 60) Est GFR (Non-Af Amer) 14 L (> 60) BUN/Creatinine Ratio 11 (6-26) Glucose 125 H (70-99) mg/dL Calculated Osmolality 298 (280-300) Calcium 7.5 L (8.6-10.8) mg/dL Stool Occult Blood (Negative) Blood Type Antibody Screen Crossmatch 05/25/17 05/25/17 Range/Units 17:13 19:30 WBC (4.3-11.1) K/mcL RBC (4.19-5.50) M/mcL Hgb (12.9-16.9) g/dL Hct (37.5-50.1) % MCV (83.0-100.0) fL MCH (28.0-33.3) pg MCHC (31.6-35.5) g/dL RDW (11.5-14.5) % Plt Count (140-400) K/mcL MPV (9.4-12.4) fL Immature Gran % (0-4) % Seg Neutrophils % % Lymphocytes % % Monocytes % % Eosinophils % % Basophils % % Neutrophils # (1.6-8.9) K/mcL Lymphocytes # (0.6-4.6) K/mcL Monocytes # (0.0-1.3) K/mcL Eosinophils # (0.0-0.6) K/mcL Basophils # (0.0-0.2) K/mcL PT (9.4-12.1) Seconds INR APTT (26.0-36.0) Seconds Sodium (136-145) mEq/L Potassium (3.5-4.5) mEq/L Chloride (98-109) mEq/L Carbon Dioxide (19-29) mEq/L BUN (8-26) mg/dL Creatinine (0.72-1.25) mg/dL Est GFR ( Amer) (> 60) Est GFR (Non-Af Amer) (> 60) BUN/Creatinine Ratio (6-26) Glucose (70-99) mg/dL Calculated Osmolality (280-300) Calcium (8.6-10.8) mg/dL Stool Occult Blood Positive A (Negative) Blood Type O POSITIVE Antibody Screen NEGATIVE Crossmatch See Detail - Radiology Data Radiology results reviewed: Yes I reviewed the patient's radiology results. - EKG Data EKG #1 EKG attestation: Yes I reviewed and interpreted this EKG. EKG results narrative: Patient with multiple EKGs. Initial EKG with possible concern for atrial fibrillation with a rate of 108. Baseline EKG hard to distinguish. Repeat EKG showing continued rate of 106 with irregular baseline. Repeat EKG 2 minutes later shows sinus rhythm with occasional PVCs at a rate of 80 bpm. P waves present in lead 2. Attestation Statement - Attestation Attestation: I personally interviewed and examined this patient and my medical decision- making was reviewed with the ED Resident Physician, Dr. Roger. I agree with the documented findings, disposition and treatment plan as described except to the extent set forth below. Patient is a 66-year-old male who presents to the emergency department sent by Dr. Wharton from nephrology for abnormal labs today on dialysis which included a significant anemia. Patient has been having associated symptoms such as lightheadedness with positional changes and just feeling generally fatigued. Patient has had no syncopal episodes, no chest pain or heaviness, no shortness of breath, no abdominal pain, no nausea vomiting. Patient denies any bright red blood per rectum were history of prior GI bleeding. Patient is being managed at [facility] for esophageal cancer and is status post laryngectomy. He was just hospitalized here 2 weeks ago and received 6 units of packed red blood cells for ongoing anemia which they did not find a source of. Patient underwent upper endoscopy. Patient was observed until hemoglobin was stabilized and he was discharged home. Patient also required carotid stent placement at that time secondary to compression from this mass. I agree patient's physical exam findings as documented. He arrived hemodynamically stable with stable vital signs and no acute complaints besides feeling "fatigued". Labs were obtained and hemoglobin was found to be 6.7. Patient was typed and crossed for 2 units and blood transfusion was consented for by the patient and initiated in the ED. We did speak with Dr. Wharton notify her of patient's need for hospitalization. Patient requests to stay here and not be transferred to [facility]. Patient will be admitted for anemia and ongoing transfusion. Patient was accepted by the hospitalist.
[2017-05-25] MEDS ORDERED: 0.9 % Sodium Chloride 500 ML ONE ×2 (19:57→23:16)
--- NOTE | 2017-05-25 20:43 | Internal Med History&Physical ---
<Hair Cannon - Last Filed: 05/25/17 21:33> Date of Encounter: 05/25/17 Time of Encounter: 20:37 Assessment and Plan (1) Symptomatic anemia Current visit: Yes Status: Acute Likely secondary to chronic blood loss from his esophageal cancer in setting of ESRD Presented with Hb of 6.7 and previous baseline was near 8.0 Transfused 2 units of pRBCs in the ED, will recheck H/H He did have EGD done within a month that showed mass effect contributing to carotid stenosis and had stent placed No urgent need for colonoscopy at this time, but may have one set up as outpatient if appropriate (2) ESRD (end stage renal disease) on dialysis Current visit: No Status: Chronic Patient currently on daily peritoneal dialysis, will continue here Closely monitor kidney function, electrolytes and avoid nephrotoxic agents Consult nephrology, appreciate assistance with managing PD (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: No Status: Chronic Established with oncologist in [facility] and has follow up appointment next Sunday Continue home chemotherapy Everolimus Tracheostomy in place and no drainage or erythema present (4) Hypertension Current visit: No Status: Chronic Blood pressures stable upon admission Will continue home Metoprolol Qualifiers: Hypertension type: essential hypertension Qualified Code(s): I10 - Essential (primary) hypertension (5) Carotid stenosis Current visit: No Status: Acute Stents placed recently at [facility], will continue ASA/Plavix Qualifiers: Laterality: unspecified laterality Qualified Code(s): I65.29 - Occlusion and stenosis of unspecified carotid artery (6) Hypothyroidism Current visit: No Status: Chronic Continue home Synthroid dose Last TSH checked was elevated at 80 in February, will recheck in AM Qualifiers: Hypothyroidism type: unspecified Qualified Code(s): E03.9 - Hypothyroidism , unspecified (7) DVT prophylaxis Current visit: No Status: Acute SCDs in setting of symptomatic anemia Internal Medicine - H&P: HPI Chief complaint: fatigue, anemia Admitted From: Home Plans for Post Hospital Care: Home History of present illness: Mr. Porras is a 66 year old male who was sent from his pediatric oncologist office by Dr. Wharton for anemia and fatigue. Patient has history of esophageal cancer status post laryngectomy currently on Everolimus being managed by his oncologist up in [facility], and has ESRD on peritoneal dialysis. He is unable to speak as he has a permanent tracheostomy in place and there is no one at bedside this time, however he is able to communicate by mouthing words and shaking and nodding his head. Patient states that his symptoms have been persistent for about a week and he has noticed some black tarry stools during this time. He denies any chest pain, shortness of breath, hemoptysis, nausea, vomiting, but states that he has chronic neck and back pain. Patient was recently seen 2 weeks ago here and was transferred to [facility] and received 6 units of packed red blood cells, but there was no obvious source of bleed identified. He had an EGD at that time which showed mass effect on his carotids and had stenting. He last had a colonoscopy 2 years ago is not sure of the results. Past Med Surg Social Fam HX - Past Medical History Medical history: cancer, DVT, dialysis, hypertension, renal disease, thyroid disease Psychiatric history: no psych history - Past Surgical History Surgical History: cancer surgery, cataract, cholecystectomy, tracheostomy, other - Social History Smoking Status: Former smoker Smokeless Tobacco Status: No Alcohol use: none Drug use: none - Family History Mother Adopted: No Family Member Ethnicity: Non- Living Status: Hx Family Cardiac Disorders: No Hx Family Respiratory Disorders: No Hx Family Cancer: No Hx Family GI Disorders: No Hx Family Endocrine Disorder: No Hx Family Neuromuscular Disorders: No Hx Family Neurologic Disorders: Yes Hx Family HEENT Disorders: No Hx Family Autoimmune Disorders: No Brother Hx Family Cardiac Disorders: Yes (Hypertension) Hx Family Cancer: Yes (colon and prostate) Internal Medicine - H&P: Meds Ferrous Sulfate 325 mg GTUBE BID 06/23/15 [History] Multivits,Ca,Min/Iron/FA/Lycop [Centrum Men's Tablet] 1 tab PO DAILY 06/23/15 [ History] Calcium Carbonate [Tums] 500 mg GTUBE TID 02/10/17 [History] Nut.tx.impaired Renal Fxn,Soy [Nepro Carb Steady] 1,422 ml GTUBE AD 02/10/17 [ History] Darbepoetin [Aranesp] 100 mcg SQ Q2W 04/02/17 [History] Magnesium Oxide [Mag-Ox] 400 mg PO DAILY 04/02/17 [History] Omeprazole [PriLOSEC] 40 mg PO DAILY 04/02/17 [History] OxyCODONE Immed Rel [Roxicodone 5 MG] 5 - 10 mg PO Q4HR PRN 04/03/17 [History] Aspirin 325 mg PO DAILY 05/25/17 [History] Bacitracin/PolymyxinB OINT [Polysporin] 1 appl TP DAILY 05/25/17 [History] Clopidogrel [Plavix] 75 mg PO DAILY 05/25/17 [History] Docusate [Colace] 100 mg PO BID 05/25/17 [History] Everolimus [Afinitor] 7.5 mg PO DAILY 05/25/17 [History] Levothyroxine [Synthroid] 100 mcg PO 0630 05/25/17 [History] Metoprolol [Lopressor] 50 mg PO BID PRN 05/25/17 [History] Sennosides/Docusate Sodium [Senna Plus] 2 each PO BID PRN 05/25/17 [History] levETIRAcetam [Keppra] 250 mg PO BID 05/25/17 [History] Allergies diazepam Allergy (Intermediate, Verified 05/25/17 16:14) Agitated Zolpidem [From Ambien] Adverse Reaction (Verified 05/25/17 16:14) Hallucinating All Systems PM: A 10-system review of systems was performed and is negative for pertinent findings except as documented above in the HPI. - Constitutional Constitutional: chills, weakness, no fever(s), no night sweats - EENT Eyes: no change in vision, no discharge, no pain, no photophobia Ears: no ear discharge, no ear pain, no tinnitus Nose, mouth and throat: no dysphagia, no nasal discharge, no neck pain, no sore throat - Cardiovascular Cardiovascular ROS IM: no chest pain, no diaphoresis, no dyspnea, no lightheadedness, no palpitations, no syncope - Respiratory Respiratory: no cough, no dyspnea, no wheezing, no excessive phlegm production - Gastrointestinal Gastrointestinal: melena, no abdominal pain, no diarrhea, no hematemesis, no hematochezia, no nausea, no vomiting - Musculoskeletal Musculoskeletal ROS IM: back pain, neck pain, no numbness, no tingling - Integumentary Integumentary IM: no rash, no unusual bruising - Neurological Neurological ROS: headache(s), weakness, no confusion, no convulsions, no focal weakness, no numbness, no tingling, no tremor(s) - Constitutional Vitals: Temp Pulse Resp BP Pulse Ox 98.4 F 102 16 126/67 99 05/25/17 20:32 05/25/17 20:32 05/25/17 20:32 05/25/17 20:32 05/25/17 20:32 General appearance: Present: cooperative, pleasant, no acute distress, answers questions appropriately (unable to speak s/p laryngectomy) - Head Head exam: Present: atraumatic, normocephalic - Eye Eye exam: Present: PERRL, conjuntiva pink, sclera anicteric - Neck Neck exam general surgery: Present: supple, trachea midline. Absent: lymphadenopathy - Respiratory Respiratory exam: Present: CTAB. Absent: accessory muscle use, rales, rhonchi, wheezes - Cardiovascular Cardiovascular exam: Present: RRR, +S1, +S2. Absent: diastolic murmur, gallop, rubs, systolic murmur - GI/Abdominal GI/Abdominal exam: Present: normal bowel sounds, soft, no peritoneal signs. Absent: distended, tenderness - Extremities Exam Extremities exam: Present: pedal edema (2+ pitting bilaterally), warm, radial pulses palpable and symetrical. Absent: calf tenderness, cyanotic - Neurological Exam Neurological exam: Present: alert, no focal deficits. Absent: facial droop, speech deficit - Skin Skin exam: Present: dry, intact Internal Med - H&P Results - Labs CBC & Chem 7: 05/25/17 17:13 05/25/17 17:13 Labs: Short CBC 05/25/17 Range/Units 17:13 WBC 9.3 (4.3-11.1) K/mcL Hgb 6.7 L (12.9-16.9) g/dL Hct 21.2 L (37.5-50.1) % Plt Count 284 (140-400) K/mcL Neutrophils # 8.1 (1.6-8.9) K/mcL BMP 05/25/17 17:13 Sodium 137 Potassium 3.5 Chloride 100 Carbon Dioxide 26 BUN 48 H Creatinine 4.29 H Glucose 125 H Calcium 7.5 L <Joaquín Resendiz - Last Filed: 05/25/17 22:31> Date of Encounter: 05/25/17 - Gastrointestinal Gastrointestinal: melena, no abdominal pain, no diarrhea, no hematemesis, no hematochezia, no vomiting - Genitourinary Genitourinary ROS male: no dysuria, no hematuria - Endocrine Endocrine IM: no polydipsia, no polyuria - Hematologic/Lymphatic Hematologic/Lymphatic: no easy bruising - Allergic/Immunologic Allergic/Immunologic: no GI upset with certain foods - Constitutional Vitals: Temp Pulse Resp BP Pulse Ox 98.6 F 92 16 147/76 99 05/25/17 21:35 05/25/17 21:35 05/25/17 21:35 05/25/17 21:35 05/25/17 20:32 General appearance: Present: cooperative, A&O X 3, pleasant - Head Head exam: Present: normal inspection - Eye Eye exam: Present: PERRL. Absent: scleral icterus - ENT ENT exam: Present: mucous membranes dry Additional comments: tracheostomy - Neck Neck exam general surgery: Present: supple. Absent: tenderness - Respiratory Respiratory exam: Present: CTAB. Absent: rales, wheezes - Cardiovascular Cardiovascular exam: Present: RRR, +S1, +S2 - GI/Abdominal GI/Abdominal exam: Present: soft. Absent: hepatomegaly, splenomegaly, tenderness - Extremities Exam Extremities exam: Present: warm. Absent: calf tenderness, tenderness - Back Exam Back exam: Absent: CVA tenderness (L), CVA tenderness (R) - Neurological Exam Neurological exam: Present: alert, oriented X3, no focal deficits - Psychiatric Psychiatric exam: Present: normal affect, normal mood - Skin Skin exam: Present: dry, warm Internal Med - H&P Results - Labs CBC & Chem 7: 05/25/17 17:13 05/25/17 17:13 - Attending Attestation I discussed the patient GAMBELL, PMH, ROS, lab data, and exam findings with . I then saw and examined patient and met with his as well. His confirms the above history and states that he ahs has chronic UGI blood loss. He had EGD within the last month at [facility] which showed no active bleeding or source of blood loss. She also notes that Dr. Hernandez requests that he stop Aspirin and continue Plavix only regarding his carotid stents. 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 If patient develops significant bleeding, then we will have no option but to stop ASA/Plavix at that moment. Patient and both voiced understanding. For now, we will transfuse PRBC's and monitor closely. Patient and are hopeful he can be discharged this weekend so he can follow up with his oncologist at [facility] early next week as scheduled. Other than my comments noted above and exam findings, I agree with Dr. aCnnon's assessment and plan.
[2017-05-25] MEDS ORDERED: Acetaminophen 325 MG TABLET PO PRN (21:23)
[2017-05-25] MEDS ORDERED: Naloxone 0.4 MG/ML INJ IVP PRN (21:23)
[2017-05-25] MEDS ORDERED: Ondansetron ODT 4 MG TAB.RAPDIS SL PRN (21:23)
[2017-05-25] MEDS ORDERED: Sennosides/Docusate Sodium TABLET PO PRN (21:30)
[2017-05-25] MEDS ORDERED: *HR* OxyCODONE Immed Rel 5 MG TABLET PO PRN (21:30)
[2017-05-25] MEDS: *HR* OxyCODONE Immed Rel 5 MG TABLET PO PRN (22:59)
[2017-05-26] MEDS ORDERED: 0.9 % Sodium Chloride 500 ML ONE (02:30)
[2017-05-26] MEDS: PERITON. DIALYSIS 13-DEX 2.5 % 2,000 ML PERITONEAL SCH ×4 (02:45→20:27)
[2017-05-26] MEDS: *HR* OxyCODONE Immed Rel 5 MG TABLET PO PRN ×5 (02:55→21:14)
[2017-05-26] MEDS: Pantoprazole 40 MG VIAL IVP SCH (05:32)
[2017-05-26 06:20] LABS: Ionized Calcium 0.98 mmol/L (1.15-1.35)
[2017-05-26 06:25] LABS: Basophils % 0.3 %; Eosinophils # 0.1 K/mcL (0.0-0.6); Eosinophils % 1.5 %; Hematocrit 28.6 % (37.5-50.1); Immature Granulocytes % 0.4 % (0-4); Lymphocytes # 0.6 K/mcL (0.6-4.6); Lymphocytes % 8.9 %; Mean Corpuscular HGB Conc 31.8 g/dL (31.6-35.5); Mean Platelet Volume 10.3 fL (9.4-12.4); Monocytes # 0.5 K/mcL (0.0-1.3); Monocytes % 7.1 %; Neutrophils # 5.5 K/mcL (1.6-8.9); Platelet Count 249 K/mcL (140-400); Red Blood Count 3.25 M/mcL (4.19-5.50); Segmented Neutrophils % 81.8 %
[2017-05-26 06:29] LABS: Calcium 7.1 mg/dL (8.6-10.8); Potassium 3.3 mEq/L (3.5-4.5)
[2017-05-26 06:30] LABS: Hemoglobin 9.1 g/dL (12.9-16.9)
[2017-05-26 06:51] LABS: Thyroid Stimulating Hormone 24.827 mcIU/mL (0.350-4.840)
[2017-05-26] MEDS: levETIRAcetam 250 MG TABLET PO SCH ×2 (08:33→21:14)
[2017-05-26] MEDS: Bacitracin/PolymyxinB OINT 14.17 GM TUBE TP SCH (08:36)
[2017-05-26] MEDS: Everolimus [Afinitor] 7.5 MG PO SCH (08:41)
[2017-05-26] MEDS ORDERED: Aspirin 325 MG TABLET PO SCH (09:00)
--- NOTE | 2017-05-26 10:50 | Nephrology Consult Note ---
Date of Encounter: 05/26/17 Time of Encounter: 10:47 Assessment and Plan (1) Anemia Current Visit: No Status: Acute S/p transfusion. Monitor for acute bleeding. May be able to discharge Sunday if hemoglobin remains stable. Qualifiers: Qualified Code(s): D64.9 - Anemia, unspecified (2) End stage renal disease Current Visit: No Status: Acute Continue CAPD. 2.5 concentration 2l bags 4 times a day. Renal dose medications. low sodium diet (3) Laryngeal cancer Current Visit: No Status: Chronic Per primary team. Stable. (4) Hypothyroid Current Visit: Yes Status: Acute Adjust synthroid as needed. Per primary team. Qualifiers: Qualified Code(s): E03.9 - Hypothyroidism, unspecified (5) Hypocalcemia Current Visit: Yes Status: Acute Replace as needed. (6) Hypokalemia Current Visit: No Status: Acute Replace as needed. History of Present Illness - Reason for Consult Consult date: 05/26/17 end stage renal disease - Chief Complaint ESRD - History of Present Illness Mr. Porras is a patient with ESRD on CAPD well known to [facility] who presents with the concern for bleeding triggered by a dropping hemoglobin in the context of a patient with a history of bleeding. At the time of evaluation the patient was ambulating in the halls. He had not seen any bleeding since admission. He has some mild edema, but otherwise no complaints. No chest pain or shortness of breath. Past Med Surg Social Fam HX - Past Medical History Medical history: cancer, DVT, dialysis, hypertension, renal disease, thyroid disease Psychiatric history: no psych history - Past Surgical History Surgical History: cancer surgery, cataract, cholecystectomy, tracheostomy, other - Social History Smoking Status: Former smoker Smokeless Tobacco Status: No Alcohol use: none Drug use: none - Family History Mother Adopted: No Family Member Ethnicity: Non- Living Status: Hx Family Cardiac Disorders: No Hx Family Respiratory Disorders: No Hx Family Cancer: No Hx Family GI Disorders: No Hx Family Endocrine Disorder: No Hx Family Neuromuscular Disorders: No Hx Family Neurologic Disorders: Yes Hx Family HEENT Disorders: No Hx Family Autoimmune Disorders: No Brother Hx Family Cardiac Disorders: Yes (Hypertension) Hx Family Cancer: Yes (colon and prostate) Medications and Allergies Ferrous Sulfate 325 mg GTUBE BID 06/23/15 [History] Multivits,Ca,Min/Iron/FA/Lycop [Centrum Men's Tablet] 1 tab PO DAILY 06/23/15 [ History] Calcium Carbonate [Tums] 500 mg GTUBE TID 02/10/17 [History] Nut.tx.impaired Renal Fxn,Soy [Nepro Carb Steady] 1,422 ml GTUBE AD 02/10/17 [ History] Darbepoetin [Aranesp] 100 mcg SQ Q2W 04/02/17 [History] Magnesium Oxide [Mag-Ox] 400 mg PO DAILY 04/02/17 [History] Omeprazole [PriLOSEC] 40 mg PO DAILY 04/02/17 [History] OxyCODONE Immed Rel [Roxicodone 5 MG] 5 - 10 mg PO Q4HR PRN 04/03/17 [History] Aspirin 325 mg PO DAILY 05/25/17 [History] Bacitracin/PolymyxinB OINT [Polysporin] 1 appl TP DAILY 05/25/17 [History] Clopidogrel [Plavix] 75 mg PO DAILY 05/25/17 [History] Docusate [Colace] 100 mg PO BID 05/25/17 [History] Everolimus [Afinitor] 7.5 mg PO DAILY 05/25/17 [History] Levothyroxine [Synthroid] 100 mcg PO 0630 05/25/17 [History] Metoprolol [Lopressor] 50 mg PO BID PRN 05/25/17 [History] Sennosides/Docusate Sodium [Senna Plus] 2 each PO BID PRN 05/25/17 [History] levETIRAcetam [Keppra] 250 mg PO BID 05/25/17 [History] Allergies diazepam Allergy (Intermediate, Verified 05/25/17 16:14) Agitated Zolpidem [From Ambien] Adverse Reaction (Verified 05/25/17 16:14) Hallucinating Review of Systems All Systems: reviewed and no additional remarkable complaints except as stated ( as documented in the HPI.) Exam - Vital Signs Vital signs: Initial Vital Signs Temp Pulse Resp BP Pulse Ox 97.9 F 94 20 136/71 99 05/25/17 16:10 05/25/17 16:10 05/25/17 16:10 05/25/17 16:10 05/25/17 16:10 Vital Signs - Last 8 Hours Temp Pulse Resp BP Pulse Ox 05/26/17 08:17 98 05/26/17 08:00 97.8 F 109 16 139/78 98 05/26/17 03:02 98.3 F 81 16 162/75 99 Intake and Output 05/25/17 05/26/17 05/26/17 23:59 07:59 15:59 Intake Total 350 / 350 592 / 592 Output Total 0 / 0 Balance 350 / 350 592 / 592 Intake: Blood Product 350 / 350 592 / 592 Rbcs Leuko Poor As-1 350 / 350 Unit [id number] Rbcs Leuko Poor As-1 0 / 0 292 / 292 Unit [id number] Rbcs Leuko Poor As-1 300 / 300 Unit [id number] Output: Urine 0 / 0 Other: Weight 81.828 kg - General Appearance General appearance: well-developed, well-nourished EENT: ATNC Neck: supple Additional Comments: respirations are unlabored. Additional Comments: tachycardia Integumentary: warm and dry Neurologic: alert and oriented x3 Additional Comments: ambulates with a walker Psychiatric: mood/affect appropriate Results - Lab Results 05/26/17 05:51 05/26/17 05:51 Most recent lab results Calcium 7.1 mg/dL (8.6-10.8) L 05/26/17 05:51 Consult Discharge Plan - Plan Referrals: Figueroa Navarro DO [Primary Care Provider] - (Patient has to call office once discharged to make a 5-7 day hospital follow up per this offices request)
[2017-05-26] MEDS ORDERED: Calcium Gluconate 2,000 MG in D5% in Water 100 ML IVPB ONE (10:56)
--- NOTE | 2017-05-26 11:55 | Internal Med Progress Note ---
<Del Lugo - Last Filed: 05/26/17 11:52> Date of Encounter: 05/26/17 Time of Encounter: 11:53 - Assessment and plan (1) Symptomatic anemia Current Visit: Yes Status: Acute Assessment and plan: - Patient presented with chief complaint of weakness and fatigue 1 week. - H&H in the emergency department was 6.7/21 - He has received a total of 3 units of packed red blood cells since admission, most recent H&H is 9.1/28.6 - Likely source is secondary to GI bleed. Patient had EGD performed 2 weeks ago without obvious source of bleed - Per , last colonoscopy was 4 years ago however she does not remember the results - Patient states he has been having black tarry stools mixed with bright red blood. Stool occult and emergency department was positive - Hemodynamically stable at heart rate 81, blood pressure 162/75 - We will continue to monitor H/H, vital signs Will likely need colonoscopy to evaluate for further source of GI bleed if H/H drops acutely tomorrow. - We will continue his home dose of Plavix, reduce dose of aspirin to 81 mg daily in the setting of recent carotid stenting (2) GI bleed Current Visit: Yes Status: Acute Assessment and plan: - Per patient's , patient has been having black tarry stools with visible red blood - Stool occult in the emergency room was positive - Patient presented anemic with a hemoglobin of 6.7 - He has received 3 units of packed red blood cells and his H&H is now 9.1/28.6 , hemodynamically stable - Possible causes of GI bleed include known laryngeal cancer, aspirin use, colorectal cancer - Last EGD was done 2 weeks ago and showed no obvious signs of bleeding, last colonoscopy was proximally 4 years ago and is unsure of results - Patient is currently receiving PPI, will continue aspirin and Plavix use for time being due to bilateral carotid stenting 2 weeks ago - We will closely monitor patient's H&H, transfusion as needed, and if H&H continues to drop rapidly we will consult surgery for a possible colonoscopy Qualifiers: GI bleed type/associated pathology: unspecified gastrointestinal hemorrhage type Qualified Code(s): K92.2 - Gastrointestinal hemorrhage, unspecified (3) ESRD (end stage renal disease) on dialysis Current Visit: Yes Status: Chronic Assessment and plan: - History of stage V chronic kidney disease - Patient receives daily peritoneal dialysis - Baseline creatinine is around 3 - BUN and creatinine upon admission was 48/4.29 which is down trended to 44/4.17 - Nephrology is following, appreciate recommendations. Patient will receive peritoneal dialysis this morning (4) Carotid stenosis, bilateral Current Visit: No Status: Chronic Assessment and plan: - Patient was found to have mass effect secondary to laryngeal cancer on previous EGD approximately 2 weeks ago - He received bilateral stenting and was placed on aspirin and Plavix for antiplatelet therapy - We will continue aspirin at 81 mg per day and Plavix at 75 mg per day for stroke prophylaxis (5) Laryngeal cancer Current Visit: No Status: Chronic Assessment and plan: - Known history of laryngeal cancer status post laryngectomy, - Patient follows with [facility] oncologist. Patient is on everolimus - Patient has follow-up appointment with oncologist scheduled for Sunday - Continue to treat as outpatient per oncologist (6) Hypothyroidism Current Visit: No Status: Acute Assessment and plan: - TSH was 24.8 in emergency department - Per chart review, patient's TSH was as high as 80 at previous visits - We will continue home dose of levothyroxine - Patient is asymptomatic at this time - CBC shows no signs of a macrocytic anemia, more likely secondary to GI loss Qualifiers: Hypothyroidism type: unspecified Qualified Code(s): E03.9 - Hypothyroidism , unspecified - Time Spent With Patient 25 - 35 minutes - Subjective Interval history: Patient was seen and examined this morning. Patient is very lethargic, does not speak due to tracheostomy. His is present at bedside, who provided much of his history. She states that he is not having complaints aside from being tired. This includes fevers, chills, abdominal pain, nausea, vomiting, dizziness. She states that he has been feeling fatigued for the past 1 week. She reports that he had an EGD done 2 weeks ago which did not show any obvious signs of bleeding, his last colonoscopy was approximately 4 years ago and she is unsure of the results. She reports the patient does have an appointment with his oncologist on Sunday. He also states that the patient has been having dark, tarry stools with visible red blood in them. - Constitutional Vitals: Temp Pulse Resp BP Pulse Ox 98.3 F 94 16 130/65 100 05/26/17 10:56 07/15/17 10:56 05/26/17 10:56 05/26/17 10:56 05/26/17 10:56 General appearance: Present: cooperative, A&O X 3, pleasant Exam: Gen.: Vitals noted. No acute distress. Lethargic appearing, nonverbal HEENT: PERRL/EOMI, oropharynx clear, Normocephalic, atraumatic. Tracheostomy in place, no obvious complications Neck: Supple. No adenopathy. Cardiac: RRR, no murmur, +S1/S2, frequent preventricular contractions Pulmonary: CTA bilaterally, no wheezes, rales or rhonchi, equal chest expansion Abdomen: soft, nontender, BS noted, no guarding Back: Nontender throughout. MSK: ROM intact, no joint swelling noted Extremities: no BLE edema, nontender calf, no cyanosis or clubbing Neuro: Unable to assess mental status. moves all extremities, no focal deficits Psych: Appropriate mood and behavior Internal Medicine: Result - Labs CBC & Chem 7: 05/26/17 05:51 05/26/17 05:51 Labs: Short CBC 05/26/17 Range/Units 05:51 WBC 6.7 (4.3-11.1) K/mcL Hgb 9.1 L D (12.9-16.9) g/dL Hct 28.6 L (37.5-50.1) % Plt Count 249 (140-400) K/mcL Neutrophils # 5.5 (1.6-8.9) K/mcL BMP 05/26/17 05:51 Sodium 138 Potassium 3.3 L Chloride 103 Carbon Dioxide 25 BUN 44 H Creatinine 4.17 H Glucose 143 H Calcium 7.1 L - ABG Interpretation ABG results: PT/INR, D-dimer PT 11.6 Seconds (9.4-12.1) 05/25/17 17:13 Consult Discharge Plan - Plan Referrals: Figueroa Navarro DO [Primary Care Provider] - (Patient has to call office once discharged to make a 5-7 day hospital follow up per this offices request) <Darell Wyatt - Last Filed: 05/26/17 13:20> Date of Encounter: 05/26/17 - Constitutional Vitals: Temp Pulse Resp BP Pulse Ox 98.3 F 94 16 130/65 100 05/26/17 10:56 05/26/17 10:56 05/26/17 10:56 05/26/17 10:56 05/26/17 10:56 Internal Medicine: Result - Labs CBC & Chem 7: 05/26/17 05:51 05/26/17 05:51 Labs: Short CBC 05/26/17 Range/Units 05:51 WBC 6.7 (4.3-11.1) K/mcL Hgb 9.1 L D (12.9-16.9) g/dL Hct 28.6 L (37.5-50.1) % Plt Count 249 (140-400) K/mcL Neutrophils # 5.5 (1.6-8.9) K/mcL BMP 05/26/17 05:51 Sodium 138 Potassium 3.3 L Chloride 103 Carbon Dioxide 25 BUN 44 H Creatinine 4.17 H Glucose 143 H Calcium 7.1 L - ABG Interpretation ABG results: PT/INR, D-dimer PT 11.6 Seconds (9.4-12.1) 05/25/17 17:13 - Attending Attestation I examined this patient and my medical decision-making was reviewed with the Resident Physician on 05/26/17. I agree with the documented findings, disposition and treatment plan as described except to the extent set forth below. Seen and evaluated at bedside with spouse 66 M with Laryngeal CA s/p trach, Carotid stenosis bilaterally due to mass effect froom CA s/p stent placements, Chronic anemia, possibly from GI loss and ESRD on peritoneal HD. He is admitted and being managed for symptomatic anemia He has received 3 units RBCS Of note, he received 6 units RBCS one month ago when he had anemia, EGD at that time showed no bleeding. Its possible his anemia is from his CA, chronic GI loss, especially with use of full dose ASA and Plavix after his carotid stent placement Patient himself is non-verbal due to trach but is awake, alert and nods in agreement to his occasionally Physical eam: VSS, not pale, anicteric, chest is CTAB, abdomen with closed ostomy on LUQ, perioneal catheter site, not tender, no pedal edema Labs and Imaging reviewed Repeat HB a.m, and may consult surgery/GI for EGD/Colonoscopy if HB continues to drop, continus ASA at 81mg and continue Plavix, continue other home meds. Patient is hemodynamically stable Rest of details as in Resident Physician's documentation
[2017-05-26] MEDS: Aspirin 81 MG TAB.CHEW PO SCH (12:33)
[2017-05-27] MEDS: PERITON. DIALYSIS 13-DEX 2.5 % 2,000 ML PERITONEAL SCH ×2 (02:05→08:14)
[2017-05-27] MEDS: *HR* OxyCODONE Immed Rel 5 MG TABLET PO PRN ×3 (02:05→12:27)
[2017-05-27 04:50] LABS: Hematocrit 29.1 % (37.5-50.1); Hemoglobin 9.4 g/dL (12.9-16.9); Mean Corpuscular HGB Conc 32.3 g/dL (31.6-35.5); Mean Corpuscular Hemoglobin 28.6 pg (28.0-33.3); Mean Corpuscular Volume 88.4 fL (83.0-100.0); Mean Platelet Volume 10.2 fL (9.4-12.4); Platelet Count 249 K/mcL (140-400); Red Blood Count 3.29 M/mcL (4.19-5.50); Red Cell Distribution Width 15.3 % (11.5-14.5)
[2017-05-27 05:02] LABS: Calcium 7.5 mg/dL (8.6-10.8); Magnesium 1.1 mg/dL (1.6-2.6); Potassium 3.4 mEq/L (3.5-4.5)
[2017-05-27] MEDS ORDERED: Magnesium Sulfate 1 GM in D5% in Water 100 ML IVPB ONE ×2 (05:28→08:45)
[2017-05-27] MEDS: Pantoprazole 40 MG VIAL IVP SCH (06:31)
[2017-05-27] MEDS ORDERED: Magnesium Sulfate 2 GM in D5% in Water 100 ML IVPB ONE (07:45)
[2017-05-27] MEDS: Aspirin 81 MG TAB.CHEW PO SCH (08:17)
[2017-05-27] MEDS: levETIRAcetam 250 MG TABLET PO SCH (08:17)
[2017-05-27] MEDS: Bacitracin/PolymyxinB OINT 14.17 GM TUBE TP SCH (08:18)
[2017-05-27] MEDS: Everolimus [Afinitor] 7.5 MG PO SCH (08:18)
[2017-05-27] MEDS ORDERED: amLODIPine 5 MG TABLET PO SCH (09:00)
--- NOTE | 2017-05-27 09:33 | Discharge Summary ---
<Del Lugo - Last Filed: 05/27/17 12:20> Date of Encounter: 05/27/17 Time of Encounter: 09:30 - Discharge Diagnosis (1) Symptomatic anemia Priority: Primary Status: Acute (2) GI bleed Priority: Primary Status: Acute Qualifiers: GI bleed type/associated pathology: unspecified gastrointestinal hemorrhage type Qualified Code(s): K92.2 - Gastrointestinal hemorrhage, unspecified (3) ESRD (end stage renal disease) on dialysis Priority: Primary Status: Chronic (4) Carotid stenosis, bilateral Priority: Secondary Status: Chronic (5) Laryngeal cancer Priority: Secondary Status: Chronic (6) Hypothyroidism Priority: Primary Status: Acute Qualifiers: Hypothyroidism type: unspecified Qualified Code(s): E03.9 - Hypothyroidism , unspecified - Discharge Medications Home Medications: RX: Ferrous Sulfate 325 mg GTUBE BID 06/23/15 [History] RX: Multivits,Ca,Min/Iron/FA/Lycop [Centrum Men's Tablet] 1 tab PO DAILY [History] RX: Calcium Carbonate [Tums] 500 mg GTUBE TID 02/10/17 [History] RX: Nut.tx.impaired Renal Fxn,Soy [Nepro Carb Steady] 1,422 ml GTUBE AD [History] RX: Darbepoetin [Aranesp] 100 mcg SQ Q2W 04/02/17 [History] RX: Magnesium Oxide [Mag-Ox] 400 mg PO DAILY 04/02/17 [History] RX: Omeprazole [PriLOSEC] 40 mg PO DAILY 04/02/17 [History] RX: OxyCODONE Immed Rel [Roxicodone 5 MG] 5 - 10 mg PO Q4HR PRN 04/03/17 [ History] RX: Bacitracin/PolymyxinB OINT [Polysporin] 1 appl TP DAILY 05/25/17 [History] RX: Clopidogrel [Plavix] 75 mg PO DAILY 05/25/17 [History] RX: Docusate [Colace] 100 mg PO BID 05/25/17 [History] RX: Everolimus [Afinitor] 7.5 mg PO DAILY 05/25/17 [History] RX: Levothyroxine [Synthroid] 100 mcg PO 0630 05/25/17 [History] RX: Metoprolol [Lopressor] 50 mg PO BID PRN 05/25/17 [History] RX: Sennosides/Docusate Sodium [Senna Plus] 2 each PO BID PRN 05/25/17 [History] RX: levETIRAcetam [Keppra] 250 mg PO BID 05/25/17 [History] RX: Aspirin 81 mg PO DAILY #30 tab 05/27/17 [Rx] Allergies/Adverse Reactions: Allergies diazepam Allergy (Intermediate, Verified 05/25/17 16:14) Agitated Zolpidem [From Ambien] Adverse Reaction (Verified 05/25/17 16:14) Hallucinating Date of admission: 05/25/17 20:24 Primary care physician: Figueroa Navarro Consults: 05/25/17 21:23 Consult to Nephrology [CONS] Routine Consulting Provider: Kidney Mary Jo/ALEJANDRA/KRISTA/STEVE Reason for Consult: patient sent over from Dr. Wharton's office for symptomatic anemia; h/o ESRD on PD Call Completed: No 05/25/17 22:52 Consult to Nutrition [CONS] Routine Comment: Consulting Provider: NUTRITION Reason for Dietary Consult: MST Score Discharging clinician: Del Lugo Anticipated date of discharge: 05/27/17 - Patient Status Disposition: Home, Self-Care Condition: Fair Functional capacity at discharge: independent ambulation Overall status at discharge: patient is progressing back to baseline - Discharge Instructions Instructions: Anemia (GEN) Follow Up With: Figueroa Navarro, [Primary Care Provider] - (Patient has to call office once discharged to make a 5-7 day hospital follow up per this offices request) Additional Instructions: Please keep follow-up appointment with oncologist and primary care physician. Please return to emergency room if you notice any worsening of symptoms, large amount of bleeding. - Diet and Activity Activity: increase activity as tolerated, resume usual activities as tolerated Diet: advance to your usual diet Hospital course: Mr. 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 Patient has a history of esophageal cancer status post laryngectomy currently on everolimus and is currently being managed by [facility] as well as ESRD on PD. Patient states that he has felt increasingly fatigued for approximately one week. Per who is available at bedside, patient has been having black tarry stools with visible red blood. Of note, he had a recent EGD 2 weeks ago when he presented to the hospital with a similar complaint and received 6 units of packed red blood cells and then was transferred to [facility]. Results of EGD revealed mass effect from the malignancy which was pressing on the carotid arteries. He received bilateral carotid artery stenting and was placed on aspirin 325 mg and Plavix 75 mg. He has not been complaining of any chest pain, shortness of breath, hemoptysis, nausea, vomiting. In the emergency department, patient was tachycardic at 102, however blood pressure was stable at 126/67, patient was saturating at 99% on room air, and was not tachypneic. Blood Count revealed an H&H of 6.7/21.2. BUN/creatinine was also elevated at 48/4.29. Stool occult test was positive for blood. Coagulation studies were within normal limits. Remainder of labs and vital signs were within normal limits. Patient was admitted to medicine service for medical anemia and received 3 units of packed red blood bree During hospital stay, patient's H&H remained stable after receiving 3 units of blood area and most recent was 9.4/29.1, patient's baseline hemoglobin is reportedly around 8. Source of bleed is most likely GI, no obvious bleed and EGD 2 weeks ago, however malignancy as a possible source. Patient or is not sure of last colonoscopy results which occurred approximately 4 years ago. Aspirin Plavix were continued during hospital stay to recent bilateral carotid stenting, however aspirin dosage was reduced to 81 mg daily. Patient will likely need colonoscopy in future, however may be completed as outpatient as this is not emergent. Patient did have a bowel movement on the day of discharge , and has no signs of obvious blood, melena. Patient's renal function has been stable since admission, and he has received PD hospital stay. Most recent BUN/ creatinine was 44/4.05. Patient received supplemental potassium and magnesium during hospital stay. Patient was instructed to keep appointment with oncologist, PCP scheduled for Sunday. Topic of colonoscopy was discussed for future. On day of discharge, patient was medically stable and hemodynamically stable. - Time Spent with Patient Total time spent providing and/or coordinating discharge services: - Constitutional Vitals: Temp Pulse Resp BP Pulse Ox 98.6 F 93 16 146/70 98 05/27/17 07:28 05/27/17 07:28 05/27/17 07:28 05/27/17 07:28 05/27/17 07:28 General appearance: Present: cooperative, A&O X 3, pleasant Exam: Gen.: Vitals noted. No acute distress. AAOx3. nonvocal secondary to tracheostomy. More awake today HEENT: PERRL/EOMI, oropharynx clear, Normocephalic, atraumatic. Neck: Supple. No adenopathy. Tracheostomy in place Cardiac: RRR, frequent PVCs, no murmur, +S1/S2 Pulmonary: Mild wheezes. no rales or rhonchi, equal chest expansion Abdomen: soft, nontender, BS noted, no guarding Back: Nontender throughout. MSK: ROM intact, no joint swelling noted Extremities: no BLE edema, nontender calf, no cyanosis or clubbing Neuro: Unable to assess orientation. moves all extremities, no focal deficits Psych: Appropriate mood and behavior <Darell Wyatt - Last Filed: 05/27/17 13:57> Date of Encounter: 05/27/17 Procedures/tests Complete & Pending: Procedures Performed prior 72 hours Category Date Time Status ECG 12 lead ECG [ECG] Routine Y 05/25/17 18:44 Completed Date of admission: 05/25/17 20:24 Primary care physician: Figueroa Navarro Consults: 05/25/17 21:23 Consult to Nephrology [CONS] Routine Consulting Provider: Kidney Mary Jo/ALEJANDRA/KRISTA/STEVE Reason for Consult: patient sent over from Dr. Wharton's office for symptomatic anemia; h/o ESRD on PD Call Completed: No 05/25/17 22:52 Consult to Nutrition [CONS] Routine Comment: Consulting Provider: NUTRITION Reason for Dietary Consult: MST Score Hospital course: Mr. Porras is a 66 year old male - Time Spent with Patient Total time spent providing and/or coordinating discharge services: - Constitutional Vitals: Temp Pulse Resp BP Pulse Ox 98.5 F 95 16 118/59 98 05/27/17 11:15 05/27/17 11:15 05/27/17 11:15 05/27/17 11:15 05/27/17 11:15 - Attending Attestation I examined this patient and my medical decision-making was reviewed with the Resident Physician on 05/27/17. I agree with the documented findings, disposition and treatment plan as described except to the extent set forth below. 66 M with Laryngeal CA s/p trach, Carotid stenosis bilaterally due to mass effect froom CA s/p stent placements, Chronic anemia, possibly from GI loss and ESRD on peritoneal HD. He is admitted and being managed for symptomatic anemia He has received 3 units RBCS and his HB has been stable at 9 Of note, he received 6 units RBCS one month ago when he had anemia, EGD at that time showed no bleeding. He is seen at bedside today after a BM, which was visualized in the bowl, and brown, no blood, no melena. Its possible his anemia is from his Laryngeal CA and chronic GI loss, especially with use of full dose ASA and Plavix after his carotid stent placement Patient himself is non-verbal due to trach but is awake, alert, ambulatory, mostly independent Physical exam: VSS, not pale, anicteric, chest is CTAB, abdomen with closed ostomy on LUQ, perioneal catheter site, not tender, no pedal edema Labs and Imaging reviewed Hb stable at 9, no leukocytosis, chem is stable at baseline His potassium was low at 3.1 and magnessium 1.1 Replaced potassium po and Magnessium IV Rpt potassium 3.8, magnesium 1.9 Patient van be safely discharged to follow up with Oncology/PCP/ENT at [facility] Rest of details as in Resident Physician's documentation
--- NOTE | 2017-05-27 10:01 | Nephrology Progress Note ---
Date of Encounter: 05/27/17 Time of Encounter: 09:59 - Assessment and Plan (1) Anemia Current Visit: No Status: Acute Hemoglobin seems stable. If next lab draw (planned at noon per patient) remains stable then ok with discharge and outpatient follow-up. Qualifiers: Qualified Code(s): D64.9 - Anemia, unspecified (2) End stage renal disease Current Visit: No Status: Acute Continue CAPD 2L bag 2.5 glucose (3) Laryngeal cancer Current Visit: No Status: Chronic (4) Hypothyroid Current Visit: Yes Status: Acute Continue synthroid and titrate as needed. Qualifiers: Qualified Code(s): E03.9 - Hypothyroidism, unspecified (5) Hypocalcemia Current Visit: Yes Status: Acute Replace as needed. (6) Hypokalemia Current Visit: No Status: Acute Replace as needed. Optimizing magnesium level prior to replacing potassium. Subjective Principal diagnosis: ESRD Interval history: Patient seen. He feels well. No complaint. He is anticipating going home today. CAPD without problems. Objective - Vital Signs Vital signs: Vital Signs Temp Pulse Resp BP Pulse Ox 05/27/17 07:28 98.6 F 93 16 146/70 98 05/27/17 03:52 98.6 F 19 15 175/83 95 05/26/17 23:53 98.9 F 100 18 170/68 98 05/26/17 19:37 98.3 F 91 16 167/77 100 05/26/17 15:22 97.6 F 103 14 166/81 100 05/26/17 10:56 98.3 F 94 16 130/65 100 Intake and Output 05/26/17 05/27/17 05/27/17 23:59 07:59 15:59 Intake Total 1080 / 1080 0 / 0 240 / 240 Balance 1080 / 1080 0 / 0 240 / 240 Intake: Oral 1080 / 1080 0 / 0 240 / 240 Other: Meal Dinner Breakfast Percent of Meal Consumed 80% 90% Total Peritoneal Dialysis 120 -100 Output # Voids 2 Weight 83.2 kg 82.6 kg Patient Weight 05/27/17 23:59 Weight 82.6 kg - General Appearance General appearance: Present: well-developed, well-nourished EENT: Present: ATNC Neck: Present: supple Additional Comments: respirations are unlabored. Cardiology: Present: regular rate Integumentary: Present: warm and dry Neurologic: Present: alert and oriented x3 Psychiatric: Present: mood/affect appropriate - Lab 05/27/17 03:49 05/27/17 03:49 Most recent lab results Calcium 7.5 mg/dL (8.6-10.8) L 05/27/17 03:49 Magnesium 1.1 mg/dL (1.6-2.6) L 05/27/17 03:49 Consult Discharge Plan - Plan Referrals: Figueroa Navarro DO [Primary Care Provider] - (Patient has to call office once discharged to make a 5-7 day hospital follow up per this offices request)
[2017-05-27 11:21] VITALS: BP 118/59
[2017-05-27 13:44] LABS: Calcium 7.5 mg/dL (8.6-10.8); Magnesium 1.9 mg/dL (1.6-2.6); Potassium 3.8 mEq/L (3.5-4.5)
--- NOTE | 2017-05-28 10:05 | Electrocardiograph Report ---
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
--- NOTE | 2017-05-28 10:05 | Electrocardiograph Report ---
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
== END 2017-05-27 15:09 | disposition home or self-care (01) ==
LOC: EMEROO 15:31 → 2ANU 15:31
PROVIDERS: ADMIT Internal Medicine; ATTEND Internal Medicine

== ENCOUNTER 2017-06-16 13:42 | Inpatient (IN) ==
--- NOTE | 2017-06-16 14:28 | Emergency Department Note ---
Disposition Clinical Impression: Weakness generalized, ESRD (end stage renal disease), Peritoneal dialysis status, Hypopharyngeal cancer Failure to thrive Qualifiers: Failure to thrive age range: in adult Qualified Code(s): R62.7 - Adult failure to thrive Disposition: Admitted As Inpatient Condition: Fair Time of Disposition: 17:05 Weakness HPI - General Chief complaint: ED Weakness Stated complaint: Weakness Time Seen by Provider: 06/16/17 13:52 Source: patient, family, EMS Limitations: no limitations Nursing Notes Reviewed: Yes Vital Signs Reviewed: Yes - History of Present Illness HPI Narrative: 58-year-old male history of HTN, HLD, CAD, Laryngeal Cancer, ESRD on peritoneal dialysis, presents with generalized weakness for the last day. Patient was recently evaluated at [facility] and in the ER for 3 or 4 hours but not admitted for similar complaints. Patient also carries a history of laryngeal cancer has a patent tracheal stoma that he sat for about a year and a half. He is chronic back pain, he reports 8 out of 10 pain and is due for his pain medication, he takes oxycodone and morphine at home. And fentanyl patch. Patient reports 9 of 10 low back pain and headache, aching. His does report that he is a trouble getting around at baseline he ambulates with a cane , he has been somewhat limited for the last few days she thinks that he may be dehydrated. He denies fever chills productive cough. Denies focal weakness, slurred speech, Pt Subjective Complaint: generalized weakness/fatigue Onset (ago): day(s) Pain Severity: severe Pain Scale: 10 If pain, quality: aching Improves with: none Worsens with: none Associated symptoms: Reports: confusion, loss of appetite. Denies: chest pain, easy bruising, headaches, nausea/vomiting, shortness of breath - Related Data Home Medications Medication Instructions Recorded Confirmed Ferrous Sulfate 325 mg GTUBE BID 06/23/15 06/16/17 Multivits,Ca,Min/Iron/FA/Lycop 1 tab PO DAILY 06/23/15 06/16/17 [Centrum Men's Tablet] Calcium Carbonate [Tums] 500 mg GTUBE TID 02/10/17 06/16/17 Nut.tx.impaired Renal Fxn,Soy 1,422 ml GTUBE AD 02/10/17 06/16/17 [Nepro Carb Steady] Darbepoetin [Aranesp] 100 mcg SQ Q2W 04/02/17 06/16/17 Magnesium Oxide [Mag-Ox] 400 mg PO DAILY 04/02/17 06/16/17 Omeprazole [PriLOSEC] 40 mg PO DAILY 04/02/17 06/16/17 OxyCODONE Immed Rel [Roxicodone 5 5 - 10 mg PO Q4HR PRN 04/03/17 06/16/17 MG] Bacitracin/PolymyxinB OINT 1 appl TP DAILY 05/25/17 06/16/17 [Polysporin] Clopidogrel [Plavix] 75 mg PO DAILY 05/25/17 06/16/17 Docusate [Colace] 100 mg PO BID 05/25/17 06/16/17 Everolimus [Afinitor] 7.5 mg PO DAILY 05/25/17 06/16/17 Levothyroxine [Synthroid] 100 mcg PO DAILY 05/25/17 06/16/17 Metoprolol [Lopressor] 50 mg PO BID PRN 05/25/17 06/16/17 Sennosides/Docusate Sodium [Senna 2 tab PO BID PRN 05/25/17 06/16/17 Plus] levETIRAcetam [Keppra] 250 mg PO BID 05/25/17 06/16/17 Previous Rx's Medication Instructions Recorded Aspirin 81 mg PO DAILY #30 tab 05/27/17 Allergies Allergy/AdvReac Type Severity Reaction Status Date / Time diazepam Allergy Intermediate Agitated Verified 05/25/17 16:14 Zolpidem [From Ambien] AdvReac Hallucinati Verified 05/25/17 16:14 ng All systems ED: reviewed and negative except as stated. Review of Systems: As Per HPI Constitutional: Reports: as per HPI, weakness, weight change. Denies: fever, chills Eyes: Denies: eye pain ENT ED: Denies: ear pain Cardiovascular: Denies: chest pain, palpitations Respiratory: Denies: cough, dyspnea Gastrointestinal: Reports: as per HPI. Denies: abdominal pain, nausea Genitourinary: Denies: urgency, dysuria Musculoskeletal: Reports: as per HPI, back pain Neurological: Reports: headache, weakness. Denies: numbness, paresthesias, confusion Psychiatric: Reports: as per HPI, anxiety, depression Past Medical History - Past Medical History Attestation: Yes The following information was validated with the patient. Medical history: Reports: cancer, DVT, dialysis, hyperlipidemia, hypertension, myocardial infarction, renal disease, thyroid disease Surgical history: Reports: cancer surgery, cataract, cholecystectomy, tracheostomy, other Psychiatric history: Reports: anxiety, depression - Social History Smoking Status: Former smoker Smokeless Tobacco Status: No Alcohol use: Reports: none Drug use: Reports: none Physical Exam - General Limitations: no limitations General appearance: alert, in no apparent distress, cachectic - Head Head exam: atraumatic - Eye Eye exam: Present: normal appearance - ENT ENT exam: other (enlarged neck mask and patent tracheal stoma) - Neck Neck exam: Present: lymphadenopathy - Chest Chest inspection: Present: normal inspection, symmetric chest wall rise - Respiratory Respiratory exam: Present: normal lung sounds bilaterally. Absent: respiratory distress, wheezes - Cardiovascular Cardiovascular exam: Present: regular rate, normal rhythm - Abdominal Exam Abdominal exam: Present: soft, Non-Tender, distention, other (Peritoneal catheter). Absent: guarding, rebound - Extremities Exam Extremities exam: Present: normal inspection, full ROM - Neurological Exam Neurological exam: Present: alert, oriented X3, CN II-XII intact - Skin Skin exam: Present: dry Course Course Narrative: 66-year-old male with generalized weakness, has missed dialysis for the last 2 days, we will do a CBC BMP lab work including blood cultures lactate chest x- ray give fluids, antiemetics and pain medication, likely admission for generalized weakness in the setting of peritoneal dialysis, does not meet septic criteria at this time for Sirs. - Consultations Consultation #1: I did speak with Dr. Albrecht, he does agree patient needs admission for generalized weakness, likely will need transitioned hemodialysis. Time: 17:11 Vital Signs Temperature 97.5 F L 06/16/17 13:44 Pulse Rate 97 06/16/17 13:44 Respiratory Rate 20 06/16/17 13:44 Blood Pressure 103/56 06/16/17 13:44 O2 Sat by Pulse Oximetry 100 06/16/17 13:44 Temperature 97.8 F 06/16/17 20:09 Pulse Rate 99 06/16/17 20:09 Respiratory Rate 17 06/16/17 20:09 Blood Pressure 142/81 06/16/17 20:09 O2 Sat by Pulse Oximetry 98 06/16/17 20:09 Oxygen Delivery Oxygen Delivery Room Air Weakness - MDM Narrative Medical decision making narrative: Admitted to Dr Dennis accepting for generalized weakness, failure to thrive. VS stable, does not meet criteria for sepsis. Admitted in stable condition at the time of ED disposition, nephrology consultation. - Differential Diagnosis Differential Diagnosis: Likely: hypoglycemia, rhabdomyolysis, sepsis/infection, dehydration - Medical Records Medical records reviewed: Yes I reviewed the patient's medical records. - Lab Data Lab results reviewed: Yes I reviewed the patient's lab results. Result diagrams: 06/16/17 15:05 06/16/17 15:05 Lab Results 06/16/17 06/16/17 06/16/17 Range/Units 14:40 15:05 15:05 WBC (4.3-11.1) K/mcL RBC (4.19-5.50) M/mcL Hgb (12.9-16.9) g/dL Hct (37.5-50.1) % MCV (83.0-100.0) fL MCH (28.0-33.3) pg MCHC (31.6-35.5) g/dL RDW (11.5-14.5) % Plt Count (140-400) K/mcL MPV (9.4-12.4) fL Immature Gran % (0-4) % Seg Neutrophils % % Lymphocytes % % Monocytes % % Eosinophils % % Basophils % % Neutrophils # (1.6-8.9) K/mcL Lymphocytes # (0.6-4.6) K/mcL Monocytes # (0.0-1.3) K/mcL Eosinophils # (0.0-0.6) K/mcL Basophils # (0.0-0.2) K/mcL Sodium (136-145) mEq/L Potassium (3.5-4.5) mEq/L Chloride (98-109) mEq/L Carbon Dioxide (19-29) mEq/L BUN (8-26) mg/dL Creatinine (0.72-1.25) mg/dL Est GFR ( Amer) (> 60) Est GFR (Non-Af Amer) (> 60) BUN/Creatinine Ratio (6-26) Glucose (70-99) mg/dL Calculated Osmolality (280-300) Lactic Acid 1.9 (0.5-2.2) mmol/L Calcium (8.6-10.8) mg/dL Phosphorus 2.1 L (2.3-4.7) mg/dL Magnesium 1.4 L (1.6-2.6) mg/dL Total Bilirubin (0.2-1.2) mg/dL AST (5-34) Units/L ALT (0-55) Units/L Alkaline Phosphatase (38-126) Units/L Troponin I (0-0.03) ng/mL Serum Total Protein (6.0-8.3) g/dL Albumin (3.5-5.0) g/dL Globulin (2.4-3.5) g/dL Albumin/Globulin Ratio (1.1-2.2) Urine Color Yellow (Yellow) Urine Clarity Clear (Clear) Urine pH 7.5 (5.0-8.0) pH Units Ur Specific [place] 1.013 (1.010-1.025) Urine Protein >=300 H (Neg-Trace) mg/dL Urine Glucose (UA) Normal (Normal) mg/dL Urine Ketones Trace H (Negative) mg/dL Urine Blood Trace H (Negative) Urine Nitrite Negative (Negative) Urine Bilirubin Negative (Negative) Urine Urobilinogen Normal (Normal) mg/dL Ur Leukocyte Esterase Negative (Negative) Urine Microscopic RBC 3-5 H (0-3) per hpf Urine Microscopic WBC 30-50 H (0-3) per hpf Ur Squamous Epith Cells Many H (None-Few) per lpf Urine Bacteria None Seen (None-Few) per hpf Hyaline Casts None Seen (None-Few) per lpf Ur Culture Indicated? YES A (NO) 06/16/17 06/16/17 06/16/17 Range/Units 15:05 15:05 15:05 WBC 6.5 (4.3-11.1) K/mcL RBC 3.62 L (4.19-5.50) M/mcL Hgb 9.8 L (12.9-16.9) g/dL Hct 31.1 L (37.5-50.1) % MCV 85.9 (83.0-100.0) fL MCH 27.1 L (28.0-33.3) pg MCHC 31.5 L (31.6-35.5) g/dL RDW 14.6 H (11.5-14.5) % Plt Count 360 (140-400) K/mcL MPV 10.6 (9.4-12.4) fL Immature Gran % 0.5 (0-4) % Seg Neutrophils % 82.1 % Lymphocytes % 9.5 % Monocytes % 7.5 % Eosinophils % 0.2 % Basophils % 0.2 % Neutrophils # 5.3 (1.6-8.9) K/mcL Lymphocytes # 0.6 (0.6-4.6) K/mcL Monocytes # 0.5 (0.0-1.3) K/mcL Eosinophils # 0.0 (0.0-0.6) K/mcL Basophils # 0.0 (0.0-0.2) K/mcL Sodium 141 (136-145) mEq/L Potassium 4.0 (3.5-4.5) mEq/L Chloride 104 (98-109) mEq/L Carbon Dioxide 23 (19-29) mEq/L BUN 35 H (8-26) mg/dL Creatinine 4.30 H (0.72-1.25) mg/dL Est GFR ( Amer) 17 L (> 60) Est GFR (Non-Af Amer) 14 L (> 60) BUN/Creatinine Ratio 8 (6-26) Glucose 105 H (70-99) mg/dL Calculated Osmolality 300 (280-300) Lactic Acid (0.5-2.2) mmol/L Calcium 8.3 L (8.6-10.8) mg/dL Phosphorus (2.3-4.7) mg/dL Magnesium (1.6-2.6) mg/dL Total Bilirubin < 0.3 (0.2-1.2) mg/dL AST 31 (5-34) Units/L ALT 19 (0-55) Units/L Alkaline Phosphatase 86 (38-126) Units/L Troponin I 0.05 H* (0-0.03) ng/mL Serum Total Protein 5.6 L (6.0-8.3) g/dL Albumin 1.6 L (3.5-5.0) g/dL Globulin 4.0 H (2.4-3.5) g/dL Albumin/Globulin Ratio 0.4 L (1.1-2.2) Urine Color (Yellow) Urine Clarity (Clear) Urine pH (5.0-8.0) pH Units Ur Specific [place] (1.010-1.025) Urine Protein (Neg-Trace) mg/dL Urine Glucose (UA) (Normal) mg/dL Urine Ketones (Negative) mg/dL Urine Blood (Negative) Urine Nitrite (Negative) Urine Bilirubin (Negative) Urine Urobilinogen (Normal) mg/dL Ur Leukocyte Esterase (Negative) Urine Microscopic RBC (0-3) per hpf Urine Microscopic WBC (0-3) per hpf Ur Squamous Epith Cells (None-Few) per lpf Urine Bacteria (None-Few) per hpf Hyaline Casts (None-Few) per lpf Ur Culture Indicated? (NO) - Radiology Data Radiology results reviewed: Yes I reviewed the patient's radiology results. - EKG Data EKG attestation: Yes I reviewed and interpreted this EKG. EKG shows normal: sinus rhythm (89 bpm NH 100 QRS [address] segment elevations or depressions, mildly increased QRS ratio and PVCs.) Rate: normal Rhythm: NSR When compared to previous EKG there are: no significant changes - Core Measures AMI Core Measures Followed: No Attestation Statement - Attestation Attestation: I examined this patient and my medical decision-making was reviewed with the Resident Physician. I agree with the documented findings, disposition and treatment plan as described except to the extent set forth below. In summary 58 -year-old male with extensive laryngeal cancer now presenting with concern for weakness and failure to thrive. He has been able to eat or drink adequately for 1 week. Additionally he is on peritoneal dialysis and has been unable to complete his home dialysis regimen. No focal weakness on arrival. Vital signs are stable. Plan to admit for further evaluation and for ongoing dialysis needs.
[2017-06-16 14:52] LABS: Bilirubin,Urine Negative (Negative); Blood,Urine Trace (Negative); Clarity,Urine Clear (Clear); Color,Urine Yellow (Yellow); Glucose,Urine (UA) Normal (Normal); Ketones,Urine Trace mg/dL (Negative); Leukocyte Esterase,Urine Negative (Negative); Nitrite,Urine Negative (Negative); PH,Urine 7.5 pH Units (5.0-8.0); Protein,Urine >=300 mg/dL (Neg-Trace); Specific Gravity,Urine 1.013 (1.010-1.025); Urobilinogen,Urine Normal (Normal)
[2017-06-16 14:53] LABS: Bacteria,Urine None Seen per hpf (None-Few); Hyaline Casts,Urine None Seen per lpf (None-Few); Squamous Epithelial Cell,Urine Many per lpf (None-Few); WBC,Urine 30-50 per hpf (0-3)
[2017-06-16] MEDS ORDERED: Ondansetron 4 MG/2 ML VIAL IVP ONE (15:10)
[2017-06-16] MEDS ORDERED: *HR* FentaNYL (PF) 100 MCG/2 ML VIAL IVP ONE (15:10)
[2017-06-16] MEDS ORDERED: 0.9 % Sodium Chloride 500 ML IVC ONE (15:11)
[2017-06-16 15:22] LABS: Basophils % 0.2 %; Eosinophils % 0.2 %; Hematocrit 31.1 % (37.5-50.1); Hemoglobin 9.8 g/dL (12.9-16.9); Immature Granulocytes % 0.5 % (0-4); Lymphocytes # 0.6 K/mcL (0.6-4.6); Lymphocytes % 9.5 %; Mean Corpuscular HGB Conc 31.5 g/dL (31.6-35.5); Mean Corpuscular Hemoglobin 27.1 pg (28.0-33.3); Mean Corpuscular Volume 85.9 fL (83.0-100.0); Mean Platelet Volume 10.6 fL (9.4-12.4); Monocytes # 0.5 K/mcL (0.0-1.3); Monocytes % 7.5 %; Neutrophils # 5.3 K/mcL (1.6-8.9); Platelet Count 360 K/mcL (140-400); Red Blood Count 3.62 M/mcL (4.19-5.50); Red Cell Distribution Width 14.6 % (11.5-14.5); Segmented Neutrophils % 82.1 %
[2017-06-16] MEDS ORDERED: *HR* Morphine 2 MG/ML SYRINGE IVP ONE (15:29)
[2017-06-16 15:30] LABS: Magnesium 1.4 mg/dL (1.6-2.6); Phosphorous 2.1 mg/dL (2.3-4.7)
[2017-06-16 15:31] LABS: Alanine Aminotransferase 19 Units/L (0-55); Albumin/Globulin Ratio 0.4 (1.1-2.2); Alkaline Phosphatase 86 Units/L (38-126); Aspartate Amino Transferase 31 Units/L (5-34); BUN/Creatinine Ratio 8 (6-26); Blood Urea Nitrogen 35 mg/dL (8-26); Calcium 8.3 mg/dL (8.6-10.8); Carbon Dioxide 23 mEq/L (19-29); Chloride 104 mEq/L (98-109); Glucose 105 mg/dL (70-99); Osmolality,Calculated 300 (280-300); Sodium 141 mEq/L (136-145); Total Protein 5.6 g/dL (6.0-8.3); eGFR For African Americans 17 (> 60); eGFR For Non-African Americans 14 (> 60)
[2017-06-16 15:32] LABS: Albumin 1.6 g/dL (3.5-5.0); Bilirubin,Total < 0.3 mg/dL (0.2-1.2)
[2017-06-16] MEDS ORDERED: *HR* OxyCODONE Immed Rel 5 MG TABLET PO PRN (18:36)
[2017-06-16] MEDS ORDERED: Naloxone 0.4 MG/ML INJ IVP PRN (18:41)
[2017-06-16] MEDS ORDERED: *HR* Morphine 2 MG/ML SYRINGE IVP PRN (18:41)
[2017-06-16] MEDS ORDERED: Ondansetron 4 MG/2 ML VIAL IVP PRN (18:41)
[2017-06-16] MEDS ORDERED: Acetaminophen 325 MG TABLET PO PRN (18:41)
--- NOTE | 2017-06-16 18:49 | Internal Med History&Physical ---
Date of Encounter: 06/16/17 Time of Encounter: 18:46 Assessment and Plan (1) Open neck wound Current visit: Yes Status: Acute Left neck wound with history of infection with Pseudomonas and Klebsiella sensitive to ciprofloxacin, history of MRSA bacteremia Start doxycycline and ciprofloxacin as both organisms were sensitive to these antibiotics in the past next Order wound culture Start MS Contin for pain Omeprazole for GI prophylaxis and sequential compression devices for DVT prophylaxis. The patient will be admitted for observation. Full code. Time spent on this admission 40 minutes. Qualifiers: Encounter type: initial encounter Qualified Code(s): S11.90XA - Unspecified open wound of unspecified part of neck, initial encounter (2) Cellulitis Current visit: Yes Status: Acute Small area of cellulitis of the neck Consider imaging if not improving, Qualifiers: Site of cellulitis: neck Qualified Code(s): L03.221 - Cellulitis of neck (3) ESRD (end stage renal disease) on dialysis Current visit: No Status: Chronic Dr. Albrecht was contacted to start peritoneal dialysis (4) Laryngeal cancer Current visit: No Status: Chronic (5) Weakness generalized Current visit: Yes Status: Acute Possibly rate related to infection Physical therapy ordered (6) Peritoneal dialysis status Current visit: Yes Status: Acute (7) Anemia Current visit: No Status: Chronic Chronic anemia, not actively bleeding Okay to continue Plavix Qualifiers: Anemia type: other cause Other causes of anemia: acute posthemorrhagic Qualified Code(s): D62 - Acute posthemorrhagic anemia (8) Hypertension Current visit: No Status: Chronic Qualifiers: Hypertension type: essential hypertension Qualified Code(s): I10 - Essential (primary) hypertension (9) Back pain Current visit: No Status: Acute Qualifiers: Back pain location: low back pain Chronicity: unspecified Back pain laterality: unspecified Sciatica presence: with sciatica Sciatica laterality : bilateral sciatica Qualified Code(s): M54.42 - Lumbago with sciatica, left side Internal Medicine - H&P: HPI Chief complaint: Weakness Admitted From: Emergency Dept History of present illness: Mr. Porras is a 66 year old male with a past medical history of esophageal/ laryngeal cancer status post laryngectomy, DVT in January 2016 not on anticoagulation anymore, end-stage renal disease on peritoneal dialysis, was discharged from the hospital recently on May 27 when he was evaluated for GI bleed. He was cleared to continue Plavix due to bilateral carotid stenosis where he received stents. He was evaluated [facility] for severe weakness and was discharged from the emergency room. Comes emergency room again complaining of severe weakness, not able to eat or drink much. Complaining of severe headache and the pain starting on the left side of his neck where he has a wound that is draining, shows mild erythema. Prior cultures showed positive infection of the neck wound last year with Pseudomonas and Klebsiella both sensitive to ciprofloxacin. Patient has history of MRSA that was sensitive to doxycycline. We will start both antibiotics and will ask for a wound culture as the area appears mildly erythematous but the patient says that it has been draining a little more. Creatinine is 4.3 he has not had for the past 2 days peritoneal dialysis, troponin is chronically elevated and today is 0.05. Hemoglobin is stable at 9.8 and no signs of bleeding magnesium 1.4 UA shows 30-50 white blood cells and he still makes urine and 5 red blood cells. Denies any other complaints. Wants to be a full code Past Med Surg Social Fam HX - Past Medical History Medical history: cancer (Laryngeal esophageal cancer status post laryngectomy), coronary artery disease, DVT (Not on anticoagulation, diagnosed with right leg DVT in January 2016), dialysis, hyperlipidemia, hypertension, myocardial infarction, renal disease (End-stage renal disease on peritoneal dialysis), thyroid disease (Hypothyroidism), other (GI bleed in the past, bilateral carotid stenosis currently on Plavix, syncopal episodes, dilated aortic root, mild diastolic dysfunction with an ejection fraction of 65-70%, chronic back pain and depression) Psychiatric history: anxiety, depression - Past Surgical History Surgical History: cancer surgery, cataract, cholecystectomy, tracheostomy, other (Bilateral carotid stents) - Social History Smoking Status: Former smoker Smokeless Tobacco Status: No Alcohol use: none Drug use: none - Family History Mother Adopted: No Family Member Ethnicity: Non- Living Status: Hx Family Cardiac Disorders: No Hx Family Respiratory Disorders: No Hx Family Cancer: No Hx Family GI Disorders: No Hx Family Endocrine Disorder: No Hx Family Neuromuscular Disorders: No Hx Family Neurologic Disorders: Yes Hx Family HEENT Disorders: No Hx Family Autoimmune Disorders: No Brother Hx Family Cardiac Disorders: Yes (Hypertension) Hx Family Cancer: Yes (colon and prostate) - Additional Family History Additional family history: Brother with hypertension colon and pancreatic cancer Internal Medicine - H&P: Meds Ferrous Sulfate 325 mg GTUBE BID 06/23/15 [History] Multivits,Ca,Min/Iron/FA/Lycop [Centrum Men's Tablet] 1 tab PO DAILY 06/23/15 [ History] Calcium Carbonate [Tums] 500 mg GTUBE TID 02/10/17 [History] Nut.tx.impaired Renal Fxn,Soy [Nepro Carb Steady] 1,422 ml GTUBE AD 02/10/17 [ History] Darbepoetin [Aranesp] 100 mcg SQ Q2W 04/02/17 [History] Magnesium Oxide [Mag-Ox] 400 mg PO DAILY 04/02/17 [History] Omeprazole [PriLOSEC] 40 mg PO DAILY 04/02/17 [History] OxyCODONE Immed Rel [Roxicodone 5 MG] 5 - 10 mg PO Q4HR PRN 04/03/17 [History] Bacitracin/PolymyxinB OINT [Polysporin] 1 appl TP DAILY 05/25/17 [History] Clopidogrel [Plavix] 75 mg PO DAILY 05/25/17 [History] Docusate [Colace] 100 mg PO BID 05/25/17 [History] Everolimus [Afinitor] 7.5 mg PO DAILY 05/25/17 [History] Levothyroxine [Synthroid] 100 mcg PO DAILY 05/25/17 [History] Metoprolol [Lopressor] 50 mg PO BID PRN 05/25/17 [History] Sennosides/Docusate Sodium [Senna Plus] 2 tab PO BID PRN 05/25/17 [History] levETIRAcetam [Keppra] 250 mg PO BID 05/25/17 [History] Aspirin 81 mg PO DAILY #30 tab 05/27/17 [Rx] Allergies diazepam Allergy (Intermediate, Verified 05/25/17 16:14) Agitated Zolpidem [From Ambien] Adverse Reaction (Verified 05/25/17 16:14) Hallucinating All Systems PM: A 10-system review of systems was performed and is negative for pertinent findings except as documented above in the HPI. Review of systems: Headache, neck pain, chronic back pain. Severe weakness, other systems out of 10 reviewed were negative - Constitutional Vitals: Temp Pulse Resp BP Pulse Ox 97.5 F L 125 20 150/88 95 06/16/17 13:44 06/16/17 18:17 06/16/17 18:17 06/16/17 18:17 06/16/17 18:17 General appearance: Present: A&O X 3 (Very hard of hearing) - Head Head exam: Present: atraumatic, normocephalic - Eye Eye exam: Present: PERRL, conjuntiva pink, sclera anicteric Pupils: Present: PERRL Additional comments: Small 0.5 cm wound on the left side of his neck draining minimally with minimal surrounding erythema - Neck Neck exam general surgery: Present: supple, trachea midline. Absent: lymphadenopathy - Respiratory Respiratory exam: Present: decreased breath sounds, CTAB. Absent: accessory muscle use, rales, rhonchi, wheezes - Cardiovascular Cardiovascular exam: Present: RRR, +S1, +S2. Absent: diastolic murmur, gallop, rubs, systolic murmur - GI/Abdominal GI/Abdominal exam: Present: normal bowel sounds, soft, no peritoneal signs. Absent: distended, tenderness - Extremities Exam Extremities exam: Present: warm, radial pulses palpable and symetrical. Absent : calf tenderness, cyanotic, pedal edema Additional comments: Peritoneal dialysis catheter - Neurological Exam Neurological exam: Present: CN II-XII intact, oriented X3, no focal deficits. Absent: pronater drift, facial droop, speech deficit - Skin Skin exam: Present: dry, intact Internal Med - H&P Results - Labs CBC & Chem 7: 06/16/17 15:05 06/16/17 15:05
[2017-06-16] MEDS: Doxycycline 100 MG in 0.9 % Sodium Chloride Mini Bag 100 ML IVPB SCH (20:36)
[2017-06-16] MEDS: Magnesium Oxide 400 MG TABLET PO SCH (20:36)
[2017-06-16] MEDS: levETIRAcetam 250 MG TABLET PO SCH (20:36)
[2017-06-16] MEDS: *HR* OxyCODONE Immed Rel 5 MG TABLET PO PRN (21:56)
[2017-06-16] MEDS: Perit. Dialysis with Dex 1.5 % 2,000 ML PERITONEAL SCH (23:37)
[2017-06-17] MEDS: Perit. Dialysis with Dex 1.5 % 2,000 ML PERITONEAL SCH ×4 (01:57→20:17)
[2017-06-17] MEDS: *HR* OxyCODONE Immed Rel 5 MG TABLET PO PRN ×5 (01:57→20:19)
[2017-06-17 05:52] LABS: Hematocrit 29.5 % (37.5-50.1); Hemoglobin 9.3 g/dL (12.9-16.9); Mean Corpuscular HGB Conc 31.5 g/dL (31.6-35.5); Mean Corpuscular Hemoglobin 27.3 pg (28.0-33.3); Mean Corpuscular Volume 86.5 fL (83.0-100.0); Mean Platelet Volume 10.5 fL (9.4-12.4); Platelet Count 314 K/mcL (140-400); Red Blood Count 3.41 M/mcL (4.19-5.50); Red Cell Distribution Width 14.8 % (11.5-14.5)
[2017-06-17] MEDS: Doxycycline 100 MG in 0.9 % Sodium Chloride Mini Bag 100 ML IVPB SCH ×2 (05:57→17:20)
[2017-06-17] MEDS ORDERED: *HR* Morphine Sulfate SR (12 HR) 15 MG TABLET.ER PO SCH (06:00)
[2017-06-17 06:04] LABS: Calcium 8.1 mg/dL (8.6-10.8); Potassium 3.8 mEq/L (3.5-4.5)
--- NOTE | 2017-06-17 08:21 | Internal Med Progress Note ---
<Tatiaan Leroy - Last Filed: 06/17/17 12:47> Date of Encounter: 06/17/17 Time of Encounter: 08:20 - Assessment and plan (1) Weakness generalized Current Visit: Yes Status: Acute Assessment and plan: Patient states he has been in increased pain secondary to the wound on his neck. He has not been eating, did not have PD for 2-3 treatments prior to admission. He has been increasingly weak and lethargic. He was given a fentanyl patch that he wore for 24 hours, he became sweaty with it and was not experiencing much relief so he took it off. His pain is currently 8/10, relieved somewhat with morphine. Has had slight improvement in appetite, but not interested in breakfast. He drinks boost at home, does not like ensure. Advised that she can bring him boost if he will drink it. Dr. Albrecht had a long discussion with patient and about possibility of withdrawing PD vs going to facility that can assist with administering PD as patient does not desire HD. Will consult palliative for discussion on palliative options, wishes of patient and family. Plan: -Palliative consult -SW consult -PT/OT -Work on nutrition, which should help increase energy -Pain control -NS 75/hr x 1 Liter (2) Open neck wound Current Visit: Yes Status: Acute Assessment and plan: Left neck wound with history of infection with Pseudomonas and Klebsiella sensitive to ciprofloxacin, history of MRSA bacteremia sensitive to Doxycycline in the past Doxycycline (Day 2) and cipro (Day 2): both organisms were sensitive to these antibiotics in the past Awaiting results of wound culture has concern that wound is extending deeper, discussed using contrast with Dr. Albrecht who is agreeable to CT neck with contrast to assess for possible tunneled abscess. Pain moderately controlled today, may need to consider increasing MS contin dose tomorrow Plan: -Continue doxy and cipro (Day 2) -Wound culture showing ordered, not received. Will make sure it is obtained today. -Continue MS Contin, morphine for pain. -CT neck with contrast to assess for possible tunneled abscess CT soft tissue neck w con 06/17: There are low-density lesions in the left side of the neck that appear to represent a conglomeration of metastatic jugular lymph nodes. An abscess is felt to be less likely. There is irregularity of the left tongue base which may represent recurring disease. There is also fullness of the right nasopharynx which could represent recurrent disease or edema. Direct visualization might be useful. PET-CT is suggested to further evaluate. There is edema in the submental soft tissues. Qualifiers: Encounter type: initial encounter Qualified Code(s): S11.90XA - Unspecified open wound of unspecified part of neck, initial encounter (3) Laryngeal cancer Current Visit: No Status: Chronic (4) ESRD (end stage renal disease) on dialysis Current Visit: No Status: Chronic Assessment and plan: Dr. Albrecht consulted for PD, appreciated nephrology recommendations. (5) Peritoneal dialysis status Current Visit: Yes Status: Chronic (6) Anemia Current Visit: No Status: Acute Assessment and plan: Chronic, no signs of active bleeding, continue to monitor Qualifiers: Anemia type: due to chronic kidney disease Chronic kidney disease stage: on chronic dialysis Qualified Code(s): N18.6 - End stage renal disease; D63.1 - Anemia in chronic kidney disease; Z99.2 - Dependence on renal dialysis (7) Hypertension Current Visit: No Status: Chronic Qualifiers: Hypertension type: essential hypertension Qualified Code(s): I10 - Essential (primary) hypertension - Subjective Interval history: Patient seen and examined. Discussion with patient and his regarding wound : they state that this has been ongoing since he started oral chemo about 3 months ago and was worse. It has been packed, which home health comes and assesses and his changes the packing daily. She states it is healing well. The patient has been having increased pain over the last week in his neck. He has not felt like eating or doing PD for the last 2-3 nights prior to admission. He was given a fentanyl patch, which he wore for 24 hours. He developed sweats and felt it was not working, so his removed it. His pain has improved a little overnight. He also is starting to feel better after receiving PD. His appetite is not normalized yet, states he did not want breakfast but will try lunch. He does not like ensure, he prefers boost. - Constitutional Vitals: Temp Pulse Resp BP Pulse Ox 97.8 F 83 18 147/55 100 06/17/17 06:54 06/17/17 06:54 06/17/17 06:54 06/17/17 06:54 06/17/17 06:54 General appearance: Present: cooperative, A&O X 3 (Very hard of hearing), pleasant, no acute distress, answers questions appropriately - Head Head exam: Present: atraumatic, normocephalic - ENT ENT exam: Present: mucous membranes moist - Expanded ENT Exam Mouth exam: Present: tongue normal Throat exam: Present: normal inspection - Neck Neck exam general surgery: Present: tenderness Additional comments: No ulceration or lesion noted in mouth stoma clean, dry Wound on left lateral neck clean, no erythema or exudate, packing in place - Respiratory Respiratory exam: Present: CTAB. Absent: accessory muscle use, rales, rhonchi, wheezes - Cardiovascular Cardiovascular exam: Present: RRR, +S1, +S2. Absent: diastolic murmur, gallop, rubs, systolic murmur - GI/Abdominal GI/Abdominal exam: Present: normal bowel sounds, soft, no peritoneal signs. Absent: distended, tenderness Additional comments: PD port in place, clean, dry, no erythema - Extremities Exam Extremities exam: Present: normal capillary refill, warm, radial pulses palpable and symetrical. Absent: calf tenderness, cyanotic, pedal edema - Neurological Exam Neurological exam: Present: oriented X3, no focal deficits. Absent: pronater drift, facial droop, speech deficit - Psychiatric Psychiatric exam: Present: normal affect, normal mood Additional comments: patient appears fatigued - Skin Skin exam: Present: dry, intact Internal Medicine: Result - Labs CBC & Chem 7: 06/17/17 05:17 06/17/17 05:17 Labs: Short CBC 06/17/17 Range/Units 05:17 WBC 7.4 (4.3-11.1) K/mcL Hgb 9.3 L (12.9-16.9) g/dL Hct 29.5 L (37.5-50.1) % Plt Count 314 (140-400) K/mcL BMP 06/17/17 05:17 Sodium 139 Potassium 3.8 Chloride 103 Carbon Dioxide 25 BUN 37 H Creatinine 4.44 H Glucose 114 H Calcium 8.1 L Consult Discharge Plan - Plan Referrals: Figueroa Navarro DO [Primary Care Provider] - <Shreyas Ball - Last Filed: 06/17/17 18:05> Date of Encounter: 06/17/17 - Assessment and plan (1) Cellulitis Current Visit: Yes Status: Acute Qualifiers: Site of cellulitis: neck Qualified Code(s): L03.221 - Cellulitis of neck (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 (3) Open neck wound Current Visit: Yes Status: Acute Qualifiers: Encounter type: subsequent encounter Qualified Code(s): S11.90XD - Unspecified open wound of unspecified part of neck, subsequent encounter (4) Peritoneal dialysis status Current Visit: Yes Status: Chronic (5) Weakness generalized Current Visit: Yes Status: Acute (6) ESRD (end stage renal disease) Current Visit: Yes Status: Chronic - Constitutional Vitals: Temp Pulse Resp BP Pulse Ox 98.1 F 75 16 173/71 98 06/17/17 15:37 06/17/17 15:37 06/17/17 15:37 06/17/17 15:37 06/17/17 15:37 Internal Medicine: Result - Labs CBC & Chem 7: 06/17/17 05:17 06/17/17 05:17 Labs: Short CBC 06/17/17 Range/Units 05:17 WBC 7.4 (4.3-11.1) K/mcL Hgb 9.3 L (12.9-16.9) g/dL Hct 29.5 L (37.5-50.1) % Plt Count 314 (140-400) K/mcL BMP 06/17/17 05:17 Sodium 139 Potassium 3.8 Chloride 103 Carbon Dioxide 25 BUN 37 H Creatinine 4.44 H Glucose 114 H Calcium 8.1 L - Impressions Impressions Soft Tissue Neck CT 06/17/17 10:16 IMPRESSION: There are low-density lesions in the left side of the neck that appear to represent a conglomeration of metastatic jugular lymph nodes. An abscess is felt to be less likely. There is irregularity of the left tongue base which may represent recurring disease. There is also fullness of the right nasopharynx which could represent recurrent disease or edema. Direct visualization might be useful. PET-CT is suggested to further evaluate. There is edema in the submental soft tissues. D/ / 06/17/2017 11:47:36 Azucena Ryan MD / laya Interpreting Provider: Azucena Ryan MD - Attending Attestation I examined this patient and my medical decision-making was reviewed with the Resident Physician on 06/17/17. I agree with the documented findings, disposition and treatment plan as described except to the extent set forth below. Mr Porras is currently admitted due to weakness and increased pain in his neck. He has hx of laryngeal cancer and has a chronic wound there. He remains. moderate to high risk due to potential for worsening infection and need for pain control with med adjustments. Mr Porras is still having a lot of pain. Tolerating PD. No fever or chills. On IV abx now. CT of neck does not show abscess but has extension of tumor. Exam Alert. Mod distress due to pain. Mucus membranes moist Heart reg No wheeze Dressing intact Abd soft I/P 1. ESRD on PD 2. Neck pain 3. Laryngeal cancer. Further diagnoses and plan as above.
[2017-06-17] MEDS: Magnesium Oxide 400 MG TABLET PO SCH (08:25)
[2017-06-17] MEDS: Aspirin Enteric Coated 81 MG Tablet PO SCH (08:26)
[2017-06-17] MEDS: levETIRAcetam 250 MG TABLET PO SCH ×2 (08:26→19:38)
[2017-06-17] MEDS: EVEROLIMUS 7.5 MG PO SCH (08:27)
[2017-06-17] MEDS: Bacitracin/PolymyxinB OINT 14.17 GM TUBE TP SCH (09:52)
--- NOTE | 2017-06-17 10:15 | Nephrology Consult Note ---
Date of Encounter: 06/17/17 Time of Encounter: 10:12 Assessment and Plan (1) ESRD (end stage renal disease) Current Visit: Yes Status: Chronic Continue PD for today, but if the pt were to be so generally weak that he could not perform outpatient PD, then we could consider 1) switching to outpatient HD (he'd have to get a chair time arranged by the SW before discharge) or perhaps 2 ) considering palliative options such as stopping all forms of renal replacement therapy. He indicated as did is family that he would never want to resume HD. This is consistent with his many prior hospitalizations when he had also previously indicated that he'd never want HD. I spent time talking with him and his and sister about all options, including even palliative care, if he ever wanted it, but in the meantime, to help him regain strength so as to resume routing PD. Since he had demonstrated some mild improvement with the 0.9% saline (and since he has no edema), I actually do recommend IVF for volume expansion for about 1 liter at 75mL/hr. Also will continue PD with 1.5% dextrose, 2L bags every 6hr. He has no abd pains and he did not affirm (by nodding his head no) any recent fibrin, blood or cloudiness to his PD fluid; so, I do not suspect peritonitis. Will continue to follow with you. Thank you for consulting the [facility]. (2) Failure to thrive Current Visit: Yes Status: Acute IVF today. Consider PT/OT. Qualifiers: Failure to thrive age range: in adult Qualified Code(s): R62.7 - Adult failure to thrive (3) Peritoneal dialysis status Current Visit: Yes Status: Chronic See above. Continue PD for now. History of Present Illness - Reason for Consult Consult date: 06/16/17 end stage renal disease Requesting physician: Shreyas Ball - Chief Complaint Generalized weakness - History of Present Illness Wilfredo Porras is a very pleasant 66 y/o WM with a pmh of ESRD on PD, head & neck CA and et al who presented with worsening fatigue. He was so weak, according to the pt's and sister, that he even was unable to perform his routine PD for the last several days. He is unable to vocalize due to prior neck surgeries. He said that his weakness slightly improved with IVF that he received overnight while in the ER. Further subjective history was limited d/t his inability to speak. Past Med Surg Social Fam HX - Past Medical History Medical history: cancer, DVT, dialysis, hyperlipidemia, hypertension, myocardial infarction, renal disease, thyroid disease Psychiatric history: anxiety, depression - Past Surgical History Surgical History: cancer surgery, cataract, cholecystectomy, tracheostomy, other - Social History Smoking Status: Former smoker Smokeless Tobacco Status: No Alcohol use: none Drug use: none - Family History Mother Adopted: No Family Member Ethnicity: Non- Living Status: Hx Family Cardiac Disorders: No Hx Family Respiratory Disorders: No Hx Family Cancer: No Hx Family GI Disorders: No Hx Family Endocrine Disorder: No Hx Family Neuromuscular Disorders: No Hx Family Neurologic Disorders: Yes Hx Family HEENT Disorders: No Hx Family Autoimmune Disorders: No Brother Hx Family Cardiac Disorders: Yes (Hypertension) Hx Family Cancer: Yes (colon and prostate) Medications and Allergies Ferrous Sulfate 325 mg GTUBE BID 06/23/15 [History] Multivits,Ca,Min/Iron/FA/Lycop [Centrum Men's Tablet] 1 tab PO DAILY 06/23/15 [ History] Calcium Carbonate [Tums] 500 mg GTUBE TID 02/10/17 [History] Nut.tx.impaired Renal Fxn,Soy [Nepro Carb Steady] 1,422 ml GTUBE AD 02/10/17 [ History] Darbepoetin [Aranesp] 100 mcg SQ Q2W 04/02/17 [History] Magnesium Oxide [Mag-Ox] 400 mg PO DAILY 04/02/17 [History] Omeprazole [PriLOSEC] 40 mg PO DAILY 04/02/17 [History] OxyCODONE Immed Rel [Roxicodone 5 MG] 5 - 10 mg PO Q4HR PRN 04/03/17 [History] Bacitracin/PolymyxinB OINT [Polysporin] 1 appl TP DAILY 05/25/17 [History] Clopidogrel [Plavix] 75 mg PO DAILY 05/25/17 [History] Docusate [Colace] 100 mg PO BID 05/25/17 [History] Everolimus [Afinitor] 7.5 mg PO DAILY 05/25/17 [History] Levothyroxine [Synthroid] 100 mcg PO DAILY 05/25/17 [History] Metoprolol [Lopressor] 50 mg PO BID PRN 05/25/17 [History] Sennosides/Docusate Sodium [Senna Plus] 2 tab PO BID PRN 05/25/17 [History] levETIRAcetam [Keppra] 250 mg PO BID 05/25/17 [History] Aspirin 81 mg PO DAILY #30 tab 05/27/17 [Rx] Allergies diazepam Allergy (Intermediate, Verified 05/25/17 16:14) Agitated Zolpidem [From Ambien] Adverse Reaction (Verified 05/25/17 16:14) Hallucinating Review of Systems ROS unobtainable: other (due to his inability to speak from prior head & neck cancer surgeries) Exam - Vital Signs Vital signs: Initial Vital Signs Temp Pulse Resp BP Pulse Ox 97.5 F L 97 20 103/56 100 06/16/17 13:44 06/16/17 13:44 06/16/17 13:44 06/16/17 13:44 06/16/17 13:44 Vital Signs - Last 8 Hours Temp Pulse Resp BP Pulse Ox 06/17/17 06:54 97.8 F 83 18 147/55 100 06/17/17 04:58 98.4 F 93 16 150/69 97 Intake and Output 06/16/17 06/17/17 06/17/17 23:59 07:59 15:59 Intake Total 300 / 300 120 / 120 Output Total 700 / 700 0 / 0 Balance -400 / -400 120 / 120 Intake: IV Fluids 300 / 300 Cipro Premix 400 MG/200 200 / 200 ML 400 mg In 200 ml @ 200 mls/hr IVPB Q12HR [facility] Rx #:[id number] Doxycycline 100 MG In 0.9 100 / 100 % Sodium Chloride (Mini- Bag +) 100 ML @ 100 mls/ hr IVPB Q12HR [facility] Rx#: [id number] Oral 0 / 0 120 / 120 Output: Urine 0 / 0 Catheter 700 / 700 Other: Meal Breakfast Percent of Meal Consumed 10% Weight 74.8 kg 77.111 kg Patient Weight 06/17/17 23:59 Weight 77.111 kg - General Appearance General appearance: cachectic, chronically ill EENT: mucous membranes moist Neck: supple Respiratory: clear Cardiology: no edema, regular rate, normal S1, normal S2 - Dialysis Access Additional Comments: Abdominal PD catheter without tenderness to palpation Gastrointestinal: normoactive bowel sounds, no tenderness, no guarding Integumentary: warm and dry Neurologic: no focal deficit, no asterixis Musculoskeletal: no cyanosis, no clubbing Psychiatric: mood/affect appropriate, cooperative Results - Lab Results 06/17/17 05:17 06/17/17 05:17 Most recent lab results Calcium 8.1 mg/dL (8.6-10.8) L 06/17/17 05:17 Phosphorus 2.1 mg/dL (2.3-4.7) L 06/16/17 15:05 Magnesium 1.4 mg/dL (1.6-2.6) L 06/16/17 15:05 I reviewed the above auto-generated data chery and texts. I also reviewed the progress notes, labs, vitals & I/Os, meds and imaging. Consult Discharge Plan - Plan Referrals: Figueroa Navarro DO [Primary Care Provider] -
[2017-06-17] MEDS ORDERED: 0.9 % Sodium Chloride 1,000 ML IVC SCH (11:00)
--- NOTE | 2017-06-17 12:48 | Palliative - Consult Note ---
Date of Encounter: 06/17/17 Time of Encounter: 14:08 - Assessment and Plan (1) Cancer associated pain Current Visit: Yes Status: Acute Assessment and plan: Mr. Porras currently rates his pain 9/10 located to the head, neck, and low back. All 3 areas rate the same, and are described as constant sharp pains. He does report "thumb" improvement with current pain medications that "take the edge off". He has tried the fentanyl patch recently, but experienced side effects of anxiety, sweating, restlessness and self discontinued. At this time , would recommend avoiding the use of morphine due to his chronic renal failure. Will adjust oxycodone for more effective pain management. Continue to monitor and adjust accordingly. Discussed plan with Dr. Ball. (2) Therapeutic opioid-induced constipation (OIC) Current Visit: Yes Status: Acute Assessment and plan: Mr. Porras is currently on docusate sodium 100 mg by mouth twice a day scheduled. Recommend initiating senna for a stimulant laxative effect along with the stool softener effect. Mr. Porras does have a history of opioid induced constipation and is compliant with bowel regimen at home. (3) Open neck wound Current Visit: Yes Status: Acute Assessment and plan: Management per hospitalist. Qualifiers: Encounter type: initial encounter Qualified Code(s): S11.90XA - Unspecified open wound of unspecified part of neck, initial encounter (4) ESRD (end stage renal disease) Current Visit: Yes Status: Chronic Assessment and plan: Nephrology following. (5) Goals of care, counseling/discussion Current Visit: Yes Status: Acute Assessment and plan: Discuss goals of care with Mr. Porras and his spouse-Nikki. Discussed CODE STATUS options, at this time Mr. Porras will remain a full code. Also reviewed long-term goals of care. Mr. Porras has made it very clear that he does not wish to pursue hemodialysis. Both he and his spouse also prefer for him to be in the home setting, and avoid ECF placement if possible. We did discuss hospice care, however Mr. Porras does not feel he is ready for hospice at this time. He would like to continue to pursue aggressive treatment-especially for his end-stage renal disease. (6) Laryngeal cancer Current Visit: No Status: Chronic Palliative-CN HPI - Data of Consult Patient: known to practice within the last 3 years Consult date: 06/17/17 Requesting Physician: Shreyas Ball DO Primary Care Provider: Figueroa Navarro - Consult Narrative Palliative Care/Comfort Measures: Palliative care Reason for consult: Goals of care History of present illness: Mr. Porras is a 66 year old male patient known to the palliative care team. He has a history of laryngeal cancer, and [facility]. He also has end- stage renal disease on peritoneal dialysis, followed by [facility]. Mr. Porras presented to the emergency department at [facility] on 06/12/2017 with intractable head and neck pain. After evaluation, he was discharged home with a fentanyl patch for pain management. Over the next few days, his head and neck pain worsened. He developed increasing anxiety, sweating, nausea. Both he and his spouse attributed these symptoms to the fentanyl patch and removed it after the first 24 hours. Mr. Porras continued to feel poorly, and actually skipped his peritoneal dialysis treatments. He presented to [facility] on 06/16/2017 with the chief complaint of weakness and intractable pain/headache. He has a known infection to the neck wound and was placed on the appropriate antibiotic therapy. Nephrology was consulted to assist with peritoneal dialysis orders. The palliative care team was consulted to assist with goals of care planning. Mr. Porras remains physically active. He typically manages his own peritoneal dialysis. His appetite is healthy, and he supplements with boost when necessary. Mr. Porras reports pain to the left side of his neck rating 9/10 and described as a sharp continuous pain. He reports "some" improvement with the pain medications stating it "takes the edge off". He does contend with opioid-induced constipation and is compliant with his bowel regimen at home. CC: Shreyas Ball DO Past Med Surg Social Fam HX - Past Medical History Attestation: Yes The following information was validated with the patient. Source: patient, old records reviewed, obtained from family Medical history: cancer (Laryngeal cancer), DVT, dialysis, hyperlipidemia, hypertension, myocardial infarction, renal disease, thyroid disease, other ( Bilateral carotid stenosis) Psychiatric history: anxiety, depression - Past Surgical History Surgical History: cancer surgery, cataract, cholecystectomy, tracheostomy (Open stoma site), other (Stents placed to bilateral carotid arteries) - Social History Smoking Status: Former smoker Smokeless Tobacco Status: No Alcohol use: none Drug use: none Additional social history: Mr. Porras resides in the home with his -Nikki. He has [facility]. - Family History Mother Adopted: No Family Member Ethnicity: Non- Living Status: Hx Family Cardiac Disorders: No Hx Family Respiratory Disorders: No Hx Family Cancer: No Hx Family GI Disorders: No Hx Family Endocrine Disorder: No Hx Family Neuromuscular Disorders: No Hx Family Neurologic Disorders: Yes Hx Family HEENT Disorders: No Hx Family Autoimmune Disorders: No Brother Hx Family Cardiac Disorders: Yes (Hypertension) Hx Family Cancer: Yes (colon and prostate) Medications and Allergies Ferrous Sulfate 325 mg GTUBE BID 06/23/15 [History] Multivits,Ca,Min/Iron/FA/Lycop [Centrum Men's Tablet] 1 tab PO DAILY 06/23/15 [ History] Calcium Carbonate [Tums] 500 mg GTUBE TID 02/10/17 [History] Nut.tx.impaired Renal Fxn,Soy [Nepro Carb Steady] 1,422 ml GTUBE AD 02/10/17 [ History] Darbepoetin [Aranesp] 100 mcg SQ Q2W 04/02/17 [History] Magnesium Oxide [Mag-Ox] 400 mg PO DAILY 04/02/17 [History] Omeprazole [PriLOSEC] 40 mg PO DAILY 04/02/17 [History] OxyCODONE Immed Rel [Roxicodone 5 MG] 5 - 10 mg PO Q4HR PRN 04/03/17 [History] Bacitracin/PolymyxinB OINT [Polysporin] 1 appl TP DAILY 05/25/17 [History] Clopidogrel [Plavix] 75 mg PO DAILY 05/25/17 [History] Docusate [Colace] 100 mg PO BID 05/25/17 [History] Everolimus [Afinitor] 7.5 mg PO DAILY 05/25/17 [History] Levothyroxine [Synthroid] 100 mcg PO DAILY 05/25/17 [History] Metoprolol [Lopressor] 50 mg PO BID PRN 05/25/17 [History] Sennosides/Docusate Sodium [Senna Plus] 2 tab PO BID PRN 05/25/17 [History] levETIRAcetam [Keppra] 250 mg PO BID 05/25/17 [History] Aspirin 81 mg PO DAILY #30 tab 05/27/17 [Rx] Allergies diazepam Allergy (Intermediate, Verified 05/25/17 16:14) Agitated Zolpidem [From Ambien] Adverse Reaction (Verified 05/25/17 16:14) Hallucinating - Constitutional Constitutional ROS PAL: no decreased appetite, no chills, no fever(s), no frequent falls - EENT Eyes: no change in vision Ears: decreased hearing (Wears bilateral hearing aids) Ears, nose, mouth, throat: no dysphagia Additional comments: Status post tracheostomy with open stoma site - Cardiovascular Cardiovascular ROS: no chest pain, no chest pain with activity, no dyspnea on exertion, no edema - Respiratory Respiratory: cough (Nonproductive), no dyspnea, no hemoptysis, no dyspnea on exertion - Gastrointestinal Gastrointestinal: constipation (Related to opioid use), no diarrhea, no nausea, no vomiting - Genitourinary Additional comments: Peritoneal dialysis - Musculoskeletal Musculoskeletal ROS IM: muscle weakness - Integumentary ROS Integumentary: no skin ulcer, no unusual bruising - Neurological Neurological ROS: no focal weakness, no lack of coordination, no weakness - Psychiatric Psychiatric general PM: no anxiety Palliative Care-Exam - Constitutional Vitals: Temp Pulse Resp BP Pulse Ox 98 F 82 16 163/66 97 06/17/17 11:35 06/17/17 11:35 06/17/17 11:35 06/17/17 11:35 06/17/17 11:35 Exam: 66-year-old male patient, alert/oriented 3, smiling and interactive in conversation and physical exam. He does have an open tracheostomy site. - Head Head Exam: Present: atraumatic - Eye Eye exam: Present: EOMI - ENT ENT exam: Present: mucous membranes moist Additional comments: Dressing intact to left side of the neck, open tracheostomy. - Neck Additional comments: Dressing intact to the left side of the neck. - Respiratory Respiratory exam: Present: CTAB. Absent: accessory muscle use, wheezes, tachypnea - Cardiovascular Cardiovascular exam: Present: RRR - GI/Abdominal Exam GI/Abdominal exam: Present: normal bowel sounds, soft. Absent: tenderness additional comments: Peritoneal dialysis catheter in place. - Extremities Exam Extremities exam: Absent: pedal edema - Neurological Exam Neurological exam: Present: alert, oriented X3, no focal deficits, strengths equal and symetr throughout - Psychiatric Psychiatric exam: Present: normal affect, normal mood. Absent: agitated, anxious - Skin Skin exam: Present: dry, warm Internal Medicine - CN: Reslt - Labs CBC & Chem 7: 06/17/17 05:17 06/17/17 05:17 Labs: Short CBC 06/17/17 Range/Units 05:17 WBC 7.4 (4.3-11.1) K/mcL Hgb 9.3 L (12.9-16.9) g/dL Hct 29.5 L (37.5-50.1) % Plt Count 314 (140-400) K/mcL BMP 06/17/17 05:17 Sodium 139 Potassium 3.8 Chloride 103 Carbon Dioxide 25 BUN 37 H Creatinine 4.44 H Glucose 114 H Calcium 8.1 L - Impressions Impressions Soft Tissue Neck CT 06/17/17 10:16 IMPRESSION: There are low-density lesions in the left side of the neck that appear to represent a conglomeration of metastatic jugular lymph nodes. An abscess is felt to be less likely. There is irregularity of the left tongue base which may represent recurring disease. There is also fullness of the right nasopharynx which could represent recurrent disease or edema. Direct visualization might be useful. PET-CT is suggested to further evaluate. There is edema in the submental soft tissues. D/ / 06/17/2017 11:47:36 Azucena Ryan MD / laya Interpreting Provider: Azucena Ryan MD Consult Discharge Plan - Plan Referrals: Figueroa Navarro DO [Primary Care Provider] - Palliative Quality Palliative Quality: Screen for Code Status: Yes, Screen for Goals of Care: Yes, Screen for Pain: Yes, If Pain Regimen Started, Initiate Bowel Regimen: Yes, Screen for Nausea/Vomitting: Yes Code Status: 06/16/17 18:41 Resuscitation Status: Active [RES] Routine Comment: Resuscitation Status: Full Code
[2017-06-17] MEDS ORDERED: *HR* OxyCODONE Immed Rel 5 MG TABLET PO PRN (14:32)
[2017-06-17] MEDS: Sennosides/Docusate Sodium TABLET PO SCH (20:16)
[2017-06-18] MEDS: Perit. Dialysis with Dex 1.5 % 2,000 ML PERITONEAL SCH ×2 (01:55→08:28)
[2017-06-18] MEDS: *HR* OxyCODONE Immed Rel 5 MG TABLET PO PRN ×2 (02:07→09:51)
[2017-06-18 04:05] LABS: Basophils % 0.2 %; Eosinophils # 0.1 K/mcL (0.0-0.6); Eosinophils % 1.8 %; Hematocrit 26.5 % (37.5-50.1); Hemoglobin 8.3 g/dL (12.9-16.9); Immature Granulocytes % 1.1 % (0-4); Lymphocytes # 0.5 K/mcL (0.6-4.6); Lymphocytes % 8.1 %; Mean Corpuscular HGB Conc 31.3 g/dL (31.6-35.5); Mean Corpuscular Hemoglobin 27.2 pg (28.0-33.3); Mean Corpuscular Volume 86.9 fL (83.0-100.0); Mean Platelet Volume 10.4 fL (9.4-12.4); Monocytes # 0.7 K/mcL (0.0-1.3); Monocytes % 11.7 %; Neutrophils # 4.7 K/mcL (1.6-8.9); Platelet Count 278 K/mcL (140-400); Red Blood Count 3.05 M/mcL (4.19-5.50); Segmented Neutrophils % 77.1 %
[2017-06-18 04:23] LABS: Alanine Aminotransferase 22 Units/L (0-55); Albumin/Globulin Ratio 0.4 (1.1-2.2); Alkaline Phosphatase 80 Units/L (38-126); Aspartate Amino Transferase 35 Units/L (5-34); BUN/Creatinine Ratio 7 (6-26); Blood Urea Nitrogen 30 mg/dL (8-26); Calcium 7.6 mg/dL (8.6-10.8); Carbon Dioxide 26 mEq/L (19-29); Chloride 102 mEq/L (98-109); Globulin 3.6 g/dL (2.4-3.5); Glucose 111 mg/dL (70-99); Magnesium 1.2 mg/dL (1.6-2.6); Osmolality,Calculated 289 (280-300); Potassium 3.4 mEq/L (3.5-4.5); Sodium 136 mEq/L (136-145); Total Protein 5.2 g/dL (6.0-8.3); eGFR For African Americans 17 (> 60); eGFR For Non-African Americans 14 (> 60)
[2017-06-18 04:25] LABS: Albumin 1.6 g/dL (3.5-5.0); Bilirubin,Total < 0.3 mg/dL (0.2-1.2)
[2017-06-18] MEDS: Doxycycline 100 MG in 0.9 % Sodium Chloride Mini Bag 100 ML IVPB SCH (06:17)
[2017-06-18] MEDS: EVEROLIMUS 7.5 MG PO SCH (08:14)
[2017-06-18] MEDS: Bacitracin/PolymyxinB OINT 14.17 GM TUBE TP SCH (08:14)
[2017-06-18] MEDS: Sennosides/Docusate Sodium TABLET PO SCH (08:28)
[2017-06-18] MEDS: Aspirin Enteric Coated 81 MG Tablet PO SCH (08:28)
[2017-06-18] MEDS: levETIRAcetam 250 MG TABLET PO SCH (08:29)
[2017-06-18] MEDS: Magnesium Oxide 400 MG TABLET PO SCH (08:29)
--- NOTE | 2017-06-18 09:57 | Palliative Progress Note ---
Date of Encounter: 06/18/17 Time of Encounter: 09:50 - Assessment and plan (1) Cancer associated pain Current Visit: Yes Status: Acute Assessment and plan: Patient stated he is more comfortable with the Oxycodone 15mg. He has utilized x3 last 24 hours. He only has 5 mg tabs at home, and next oncology visit at [facility] not til June 27. He will need a prescription for these prior to d/c. D /W Dr. Cannon (2) Therapeutic opioid-induced constipation (OIC) Current Visit: Yes Status: Acute Assessment and plan: Continue Senokot BID. If he remains in hospital and no BM by tomorrow, will add additional laxative. - Time Spent With Patient Total time spent is greater than 50% in coordination of care (as documented) at patient's floor/unit and/or counseling patient: 25 - 35 minutes - Subjective Interval history: Patient up and around room. at bedside. STates eating well, pain better controlled with Oxycodone 15mg. Hoping to be discharged soon. - Constitutional Vitals: Abnormal lab results RBC 3.05 M/mcL (4.19-5.50) L 06/18/17 03:38 Hgb 8.3 g/dL (12.9-16.9) L 06/18/17 03:38 Hct 26.5 % (37.5-50.1) L 06/18/17 03:38 MCH 27.2 pg (28.0-33.3) L 06/18/17 03:38 MCHC 31.3 g/dL (31.6-35.5) L 06/18/17 03:38 RDW 15.0 % (11.5-14.5) H 06/18/17 03:38 Lymphocytes # 0.5 K/mcL (0.6-4.6) L 06/18/17 03:38 Potassium 3.4 mEq/L (3.5-4.5) L 06/18/17 03:38 BUN 30 mg/dL (8-26) H 06/18/17 03:38 Creatinine 4.14 mg/dL (0.72-1.25) H 06/18/17 03:38 Est GFR ( Amer) 17 (> 60) L 06/18/17 03:38 Est GFR (Non-Af Amer) 14 (> 60) L 06/18/17 03:38 Glucose 111 mg/dL (70-99) H 06/18/17 03:38 Calcium 7.6 mg/dL (8.6-10.8) L 06/18/17 03:38 Phosphorus 2.1 mg/dL (2.3-4.7) L 06/16/17 15:05 Magnesium 1.2 mg/dL (1.6-2.6) L 06/18/17 03:38 AST 35 Units/L (5-34) H 06/18/17 03:38 Troponin I 0.05 ng/mL (0-0.03) H* 06/16/17 15:05 Serum Total Protein 5.2 g/dL (6.0-8.3) L 06/18/17 03:38 Albumin 1.6 g/dL (3.5-5.0) L 06/18/17 03:38 Globulin 3.6 g/dL (2.4-3.5) H 06/18/17 03:38 Albumin/Globulin Ratio 0.4 (1.1-2.2) L 06/18/17 03:38 Urine Protein >=300 mg/dL (Neg-Trace) H 06/16/17 14:40 Urine Ketones Trace mg/dL (Negative) H 06/16/17 14:40 Urine Blood Trace (Negative) H 06/16/17 14:40 Urine Microscopic RBC 3-5 per hpf (0-3) H 06/16/17 14:40 Urine Microscopic WBC 30-50 per hpf (0-3) H 06/16/17 14:40 Ur Squamous Epith Cells Many per lpf (None-Few) H 06/16/17 14:40 Ur Culture Indicated? YES (NO) A 06/16/17 14:40 General appearance: Present: no acute distress - Respiratory Respiratory exam: Present: CTAB - Cardiovascular Cardiovascular exam: Present: +S1, +S2 - GI/Abdominal GI/Abdominal exam: Present: normal bowel sounds, soft - Extremities Exam Extremities exam: Present: normal capillary refill, normal inspection - Neurological Exam Neurological exam: Present: alert, oriented X3, strengths equal and symetr throughout - Skin Skin exam: Present: dry, pallor, warm Palliative Quality Palliative Quality: Screen for Code Status: Yes, Screen for Goals of Care: Yes, Screen for Pain: Yes, If Pain Regimen Started, Initiate Bowel Regimen: Yes, Screen for Nausea/Vomitting: Yes - Labs CBC & Chem 7: 06/18/17 03:38 06/18/17 03:38 Labs: Laboratory Results - last 24 hr 06/18/17 06/18/17 03:38 03:38 WBC 6.1 RBC 3.05 L Hgb 8.3 L Hct 26.5 L MCV 86.9 MCH 27.2 L MCHC 31.3 L RDW 15.0 H Plt Count 278 MPV 10.4 Immature Gran % 1.1 Seg Neutrophils % 77.1 Lymphocytes % 8.1 Monocytes % 11.7 Eosinophils % 1.8 Basophils % 0.2 Neutrophils # 4.7 Lymphocytes # 0.5 L Monocytes # 0.7 Eosinophils # 0.1 Basophils # 0.0 Sodium 136 Potassium 3.4 L Chloride 102 Carbon Dioxide 26 BUN 30 H Creatinine 4.14 H Est GFR ( Amer) 17 L Est GFR (Non-Af Amer) 14 L BUN/Creatinine Ratio 7 Glucose 111 H Calculated Osmolality 289 Calcium 7.6 L Magnesium 1.2 L Total Bilirubin < 0.3 AST 35 H ALT 22 Alkaline Phosphatase 80 Serum Total Protein 5.2 L Albumin 1.6 L Globulin 3.6 H Albumin/Globulin Ratio 0.4 L Consult Discharge Plan - Plan Referrals: Figueroa Navarro DO [Primary Care Provider] -
--- NOTE | 2017-06-18 10:23 | Discharge Summary ---
<Jesus Valadez - Last Filed: 06/18/17 14:49> Date of Encounter: 06/18/17 Time of Encounter: 10:16 - Discharge Diagnosis (1) Anemia Priority: Secondary Status: Acute Qualifiers: Anemia type: due to chronic kidney disease Chronic kidney disease stage: on chronic dialysis Qualified Code(s): N18.6 - End stage renal disease; D63.1 - Anemia in chronic kidney disease; Z99.2 - Dependence on renal dialysis (2) Back pain Priority: Secondary Status: Acute Qualifiers: Back pain location: low back pain Chronicity: unspecified Back pain laterality: unspecified Sciatica presence: with sciatica Sciatica laterality : bilateral sciatica Qualified Code(s): M54.42 - Lumbago with sciatica, left side (3) Cellulitis Priority: Secondary Status: Acute Qualifiers: Site of cellulitis: neck Qualified Code(s): L03.221 - Cellulitis of neck (4) Open neck wound Priority: Secondary Status: Acute Qualifiers: Encounter type: subsequent encounter Qualified Code(s): S11.90XD - Unspecified open wound of unspecified part of neck, subsequent encounter (5) Weakness generalized Priority: Primary Status: Acute (6) ESRD (end stage renal disease) on dialysis Priority: Secondary Status: Chronic (7) Hypertension Priority: Secondary Status: Chronic Qualifiers: Hypertension type: essential hypertension Qualified Code(s): I10 - Essential (primary) hypertension (8) Laryngeal cancer Priority: Secondary Status: Chronic (9) Peritoneal dialysis status Priority: Secondary Status: Chronic - Discharge Medications Prescriptions: OxyCODONE Immed Rel [Roxicodone 5 MG] 15 mg PO Q4HR PRN #60 tab PRN Reason: Pain Sennosides/Docusate Sodium [Senna Plus] 2 each PO BID #120 tab Home Medications: Ferrous Sulfate 325 mg GTUBE BID 06/23/15 [History] Multivits,Ca,Min/Iron/FA/Lycop [Centrum Men's Tablet] 1 tab PO DAILY 06/23/15 [ History] Calcium Carbonate [Tums] 500 mg GTUBE TID 02/10/17 [History] Nut.tx.impaired Renal Fxn,Soy [Nepro Carb Steady] 1,422 ml GTUBE AD 02/10/17 [ History] Darbepoetin [Aranesp] 100 mcg SQ Q2W 04/02/17 [History] Magnesium Oxide [Mag-Ox] 400 mg PO DAILY 04/02/17 [History] Omeprazole [PriLOSEC] 40 mg PO DAILY 04/02/17 [History] Bacitracin/PolymyxinB OINT [Polysporin] 1 appl TP DAILY 05/25/17 [History] Clopidogrel [Plavix] 75 mg PO DAILY 05/25/17 [History] Docusate [Colace] 100 mg PO BID 05/25/17 [History] Everolimus [Afinitor] 7.5 mg PO DAILY 05/25/17 [History] Levothyroxine [Synthroid] 100 mcg PO DAILY 05/25/17 [History] Metoprolol [Lopressor] 50 mg PO BID PRN 05/25/17 [History] Sennosides/Docusate Sodium [Senna Plus] 2 tab PO BID PRN 05/25/17 [History] levETIRAcetam [Keppra] 250 mg PO BID 05/25/17 [History] Aspirin 81 mg PO DAILY #30 tab 05/27/17 [Rx] OxyCODONE Immed Rel [Roxicodone 5 MG] 15 mg PO Q4HR PRN #60 tab 06/18/17 [Rx] Sennosides/Docusate Sodium [Senna Plus] 2 each PO BID #120 tab 06/18/17 [Rx] Allergies/Adverse Reactions: Allergies diazepam Allergy (Intermediate, Verified 05/25/17 16:14) Agitated Zolpidem [From Ambien] Adverse Reaction (Verified 05/25/17 16:14) Hallucinating Date of admission: 06/17/17 17:17 Primary care physician: Figueroa Navarro Consults: 06/17/17 18:49 Consult to Wound Care [CONS] Routine Reason for Consult: open wound draining in neck Call Completed: No Consult to Wound Care [CONS] Routine Reason for Consult: open wound to left neck Call Completed: No - Patient Status Disposition: Home, Self-Care Condition: Fair - Discharge Instructions Follow Up With: Figueroa Navarro DO [Primary Care Provider] - (patient will have to call for an appt. for this Clinic per Dr. Agarwal staff) Hospital course: Mr. Porras is a 66 year old male who presented tot he ED on 06/16/17 due to severe generalized weakness. Patient was recently hospitalized on May 27 for eval of GI bleed, larynngectomy, DVT in 01/25, and ESRD on peritoneal dialysis. He also reported associated symptoms including unable to eat, drink, severe headache, and pain near his open neck wound. Due to previous infection of Psuedomonas and Klebsiella sensitive to ciprofloxacin, patient was started on ciprofloxacin. As well he has a history of MRSA that was sensitive to doxycycline, which he was also started on. Wound cultures were taken at this time and MS contine was started for pain. Palliative, SW, PT/OT and nutrition were consulted. Patient received Peritoneal dialysis with 1.5% dextrose, 2L bags ever 6 hours on 06/17/17. For pain control patient was started on Oxycodone which controlled his pain to about 4-5/10. Patient decided that he was not ready for hospice and does not want hemodialysis. Cultures came back negative, without WBC elevation, or fever. Patient was given a prescription for oxycodone for 10 days until patient is able to follow up outpatient Oncology visit on 06/27/17. - Time Spent with Patient Total time spent providing and/or coordinating discharge services: - Constitutional Vitals: Temp Pulse Resp BP Pulse Ox 98.3 F 80 18 140/65 98 06/18/17 07:37 06/18/17 07:37 06/18/17 07:37 06/18/17 07:37 06/18/17 07:37 General appearance: Present: cooperative, A&O X 3 (Very hard of hearing), pleasant, no acute distress, answers questions appropriately - Head Head exam: Present: atraumatic, normocephalic - Neck Neck exam general surgery: Present: tenderness Additional comments: anterior Midline c3-c4 open wound. Non-infectious looking - Respiratory Respiratory exam: Present: decreased breath sounds - Cardiovascular Cardiovascular exam: Present: RRR, +S1, +S2. Absent: diastolic murmur, gallop, rubs, systolic murmur - GI/Abdominal GI/Abdominal exam: Present: normal bowel sounds, soft, no peritoneal signs. 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 (3) Open neck wound Status: Acute Qualifiers: Encounter type: subsequent encounter Qualified Code(s): S11.90XD - Unspecified open wound of unspecified part of neck, subsequent encounter (4) Peritoneal dialysis status Status: Chronic (5) Weakness generalized Status: Acute (6) ESRD (end stage renal disease) Priority: Secondary Status: Chronic Date of admission: 06/17/17 17:17 Primary care physician: Figueroa Navarro Consults: 06/17/17 18:49 Consult to Wound Care [CONS] Routine Reason for Consult: open wound draining in neck Call Completed: No Consult to Wound Care [CONS] Routine Reason for Consult: open wound to left neck Call Completed: No Hospital course: Mr. Porras is a 66 year old male - Time Spent with Patient Total time spent providing and/or coordinating discharge services: 38min - Constitutional Vitals: Temp Pulse Resp BP Pulse Ox 97.5 F L 78 17 124/74 100 06/18/17 11:28 06/18/17 11:28 06/18/17 11:28 06/18/17 11:28 06/18/17 11:28 - Attending Attestation I examined this patient and my medical decision-making was reviewed with the Resident Physician on 06/18/17. I agree with the documented findings, disposition and treatment plan as described except to the extent set forth below. Mr. Porras was admitted for concern for infection in his neck and intractable pain. He has improved with change in pain med. He is afebrile with stable vitals. He is ready for discharge home. Exam Alert. Up and walking without difficulty. Heart reg No wheeze Plan D/C home today Follow up as outpatient.
[2017-06-18 11:32] VITALS: BP 124/74
--- NOTE | 2017-06-18 15:16 | Electrocardiograph Report ---
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
--- NOTE | 2017-06-18 15:16 | Electrocardiograph Report ---
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
[2017-06-22] MEDS ORDERED: Darbepoetin 100 MCG/0.5 ML SYRINGE SQ SCH (18:30)
== END 2017-06-18 13:28 | disposition home or self-care (01) | DRG 602 ==
LOC: EMEROO 13:42 → 2NENU 13:42 → SUATTDRO 16:51 → 2NENU 19:11 → 2ANU 21:49
PROVIDERS: ADMIT Hospitalist; ATTEND Internal Medicine

== ENCOUNTER 2017-06-26 14:23 | Observation (INO) ==
--- NOTE | 2017-06-26 14:44 | Emergency Department Note ---
Disposition Clinical Impression: Dizziness, Hypomagnesemia, Hypocalcemia Disposition: Admitted As Inpatient Condition: Good General Adult HPI - General Chief complaint: ED Dizziness Stated complaint: ARMENDARIZ,Dizziness,weakness Time Seen by Provider: 06/26/17 14:41 Source: patient, family Limitations: no limitations - History of Present Illness Pain Scale: 8 - Related Data Home Medications Medication Instructions Recorded Confirmed Ferrous Sulfate 325 mg GTUBE BID 06/23/15 06/26/17 Multivits,Ca,Min/Iron/FA/Lycop 1 tab PO DAILY 06/23/15 06/26/17 [Centrum Men's Tablet] Calcium Carbonate [Tums] 500 mg GTUBE TID 02/10/17 06/26/17 Nut.tx.impaired Renal Fxn,Soy 1,422 ml GTUBE AD 02/10/17 06/26/17 [Nepro Carb Steady] Darbepoetin [Aranesp] 100 mcg SQ Q2W 04/02/17 06/26/17 Magnesium Oxide [Mag-Ox] 400 mg PO DAILY 04/02/17 06/26/17 Omeprazole [PriLOSEC] 40 mg PO DAILY 04/02/17 06/26/17 Bacitracin/PolymyxinB OINT 1 appl TP DAILY 05/25/17 06/26/17 [Polysporin] Clopidogrel [Plavix] 75 mg PO DAILY 05/25/17 06/26/17 Docusate [Colace] 100 mg PO BID 05/25/17 06/26/17 Everolimus [Afinitor] 7.5 mg PO DAILY 05/25/17 06/26/17 Levothyroxine [Synthroid] 100 mcg PO DAILY 05/25/17 06/26/17 Metoprolol [Lopressor] 50 mg PO BID PRN 05/25/17 06/26/17 levETIRAcetam [Keppra] 250 mg PO BID 05/25/17 06/26/17 Previous Rx's Medication Instructions Recorded Aspirin 81 mg PO DAILY #30 tab 05/27/17 OxyCODONE Immed Rel [Roxicodone 5 15 mg PO Q4HR PRN #60 tab 06/18/17 MG] Sennosides/Docusate Sodium [Senna 2 each PO BID #120 tab 06/18/17 Plus] Allergies Allergy/AdvReac Type Severity Reaction Status Date / Time diazepam Allergy Intermediate Agitated Verified 05/25/17 16:14 Zolpidem [From Ambien] AdvReac Hallucinati Verified 05/25/17 16:14 ng Past Medical History - Past Medical History Medical history: Reports: cancer, DVT, dialysis, hyperlipidemia, hypertension, myocardial infarction, renal disease, thyroid disease Surgical history: Reports: cancer surgery, cataract, cholecystectomy, tracheostomy, other Psychiatric history: Reports: anxiety, depression - Social History Smoking Status: Former smoker Smokeless Tobacco Status: No Alcohol use: Reports: none Drug use: Reports: none Physical Exam - General Limitations: no limitations General appearance: alert Course Vital Signs Temperature 0 F L 06/26/17 14:25 Pulse Rate 90 06/26/17 14:25 Respiratory Rate 18 06/26/17 14:25 Blood Pressure 100/59 06/26/17 14:25 O2 Sat by Pulse Oximetry 100 06/26/17 14:25 Temperature 98.1 F 06/26/17 23:18 Pulse Rate 81 06/26/17 23:18 Respiratory Rate 16 06/26/17 23:18 Blood Pressure 144/71 06/26/17 23:18 O2 Sat by Pulse Oximetry 99 06/26/17 23:18 Oxygen Delivery Oxygen Delivery Room Air Medical Decision Making - Lab Data Result diagrams: 06/26/17 15:44 06/27/17 02:50 Lab Results 06/26/17 06/26/17 06/26/17 Range/Units 15:23 15:44 15:44 WBC 6.1 (4.3-11.1) K/mcL RBC 3.05 L (4.19-5.50) M/mcL Hgb 8.5 L (12.9-16.9) g/dL Hct 26.4 L (37.5-50.1) % MCV 86.6 (83.0-100.0) fL MCH 27.9 L (28.0-33.3) pg MCHC 32.2 (31.6-35.5) g/dL RDW 16.0 H (11.5-14.5) % Plt Count 274 (140-400) K/mcL MPV 9.9 (9.4-12.4) fL Immature Gran % 0.5 (0-4) % Seg Neutrophils % 84.5 % Lymphocytes % 7.2 % Monocytes % 7.0 % Eosinophils % 0.5 % Basophils % 0.3 % Neutrophils # 5.2 (1.6-8.9) K/mcL Lymphocytes # 0.4 L (0.6-4.6) K/mcL Monocytes # 0.4 (0.0-1.3) K/mcL Eosinophils # 0.0 (0.0-0.6) K/mcL Basophils # 0.0 (0.0-0.2) K/mcL PT 10.6 (9.4-12.1) Seconds INR 1.0 Sodium (136-145) mEq/L Potassium (3.5-4.5) mEq/L Chloride (98-109) mEq/L Carbon Dioxide (19-29) mEq/L BUN (8-26) mg/dL Creatinine (0.72-1.25) mg/dL Est GFR ( Amer) (> 60) Est GFR (Non-Af Amer) (> 60) BUN/Creatinine Ratio (6-26) Glucose (70-99) mg/dL POC Glucose 130 H (58-89) Calculated Osmolality (280-300) Calcium (8.6-10.8) mg/dL Magnesium (1.6-2.6) mg/dL Troponin I (0-0.03) ng/mL 06/26/17 06/26/17 Range/Units 15:44 15:44 WBC (4.3-11.1) K/mcL RBC (4.19-5.50) M/mcL Hgb (12.9-16.9) g/dL Hct (37.5-50.1) % MCV (83.0-100.0) fL MCH (28.0-33.3) pg MCHC (31.6-35.5) g/dL RDW (11.5-14.5) % Plt Count (140-400) K/mcL MPV (9.4-12.4) fL Immature Gran % (0-4) % Seg Neutrophils % % Lymphocytes % % Monocytes % % Eosinophils % % Basophils % % Neutrophils # (1.6-8.9) K/mcL Lymphocytes # (0.6-4.6) K/mcL Monocytes # (0.0-1.3) K/mcL Eosinophils # (0.0-0.6) K/mcL Basophils # (0.0-0.2) K/mcL PT (9.4-12.1) Seconds INR Sodium 139 (136-145) mEq/L Potassium 2.7 L (3.5-4.5) mEq/L Chloride 108 (98-109) mEq/L Carbon Dioxide 24 (19-29) mEq/L BUN 27 H (8-26) mg/dL Creatinine 3.22 H (0.72-1.25) mg/dL Est GFR ( Amer) 23 L (> 60) Est GFR (Non-Af Amer) 19 L (> 60) BUN/Creatinine Ratio 8 (6-26) Glucose 109 H (70-99) mg/dL POC Glucose (58-89) Calculated Osmolality 294 (280-300) Calcium 6.5 L (8.6-10.8) mg/dL Magnesium 1.0 L (1.6-2.6) mg/dL Troponin I 0.03 (0-0.03) ng/mL Attestation Statement - Attestation Attestation: I examined this patient and my medical decision-making was reviewed with the Resident Physician. I agree with the documented findings, disposition and treatment plan as described except to the extent set forth below. [id number] time provided Patient feels dizzy and weak. His spouse states "same thing he was sent here for last week." He has a history of laryngeal cancer. He is a limited historian. Appears in no acute distress on exam
[2017-06-26] MEDS ORDERED: 0.9 % Sodium Chloride 500 ML IVC ONE (15:04)
--- NOTE | 2017-06-26 15:09 | Emergency Department Note ---
Disposition Clinical Impression: Dizziness, Hypomagnesemia, Hypocalcemia Disposition: Admitted As Inpatient Condition: Good Time of Disposition: 19:09 General Adult HPI - General Chief complaint: ED Dizziness Stated complaint: ARMENDARIZ,Dizziness,weakness Time Seen by Provider: 06/26/17 14:41 Source: patient, family Limitations: no limitations Nursing Notes Reviewed: Yes Vital Signs Reviewed: Yes - History of Present Illness HPI Narrative: Patient complaining of dizziness that began this morning. States he went back to bed however after he got back up a still dizzy. Since this happens to him several times proximally once a week for several months. Generally dehydrated whenever this happens. Does do peritoneal dialysis at home. Denies any chest pain or shortness of breath. Describes the dizziness as the world spinning. Worse whenever he goes from sitting to standing. Pain Scale: 8 - Related Data Home Medications Medication Instructions Recorded Confirmed Ferrous Sulfate 325 mg GTUBE BID 06/23/15 06/26/17 Multivits,Ca,Min/Iron/FA/Lycop 1 tab PO DAILY 06/23/15 06/26/17 [Centrum Men's Tablet] Calcium Carbonate [Tums] 500 mg GTUBE TID 02/10/17 06/26/17 Nut.tx.impaired Renal Fxn,Soy 1,422 ml GTUBE AD 02/10/17 06/26/17 [Nepro Carb Steady] Darbepoetin [Aranesp] 100 mcg SQ Q2W 04/02/17 06/26/17 Magnesium Oxide [Mag-Ox] 400 mg PO DAILY 04/02/17 06/26/17 Omeprazole [PriLOSEC] 40 mg PO DAILY 04/02/17 06/26/17 Bacitracin/PolymyxinB OINT 1 appl TP DAILY 05/25/17 06/26/17 [Polysporin] Clopidogrel [Plavix] 75 mg PO DAILY 05/25/17 06/26/17 Docusate [Colace] 100 mg PO BID 05/25/17 06/26/17 Everolimus [Afinitor] 7.5 mg PO DAILY 05/25/17 06/26/17 Levothyroxine [Synthroid] 100 mcg PO DAILY 05/25/17 06/26/17 Metoprolol [Lopressor] 50 mg PO BID PRN 05/25/17 06/26/17 levETIRAcetam [Keppra] 250 mg PO BID 05/25/17 06/26/17 Previous Rx's Medication Instructions Recorded Aspirin 81 mg PO DAILY #30 tab 05/27/17 OxyCODONE Immed Rel [Roxicodone 5 15 mg PO Q4HR PRN #60 tab 06/18/17 MG] Sennosides/Docusate Sodium [Senna 2 each PO BID #120 tab 06/18/17 Plus] Allergies Allergy/AdvReac Type Severity Reaction Status Date / Time diazepam Allergy Intermediate Agitated Verified 05/25/17 16:14 Zolpidem [From Ambien] AdvReac Hallucinati Verified 05/25/17 16:14 ng All systems ED: reviewed and negative except as stated. Constitutional: Denies: fever ENT ED: Denies: congestion Cardiovascular: Denies: chest pain, palpitations, dyspnea on exertion, syncope Respiratory: Denies: cough, dyspnea, wheezes Gastrointestinal: Denies: abdominal pain, nausea, vomiting, diarrhea Genitourinary: Denies: urgency, dysuria, frequency Musculoskeletal: Denies: back pain, neck pain Integumentary: Denies: rash Neurological: Reports: weakness, vertigo. Denies: headache Past Medical History - Past Medical History Medical history: Reports: cancer, DVT, dialysis, hyperlipidemia, hypertension, myocardial infarction, renal disease, thyroid disease Surgical history: Reports: cancer surgery, cataract, cholecystectomy, tracheostomy, other Psychiatric history: Reports: anxiety, depression - Social History Smoking Status: Former smoker Smokeless Tobacco Status: No Alcohol use: Reports: none Drug use: Reports: none Physical Exam - General Limitations: no limitations General appearance: alert, in no apparent distress - Head Head exam: atraumatic, normocephalic, normal inspection - Eye Eye exam: Present: normal appearance, PERRL, EOMI. Absent: nystagmus - ENT ENT exam: normal exam, normal oropharynx, mucous membranes moist - Neck Neck exam: Present: normal inspection, full ROM, trachea midline - Chest Chest inspection: Present: normal inspection, symmetric chest wall rise. Absent : tenderness - Respiratory Respiratory exam: Present: normal lung sounds bilaterally - Cardiovascular Cardiovascular exam: Present: regular rate, normal rhythm, normal heart sounds - Abdominal Exam Abdominal exam: Present: soft, Non-Tender, normal bowel sounds. Absent: tenderness, distention, guarding, rebound, rigidity, organomegaly - Extremities Exam Extremities exam: Present: normal inspection, full ROM, normal capillary refill. Absent: tenderness, pedal edema Course Course Narrative: Male patient with a trach presenting to the emergency department complaining of dizziness. Patient does do peritoneal dialysis daily. He is a patient of Dr. Lal. is speaking for patient. He appears to be mentating appropriately however he is nonverbal. He is agreeing with the 's assessment. States that earlier today he got out of bed and stated that he was very dizzy. So he laid back down. She states he is mentating appropriately artery just keeps complaining that he is dizzy. She states this happens to him frequently. She states this happened last week. Every time this happens he is dehydrated he gets fluids and feels better. She states he was here last week for this. This happened the week previously as well. While assessing patient his lung sounds are clear heart sounds are normal. His abdomen is soft and nontender. He does have several what appears to be hernias on his abdomen. states he has are normal for the patient. He does have a peritoneal dialysis site that does not appear to be infected at this time. It is not erythematous it is not warm. Patient has a good finger to nose. - Reevaluation(s) Reevaluation #1: To the bathroom and then back to bed. He did have some assistance with his walker. His gait was relatively normal. He did not sway to one side or the other. He is requesting his nighttime pain medication. He does have a history of metastatic cancer. We will provide this at this time. Time: 15:51 Reevaluation #2: We are placing patient's magnesium, calcium, and potassium. We will admit to the hospitalist. Time: 17:40 - Consultations Consultation #1: Brianna nurse practitioner accepted Pt in stable condition. Time: 17:40 Vital Signs Temperature 0 F L 06/26/17 14:25 Pulse Rate 90 06/26/17 14:25 Respiratory Rate 18 06/26/17 14:25 Blood Pressure 100/59 06/26/17 14:25 O2 Sat by Pulse Oximetry 100 06/26/17 14:25 Temperature 0 F L 06/26/17 14:25 Pulse Rate 79 06/26/17 16:31 Respiratory Rate 18 06/26/17 18:23 Blood Pressure 159/79 06/26/17 18:23 O2 Sat by Pulse Oximetry 100 06/26/17 16:31 Oxygen Delivery Oxygen Delivery Room Air Medical Decision Making - Medical Records Medical records reviewed: Yes I reviewed the patient's medical records. - Lab Data Lab results reviewed: Yes I reviewed the patient's lab results. Result diagrams: 06/26/17 15:44 06/26/17 15:44 Lab Results 06/26/17 06/26/17 06/26/17 Range/Units 15:23 15:44 15:44 WBC 6.1 (4.3-11.1) K/mcL RBC 3.05 L (4.19-5.50) M/mcL Hgb 8.5 L (12.9-16.9) g/dL Hct 26.4 L (37.5-50.1) % MCV 86.6 (83.0-100.0) fL MCH 27.9 L (28.0-33.3) pg MCHC 32.2 (31.6-35.5) g/dL RDW 16.0 H (11.5-14.5) % Plt Count 274 (140-400) K/mcL MPV 9.9 (9.4-12.4) fL Immature Gran % 0.5 (0-4) % Seg Neutrophils % 84.5 % Lymphocytes % 7.2 % Monocytes % 7.0 % Eosinophils % 0.5 % Basophils % 0.3 % Neutrophils # 5.2 (1.6-8.9) K/mcL Lymphocytes # 0.4 L (0.6-4.6) K/mcL Monocytes # 0.4 (0.0-1.3) K/mcL Eosinophils # 0.0 (0.0-0.6) K/mcL Basophils # 0.0 (0.0-0.2) K/mcL PT 10.6 (9.4-12.1) Seconds INR 1.0 Sodium (136-145) mEq/L Potassium (3.5-4.5) mEq/L Chloride (98-109) mEq/L Carbon Dioxide (19-29) mEq/L BUN (8-26) mg/dL Creatinine (0.72-1.25) mg/dL Est GFR ( Amer) (> 60) Est GFR (Non-Af Amer) (> 60) BUN/Creatinine Ratio (6-26) Glucose (70-99) mg/dL POC Glucose 130 H (58-89) Calculated Osmolality (280-300) Calcium (8.6-10.8) mg/dL Magnesium (1.6-2.6) mg/dL Troponin I (0-0.03) ng/mL 06/26/17 06/26/17 Range/Units 15:44 15:44 WBC (4.3-11.1) K/mcL RBC (4.19-5.50) M/mcL Hgb (12.9-16.9) g/dL Hct (37.5-50.1) % MCV (83.0-100.0) fL MCH (28.0-33.3) pg MCHC (31.6-35.5) g/dL RDW (11.5-14.5) % Plt Count (140-400) K/mcL MPV (9.4-12.4) fL Immature Gran % (0-4) % Seg Neutrophils % % Lymphocytes % % Monocytes % % Eosinophils % % Basophils % % Neutrophils # (1.6-8.9) K/mcL Lymphocytes # (0.6-4.6) K/mcL Monocytes # (0.0-1.3) K/mcL Eosinophils # (0.0-0.6) K/mcL Basophils # (0.0-0.2) K/mcL PT (9.4-12.1) Seconds INR Sodium 139 (136-145) mEq/L Potassium 2.7 L (3.5-4.5) mEq/L Chloride 108 (98-109) mEq/L Carbon Dioxide 24 (19-29) mEq/L BUN 27 H (8-26) mg/dL Creatinine 3.22 H (0.72-1.25) mg/dL Est GFR ( Amer) 23 L (> 60) Est GFR (Non-Af Amer) 19 L (> 60) BUN/Creatinine Ratio 8 (6-26) Glucose 109 H (70-99) mg/dL POC Glucose (58-89) Calculated Osmolality 294 (280-300) Calcium 6.5 L (8.6-10.8) mg/dL Magnesium 1.0 L (1.6-2.6) mg/dL Troponin I 0.03 (0-0.03) ng/mL - Radiology Data Radiology results reviewed: Yes I reviewed the patient's radiology results. Chest X-Ray 06/26/17 15:02 IMPRESSION: No acute cardiopulmonary disease. D/ / Del Christianson MD / Del Christianson MD Interpreting Provider: Del Christianson MD Head CT 06/26/17 15:02 IMPRESSION: No acute intracranial abnormality. Paranasal sinus disease in walking both maxillary and ethmoid sinuses as well as left frontal sinus. D/ / Lee Ann Jacobs Cha, MD / Lee Ann Jacobs Cha, MD Interpreting Provider: Lee Ann Jacobs Cha, MD
[2017-06-26] MEDS ORDERED: *HR* OxyCODONE/APAP 10/325 TABLET PO ONE (15:50)
[2017-06-26] MEDS ORDERED: *HR* OxyCODONE/APAP 5/325 TABLET PO ONE (15:51)
[2017-06-26 15:52] LABS: Basophils % 0.3 %; Eosinophils % 0.5 %; Hematocrit 26.4 % (37.5-50.1); Hemoglobin 8.5 g/dL (12.9-16.9); Immature Granulocytes % 0.5 % (0-4); Lymphocytes # 0.4 K/mcL (0.6-4.6); Lymphocytes % 7.2 %; Mean Corpuscular HGB Conc 32.2 g/dL (31.6-35.5); Mean Corpuscular Hemoglobin 27.9 pg (28.0-33.3); Mean Corpuscular Volume 86.6 fL (83.0-100.0); Mean Platelet Volume 9.9 fL (9.4-12.4); Monocytes # 0.4 K/mcL (0.0-1.3); Neutrophils # 5.2 K/mcL (1.6-8.9); Platelet Count 274 K/mcL (140-400); Red Blood Count 3.05 M/mcL (4.19-5.50); Segmented Neutrophils % 84.5 %
[2017-06-26 16:02] LABS: Prothrombin Time 10.6 Seconds (9.4-12.1)
[2017-06-26 16:05] LABS: Calcium 6.5 mg/dL (8.6-10.8); Potassium 2.7 mEq/L (3.5-4.5)
[2017-06-26] MEDS ORDERED: Potassium Effervescent 25 MEQ TABLET.EFF PO ONE (17:02)
[2017-06-26] MEDS ORDERED: Magnesium Sulfate 1 GM in D5% in Water 100 ML IVPB ONE (17:35)
[2017-06-26] MEDS ORDERED: Calcium Gluconate 1,000 MG in D5% in Water 100 ML IVPB ONE (17:35)
[2017-06-26] MEDS ORDERED: Naloxone 0.4 MG/ML INJ IVP PRN (20:09)
--- NOTE | 2017-06-26 20:15 | Internal Med History&Physical ---
<Matias Del Real - Last Filed: 06/26/17 21:05> Date of Encounter: 06/26/17 Time of Encounter: 19:15 Assessment and Plan (1) Dizziness Current visit: Yes Status: Acute - Intermittent lightheadedness for 3 days, aggravated by standing up too fast. - Likely orthostatic hypotension secondary to dehydration given reported diarrhea, large amount of fluid removed from PD and possible poor oral intake ( patient is on oral chemotherapy currently). - Echocardiogram on 03/30/17 found LVEF 65-70%, mild diastolic dysfunction and no mitral valve vegetation. - Bilateral carotid duplex on 04/04/17 suggested critical bilateral carotid stenosis. S/p left carotid stents placed at [facility]. Will obtain bilateral carotid duplex for further evaluation. - Will check orthostatic vitals. - Continue hydration with IV NS (100 cc/hr for total of 1 L). - Correct hypoK and hypoMg. - Fall precaution. - Continue to monitor. Time spent on admission: 45 minutes. (2) Hypokalemia Current visit: No Status: Acute - K at 2.7 in ED and received 50 meq of KHCO3 IV. - Continue to monitor and replenish accordingly. - Telemetry monitoring for potential arrhythmia associated with hypoK and/or hypoMg (3) Hypomagnesemia Current visit: No Status: Acute - Mg 1.0 in ED and received 1 gram of MgSO4 IV. - Will give 2 gram of MgSO4 IV infusing over 4 hours. - Continue to monitor and replenish accordingly. (4) ESRD (end stage renal disease) Current visit: No Status: Chronic - On peritoneal dialysis at home. - Case was discussed with Dr. Wharton of [place] [facility]. Given the renal function (BUN 27 / SCr 3.22 )appears to be better compared to 06/18/17 (BUN 30 / SCr 4.14), no need of peritoneal dialysis tonight - Nephrology consulted and appreciate further evaluation and management. (5) Carotid stenosis, bilateral Current visit: No Status: Chronic - Bilateral carotid duplex on 04/04/17 suggested critical bilateral carotid stenosis. - S/p left carotid stents placed at [facility]. - Will obtain bilateral carotid duplex for further evaluation. 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 - Patient sees oncology at [facility]. (7) Cancer associated pain Current visit: No Status: Chronic - Continue home pain medication regimen. (8) DVT prophylaxis Current visit: No Status: Acute - SQ heparin. Internal Medicine - H&P: HPI Chief complaint: Dizziness Admitted From: Emergency Dept Plans for Post Hospital Care: Home History of present illness: Mr. Porras is a 66 year old male with PMH of laryngeal cancer s/p trach currently on oral chemotherapy, HTN, bilateral carotid artery stenosis s/p left carotid stents and history of mitral valve endocarditis s/p 6 weeks of vancomycin & Rocephin (02/14/17 - 03/28/17). Patient presented with complaint of intermittent dizziness for 3 days. Patient is not verbal due to his trach so much of history was obtained from patient's . Patient reports the dizziness as lightheadedness which is aggravated by standing up too fast. Patient denies chest pain/discomfort, palpitation, dypsnea, syncope, vision change, hearing, focal weakness. Patient had multiple ED visit/hospitalization for his dizziness before and patient's states it's most likely from dehydration. Patient had some loosen stools 2 days ago but no nausea/vomiting. Patient's did notice draining a lot of fluid from PD for past few days. Patient is full code. Patient was noted to have K 2.7 and Mg 1.0 in ED. 50 meq of KHCO3 IV and 1 gram of MgSO4 were given along with 500 mL of NS bolus. Past Med Surg Social Fam HX - Past Medical History Medical history: cancer (Larygneal cancer, currently on oral chemotherapy), DVT , dialysis, hyperlipidemia, hypertension, myocardial infarction, renal disease, thyroid disease Psychiatric history: anxiety, depression - Past Surgical History Surgical History: cancer surgery, cataract, cholecystectomy, tracheostomy, other (Left carotid stents) - Social History Smoking Status: Former smoker Smokeless Tobacco Status: No Alcohol use: none Drug use: none - Family History Mother Adopted: No Family Member Ethnicity: Non- Living Status: Hx Family Cardiac Disorders: No Hx Family Respiratory Disorders: No Hx Family Cancer: No Hx Family GI Disorders: No Hx Family Endocrine Disorder: No Hx Family Neuromuscular Disorders: No Hx Family Neurologic Disorders: Yes (Alzheimer's disease) Hx Family HEENT Disorders: No Hx Family Autoimmune Disorders: No Brother Hx Family Cardiac Disorders: Yes (Hypertension) Hx Family Cancer: Yes (colon and prostate) Internal Medicine - H&P: Meds Ferrous Sulfate 325 mg GTUBE BID 06/23/15 [History] Multivits,Ca,Min/Iron/FA/Lycop [Centrum Men's Tablet] 1 tab PO DAILY 06/23/15 [ History] Calcium Carbonate [Tums] 500 mg GTUBE TID 02/10/17 [History] Nut.tx.impaired Renal Fxn,Soy [Nepro Carb Steady] 1,422 ml GTUBE AD 02/10/17 [ History] Darbepoetin [Aranesp] 100 mcg SQ Q2W 04/02/17 [History] Magnesium Oxide [Mag-Ox] 400 mg PO DAILY 04/02/17 [History] Omeprazole [PriLOSEC] 40 mg PO DAILY 04/02/17 [History] Bacitracin/PolymyxinB OINT [Polysporin] 1 appl TP DAILY 05/25/17 [History] Clopidogrel [Plavix] 75 mg PO DAILY 05/25/17 [History] Docusate [Colace] 100 mg PO BID 05/25/17 [History] Everolimus [Afinitor] 7.5 mg PO DAILY 05/25/17 [History] Levothyroxine [Synthroid] 100 mcg PO DAILY 05/25/17 [History] Metoprolol [Lopressor] 50 mg PO BID PRN 05/25/17 [History] levETIRAcetam [Keppra] 250 mg PO BID 05/25/17 [History] Aspirin 81 mg PO DAILY #30 tab 05/27/17 [Rx] OxyCODONE Immed Rel [Roxicodone 5 MG] 15 mg PO Q4HR PRN #60 tab 06/18/17 [Rx] Sennosides/Docusate Sodium [Senna Plus] 2 each PO BID #120 tab 06/18/17 [Rx] Allergies diazepam Allergy (Intermediate, Verified 05/25/17 16:14) Agitated Zolpidem [From Ambien] Adverse Reaction (Verified 05/25/17 16:14) Hallucinating All Systems PM: A 10-system review of systems was performed and is negative for pertinent findings except as documented above in the HPI. - Constitutional Constitutional: no anorexia, no chills, no fever(s) - EENT Eyes: no change in vision Ears: no decreased hearing Nose, mouth and throat: no dysphagia, no odynophagia - Cardiovascular Cardiovascular ROS IM: lightheadedness, no chest pain, no palpitations, no syncope - Respiratory Respiratory: no cough, no dyspnea, no hemoptysis - Gastrointestinal Gastrointestinal: constipation, no abdominal pain, no hematochezia, no melena, no nausea, no vomiting - Genitourinary Genitourinary ROS male: no dysuria, no hematuria - Integumentary Integumentary IM: no pruritus, no rash - Neurological Neurological ROS: numbness (Chronic for bilateral hands), no focal weakness - Constitutional Vitals: Temp Pulse Resp BP Pulse Ox 98.3 F 94 18 174/83 99 06/26/17 19:55 06/26/17 19:55 06/26/17 19:55 06/26/17 19:55 06/26/17 19:55 General appearance: Present: cooperative, A&O X 3, no acute distress - Head Head exam: Present: atraumatic, normocephalic - Eye Eye exam: Present: EOMI, PERRL, conjuntiva pink, sclera anicteric - ENT ENT exam: Present: mucous membranes dry Additional comments: Trach in place. - Neck Neck exam general surgery: Present: supple, trachea midline. Absent: lymphadenopathy - Respiratory Respiratory exam: Present: CTAB. Absent: accessory muscle use, rales, rhonchi, wheezes - Cardiovascular Cardiovascular exam: Present: RRR, +S1, +S2. Absent: diastolic murmur, gallop, rubs, systolic murmur - GI/Abdominal GI/Abdominal exam: Present: hernia, normal bowel sounds, soft, no peritoneal signs. Absent: tenderness - Extremities Exam Extremities exam: Present: pedal edema (Mild to moderate BLE non-pitting edema) , warm, radial pulses palpable and symmetrical. Absent: calf tenderness, cyanotic - Neurological Exam Neurological exam: Present: CN II-XII intact, oriented X3, no focal deficits. Absent: pronater drift, facial droop - Skin Skin exam: Present: dry, intact, warm Internal Med - H&P Results - Labs CBC & Chem 7: 06/26/17 15:44 06/26/17 15:44 <Renzo Cannon - Last Filed: 06/27/17 01:33> Date of Encounter: 06/27/17 Internal Medicine - H&P: HPI History of present illness: Mr. Porras is a 66 year old male All Systems PM: A 10-system review of systems was performed and is negative for pertinent findings except as documented above in the HPI. - Constitutional Vitals: Temp Pulse Resp BP Pulse Ox 65.1 F L 81 16 144/71 99 06/26/17 23:18 06/26/17 23:18 06/26/17 23:18 06/26/17 23:18 06/26/17 23:18 Internal Med - H&P Results - Labs CBC & Chem 7: 06/26/17 15:44 06/26/17 21:20 Labs: BMP 06/26/17 21:20 Sodium 135 L Potassium 3.8 D Chloride 97 L Carbon Dioxide 27 BUN 32 H Creatinine 4.19 H Glucose 100 H Calcium 8.5 L D Liver Function 06/26/17 Range/Units 21:20 Total Bilirubin 0.4 (0.2-1.2) mg/dL AST 57 H (5-34) Units/L ALT 32 (0-55) Units/L Alkaline Phosphatase 93 (38-126) Units/L Albumin 2.0 L (3.5-5.0) g/dL Urine 06/26/17 Range/Units 21:52 Urine Color Yellow (Yellow) Urine Clarity Clear (Clear) Urine pH 7.0 (5.0-8.0) pH Units Ur Specific [place] 1.014 (1.010-1.025) Urine Protein >=300 H (Neg-Trace) mg/dL Urine Glucose (UA) Normal (Normal) mg/dL - Attending Attestation I saw and examined pt. I have discussed with Resident regarding the management plan, agree with the documentation. Pt has dizziness, not vertigo. Use PD at home for ESRD. Dizziness improved after hydration. Consider dehydration. Will also r/o arhythmia and carotid stenosis. Workup placed. Closely monitor pt.
[2017-06-26] MEDS ORDERED: 0.9 % Sodium Chloride 1,000 ML IVC SCH (20:30)
[2017-06-26] MEDS ORDERED: *HR* Heparin 5,000 UNIT/ML VIAL ONE (21:37)
[2017-06-26] MEDS: Magnesium Sulfate 2 GM in D5% in Water 100 ML IVPB ONE ×2 (21:39→21:47)
[2017-06-26] MEDS: levETIRAcetam 250 MG TABLET PO SCH (21:41)
[2017-06-26] MEDS: Sennosides/Docusate Sodium TABLET PO SCH (21:42)
[2017-06-26] MEDS: *HR* OxyCODONE Immed Rel 5 MG TABLET PO PRN (21:42)
[2017-06-26 21:46] LABS: Albumin/Globulin Ratio 0.5 (1.1-2.2); Bilirubin,Total 0.4 mg/dL (0.2-1.2); Globulin 4.4 g/dL (2.4-3.5); Total Protein 6.4 g/dL (6.0-8.3)
[2017-06-26 21:47] LABS: Calcium 8.5 mg/dL (8.6-10.8); Potassium 3.8 mEq/L (3.5-4.5)
[2017-06-26] MEDS: *HR* Heparin 5,000 UNIT/ML VIAL SQ SCH (21:47)
[2017-06-26 22:06] LABS: Bilirubin,Urine Negative (Negative); Blood,Urine Negative (Negative); Clarity,Urine Clear (Clear); Color,Urine Yellow (Yellow); Glucose,Urine (UA) Normal (Normal); Ketones,Urine Negative (Negative); Leukocyte Esterase,Urine Small (Negative); Nitrite,Urine Negative (Negative); Protein,Urine >=300 mg/dL (Neg-Trace); Specific Gravity,Urine 1.014 (1.010-1.025); Urobilinogen,Urine Normal (Normal)
[2017-06-26 22:16] LABS: Bacteria,Urine None Seen per hpf (None-Few); Hyaline Casts,Urine None Seen per lpf (None-Few); Squamous Epithelial Cell,Urine Many per lpf (None-Few); WBC,Urine 15-30 per hpf (0-3)
[2017-06-27] MEDS: *HR* OxyCODONE Immed Rel 5 MG TABLET PO PRN ×5 (01:55→20:30)
[2017-06-27 04:25] LABS: Albumin/Globulin Ratio 0.5 (1.1-2.2); Bilirubin,Total 0.3 mg/dL (0.2-1.2); Calcium 7.8 mg/dL (8.6-10.8); Globulin 3.6 g/dL (2.4-3.5); Magnesium 1.9 mg/dL (1.6-2.6); Potassium 3.9 mEq/L (3.5-4.5); Total Protein 5.3 g/dL (6.0-8.3)
[2017-06-27 04:28] LABS: Albumin 1.7 g/dL (3.5-5.0)
[2017-06-27] MEDS: *HR* Heparin 5,000 UNIT/ML VIAL SQ SCH ×3 (05:56→23:24)
--- NOTE | 2017-06-27 08:15 | Internal Med Progress Note ---
<Jesus Valadez - Last Filed: 06/27/17 15:54> Date of Encounter: 06/27/17 Time of Encounter: 08:15 - Assessment and plan (1) Dizziness Current Visit: Yes Status: Acute Assessment and plan: Orthostatic hypotension vs Mets vs dehydration secondary to diarrhea or PD vs Poor oral intake vs electrolytes imbalance. Gen Weakness and dizziness for 3 days prior to admission. Prev hospitalization on 06/16 with similar symptoms found to be positive for s. aureus in neck open wound treated with Cipro, and pain was managed with Oxcodone for 10 days. 03/30/17 echo - LVEF 65-70%, 04/04 ash carotid duplex critical carotid stenosis - [facility] placed carotid stent. hypoK and hypoMg on admission, since resolved with replacements. - Bilateral duplex - pending - Orthostatics - pending - MRI mets? hx/ laryngeal ca - pending - neph recommended holding PD for today while volume resuscitation and eletrollyte repletion - continue IVF NS - Fall precaution. - Continue to monitor. (2) Carotid stenosis, bilateral Current Visit: No Status: Chronic Assessment and plan: recent hx of severe carotid stenosis, carotid stents placed at [facility] 03/2017 - [place] duplex pending (3) Cancer associated pain Current Visit: No Status: Chronic Assessment and plan: controlled Roxicodone. Prescribed on last admission for 10 days until appointment with heme/onc. 2mg IV Morphine given PRN. (4) Hypomagnesemia Current Visit: Yes Status: Acute Assessment and plan: Mg on admission 1.0, replaced and now 1.9. stable. (5) ESRD on peritoneal dialysis Current Visit: No Status: Chronic Assessment and plan: Peritoneal Dialysis for ESRD. Last on 06/25, did not have PD on 06/26. Will continue on 06/27. Patient refuses to have HD due to previous experience with clots coming out of fistula. - Nephrology following. currently hold PD until eletrolytes are replenished (6) Hypokalemia Current Visit: No Status: Acute Assessment and plan: K+ on admission 2.7, received K+ IV 50 meq. K+ now 3.9. stable. - will continue to monitor K+ (7) DVT prophylaxis Current Visit: No Status: Acute Assessment and plan: continue heparin (8) Anemia Current Visit: No Status: Acute Assessment and plan: Hgb stable at 8 - continue to monitor CBC Qualifiers: Anemia type: due to chronic kidney disease Chronic kidney disease stage: on chronic dialysis Qualified Code(s): N18.6 - End stage renal disease; D63.1 - Anemia in chronic kidney disease; Z99.2 - Dependence on renal dialysis - Subjective Interval history: Mr. Porras is 66 year old M Admit Day 1 with general weakness and fatigue with hx of ESRD on Peritoneal dialysis last on 06/25, laryngectomy and recent hospitalization with similar symptoms. Today he reports continued weakness and fatigue, and discomfort in his abdomen. He was accompanied by his who answered most of his questions. denies n/v /f/c - Constitutional Vitals: Temp Pulse Resp BP Pulse Ox 98.1 F 81 16 144/71 99 06/26/17 23:18 06/26/17 23:18 06/26/17 23:18 06/26/17 23:18 06/26/17 23:18 General appearance: Present: cooperative, A&O X 3, no acute distress - Head Head exam: Present: atraumatic, normocephalic - Neck Neck exam general surgery: Present: supple, trachea midline. Absent: lymphadenopathy Additional comments: 4 cm hole in anterior midline of neck c4-c5 - Respiratory Respiratory exam: Present: decreased breath sounds (a lot of transmitted sounds through laryngectomy) - Cardiovascular Cardiovascular exam: Present: distant heart sounds, RRR, +S1, +S2. Absent: diastolic murmur, gallop, rubs, systolic murmur - GI/Abdominal GI/Abdominal exam: Present: diminished bowel sounds Internal Medicine: Result - Labs CBC & Chem 7: 06/27/17 08:47 06/27/17 02:50 Labs: BMP 06/26/17 06/27/17 21:20 02:50 Sodium 135 L 138 Potassium 3.8 D 3.9 Chloride 97 L 101 Carbon Dioxide 27 28 BUN 32 H 34 H Creatinine 4.19 H 4.13 H Glucose 100 H 99 Calcium 8.5 L D 7.8 L Liver Function 06/26/17 06/27/17 Range/Units 21:20 02:50 Total Bilirubin 0.4 0.3 (0.2-1.2) mg/dL AST 57 H 48 H (5-34) Units/L ALT 32 28 (0-55) Units/L Alkaline Phosphatase 93 83 (38-126) Units/L Albumin 2.0 L 1.7 L (3.5-5.0) g/dL Urine 06/26/17 Range/Units 21:52 Urine Color Yellow (Yellow) Urine Clarity Clear (Clear) Urine pH 7.0 (5.0-8.0) pH Units Ur Specific [place] 1.014 (1.010-1.025) Urine Protein >=300 H (Neg-Trace) mg/dL Urine Glucose (UA) Normal (Normal) mg/dL - ABG Interpretation ABG results: PT/INR, D-dimer PT 10.6 Seconds (9.4-12.1) 06/26/17 15:44 Consult Discharge Plan - Plan Referrals: Figueroa Navarro DO [Primary Care Provider] - (Patient to call office once once discharged) <Cristi Benavides - Last Filed: 06/27/17 17:32> Date of Encounter: 06/27/17 - Constitutional Vitals: Temp Pulse Resp BP Pulse Ox 98.4 F 83 17 152/76 100 06/27/17 15:57 06/27/17 15:57 06/27/17 15:57 06/27/17 15:57 06/27/17 15:57 Internal Medicine: Result - Labs CBC & Chem 7: 06/27/17 08:47 06/27/17 02:50 Labs: Short CBC 06/27/17 Range/Units 08:47 WBC 5.9 (4.3-11.1) K/mcL Hgb 8.7 L (12.9-16.9) g/dL Hct 26.9 L (37.5-50.1) % Plt Count 300 (140-400) K/mcL BMP 06/26/17 06/27/17 21:20 02:50 Sodium 135 L 138 Potassium 3.8 D 3.9 Chloride 97 L 101 Carbon Dioxide 27 28 BUN 32 H 34 H Creatinine 4.19 H 4.13 H Glucose 100 H 99 Calcium 8.5 L D 7.8 L Liver Function 06/26/17 06/27/17 Range/Units 21:20 02:50 Total Bilirubin 0.4 0.3 (0.2-1.2) mg/dL AST 57 H 48 H (5-34) Units/L ALT 32 28 (0-55) Units/L Alkaline Phosphatase 93 83 (38-126) Units/L Albumin 2.0 L 1.7 L (3.5-5.0) g/dL Urine 06/26/17 Range/Units 21:52 Urine Color Yellow (Yellow) Urine Clarity Clear (Clear) Urine pH 7.0 (5.0-8.0) pH Units Ur Specific [place] 1.014 (1.010-1.025) Urine Protein >=300 H (Neg-Trace) mg/dL Urine Glucose (UA) Normal (Normal) mg/dL - ABG Interpretation ABG results: PT/INR, D-dimer PT 10.6 Seconds (9.4-12.1) 06/26/17 15:44 - Attending Attestation I examined this patient and my medical decision-making was reviewed with the Resident Physician. I agree with the documented findings, disposition and treatment plan as described except to the extent set forth below. awaiting for MR brain and US carotids. Need to fax to [facility] possible home/Transfer to [facility] tomorrow. will follow Nephrology recommendations.
[2017-06-27] MEDS ORDERED: Vancomycin 1,250 MG in D5% in Water 250 ML IVPB SCH (09:00)
[2017-06-27] MEDS ORDERED: *HR* Morphine 2 MG/ML SYRINGE IVP ONE (09:03)
[2017-06-27 09:04] LABS: Hematocrit 26.9 % (37.5-50.1); Hemoglobin 8.7 g/dL (12.9-16.9); Mean Corpuscular HGB Conc 32.3 g/dL (31.6-35.5); Mean Corpuscular Hemoglobin 27.6 pg (28.0-33.3); Mean Corpuscular Volume 85.4 fL (83.0-100.0); Mean Platelet Volume 10.4 fL (9.4-12.4); Platelet Count 300 K/mcL (140-400); Red Blood Count 3.15 M/mcL (4.19-5.50)
[2017-06-27] MEDS: Magnesium Oxide 400 MG TABLET PO SCH (09:33)
[2017-06-27] MEDS: levETIRAcetam 250 MG TABLET PO SCH ×2 (09:33→20:31)
[2017-06-27] MEDS: Sennosides/Docusate Sodium TABLET PO SCH ×2 (09:33→20:30)
[2017-06-27] MEDS: Aspirin 81 MG TAB.CHEW PO SCH (09:34)
[2017-06-27] MEDS: Everolimus [Afinitor] 7.5 MG PO SCH (09:35)
--- NOTE | 2017-06-27 12:00 | Nephrology Consult Note ---
Date of Encounter: 06/27/17 Time of Encounter: 10:30 Assessment and Plan (1) Hypomagnesemia Current Visit: Yes Status: Acute Agree with repletion done yesterday with 2g mgsulfate over 4 hours Continue po magnesium oxide (2) Anemia Current Visit: No Status: Acute Hgb low but stable above 8, will monitor Qualifiers: Anemia type: due to chronic kidney disease Chronic kidney disease stage: on chronic dialysis Qualified Code(s): N18.6 - End stage renal disease; D63.1 - Anemia in chronic kidney disease; Z99.2 - Dependence on renal dialysis (3) End stage renal disease Current Visit: No Status: Acute Will hold PD for now while we volume resuscitate and replete lytes Regular diet for now Can have nutritional supplements, He does not like ensure so nepro would do (4) Hypokalemia Current Visit: No Status: Acute Agree with repletion already done (5) Laryngeal cancer Current Visit: No Status: Chronic MRI neck per [facility] Carotid doppler per [facility]. 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 Per , he has struggled lately with po intake though doing his PD religiously every night via cyclier. No N/V but had some diarrhea recently. Past Med Surg Social Fam HX - Past Medical History Medical history: cancer, DVT, dialysis, hyperlipidemia, hypertension, myocardial infarction, renal disease, thyroid disease Psychiatric history: anxiety, depression - Past Surgical History Surgical History: cancer surgery, cataract, cholecystectomy, tracheostomy, other - Social History Smoking Status: Former smoker Smokeless Tobacco Status: No Alcohol use: none Drug use: none - Family History Mother Adopted: No Family Member Ethnicity: Non- Living Status: Hx Family Cardiac Disorders: No Hx Family Respiratory Disorders: No Hx Family Cancer: No Hx Family GI Disorders: No Hx Family Endocrine Disorder: No Hx Family Neuromuscular Disorders: No Hx Family Neurologic Disorders: Yes (Alzheimer's disease) Hx Family HEENT Disorders: No Hx Family Autoimmune Disorders: No Brother Hx Family Cardiac Disorders: Yes (Hypertension) Hx Family Cancer: Yes (colon and prostate) Medications and Allergies Ferrous Sulfate 325 mg GTUBE BID 06/23/15 [History] Multivits,Ca,Min/Iron/FA/Lycop [Centrum Men's Tablet] 1 tab PO DAILY 06/23/15 [ History] Calcium Carbonate [Tums] 500 mg GTUBE TID 02/10/17 [History] Nut.tx.impaired Renal Fxn,Soy [Nepro Carb Steady] 1,422 ml GTUBE AD 02/10/17 [ History] Darbepoetin [Aranesp] 100 mcg SQ Q2W 04/02/17 [History] Magnesium Oxide [Mag-Ox] 400 mg PO DAILY 04/02/17 [History] Omeprazole [PriLOSEC] 40 mg PO DAILY 04/02/17 [History] Bacitracin/PolymyxinB OINT [Polysporin] 1 appl TP DAILY 05/25/17 [History] Clopidogrel [Plavix] 75 mg PO DAILY 05/25/17 [History] Docusate [Colace] 100 mg PO BID 05/25/17 [History] Everolimus [Afinitor] 7.5 mg PO DAILY 05/25/17 [History] Levothyroxine [Synthroid] 100 mcg PO DAILY 05/25/17 [History] Metoprolol [Lopressor] 50 mg PO BID PRN 05/25/17 [History] levETIRAcetam [Keppra] 250 mg PO BID 05/25/17 [History] Aspirin 81 mg PO DAILY #30 tab 05/27/17 [Rx] OxyCODONE Immed Rel [Roxicodone 5 MG] 15 mg PO Q4HR PRN #60 tab 06/18/17 [Rx] Sennosides/Docusate Sodium [Senna Plus] 2 each PO BID #120 tab 06/18/17 [Rx] Allergies diazepam Allergy (Intermediate, Verified 05/25/17 16:14) Agitated Zolpidem [From Ambien] Adverse Reaction (Verified 05/25/17 16:14) Hallucinating Review of Systems All Systems: reviewed and no additional remarkable complaints except as stated ( 10 systems reviewed) Exam - Vital Signs Vital signs: Initial Vital Signs Temp Pulse Resp BP Pulse Ox 0 F L 90 18 100/59 100 06/26/17 14:25 06/26/17 14:25 06/26/17 14:25 06/26/17 14:25 06/26/17 14:25 Vital Signs - Last 8 Hours Temp Pulse Resp BP Pulse Ox 06/27/17 11:28 97.8 F 92 16 155/83 100 Intake and Output 06/26/17 06/27/17 06/27/17 23:59 07:59 15:59 Output Total 125 / 125 200 / 200 Balance -125 / 375 -200 / -200 Output: Urine 125 / 125 200 / 200 Other: Weight 78.2 kg Results - Lab Results 06/27/17 08:47 06/27/17 02:50 Most recent lab results Calcium 7.8 mg/dL (8.6-10.8) L 06/27/17 02:50 Phosphorus 2.4 mg/dL (2.3-4.7) 06/26/17 21:20 Magnesium 1.9 mg/dL (1.6-2.6) 06/27/17 02:50 Consult Discharge Plan - Plan Referrals: Figueroa Navarro DO [Primary Care Provider] - (Patient to call office once once discharged)
[2017-06-27] MEDS: Bacitracin/PolymyxinB OINT 14.17 GM TUBE TP SCH (12:40)
[2017-06-28] MEDS: *HR* OxyCODONE Immed Rel 5 MG TABLET PO PRN ×2 (01:10→05:54)
[2017-06-28] MEDS: *HR* Heparin 5,000 UNIT/ML VIAL SQ SCH ×2 (05:57→13:09)
[2017-06-28 06:46] LABS: Hematocrit 25.4 % (37.5-50.1); Hemoglobin 7.8 g/dL (12.9-16.9); Mean Corpuscular HGB Conc 30.7 g/dL (31.6-35.5); Mean Corpuscular Volume 87.9 fL (83.0-100.0); Mean Platelet Volume 10.5 fL (9.4-12.4); Platelet Count 282 K/mcL (140-400); Red Blood Count 2.89 M/mcL (4.19-5.50); Red Cell Distribution Width 16.2 % (11.5-14.5)
[2017-06-28 06:53] LABS: Calcium 7.9 mg/dL (8.6-10.8); Potassium 4.1 mEq/L (3.5-4.5)
[2017-06-28] MEDS ORDERED: Hydrocortisone Sodium Succ 100 MG/2 ML VIAL IVP ONE ×2 (08:47→15:29)
[2017-06-28] MEDS ORDERED: *HR* Morphine 2 MG/ML SYRINGE IVP ONE ×3 (09:19→18:16)
--- NOTE | 2017-06-28 09:20 | Discharge Summary ---
<Kishor Valadezson - Last Filed: 06/28/17 13:46> Date of Encounter: 06/28/17 Time of Encounter: 09:18 - Discharge Diagnosis (1) Dizziness Priority: Primary Status: Acute (2) Carotid stenosis, bilateral Priority: Secondary Status: Chronic (3) Cancer associated pain Priority: Secondary Status: Chronic (4) Hypomagnesemia Priority: Secondary Status: Acute (5) ESRD on peritoneal dialysis Priority: Secondary Status: Chronic (6) Hypokalemia Priority: Secondary Status: Acute (7) DVT prophylaxis Priority: Secondary Status: Acute (8) Anemia Priority: Secondary Status: Acute Qualifiers: Anemia type: due to chronic kidney disease Chronic kidney disease stage: on chronic dialysis Qualified Code(s): N18.6 - End stage renal disease; D63.1 - Anemia in chronic kidney disease; Z99.2 - Dependence on renal dialysis - Discharge Medications Home Medications: Ferrous Sulfate 325 mg GTUBE BID 06/23/15 [History] Multivits,Ca,Min/Iron/FA/Lycop [Centrum Men's Tablet] 1 tab PO DAILY 06/23/15 [ History] Calcium Carbonate [Tums] 500 mg GTUBE TID 02/10/17 [History] Nut.tx.impaired Renal Fxn,Soy [Nepro Carb Steady] 1,422 ml GTUBE AD 02/10/17 [ History] Darbepoetin [Aranesp] 100 mcg SQ Q2W 04/02/17 [History] Magnesium Oxide [Mag-Ox] 400 mg PO DAILY 04/02/17 [History] Omeprazole [PriLOSEC] 40 mg PO DAILY 04/02/17 [History] Bacitracin/PolymyxinB OINT [Polysporin] 1 appl TP DAILY 05/25/17 [History] Clopidogrel [Plavix] 75 mg PO DAILY 05/25/17 [History] Docusate [Colace] 100 mg PO BID 05/25/17 [History] Everolimus [Afinitor] 7.5 mg PO DAILY 05/25/17 [History] Levothyroxine [Synthroid] 100 mcg PO DAILY 05/25/17 [History] Metoprolol [Lopressor] 50 mg PO BID PRN 05/25/17 [History] levETIRAcetam [Keppra] 250 mg PO BID 05/25/17 [History] Aspirin 81 mg PO DAILY #30 tab 05/27/17 [Rx] OxyCODONE Immed Rel [Roxicodone 5 MG] 15 mg PO Q4HR PRN #60 tab 06/18/17 [Rx] Sennosides/Docusate Sodium [Senna Plus] 2 each PO BID #120 tab 06/18/17 [Rx] Allergies/Adverse Reactions: 3 Allergy/AdvReac Type Severity Reaction Status Date / Time diazepam Allergy Intermediate Agitated Verified 05/25/17 16:14 Zolpidem [From Ambien] AdvReac Hallucinati Verified 05/25/17 16:14 ng Procedures/tests Complete & Pending: Procedures Performed prior 72 hours Category Date Time Status MR head/brain wo con [MR] Routine MRI 06/27/17 11:08 Completed EV carotid duplex imaging BI Routine Y 06/27/17 21:25 Completed Date of admission: 06/26/17 18:21 Primary care physician: Figueroa Navarro Consults: 06/26/17 20:50 Consult to Nephrology [CONS] Routine Consulting Provider: Kidney Mary Jo/ALEJANDRA/KRISTA/STEVE Reason for Consult: Peritoneal dialysis Call Completed: Yes - Patient Status Disposition: Transfer Short-Term Hosp Condition: Undetermined Functional capacity at discharge: wheelchair bound Overall status at discharge: patient is not back to baseline - Discharge Instructions Follow Up With: Figueroa Navarro DO [Primary Care Provider] - (Patient to call office once once discharged) - Diet and Activity Diet: low salt diet Hospital course: Mr. Porras is 66 year old M Admited for general weakness and fatigue with hx of ESRD on Peritoneal dialysis last on 06/25, laryngectomy and recent hospitalization with similar symptoms. Previous hospitalization on 06/16 with similar symptoms found to be positive for s. aureus in neck open wound treated with Cipro, and pain was managed with Oxcodone for 10 days. 03/30/17 echo - LVEF 65-70%, 04/04 ash carotid duplex critical carotid stenosis - [facility] placed carotid stent. On admission hypoK and hpoMg, were replaced and resolved. MRI was ordered for concerns for mets, was indeterminate. Bialteral duplex, orthostatics were ordered but never completed due to patient reporting complaints of trouble breathing and a narrowing of neck stoma the morning of . Patient was transferred to [facility], admitting physician Dr. Segura accepted patient. - Time Spent with Patient Total time spent providing and/or coordinating discharge services: - Constitutional Vitals: Temp Pulse Resp BP Pulse Ox 98.4 F 84 18 157/60 96 06/28/17 08:10 06/28/17 08:10 06/28/17 08:10 06/28/17 08:10 06/28/17 08:10 General appearance: Present: cooperative, mild distress, A&O X 3 - Head Head exam: Present: atraumatic, normocephalic - Neck Additional comments: stoma in midline anterior was clinically non-infectious appearing, and possible inflammation/narrowing. - Respiratory Respiratory exam: Present: decreased breath sounds - Cardiovascular Cardiovascular exam: Present: distant heart sounds - GI/Abdominal GI/Abdominal exam: Present: distended, tenderness <Makayla,Cristi P - Last Filed: 06/28/17 18:08> Date of Encounter: 06/28/17 Procedures/tests Complete & Pending: Procedures Performed prior 72 hours Category Date Time Status MR head/brain wo con [MR] Routine MRI 06/27/17 11:08 Completed EV carotid duplex imaging BI Routine Y 06/27/17 21:25 Completed Date of admission: 06/26/17 18:21 Primary care physician: Figueroa Navarro Consults: 06/26/17 20:50 Consult to Nephrology [CONS] Routine Consulting Provider: Kidney Mary Jo/ALEJANDRA/KRISTA/STEVE Reason for Consult: Peritoneal dialysis Call Completed: Yes Hospital course: Mr. Porras is a 66 year old male - Time Spent with Patient Total time spent providing and/or coordinating discharge services: - Constitutional Vitals: Temp Pulse Resp BP Pulse Ox 98.2 F 83 18 129/59 99 06/28/17 16:14 06/28/17 16:14 06/28/17 16:14 06/28/17 16:14 06/28/17 16:14 - Attending Attestation I examined this patient and my medical decision-making was reviewed with the Resident Physician. I agree with the documented findings, disposition and treatment plan as described except to the extent set forth below. Transferred to [facility].
--- NOTE | 2017-06-28 10:45 | Nephrology Progress Note ---
Date of Encounter: 06/28/17 Time of Encounter: 10:42 - Assessment and Plan (1) ESRD (end stage renal disease) on dialysis Current Visit: No Status: Chronic From nephrology standpoint patient can be discharged and resume PD treatments at home If patient continues to be hospitalized will restart PD today-manual, 1.5 dextrose, 2 liters every 8 hours (2) Anemia Current Visit: No Status: Acute Hgb 7.8 Transfuse per parameters Qualifiers: Anemia type: due to chronic kidney disease Chronic kidney disease stage: on chronic dialysis Qualified Code(s): N18.6 - End stage renal disease; D63.1 - Anemia in chronic kidney disease; Z99.2 - Dependence on renal dialysis (3) Laryngeal cancer Current Visit: No Status: Chronic per primary/oncology teams Subjective Principal diagnosis: anemia, ESRD on dialysis, laryngeal cancer Interval history: Patient seen and examined. Sleeping but does open eyes briefly during exam Objective - Vital Signs Vital signs: Vital Signs Temp Pulse Resp BP Pulse Ox 06/28/17 08:10 98.4 F 84 18 157/60 96 06/28/17 03:22 98.1 F 85 15 147/84 97 06/27/17 23:21 98.0 F 90 15 160/81 98 06/27/17 20:13 98.2 F 99 16 165/80 96 06/27/17 15:57 98.4 F 83 17 152/76 100 06/27/17 11:28 97.8 F 92 16 155/83 100 Intake and Output 06/27/17 06/28/17 06/28/17 23:59 07:59 15:59 Intake Total 240 / 240 Output Total 50 / 50 Balance 190 / 190 Intake: Oral 240 / 240 Output: Urine 50 / 50 Other: Meal Dinner Percent of Meal Consumed 80% # Voids 1 2 Weight 78.2 kg Patient Weight 06/28/17 23:59 Weight 78.2 kg - General Appearance General appearance: Present: chronically ill EENT: Present: ATNC Neck: Present: supple Respiratory: Present: clear Cardiology: Present: no edema, normal S1, normal S2 Gastrointestinal: Present: no guarding - Lab 06/28/17 06:10 06/28/17 06:10 Most recent lab results Calcium 7.9 mg/dL (8.6-10.8) L 06/28/17 06:10 Phosphorus 2.4 mg/dL (2.3-4.7) 06/26/17 21:20 Magnesium 1.9 mg/dL (1.6-2.6) 06/27/17 02:50 Consult Discharge Plan - Plan Referrals: Figueroa Navarro DO [Primary Care Provider] - (Patient to call office once once discharged)
[2017-06-28] MEDS: Magnesium Oxide 400 MG TABLET PO SCH (11:15)
[2017-06-28] MEDS: levETIRAcetam 250 MG TABLET PO SCH (11:15)
[2017-06-28] MEDS: Sennosides/Docusate Sodium TABLET PO SCH (11:15)
[2017-06-28] MEDS: Everolimus [Afinitor] 7.5 MG PO SCH (11:15)
[2017-06-28] MEDS: Bacitracin/PolymyxinB OINT 14.17 GM TUBE TP SCH (11:15)
[2017-06-28] MEDS: Aspirin 81 MG TAB.CHEW PO SCH (11:15)
[2017-06-28] MEDS ORDERED: Perit. Dialysis with Dex 1.5 % 2,000 ML PERITONEAL SCH (16:00)
[2017-06-28 19:17] VITALS: BP 116/65
--- NOTE | 2017-06-29 07:12 | Carotid Imaging Report ---
Carotid Duplex Patient Name:Wilfredo Porras Order Number:[id number] Procedure Date:06/27/2017 Date:9Age:66 yrs Gender:Male Location:[facility] Room #: 2A12 Certification Technician:Cindy Angel MD:Matias Del Real DO auto phone installer:Figueroa Navarro DO Reading MD:Lamberto Winchester MD Risk Factors Yes/No Hypertension Yes Smoker Previous Yes Diabetes No Hypercholesterolemia No Impressions: The right internal carotid artery has a 60-79% stenosis. The left internal carotid artery has a 60-79% stenosis. Recommendations: Risk factor reduction. Further evaluation recommended if clinically indicated. Follow-up carotid duplex in 6 months. After imaging the patient returned to their room. Findings Prior Intervention: The patient has undergone the following procedure: endarterectomy. Carotid Duplex: Right: The right proximal common carotid artery has a PSV of 44 cm/s and a EDV of 5 cm/s. The right mid common carotid artery has a PSV of 86 cm/s and a EDV of 9 cm/s. The right distal common carotid artery has a PSV of 94 cm/s and a EDV of 11 cm/s. The right bifurcation has a PSV of 60 cm/s and a EDV of 12 cm/s. The right proximal internal carotid artery has a PSV of 182 cm/s and a EDV of 30 cm/s. The right mid internal carotid artery has a PSV of 223 cm/s and a EDV of 39 cm/s. The right distal internal carotid artery has a PSV of 66 cm/s and a EDV of 23 cm/s. The right eca has a PSV of 97 cm/s and a EDV of 11 cm/s. The right vertebral artery has a PSV of 29 cm/s and a EDV of 6 cm/s. Left: The left proximal common carotid artery has a PSV of 40 cm/s and a EDV of 11 cm/s. The left mid common carotid artery has a PSV of 25 cm/s and a EDV of 7 cm/s. The left distal common carotid artery has a PSV of 31 cm/s and a EDV of 11 cm/s. The left bifurcation has a PSV of 32 cm/s and a EDV of 11 cm/s. The left proximal internal carotid artery has a PSV of 31 cm/s and a EDV of 8 cm/s. The left mid internal carotid artery has a PSV of 246 cm/s and a EDV of 54 cm/s. The left distal internal carotid artery has a PSV of 134 cm/s and a EDV of 35 cm/s. The left eca has a PSV of 86 cm/s and a EDV of 14 cm/s. The left vertebral artery has a PSV of 27 cm/s. Carotid Results Right PSV EDV Assessment Proximal CCA 44 5 Normal Mid CCA 86 9 Normal Distal CCA 94 11 Normal Bifurcation 60 12 Non Stenotic Plaque Proximal ICA 182 30 60-79% stenosis Mid ICA 223 39 60-79% stenosis Distal ICA 66 23 Normal ECA 97 11 Non Stenotic Plaque Vertebral Artery 29 6 Normal Left PSV EDV Assessment Proximal CCA 40 11 Normal Mid CCA 25 7 Normal Distal CCA 31 11 Normal Bifurcation 32 11 Normal Proximal ICA 31 8 Normal Mid ICA 246 54 60-79% stenosis Distal ICA 134 35 60-79% stenosis ECA 86 14 Normal Vertebral Artery 27 Retrograde Flow Ratio's Right ICA/CCA Ratio: 2.60 ICA/CCA Values: 223/86 Left ICA/CCA Ratio: 10.00 ICA/CCA Values: 246/25 Updated by Lamberto Winchester MD on 06/29/2017 7:06:11 AM electronically signed on 06/29/2017 7:06:32 AM with status of Final
== END 2017-06-28 19:48 | disposition short-term general hospital (02) ==
LOC: EMEROO 14:23 → 2ANU 14:23
PROVIDERS: ADMIT Registered Nurse; ATTEND Internal Medicine

== ENCOUNTER 2017-08-18 20:58 | Inpatient (IN) ==
[2017-08-18 21:53] LABS: Basophils % 0.1 %; Hematocrit 30.5 % (37.5-50.1); Hemoglobin 9.5 g/dL (12.9-16.9); Immature Granulocytes % 0.5 % (0-4); Lymphocytes # 0.2 K/mcL (0.6-4.6); Lymphocytes % 1.4 %; Mean Corpuscular HGB Conc 31.1 g/dL (31.6-35.5); Mean Corpuscular Hemoglobin 28.6 pg (28.0-33.3); Mean Corpuscular Volume 91.9 fL (83.0-100.0); Mean Platelet Volume 10.3 fL (9.4-12.4); Monocytes # 0.2 K/mcL (0.0-1.3); Monocytes % 1.3 %; Neutrophils # 13.8 K/mcL (1.6-8.9); Platelet Count 300 K/mcL (140-400); Red Blood Count 3.32 M/mcL (4.19-5.50); Red Cell Distribution Width 19.4 % (11.5-14.5); Segmented Neutrophils % 96.7 %
[2017-08-18 21:54] LABS: Bilirubin,Urine Negative (Negative); Blood,Urine Trace (Negative); Clarity,Urine Clear (Clear); Color,Urine Yellow (Yellow); Glucose,Urine (UA) Normal (Normal); Ketones,Urine Negative (Negative); Leukocyte Esterase,Urine Negative (Negative); Nitrite,Urine Negative (Negative); Protein,Urine >=300 mg/dL (Neg-Trace); Specific Gravity,Urine 1.017 (1.010-1.025); Urobilinogen,Urine Normal (Normal)
[2017-08-18 21:58] LABS: Hyaline Casts,Urine None Seen per lpf (None-Few); Squamous Epithelial Cell,Urine Many per lpf (None-Few)
[2017-08-18 22:06] LABS: Calcium 9.2 mg/dL (8.6-10.8)
[2017-08-18 22:08] LABS: Bacteria,Urine Many per hpf (None-Few); Mucus,Urine Few (Few); Yeast,Urine Moderate per hpf (None Seen)
[2017-08-18] MEDS ORDERED: Ampicillin/Sulbactam 3,000 MG in 0.9 % Sodium Chloride Mini Bag 100 ML IVPB ONE (23:27)
[2017-08-18] MEDS ORDERED: 0.9 % Sodium Chloride 1,000 ML IVC ONE (23:27)
--- NOTE | 2017-08-18 23:31 | Emergency Department Note ---
START Narrative - START START: I examined this patient and my medical decision-making was reviewed with the Resident Physician. I agree with the documented findings, disposition and treatment plan as described except to the extent set forth below. Male patient with end-stage throat cancer. Now with concern for esophageal perforation. We will cover with Unasyn, CT scan shows worsening disease. Family would request admission for PEG tube placement.
--- NOTE | 2017-08-18 23:31 | Emergency Department Note ---
Disposition Clinical Impression: Neck infection, Throat cancer, Inability to swallow UTI (urinary tract infection) Qualifiers: Urinary tract infection type: acute cystitis Hematuria presence: without hematuria Qualified Code(s): N30.00 - Acute cystitis without hematuria Disposition: Admitted As Inpatient Condition: Fair Referrals: Figueroa Navarro DO [Primary Care Provider] - Forms: ED Satisfaction Letter Time of Disposition: 00:02 General Adult HPI - General Chief complaint: ED Skin/Abscess/Foreign Body Stated complaint: throat cancer can't swallow eat or drink Time Seen by Provider: 08/18/17 21:25 Source: patient, family Limitations: no limitations Nursing Notes Reviewed: Yes Vital Signs Reviewed: Yes - History of Present Illness Pain Scale: 8 - Related Data Home Medications Medication Instructions Recorded Confirmed Ferrous Sulfate 325 mg GTUBE BID 06/23/15 06/26/17 Multivits,Ca,Min/Iron/FA/Lycop 1 tab PO DAILY 06/23/15 06/26/17 [Centrum Men's Tablet] Calcium Carbonate [Tums] 500 mg GTUBE TID 02/10/17 06/26/17 Nut.tx.impaired Renal Fxn,Soy 1,422 ml GTUBE AD 02/10/17 06/26/17 [Nepro Carb Steady] Darbepoetin [Aranesp] 100 mcg SQ Q2W 04/02/17 06/26/17 Magnesium Oxide [Mag-Ox] 400 mg PO DAILY 04/02/17 06/26/17 Omeprazole [PriLOSEC] 40 mg PO DAILY 04/02/17 06/26/17 Bacitracin/PolymyxinB OINT 1 appl TP DAILY 05/25/17 06/26/17 [Polysporin] Clopidogrel [Plavix] 75 mg PO DAILY 05/25/17 06/26/17 Docusate [Colace] 100 mg PO BID 05/25/17 06/26/17 Everolimus [Afinitor] 7.5 mg PO DAILY 05/25/17 06/26/17 Levothyroxine [Synthroid] 100 mcg PO DAILY 05/25/17 06/26/17 Metoprolol [Lopressor] 50 mg PO BID PRN 05/25/17 06/26/17 levETIRAcetam [Keppra] 250 mg PO BID 05/25/17 06/26/17 Previous Rx's Medication Instructions Recorded Aspirin 81 mg PO DAILY #30 tab 05/27/17 OxyCODONE Immed Rel [Roxicodone 5 15 mg PO Q4HR PRN #60 tab 06/18/17 MG] Sennosides/Docusate Sodium [Senna 2 each PO BID #120 tab 06/18/17 Plus] Allergies Allergy/AdvReac Type Severity Reaction Status Date / Time diazepam Allergy Intermediate Agitated Verified 08/18/17 21:03 Zolpidem [From Ambien] AdvReac Hallucinati Verified 08/18/17 21:03 ng All systems ED: reviewed and negative except as stated. Review of Systems: As Per HPI Constitutional: Denies: fever Eyes: Denies: eye pain ENT ED: Denies: ear pain Respiratory: Denies: cough Gastrointestinal: Reports: vomiting. Denies: abdominal pain Past Medical History - Past Medical History Medical history: Reports: cancer, DVT, dialysis, hyperlipidemia, hypertension, myocardial infarction, renal disease, thyroid disease Surgical history: Reports: cancer surgery, cataract, cholecystectomy, tracheostomy, other Psychiatric history: Reports: anxiety, depression - Social History Smoking Status: Former smoker Smokeless Tobacco Status: No Alcohol use: Reports: none Drug use: Reports: none Physical Exam General: Well Appearing, in no acute distress Head: autraumatic, EOMI, no conjuncitval pallor, no scleral icterus, Mouth: oral mucous membranes moist Neck: Tracheal stoma, left sided fungating lesion, however the lateral aspect of the left side of the neck, purulent drainage spotted. No bleeding. Chest:: Equal chest wall rise Lungs: Normal lungs sounds bilaterally, no wheezes, no respiratory distress Heart: normal heart sounds, normal rate and rhythm, Abdomen: soft, non-tender, no rigidity, no guarding, no rebdound tenderness Lower Extremities: no pedal edema, calves non-tender Integumentary: Skin warm, dry, and intact Neuro: Alert Psych: normal affect, normal mood - General Limitations: no limitations General appearance: alert, in no apparent distress Course Course Narrative: 66-year-old male with past medical history of throat cancer to the emergency department with purulent drainage out of the left side of his neck. Patient's states that patient has not been able to take in oral intake and has been vomiting it up. Patient's states that she wants to take her off hospice and possibly restart PEG feedings since he is unable to take in oral intake. CT scan of the soft tissue of the neck was obtained to rule out possible esophageal penetration or perforation of the cancer as the was concerned that patient was regurgitating some of his food through his cancer site. CT scan did not reveal any penetration or rupture through the esophagus. Patient does have a leukocytosis of 14.1 which is different from previous admissions. Does have a creatinine of 3.57 and a potassium of 5.0. We are treating his hyperkalemia through the use of IV fluids at this time. His psychologist Dr. Wharton has stated that she would come by and see him in the morning. I spoke with Dr. Fe joshi, the admitting hospitalist regarding this patient being admitted, and he agreed to accept the patient's admission. I spoke with the and patient and they are agreeable to the admission as well. Patient is currently hemodynamically stable at this time. He was given ampicillin sulbactam in the emergency department. The patient was given morphine by his prior to coming to the emergency department and stated that his pain was being managed properly. There is some concern for urinary tract infection by the hospitalist as the patient does have a few bacteria within his urine. Soft Tissue Neck CT 08/18/17 21:36 IMPRESSION: No specific evidence of esophageal perforation. Findings suggest progression of disease as detailed. D/ / Ney Parikh MD / Ney Parikh MD Interpreting Provider: Ney Parikh MD Vital Signs Temperature 97.5 F L 08/18/17 21:03 Pulse Rate 81 08/18/17 21:03 Respiratory Rate 16 08/18/17 21:03 Blood Pressure 160/80 08/18/17 21:03 O2 Sat by Pulse Oximetry 99 08/18/17 21:03 Temperature 97.5 F L 08/18/17 21:03 Pulse Rate 81 08/18/17 21:03 Respiratory Rate 16 08/18/17 21:03 Blood Pressure 160/80 08/18/17 21:03 O2 Sat by Pulse Oximetry 99 08/18/17 21:03 Oxygen Delivery Oxygen Delivery Room Air Vital Signs Temperature 97.5 F L 08/18/17 21:03 Pulse Rate 81 08/18/17 21:03 Respiratory Rate 16 08/18/17 21:03 Blood Pressure 160/80 08/18/17 21:03 O2 Sat by Pulse Oximetry 99 08/18/17 21:03 Temperature 97.5 F L 08/18/17 21:03 Pulse Rate 81 08/18/17 21:03 Respiratory Rate 16 08/18/17 21:03 Blood Pressure 160/80 08/18/17 21:03 O2 Sat by Pulse Oximetry 99 08/18/17 21:03 Oxygen Delivery Oxygen Delivery Room Air Medical Decision Making - Medical Records Medical records reviewed: Yes I reviewed the patient's medical records. - Lab Data Lab results reviewed: Yes I reviewed the patient's lab results. Result diagrams: 08/18/17 21:48 08/18/17 21:48 Lab Results 08/18/17 08/18/17 08/18/17 Range/Units 21:44 21:48 21:48 WBC 14.3 H (4.3-11.1) K/mcL RBC 3.32 L (4.19-5.50) M/mcL Hgb 9.5 L (12.9-16.9) g/dL Hct 30.5 L (37.5-50.1) % MCV 91.9 (83.0-100.0) fL MCH 28.6 (28.0-33.3) pg MCHC 31.1 L (31.6-35.5) g/dL RDW 19.4 H (11.5-14.5) % Plt Count 300 (140-400) K/mcL MPV 10.3 (9.4-12.4) fL Immature Gran % 0.5 (0-4) % Seg Neutrophils % 96.7 % Lymphocytes % 1.4 % Monocytes % 1.3 % Eosinophils % 0.0 % Basophils % 0.1 % Neutrophils # 13.8 H (1.6-8.9) K/mcL Lymphocytes # 0.2 L (0.6-4.6) K/mcL Monocytes # 0.2 (0.0-1.3) K/mcL Eosinophils # 0.0 (0.0-0.6) K/mcL Basophils # 0.0 (0.0-0.2) K/mcL Sodium 139 (136-145) mEq/L Potassium 5.0 H (3.5-4.5) mEq/L Chloride 106 (98-109) mEq/L Carbon Dioxide 22 (19-29) mEq/L BUN 95 H (8-26) mg/dL Creatinine 3.57 H (0.72-1.25) mg/dL Est GFR ( Amer) 21 L (> 60) Est GFR (Non-Af Amer) 17 L (> 60) BUN/Creatinine Ratio 27 H (6-26) Glucose 156 H (70-99) mg/dL Calculated Osmolality 321 H (280-300) Lactic Acid (0.5-2.2) mmol/L Calcium 9.2 (8.6-10.8) mg/dL Urine Color Yellow (Yellow) Urine Clarity Clear (Clear) Urine pH 6.0 (5.0-8.0) pH Units Ur Specific [place] 1.017 (1.010-1.025) Urine Protein >=300 H (Neg-Trace) mg/dL Urine Glucose (UA) Normal (Normal) mg/dL Urine Ketones Negative (Negative) mg/dL Urine Blood Trace H (Negative) Urine Nitrite Negative (Negative) Urine Bilirubin Negative (Negative) Urine Urobilinogen Normal (Normal) mg/dL Ur Leukocyte Esterase Negative (Negative) Urine Microscopic RBC 5-15 H (0-3) per hpf Urine Microscopic WBC 5-15 H (0-3) per hpf Ur Squamous Epith Cells Many H (None-Few) per lpf Urine Bacteria Many H (None-Few) per hpf Hyaline Casts None Seen (None-Few) per lpf Urine Mucus Few (Few) Urine Yeast Moderate H (None Seen) per hpf Ur Culture Indicated? NO (NO) 08/18/17 Range/Units 21:48 WBC (4.3-11.1) K/mcL RBC (4.19-5.50) M/mcL Hgb (12.9-16.9) g/dL Hct (37.5-50.1) % MCV (83.0-100.0) fL MCH (28.0-33.3) pg MCHC (31.6-35.5) g/dL RDW (11.5-14.5) % Plt Count (140-400) K/mcL MPV (9.4-12.4) fL Immature Gran % (0-4) % Seg Neutrophils % % Lymphocytes % % Monocytes % % Eosinophils % % Basophils % % Neutrophils # (1.6-8.9) K/mcL Lymphocytes # (0.6-4.6) K/mcL Monocytes # (0.0-1.3) K/mcL Eosinophils # (0.0-0.6) K/mcL Basophils # (0.0-0.2) K/mcL Sodium (136-145) mEq/L Potassium (3.5-4.5) mEq/L Chloride (98-109) mEq/L Carbon Dioxide (19-29) mEq/L BUN (8-26) mg/dL Creatinine (0.72-1.25) mg/dL Est GFR ( Amer) (> 60) Est GFR (Non-Af Amer) (> 60) BUN/Creatinine Ratio (6-26) Glucose (70-99) mg/dL Calculated Osmolality (280-300) Lactic Acid 0.6 (0.5-2.2) mmol/L Calcium (8.6-10.8) mg/dL Urine Color (Yellow) Urine Clarity (Clear) Urine pH (5.0-8.0) pH Units Ur Specific [place] (1.010-1.025) Urine Protein (Neg-Trace) mg/dL Urine Glucose (UA) (Normal) mg/dL Urine Ketones (Negative) mg/dL Urine Blood (Negative) Urine Nitrite (Negative) Urine Bilirubin (Negative) Urine Urobilinogen (Normal) mg/dL Ur Leukocyte Esterase (Negative) Urine Microscopic RBC (0-3) per hpf Urine Microscopic WBC (0-3) per hpf Ur Squamous Epith Cells (None-Few) per lpf Urine Bacteria (None-Few) per hpf Hyaline Casts (None-Few) per lpf Urine Mucus (Few) Urine Yeast (None Seen) per hpf Ur Culture Indicated? (NO)
[2017-08-18] MEDS ORDERED: MOM Conc 10 ML UD.LIQ PO PRN (23:47)
[2017-08-18] MEDS ORDERED: Naloxone 0.4 MG/ML INJ IVP PRN (23:47)
[2017-08-18] MEDS ORDERED: *HR* Promethazine 25 MG/ML VIAL IVP PRN (23:47)
[2017-08-18] MEDS ORDERED: *HR* HYDROcodone/Acet 5/325 mg TABLET PO PRN (23:47)
[2017-08-18] MEDS ORDERED: Ondansetron 4 MG/2 ML VIAL IVP PRN (23:47)
[2017-08-18] MEDS ORDERED: Acetaminophen 325 MG TABLET PO PRN (23:47)
--- NOTE | 2017-08-19 00:39 | Internal Med History&Physical ---
Date of Encounter: 08/18/17 Time of Encounter: 23:40 Assessment and Plan (1) SIRS (systemic inflammatory response syndrome) Current visit: Yes Status: Acute Will admit the pt into Tele Pt does meet SIRS criteria with elevated WBC< Source of inf as UTI and Wound inf from Left side of neck Cont empirical abx Unasyn blood cx and wound cx drawn in ER (2) Neck infection Current visit: Yes Status: Acute Noticed purulent discharge from the ostomy / stoma over left side of neck Reviewed previous wound cx results growing MSSA so will cont Unasyn for now (3) UTI (urinary tract infection) Current visit: Yes Status: Acute Reviewed UA- showing few bacteria + Yeast cont empirical abx Unasyn and also added Dlflucan f/u on Urine cx Qualifiers: Urinary tract infection type: acute cystitis Hematuria presence: without hematuria Qualified Code(s): N30.00 - Acute cystitis without hematuria (4) Dysphagia Current visit: No Status: Acute Severe dysphagia due to throat cancer May need to reinsert PEG tube Strict NPO for now Will consult GI / Surgery in AM for PEG tube placement Qualifiers: Dysphagia type: pharyngoesophageal phase Qualified Code(s): R13.14 - Dysphagia, pharyngoesophageal phase (5) At high risk for aspiration Current visit: Yes Status: Acute Strict NPO (6) CKD (chronic kidney disease) stage 5, GFR less than 15 ml/min Current visit: Yes Status: Acute He does have good urine out put now may not need any more HD however need close monitoring Nephro Dr. Wharton aware of this pt (7) Squamous cell cancer of hypopharynx Current visit: No Status: Acute Family and pt does not want to proceed with any Chemo or Radiotherapy (8) DVT prophylaxis Current visit: No Status: Acute on SQ Heparin Internal Medicine - H&P: HPI Chief complaint: Aspiration , Dysphagia Admitted From: Emergency Dept Plans for Post Hospital Care: Home History of present illness: Mr. Porras is a 66 year old male with PMH of laryngeal cancer s/p trach currently on oral chemotherapy, HTN, bilateral carotid artery stenosis s/p left carotid stents and history of mitral valve endocarditis s/p 6 weeks of vancomycin & Rocephin (02/14/17 - 03/28/17), ESRD on PD in June switched to HD, however not on any dialysis from past one month and currently under hospice care was brought into ER by family stating he started having purulent drainage through the stoma / ostomy he had on left side of neck. Also unable to eat / swallow, whatever he tried to swallow everything getting regurgitated back through Left neck stoma and nostrils. He used to be on PEG tube feedings which was discontinued a couple of months ago since he was eating well. Patient's states that she wants to take her off hospice and possibly restart PEG feedings since he is unable to take in oral intake. CT scan did not reveal any penetration or rupture through the esophagus. Patient does have a leukocytosis of 14.1 which is different from previous admissions. Does have a creatinine of 3.57 and a potassium of 5.0 Pt's already contacted packaging design engineer Dr. Wharton before she came to ER, since they would like to resume his HD. However his Cr seems to be better now and he does have good urine out put. Past Med Surg Social Fam HX - Past Medical History Medical history: cancer, DVT, dialysis, hyperlipidemia, hypertension, myocardial infarction, renal disease, thyroid disease Psychiatric history: anxiety, depression - Past Surgical History Surgical History: cancer surgery, cataract, cholecystectomy, tracheostomy, other - Social History Smoking Status: Former smoker Smokeless Tobacco Status: No Alcohol use: none Drug use: none - Family History Mother Adopted: No Family Member Ethnicity: Non- Living Status: Hx Family Cardiac Disorders: No Hx Family Respiratory Disorders: No Hx Family Cancer: No Hx Family GI Disorders: No Hx Family Endocrine Disorder: No Hx Family Neuromuscular Disorders: No Hx Family Neurologic Disorders: Yes (Alzheimer's disease) Hx Family HEENT Disorders: No Hx Family Autoimmune Disorders: No Brother Hx Family Cardiac Disorders: Yes (Hypertension) Hx Family Cancer: Yes (colon and prostate) Internal Medicine - H&P: Meds Ferrous Sulfate 325 mg GTUBE BID 06/23/15 [History] Multivits,Ca,Min/Iron/FA/Lycop [Centrum Men's Tablet] 1 tab PO DAILY 06/23/15 [ History] Calcium Carbonate [Tums] 500 mg GTUBE TID 02/10/17 [History] Nut.tx.impaired Renal Fxn,Soy [Nepro Carb Steady] 1,422 ml GTUBE AD 02/10/17 [ History] Darbepoetin [Aranesp] 100 mcg SQ Q2W 04/02/17 [History] Magnesium Oxide [Mag-Ox] 400 mg PO DAILY 04/02/17 [History] Omeprazole [PriLOSEC] 40 mg PO DAILY 04/02/17 [History] Bacitracin/PolymyxinB OINT [Polysporin] 1 appl TP DAILY 05/25/17 [History] Clopidogrel [Plavix] 75 mg PO DAILY 05/25/17 [History] Docusate [Colace] 100 mg PO BID 05/25/17 [History] Everolimus [Afinitor] 7.5 mg PO DAILY 05/25/17 [History] Levothyroxine [Synthroid] 100 mcg PO DAILY 05/25/17 [History] Metoprolol [Lopressor] 50 mg PO BID PRN 05/25/17 [History] levETIRAcetam [Keppra] 250 mg PO BID 05/25/17 [History] Aspirin 81 mg PO DAILY #30 tab 05/27/17 [Rx] OxyCODONE Immed Rel [Roxicodone 5 MG] 15 mg PO Q4HR PRN #60 tab 06/18/17 [Rx] Sennosides/Docusate Sodium [Senna Plus] 2 each PO BID #120 tab 06/18/17 [Rx] 3 Allergy/AdvReac Type Severity Reaction Status Date / Time diazepam Allergy Intermediate Agitated Verified 08/18/17 21:03 Zolpidem [From Ambien] AdvReac Hallucinati Verified 08/18/17 21:03 ng All Systems PM: A 10-system review of systems was performed and is negative for pertinent findings except as documented above in the HPI. Review of systems: All the systems are reviewed everything is benign except the systems and symptoms I mentioned in the history of present illness - Constitutional Vitals: Temp Pulse Resp BP Pulse Ox 97.5 F L 81 16 160/80 99 08/18/17 21:03 08/18/17 21:03 08/18/17 21:03 08/18/17 21:03 08/18/17 21:03 General appearance: Present: A&O X 3, no acute distress, answers questions appropriately - Head Head exam: Present: atraumatic, normal inspection - Neck Additional comments: small open stoma / ostomy noticed over left side of neck with fungating mass around the stoma. Some purulent drainage noticed. - Respiratory Respiratory exam: Present: decreased breath sounds. Absent: accessory muscle use, rales, respiratory distress, rhonchi, wheezes - Cardiovascular Cardiovascular exam: Present: RRR, +S1, +S2. Absent: diastolic murmur, gallop, rubs, systolic murmur - GI/Abdominal GI/Abdominal exam: Present: normal bowel sounds, soft. Absent: distended, rebound, rigid, tenderness Additional comments: closed PEG tube ostomy noticed in LUQ - Extremities Exam Extremities exam: Present: pedal edema (1+). Absent: calf tenderness, tenderness - Back Exam Back exam: Absent: CVA tenderness (L), CVA tenderness (R) - Neurological Exam Neurological exam: Present: alert, oriented X3 - Psychiatric Psychiatric exam: Present: depressed - Skin Skin exam: Present: dry Internal Med - H&P Results - Labs CBC & Chem 7: 08/18/17 21:48 08/18/17 21:48 Labs: Short CBC 08/18/17 Range/Units 21:48 WBC 14.3 H (4.3-11.1) K/mcL Hgb 9.5 L (12.9-16.9) g/dL Hct 30.5 L (37.5-50.1) % Plt Count 300 (140-400) K/mcL Neutrophils # 13.8 H (1.6-8.9) K/mcL BMP 08/18/17 21:48 Sodium 139 Potassium 5.0 H Chloride 106 Carbon Dioxide 22 BUN 95 H Creatinine 3.57 H Glucose 156 H Calcium 9.2 Urine 08/18/17 Range/Units 21:44 Urine Color Yellow (Yellow) Urine Clarity Clear (Clear) Urine pH 6.0 (5.0-8.0) pH Units Ur Specific [place] 1.017 (1.010-1.025) Urine Protein >=300 H (Neg-Trace) mg/dL Urine Glucose (UA) Normal (Normal) mg/dL - Impressions ITS Impressions Soft Tissue Neck CT 08/18/17 21:36 IMPRESSION: No specific evidence of esophageal perforation. Findings suggest progression of disease as detailed. D/ / Ney Parikh MD / Ney Parikh MD Interpreting Provider: Ney Parikh MD
[2017-08-19] MEDS: Fluconazole 200 MG/100 ML 200 MG/100 ML BAG IVPB SCH (01:35)
[2017-08-19] MEDS: D5% in 0.45% NACL 1,000 ML IVC SCH ×2 (01:35→11:13)
[2017-08-19] MEDS: *HR* Morphine 2 MG/ML SYRINGE IVP PRN ×5 (04:13→14:31)
[2017-08-19] MEDS: Ampicillin/Sulbactam 1,500 MG in 0.9 % Sodium Chloride Mini Bag 100 ML IVPB SCH ×2 (06:11→17:17)
[2017-08-19] MEDS: *HR* Heparin 5,000 UNIT/ML VIAL SQ SCH ×2 (06:15→17:17)
[2017-08-19] MEDS ORDERED: Famotidine 20 MG TABLET PO SCH (07:30)
[2017-08-19 07:34] LABS: Hematocrit 28.9 % (37.5-50.1); Hemoglobin 9.1 g/dL (12.9-16.9); Immature Granulocytes % 0.4 % (0-4); Lymphocytes # 0.4 K/mcL (0.6-4.6); Lymphocytes % 4.6 %; Mean Corpuscular HGB Conc 31.5 g/dL (31.6-35.5); Mean Corpuscular Hemoglobin 29.1 pg (28.0-33.3); Mean Corpuscular Volume 92.3 fL (83.0-100.0); Mean Platelet Volume 11.2 fL (9.4-12.4); Monocytes # 0.4 K/mcL (0.0-1.3); Monocytes % 4.2 %; Neutrophils # 8.8 K/mcL (1.6-8.9); Platelet Count 283 K/mcL (140-400); Red Blood Count 3.13 M/mcL (4.19-5.50); Red Cell Distribution Width 19.5 % (11.5-14.5); Segmented Neutrophils % 90.8 %
[2017-08-19 08:05] LABS: Calcium 8.4 mg/dL (8.6-10.8); Magnesium 1.4 mg/dL (1.6-2.6); Phosphorous 4.2 mg/dL (2.3-4.7)
[2017-08-19] MEDS ORDERED: Magnesium Sulfate 1 GM in D5% in Water 100 ML IVPB ONE (10:20)
--- NOTE | 2017-08-19 10:20 | Internal Med Progress Note ---
Date of Encounter: 08/19/17 Time of Encounter: 10:16 - Assessment and plan (1) Open neck wound Current Visit: No Status: Acute Assessment and plan: Prior culture positive for MSSA, white blood cell count is improving Continue Unasyn day 2 Qualifiers: Encounter type: subsequent encounter Qualified Code(s): S11.90XD - Unspecified open wound of unspecified part of neck, subsequent encounter (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 Assessment and plan: Unable to eat or drink, dehydrated Continue IV fluids Was on hospice but was to be a full code for now Needs to have a PEG tube placed, we will consult interventional radiology in the morning May continue palliative care after placing PEG tube (3) Hypomagnesemia Current Visit: No Status: Acute Assessment and plan: Replete as needed (4) ESRD (end stage renal disease) on dialysis Current Visit: No Status: Chronic Assessment and plan: Used to be on peritoneal dialysis Consult Dr. Wharton (5) Leukocytosis Current Visit: No Status: Acute Assessment and plan: Likely secondary to left neck stoma infection Qualifiers: Leukocytosis type: other Qualified Code(s): D72.828 - Other elevated white blood cell count (6) Endocarditis Current Visit: No Status: Acute Assessment and plan: History of endocarditis treated in the past Qualifiers: Endocarditis type: infective Infective endocarditis organism: unspecified organism Chronicity: subacute Qualified Code(s): I33.0 - Acute and subacute infective endocarditis (7) Neck infection Current Visit: Yes Status: Acute (8) UTI (urinary tract infection) Current Visit: Yes Status: Acute Qualifiers: Urinary tract infection type: acute cystitis Hematuria presence: without hematuria Qualified Code(s): N30.00 - Acute cystitis without hematuria (9) Inability to swallow Current Visit: Yes Status: Acute (10) ESRD on peritoneal dialysis Current Visit: No Status: Chronic (11) Hyperkalemia Current Visit: Yes Status: Acute Assessment and plan: Resolved (12) Hypertension Current Visit: No Status: Chronic Assessment and plan: May use hydralazine IV Qualifiers: Hypertension type: essential hypertension Qualified Code(s): I10 - Essential (primary) hypertension - Subjective Interval history: No CP or SOB, no abdominal pain , has been having more draining from his neck wound, no headaches, no fevers, no dysuria or diarrhea - Constitutional Vitals: Temp Pulse Resp BP Pulse Ox 97.4 F L 77 18 173/75 99 08/19/17 07:38 08/19/17 07:38 08/19/17 07:38 08/19/17 07:38 08/19/17 07:38 General appearance: Present: A&O X 3, no acute distress, answers questions appropriately Exam: Very hard of hearing, using hearing aids - Head Head exam: Present: atraumatic, normocephalic Additional comments: small open stoma / ostomy noticed over left side of neck with fungating mass around the stoma. Purulent drainage noticed. - Eye Eye exam: Present: PERRL, conjuntiva pink, sclera anicteric Pupils: Present: PERRL - Neck Neck exam general surgery: Present: supple, trachea midline. Absent: lymphadenopathy - Respiratory Respiratory exam: Present: CTAB. Absent: accessory muscle use, rales, rhonchi, wheezes - Cardiovascular Cardiovascular exam: Present: RRR, +S1, +S2. Absent: diastolic murmur, gallop, rubs, systolic murmur - GI/Abdominal GI/Abdominal exam: Present: normal bowel sounds, soft, no peritoneal signs. Absent: distended, tenderness - Extremities Exam Extremities exam: Present: warm, radial pulses palpable and symmetrical. Absent : calf tenderness, cyanotic, pedal edema - Neurological Exam Neurological exam: Present: CN II-XII intact, oriented X3, no focal deficits. Absent: pronater drift, facial droop, speech deficit - Skin Skin exam: Present: dry, intact Internal Medicine: Result - Labs CBC & Chem 7: 08/19/17 07:06 08/19/17 07:06 Labs: Short CBC 08/19/17 Range/Units 07:06 WBC 9.7 (4.3-11.1) K/mcL Hgb 9.1 L (12.9-16.9) g/dL Hct 28.9 L (37.5-50.1) % Plt Count 283 (140-400) K/mcL Neutrophils # 8.8 (1.6-8.9) K/mcL BMP 08/19/17 07:06 Sodium 141 Potassium 4.0 D Chloride 110 H Carbon Dioxide 19 BUN 85 H Creatinine 3.30 H Glucose 128 H Calcium 8.4 L Consult Discharge Plan - Plan Referrals: prashanth,Figueroa Blunt DO [Primary Care Provider] -
--- NOTE | 2017-08-19 11:24 | Nephrology Consult Note ---
Date of Encounter: 08/19/17 Time of Encounter: 11:00 Assessment and Plan (1) End stage renal disease Current Visit: No Status: Acute SCr elevated but likely not as impressive off PD for the past 4 weeks due to significant weight loss and good residual renal function. BUN noted quite elevated but no clear signs of uremia at this time. No acute indication for [employer]ELOP[employer] at this time and patient does not want at this time but he is still deciding the finality of this decision. 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 If he decides to resume PD, perhaps he will need just a few times a week instead of daily. (2) Hyperkalemia Current Visit: Yes Status: Acute Resolved with potassium currently at 4.0, will monitor (3) Anemia Current Visit: No Status: Acute Hgb noted fairly stable at 9.1, has a long history of anemia of chronic disease along with acute bleeds. No signs of bleeding at this time Qualifiers: Anemia type: due to chronic kidney disease Chronic kidney disease stage: stage 5, not on chronic dialysis Qualified Code(s): N18.5 - Chronic kidney disease, stage 5; D63.1 - Anemia in chronic kidney disease; D63.1 - Anemia in chronic kidney disease (4) Failure to thrive Current Visit: No Status: Acute Patient and requesting PEG tube to aid with nutrition and presently off hospice care as a result magnesium noted low, agree with iv repletion Qualifiers: Failure to thrive age range: in adult Qualified Code(s): R62.7 - Adult failure to thrive (5) Laryngeal cancer Current Visit: No Status: Chronic Per [facility], recently finished his oral chemo pills with no plans per to continue at this time History of Present Illness - Reason for Consult Consult date: 08/19/17 end stage renal disease Requesting physician: Desmond Neely - History of Present Illness 66 y o male with PMH of recurrent laryngeal cancer s/p resection, trach and po chemo, ESRD off PD for thE past month on hospice admitted overnight with dysphagia along with neck mass drainage particularly with eating and patient with family now requesting PEG placement. Renal consulted for management of his renal dysfunction. SCr noted at 3.57, GFR 17 on presentation with BUN at 95 and potassium at 5 improving to 4 today. Patient has returned all his PD equipments and supplies but still has his PD catheter which he has been taking care of with daily cleaning and gentamicin ointment. Pt seen and examined with present complaining of neck pain. Past Med Surg Social Fam HX - Past Medical History Medical history: cancer, DVT, dialysis, hyperlipidemia, hypertension, malignancy , renal disease, thyroid disease Psychiatric history: anxiety, depression - Past Surgical History Surgical History: cancer surgery, cataract, cholecystectomy, tracheostomy, other - Social History Smoking Status: Former smoker Smokeless Tobacco Status: No Alcohol use: none Drug use: none - Family History Mother Adopted: No Family Member Ethnicity: Non- Living Status: Hx Family Cardiac Disorders: No Hx Family Respiratory Disorders: No Hx Family Cancer: No Hx Family GI Disorders: No Hx Family Endocrine Disorder: No Hx Family Neuromuscular Disorders: No Hx Family Neurologic Disorders: Yes (Alzheimer's disease) Hx Family HEENT Disorders: No Hx Family Autoimmune Disorders: No Brother Hx Family Cardiac Disorders: Yes (Hypertension) Hx Family Cancer: Yes (colon and prostate) Medications and Allergies Aspirin [Lo-Dose Aspirin EC] 81 mg PO DAILY 08/19/17 [History] Dexamethasone [Decadron] 4 mg PO DAILY 08/19/17 [History] Docusate Sodium [Dok] 100 mg PO BID 08/19/17 [History] Haloperidol Oral Conc [Haldol] 1 mg PO Q4H PRN 08/19/17 [History] LORazepam [Ativan] 0.5 mg PO Q6H PRN 08/19/17 [History] Levothyroxine Sodium [Levoxyl] 125 mcg PO DAILY 08/19/17 [History] Morphine Oral CONC [Roxanol] 5 - 20 mg PO Q1H PRN 08/19/17 [History] Morphine Sulfate SR (12 HR) [MS Contin] 1 tab PO Q8HR 08/19/17 [History] Omeprazole [PriLOSEC] 20 mg PO DAILY 08/19/17 [History] Sennosides [Senna] 17.2 mg PO DAILY PRN 08/19/17 [History] 3 Allergy/AdvReac Type Severity Reaction Status Date / Time diazepam Allergy Intermediate Agitated Verified 08/18/17 21:03 Zolpidem [From Ambien] AdvReac Hallucinati Verified 08/18/17 21:03 ng Review of Systems All Systems: reviewed and no additional remarkable complaints except as stated ( 10 systems reviewed and as noted in HPI) Exam - Vital Signs Vital signs: Initial Vital Signs Temp Pulse Resp BP Pulse Ox 97.5 F L 81 16 160/80 99 08/18/17 21:03 08/18/17 21:03 08/18/17 21:03 08/18/17 21:03 08/18/17 21:03 Vital Signs - Last 8 Hours Temp Pulse Resp BP Pulse Ox 08/19/17 10:49 98.3 F 77 18 140/61 99 08/19/17 07:38 97.4 F L 77 18 173/75 99 08/19/17 04:16 98.3 F 70 18 158/69 99 Intake and Output 08/18/17 08/19/17 08/19/17 23:59 07:59 15:59 Intake Total 1800 / 1800 0 / 0 Output Total 450 / 450 400 / 400 Balance 1350 / 1350 -400 / -400 Intake: IV Fluids 1800 / 1800 0.9 % Sodium Chloride 1,000 ML 1000 / 1000 @ Wide Open IVC .Q0M ONE Rx#: [id number] D5% And 0.45% Nacl 1000 Ml Bag 500 / 500 1,000 ML @ 100 mls/hr IVC .Q10H [facility]UE Rx#:[id number] Unasyn 1,500 mg In 0.9 % Sodium 100 / 100 Chloride (Mini-Bag +) 100 ML @ 200 mls/hr IVPB Q12HR [facility] Rx#: [id number] Unasyn 3,000 MG In 0.9 % Sodium 100 / 100 Chloride (Mini-Bag +) 100 ML @ 200 mls/hr IVPB ONCE ONE Rx#: [id number] Diflucan Premix 200 MG/100 ML 100 / 100 200 mg In 100 ml @ 100 mls/hr IVPB Q24H [facility] Rx#:[id number] Oral 0 / 0 0 / 0 Output: Urine 450 / 450 400 / 400 Other: # Voids 1 Weight 67.495 kg Patient Weight 08/19/17 23:59 Weight 67.495 kg - General Appearance General appearance: chronically ill, frail (NAD) EENT: ATNC Neck: no JVD, supple Additional Comments: dressing noted to the left side of neck with dried light colored drainage noted on shirt Additional Comments: good areation with transmitted upper airways sounds Cardiology: edema (trace LE bilat), normal S1, normal S2 - Dialysis Access Dialysis Vascular Access: Arteriovenous Fistula thrill: Yes bruit: Yes Gastrointestinal: no tenderness, no guarding Additional Comments: PD catheter in place with no drainage Integumentary: warm and dry Neurologic: no focal deficit Musculoskeletal: no deformities Psychiatric: depressed (tearful), cooperative Results - Lab Results 08/19/17 07:06 08/19/17 07:06 Most recent lab results Calcium 8.4 mg/dL (8.6-10.8) L 08/19/17 07:06 Phosphorus 4.2 mg/dL (2.3-4.7) 08/19/17 07:06 Magnesium 1.4 mg/dL (1.6-2.6) L 08/19/17 07:06 Consult Discharge Plan - Plan Referrals: ColFigueroa alford DO [Primary Care Provider] -
[2017-08-19] MEDS: Ketorolac 30 MG/ML VIAL IVP PRN (17:17)
[2017-08-19] MEDS: Dexamethasone 4 MG/ML VIAL IVP SCH ×2 (17:17→22:55)
[2017-08-19] MEDS: Haloperidol Lactate 5 MG/ML VIAL IVP PRN (23:22)
[2017-08-20] MEDS: Fluconazole 200 MG/100 ML 200 MG/100 ML BAG IVPB SCH (01:03)
[2017-08-20] MEDS: D5% in 0.45% NACL 1,000 ML IVC SCH ×2 (01:03→09:57)
[2017-08-20] MEDS: Ketorolac 30 MG/ML VIAL IVP PRN ×2 (01:52→07:16)
[2017-08-20] MEDS: *HR* Morphine 2 MG/ML SYRINGE IVP PRN ×4 (04:48→19:47)
[2017-08-20 04:50] LABS: Hemoglobin 7.8 g/dL (12.9-16.9); Mean Corpuscular HGB Conc 31.2 g/dL (31.6-35.5); Mean Corpuscular Hemoglobin 28.7 pg (28.0-33.3); Mean Corpuscular Volume 91.9 fL (83.0-100.0); Mean Platelet Volume 11.1 fL (9.4-12.4); Platelet Count 263 K/mcL (140-400); Red Blood Count 2.72 M/mcL (4.19-5.50); Red Cell Distribution Width 19.6 % (11.5-14.5)
[2017-08-20 05:07] LABS: Calcium 7.5 mg/dL (8.6-10.8); Potassium 3.8 mEq/L (3.5-4.5)
[2017-08-20] MEDS: Ampicillin/Sulbactam 1,500 MG in 0.9 % Sodium Chloride Mini Bag 100 ML IVPB SCH (06:12)
[2017-08-20] MEDS: *HR* Heparin 5,000 UNIT/ML VIAL SQ SCH ×2 (06:19→19:43)
[2017-08-20 07:05] LABS: Prothrombin Time 11.1 Seconds (9.4-12.1)
[2017-08-20] MEDS: Famotidine 20 MG TABLET PO SCH (07:17)
[2017-08-20] MEDS ORDERED: Magnesium Sulfate 2 GM in D5% in Water 100 ML IVPB ONE (08:05)
[2017-08-20] MEDS: Dexamethasone 4 MG/ML VIAL IVP SCH ×3 (09:46→21:30)
[2017-08-20] MEDS ORDERED: Ketorolac 30 MG/ML VIAL IVP PRN (10:13)
[2017-08-20] MEDS ORDERED: Acetaminophen 325 MG TABLET PO PRN (10:13)
[2017-08-20] MEDS: Cefepime HCl 1,000 MG in D5% in Water (Mini-Bag+) 100 ML IVPB SCH (11:04)
--- NOTE | 2017-08-20 11:31 | Nephrology Progress Note ---
Date of Encounter: 08/20/17 Time of Encounter: 11:27 - Assessment and Plan (1) ESRD on peritoneal dialysis Current Visit: No Status: Chronic Patient off peritoneal dialysis. Labs stable. Patient may be CKD Stage 4. Will monitor for dialysis needs. (2) Throat cancer Current Visit: Yes Status: Acute Per primary team and oncology. (3) Anemia Current Visit: No Status: Acute Monitor hemoglobin. Transfuse as needed. Qualifiers: Anemia type: due to chronic kidney disease Chronic kidney disease stage: stage 5, not on chronic dialysis Qualified Code(s): N18.5 - Chronic kidney disease, stage 5; D63.1 - Anemia in chronic kidney disease; D63.1 - Anemia in chronic kidney disease Subjective Principal diagnosis: ESRD Interval history: Patient seen. He is brushing his hair at the time of my evaluation. No new complaints. is at his bedside. Objective - Vital Signs Vital signs: Vital Signs Temp Pulse Resp BP Pulse Ox 08/20/17 10:57 98.2 F 75 17 134/61 98 08/20/17 08:14 98 08/20/17 07:23 98.2 F 79 16 119/54 98 08/20/17 04:43 98.4 F 92 16 134/69 98 08/20/17 01:05 158/65 08/19/17 23:46 99.3 F 88 16 161/65 100 08/19/17 19:50 98.1 F 78 16 163/62 100 08/19/17 15:50 97.5 F L 85 18 177/72 90 Intake and Output 08/19/17 08/20/17 08/20/17 23:59 07:59 15:59 Intake Total 100 / 100 1650 / 1650 550 / 550 Output Total 575 / 575 Balance 100 / 100 1075 / 1075 550 / 550 Intake: IV Fluids 100 / 100 1650 / 1650 550 / 550 D5% And 0.45% Nacl 1000 Ml Bag 1450 / 1450 550 / 550 1,000 ML @ 100 mls/hr IVC .Q10H SUE Rx#:[id number] Unasyn 1,500 mg In 0.9 % Sodium 100 / 100 100 / 100 Chloride (Mini-Bag +) 100 ML @ 200 mls/hr IVPB Q12HR SUE Rx#: [id number] Diflucan Premix 200 MG/100 ML 100 / 100 200 mg In 100 ml @ 100 mls/hr IVPB Q24H [facility] Rx#:[id number] Oral 0 / 0 Output: Urine 575 / 575 Other: Meal NPO # Voids 1 Weight 69.57 kg Patient Weight 08/20/17 23:59 Weight 69.57 kg - General Appearance General appearance: Present: well-developed, well-nourished, chronically ill EENT: Present: ATNC Neck: Present: supple Additional Comments: Dressing on the left side of his neck. Additional Comments: Respirations are unlabored. Cardiology: Present: regular rate Integumentary: Present: warm and dry Neurologic: Present: alert and oriented x3 Psychiatric: Present: mood/affect appropriate - Lab 08/20/17 04:26 08/20/17 04:26 Most recent lab results Calcium 7.5 mg/dL (8.6-10.8) L 08/20/17 04:26 Phosphorus 4.2 mg/dL (2.3-4.7) 08/19/17 07:06 Magnesium 1.4 mg/dL (1.6-2.6) L 08/20/17 04:26 Consult Discharge Plan - Plan Referrals: Figueroa Navarro DO [Primary Care Provider] -
[2017-08-20] MEDS ORDERED: *HR* FentaNYL (PF) 100 MCG/2 ML VIAL IVP PRN (15:22)
[2017-08-20] MEDS ORDERED: *HR* Midazolam HCl 2 MG/2 ML VIAL IVP PRN (15:22)
[2017-08-20] MEDS ORDERED: 0.9 % Sodium Chloride 500 ML ONE ×2 (15:30→15:41)
[2017-08-20] MEDS ORDERED: Heparin 1,000 UNITS/500 mL NS 500 ML ONE (15:32)
--- NOTE | 2017-08-20 16:55 | Internal Med Progress Note ---
Date of Encounter: 08/20/17 Time of Encounter: 16:52 - Assessment and plan (1) Open neck wound Current Visit: No Status: Acute Assessment and plan: New culture growing Pseudomonas, sensitivity pending Prior culture positive for MSSA, white blood cell count is improving Discontinue Unasyn day 2, START CEFEPIME Qualifiers: Encounter type: subsequent encounter Qualified Code(s): S11.90XD - Unspecified open wound of unspecified part of neck, subsequent encounter (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 Assessment and plan: Unable to eat or drink, dehydrated Continue IV fluids continue decadron IV Was on hospice but was to be a full code for now Needs to have a PEG tube placed, consulted interventional radiology to pleace PEG May continue palliative care after placing PEG tube (3) Hypomagnesemia Current Visit: No Status: Acute Assessment and plan: Replete as needed (4) ESRD (end stage renal disease) on dialysis Current Visit: No Status: Chronic Assessment and plan: Used to be on peritoneal dialysis Consulted Dr. Wharton, no PD schedules for now (5) Leukocytosis Current Visit: No Status: Acute Assessment and plan: Likely secondary to left neck stoma infection Qualifiers: Leukocytosis type: other Qualified Code(s): D72.828 - Other elevated white blood cell count (6) Endocarditis Current Visit: No Status: Acute Assessment and plan: History of endocarditis treated in the past Qualifiers: Endocarditis type: infective Infective endocarditis organism: unspecified organism Chronicity: subacute Qualified Code(s): I33.0 - Acute and subacute infective endocarditis (7) Neck infection Current Visit: Yes Status: Acute (8) UTI (urinary tract infection) Current Visit: Yes Status: Acute Qualifiers: Urinary tract infection type: acute cystitis Hematuria presence: without hematuria Qualified Code(s): N30.00 - Acute cystitis without hematuria (9) Inability to swallow Current Visit: Yes Status: Acute (10) ESRD on peritoneal dialysis Current Visit: No Status: Chronic (11) Hyperkalemia Current Visit: Yes Status: Acute Assessment and plan: Resolved (12) Hypertension Current Visit: No Status: Chronic Assessment and plan: May use hydralazine IV Qualifiers: Hypertension type: essential hypertension Qualified Code(s): I10 - Essential (primary) hypertension - Subjective Interval history: Had some episodes of bleeding from his neck wound. No CP or SOB, no abdominal pain , has been having more draining from his neck wound, no headaches, no fevers, no dysuria or diarrhea - Constitutional Vitals: Temp Pulse Resp BP Pulse Ox 98.2 F 76 13 127/64 100 08/20/17 10:57 08/20/17 16:45 08/20/17 16:45 08/20/17 16:45 08/20/17 16:45 General appearance: Present: A&O X 3, no acute distress, answers questions appropriately Exam: General appearance: Present: A&O X 3, no acute distress, answers questions appropriately Exam: Very hard of hearing, using hearing aids - Head Head exam: Present: atraumatic, normocephalic Additional comments: small open stoma / ostomy noticed over left side of neck with fungating mass around the stoma. Purulent drainage and blood noticed. - Eye Eye exam: Present: PERRL, conjuntiva pink, sclera anicteric Pupils: Present: PERRL - Neck Neck exam general surgery: Present: supple, trachea midline. Absent: lymphadenopathy - Respiratory Respiratory exam: Present: CTAB. Absent: accessory muscle use, rales, rhonchi, wheezes - Cardiovascular Cardiovascular exam: Present: RRR, +S1, +S2. Absent: diastolic murmur, gallop, rubs, systolic murmur - GI/Abdominal GI/Abdominal exam: Present: normal bowel sounds, soft, no peritoneal signs. Absent: distended, tenderness PERITONEAL DIALYSIS CATHETER IN PLACE - Extremities Exam Extremities exam: Present: warm, radial pulses palpable and symmetrical. Absent : calf tenderness, cyanotic, pedal edema - Neurological Exam Neurological exam: Present: CN II-XII intact, oriented X3, no focal deficits. Absent: pronater drift, facial droop, speech deficit - Skin Skin exam: Present: dry, intact Internal Medicine: Result - Labs CBC & Chem 7: 08/20/17 04:26 08/20/17 04:26 Labs: Short CBC 08/20/17 Range/Units 04:26 WBC 6.8 (4.3-11.1) K/mcL Hgb 7.8 L (12.9-16.9) g/dL Hct 25.0 L (37.5-50.1) % Plt Count 263 (140-400) K/mcL BMP 08/20/17 04:26 Sodium 135 L Potassium 3.8 Chloride 109 Carbon Dioxide 17 L BUN 76 H Creatinine 3.19 H Glucose 388 H Calcium 7.5 L - ABG Interpretation ABG results: PT/INR, D-dimer PT 11.1 Seconds (9.4-12.1) 08/20/17 06:54 Consult Discharge Plan - Plan Referrals: Figueroa Navarro DO [Primary Care Provider] - (patient will call for an appt. per [facility])
--- NOTE | 2017-08-20 17:23 | Pre-Sedation Evaluation ---
Pre-sedation evaluation - Pre-sedation checklist Date of procedure: 08/20/17 Procedure: g tube placement Recent Vitals: Last Vital Signs Temp 98.2 F 08/20/17 10:57 Pulse 75 08/20/17 17:00 Resp 13 08/20/17 17:00 BP 142/61 08/20/17 17:00 Pulse Ox 100 08/20/17 17:00 H&P (including ROS) documented in medical record: Yes Previous reaction to sedatives/anesthetics: No Dietary Status: NPO after Midnight Airway Assessment: Patient can open mouth completely, TMJ function normal, Micrognathia (under-bite, receding chin) absent, Neck with adequate range of motion Dentition: No loose teeth or bridges ASA Classification *see protocol: CLASS II-Mild systemic disease Plan of Care: Pt appropriate candidate for procedure/moderate/conscious sedation , Risks/benefits of procedure/sedation discussed w/ patient/family, If not NPO; Risk of intake outweiged by necessity to perform procedure
--- NOTE | 2017-08-20 17:26 | IR Procedure Note ---
Date of procedure: 08/20/17 Consent Obtained: Verbal consent, Written consent Timeout: Correct patient and procedure verified, Correct site verified, Time out performed, Skin prep completed Local anesthetic: Lidocaine 1% Indications: dysphagia Procedure Performed: G tube placement Site/Technique: stomach Estimated blood loss (cc): 2 Complications: None; Tolerated procedure well Post Procedure Treatment Plan: tube should be capped x 24 hours, then management per nutrition svcs
[2017-08-21] MEDS: Cefepime HCl 1,000 MG in D5% in Water (Mini-Bag+) 100 ML IVPB SCH ×3 (00:36→21:47)
[2017-08-21] MEDS: D5% in 0.45% NACL 1,000 ML IVC SCH ×4 (00:36→21:54)
[2017-08-21] MEDS: *HR* Morphine 2 MG/ML SYRINGE IVP PRN ×7 (00:41→21:46)
[2017-08-21] MEDS: Dexamethasone 4 MG/ML VIAL IVP SCH ×4 (03:36→21:46)
[2017-08-21] MEDS: Haloperidol Lactate 5 MG/ML VIAL IVP PRN ×2 (03:36→21:52)
[2017-08-21 06:27] LABS: Hematocrit 26.1 % (37.5-50.1); Hemoglobin 8.3 g/dL (12.9-16.9); Mean Corpuscular HGB Conc 31.8 g/dL (31.6-35.5); Mean Corpuscular Hemoglobin 29.2 pg (28.0-33.3); Mean Corpuscular Volume 91.9 fL (83.0-100.0); Platelet Count 253 K/mcL (140-400); Red Blood Count 2.84 M/mcL (4.19-5.50); Red Cell Distribution Width 19.6 % (11.5-14.5)
[2017-08-21] MEDS: *HR* Heparin 5,000 UNIT/ML VIAL SQ SCH ×2 (06:29→17:36)
[2017-08-21 06:36] LABS: Calcium 8.3 mg/dL (8.6-10.8); Potassium 4.3 mEq/L (3.5-4.5)
[2017-08-21 06:39] LABS: Albumin 2.6 g/dL (3.5-5.0); Albumin/Globulin Ratio 0.8 (1.1-2.2); Bilirubin,Total 0.3 mg/dL (0.2-1.2); Calcium 8.1 mg/dL (8.6-10.8); Globulin 3.1 g/dL (2.4-3.5); Potassium 4.3 mEq/L (3.5-4.5); Total Protein 5.7 g/dL (6.0-8.3)
[2017-08-21] MEDS: Famotidine 20 MG TABLET PO SCH (09:05)
--- NOTE | 2017-08-21 12:45 | Nephrology Progress Note ---
Date of Encounter: 08/21/17 Time of Encounter: 12:42 - Assessment and Plan (1) ESRD on peritoneal dialysis Current Visit: No Status: Chronic Patient off peritoneal dialysis. . Patient may be CKD Stage 4. Will monitor for dialysis needs especially with the rising creatinine. He has been advised by myself, IR and Dr. Hernandez to discontinue his PD catheter especially in light of the placement of the PEG tube as it could be a source of infection/peritonitis and subsequently could lead to morbidity or mortality. At this time he will not consent to the removal of the PD catheter. (2) Throat cancer Current Visit: Yes Status: Acute Per primary team and oncology. (3) Anemia Current Visit: No Status: Acute Monitor hemoglobin. Transfuse as needed. Qualifiers: Anemia type: due to chronic kidney disease Chronic kidney disease stage: stage 5, not on chronic dialysis Qualified Code(s): N18.5 - Chronic kidney disease, stage 5; D63.1 - Anemia in chronic kidney disease; D63.1 - Anemia in chronic kidney disease (4) Acidosis Current Visit: Yes Status: Acute Metabolic acidosis. Will start oral bicarbonate when PEG tube can be used. Subjective Principal diagnosis: ESRD Interval history: Patient seen. He is walking around in his room. No new complaints. is at his bedside. Objective - Vital Signs Vital signs: Vital Signs Temp Pulse Resp BP Pulse Ox 08/21/17 11:26 97.2 F L 97 14 155/70 99 08/21/17 07:09 98.3 F 99 14 144/63 98 08/21/17 06:34 97.9 F 94 16 143/71 99 08/21/17 03:29 98.3 F 91 16 135/69 97 08/20/17 23:32 98.1 F 103 16 158/70 97 08/20/17 19:47 98.1 F 107 16 178/91 98 08/20/17 18:14 98.5 F 88 18 134/61 97 08/20/17 17:59 98.5 F 82 16 154/63 96 08/20/17 17:45 98.7 F 86 16 161/69 08/20/17 17:30 98.2 F 75 13 142/61 100 08/20/17 17:00 75 13 142/61 100 08/20/17 16:55 79 14 145/74 95 08/20/17 16:45 76 13 127/64 100 08/20/17 16:39 77 14 139/66 100 08/20/17 16:34 81 21 144/70 100 08/20/17 16:29 74 13 133/70 99 08/20/17 16:25 81 14 137/72 99 08/20/17 16:18 78 11 145/73 99 08/20/17 16:07 86 17 149/69 100 Intake and Output 08/20/17 08/21/17 08/21/17 23:59 07:59 15:59 Intake Total 1000 / 1000 100 / 100 1000 / 1000 Output Total 150 / 150 Balance 1000 / 1000 100 / 100 850 / 850 Intake: IV Fluids 1000 / 1000 100 / 100 1000 / 1000 D5% And 0.45% Nacl 1000 Ml Bag 1000 / 1000 1000 / 1000 1,000 ML @ 100 mls/hr IVC .Q10H [facility] Rx#:[id number] Maxipime 1,000 MG In Dextrose 5 100 / 100 % (Minibag+) 100 ML 100 ML @ 200 mls/hr IVPB Q12H [facility] Rx#: [id number] Oral 0 / 0 0 / 0 Output: Urine 150 / 150 Other: Meal Breakfast Percent of Meal Consumed 25% # Voids 2 Weight 69.6 kg Patient Weight 08/21/17 23:59 Weight 69.6 kg - General Appearance General appearance: Present: well-developed, well-nourished, sedated on ventilator EENT: Present: ATNC Neck: Present: supple Additional Comments: Respirations are unlabored. - Lab 08/21/17 05:59 08/21/17 05:59 Most recent lab results Calcium 8.1 mg/dL (8.6-10.8) L 08/21/17 05:59 Phosphorus 4.2 mg/dL (2.3-4.7) 08/19/17 07:06 Magnesium 2.0 mg/dL (1.6-2.6) 08/21/17 05:59 Consult Discharge Plan - Plan Referrals: Figueroa Navarro DO [Primary Care Provider] - (patient will call for an appt. per [facility])
--- NOTE | 2017-08-21 15:21 | Internal Med Progress Note ---
Date of Encounter: 08/21/17 Time of Encounter: 13:05 - Assessment and plan (1) Open neck wound Current Visit: No Status: Acute Assessment and plan: New culture growing Pseudomonas and gram negative Rods continue cefepime will f/u official result reports. Oncology evaluation requested Qualifiers: Encounter type: subsequent encounter Qualified Code(s): S11.90XD - Unspecified open wound of unspecified part of neck, subsequent encounter (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 Assessment and plan: s/p PEG tube placement pt wanting to explore treatment options for his malignancy due to which oncology evaluation requested pt states if there is nothing that can be done with is neck mass/wound, he would like to return to hospice care (3) Anemia Current Visit: No Status: Acute Assessment and plan: of chronic disease H&H low but acceptable continue to monitor will transfuse as needed Qualifiers: Anemia type: due to chronic kidney disease Chronic kidney disease stage: stage 5, not on chronic dialysis Qualified Code(s): N18.5 - Chronic kidney disease, stage 5; D63.1 - Anemia in chronic kidney disease; D63.1 - Anemia in chronic kidney disease (4) CKD (chronic kidney disease) stage 5, GFR less than 15 ml/min Current Visit: Yes Status: Chronic Assessment and plan: Nephrology on board and consultation appreciated (5) Goals of care, counseling/discussion Current Visit: No Status: Acute Assessment and plan: Palliative care consultation appreciated Pt to remain DNR CC as per his wishes (6) Hypertension Current Visit: No Status: Chronic Assessment and plan: BP within acceptable range will continue to monitor Qualifiers: Hypertension type: essential hypertension Qualified Code(s): I10 - Essential (primary) hypertension (7) Hypothyroidism Current Visit: No Status: Chronic Assessment and plan: continue home dose of levothyroxine Qualifiers: Hypothyroidism type: unspecified Qualified Code(s): E03.9 - Hypothyroidism , unspecified (8) Inability to swallow Current Visit: Yes Status: Acute Assessment and plan: s/p PEG tube placement (9) DVT prophylaxis Current Visit: No Status: Acute Assessment and plan: SCD - Subjective Interval history: Pt seen and examined at bedside. Resting comfortably in bed and reports of having food leaking from his neck mass, however no fistulas noted to CT neck. Pt and family unclear of their goals of care. Initially pt was on hospice care, which was removed for PEG tube placement. Now patient and family are requesting dialysis support and yard jacker is on board. HOwever patient wants to know if there is anything that he can do for his neck mass/open wound. He states if there is nothing that can be done to this open wound then he would like to return to hospice care. Oncology evaluation requested. Pt still wishes to be DNR-CC. - Constitutional Vitals: Temp Pulse Resp BP Pulse Ox 97.2 F L 97 14 155/70 99 08/21/17 11:26 08/21/17 11:26 08/21/17 11:26 08/21/17 11:26 08/21/17 11:26 General appearance: Present: A&O X 3, no acute distress, answers questions appropriately - Head Head exam: Present: atraumatic, normocephalic - Neck Additional comments: left neck open mass, draining purulent discharge - Respiratory Respiratory exam: Present: CTAB. Absent: accessory muscle use, rales, rhonchi, wheezes - Cardiovascular Cardiovascular exam: Present: RRR, +S1, +S2. Absent: diastolic murmur, gallop, rubs, systolic murmur - GI/Abdominal GI/Abdominal exam: Present: normal bowel sounds, soft, no peritoneal signs. Absent: distended, tenderness Additional comments: s/p PEG tube placement - Extremities Exam Extremities exam: Present: warm, radial pulses palpable and symmetrical. Absent : calf tenderness Internal Medicine: Result - Labs CBC & Chem 7: 08/21/17 05:59 08/21/17 05:59 Labs: Short CBC 08/21/17 Range/Units 05:59 WBC 9.9 (4.3-11.1) K/mcL Hgb 8.3 L (12.9-16.9) g/dL Hct 26.1 L (37.5-50.1) % Plt Count 253 (140-400) K/mcL BMP 08/21/17 08/21/17 05:59 05:59 Sodium 139 138 Potassium 4.3 4.3 Chloride 110 H 110 H Carbon Dioxide 17 L 17 L BUN 84 H 86 H Creatinine 3.67 H 3.72 H Glucose 188 H 191 H Calcium 8.3 L 8.1 L Liver Function 08/21/17 Range/Units 05:59 Total Bilirubin 0.3 (0.2-1.2) mg/dL AST 16 (5-34) Units/L ALT 14 (0-55) Units/L Alkaline Phosphatase 69 (38-126) Units/L Albumin 2.6 L (3.5-5.0) g/dL - ABG Interpretation ABG results: PT/INR, D-dimer PT 11.1 Seconds (9.4-12.1) 08/20/17 06:54 - Impressions Impressions Gastrostomy Tube Placement 08/20/17 00:00 IMPRESSION: Successful fluoroscopically-guided placement of a percutaneous gastrostomy tube. D/ /21/2017 09:28:46 Guy Yan MD / [place] Interpreting Provider: Guy Yan MD Guidance Needle Placement Ultrasound 08/20/17 00:00 IMPRESSION: Successful fluoroscopically-guided placement of a percutaneous gastrostomy tube. D/ /21/2017 09:28:46 Guy Yan MD / [place] Interpreting Provider: Guy Yan MD Consult Discharge Plan - Plan Referrals: Figueroa Navarro DO [Primary Care Provider] - (patient will call for an appt. per [facility])
--- NOTE | 2017-08-21 15:33 | Palliative - Consult Note ---
Date of Encounter: 08/21/17 Time of Encounter: 15:20 - Assessment and Plan (1) Cancer associated pain Current Visit: Yes Status: Acute Assessment and plan: Will continue IV Morphine until G-tube is usable. Transition to medication by PEG tomorrow. He has [facility] on home med list - however, states that he was not taking this. With PEG, he will not be able to utilized SR pain medications. Will f/u tomorrow. (2) ESRD (end stage renal disease) on dialysis Current Visit: No Status: Chronic Assessment and plan: Nephrology following. Peritoneal catheter in place. (3) Goals of care, counseling/discussion Current Visit: No Status: Acute Assessment and plan: He was enrolled recently in [facility]. He revoked to come into hospital and have feeding tube placed. He confirms that he desires to be DNR-Comfort Care. He does desire antibiotics to treat the infection at this time. at bedside states they are considering consultation for neck wound to see if anything can be done. She stated she may call physician that treats pt in [place]. Oncology has been consulted here as well. Discussed manager long term care goals of care - if there is nothing that can be done for neck wound, he most likely will not restart dialysis. If can be repaired, he may desire to restart. Nephrology is following closely. [facility] did come in and speak with pt and - and they again confirmed the above. We will keep in contact with them, and update on clinical course. D/W Dr. De Jesus (4) Laryngeal cancer Current Visit: No Status: Chronic (5) Sepsis Current Visit: No Status: Acute Qualifiers: Sepsis type: sepsis due to unspecified organism Qualified Code(s): A41.9 - Sepsis, unspecified organism Palliative-CN HPI - Data of Consult Consult date: 08/21/17 Requesting Physician: Beth De Jesus MD Primary Care Provider: Figueroa Navarro - Consult Narrative History of present illness: Mr. Porras is a 66 year old male with a history of head/neck cancer, known to the palliative care team from previous admission, who came into ED this weekend r/t purulent drainage and what thought was "food particles" coming from neck wound. He had recently been enrolled in [facility]. He previously did peritoneal dialysis but had stopped this approximately a month ago. Culture from neck wound + for gram negative pop, awaiting sensitivity. He has been treated with IV antibiotics. Initial CT did not demonstrate any fistula. He had a PEG tube placed yesterday, and will be starting tube feeds tonight. Palliative was consulted to assist with symptom management and help with goal of care discussion, as pt now refusing to have PD cath removed and re- considering dialysis. Nephrology is following. Upon my visit, he is ambulatory in room. is at bedside. Communicates with writing. Denies pain at present. States he "doesn't know what he wants" as far as further care. CC: Beth De Jesus MD Past Med Surg Social Fam HX - Past Medical History Medical history: cancer, DVT, dialysis, hyperlipidemia, hypertension, malignancy , renal disease, thyroid disease Psychiatric history: anxiety, depression - Past Surgical History Surgical History: cancer surgery, cataract, cholecystectomy, tracheostomy, other - Social History Smoking Status: Former smoker Smokeless Tobacco Status: No Alcohol use: none Drug use: none - Family History Mother Adopted: No Family Member Ethnicity: Non- Living Status: Hx Family Cardiac Disorders: No Hx Family Respiratory Disorders: No Hx Family Cancer: No Hx Family GI Disorders: No Hx Family Endocrine Disorder: No Hx Family Neuromuscular Disorders: No Hx Family Neurologic Disorders: Yes (Alzheimer's disease) Hx Family HEENT Disorders: No Hx Family Autoimmune Disorders: No Brother Hx Family Cardiac Disorders: Yes (Hypertension) Hx Family Cancer: Yes (colon and prostate) Medications and Allergies Aspirin [Lo-Dose Aspirin EC] 81 mg PO DAILY 08/19/17 [History] Dexamethasone [Decadron] 4 mg PO DAILY 08/19/17 [History] Docusate Sodium [Dok] 100 mg PO BID 08/19/17 [History] Haloperidol Oral Conc [Haldol] 1 mg PO Q4H PRN 08/19/17 [History] LORazepam [Ativan] 0.5 mg PO Q6H PRN 08/19/17 [History] Levothyroxine Sodium [Levoxyl] 125 mcg PO DAILY 08/19/17 [History] Morphine Oral CONC [Roxanol] 5 - 20 mg PO Q1H PRN 08/19/17 [History] Morphine Sulfate SR (12 HR) [MS Contin] 1 tab PO Q8HR 08/19/17 [History] Omeprazole [PriLOSEC] 20 mg PO DAILY 08/19/17 [History] Sennosides [Senna] 17.2 mg PO DAILY PRN 08/19/17 [History] 3 Allergy/AdvReac Type Severity Reaction Status Date / Time diazepam Allergy Intermediate Agitated Verified 08/18/17 21:03 Zolpidem [From Ambien] AdvReac Hallucinati Verified 08/18/17 21:03 ng All systems: reviewed and no additional remarkable complaints except as stated ( Generalized weakness, neck wound with drainage) Palliative Care-Exam - Constitutional Vitals: Temp Pulse Resp BP Pulse Ox 97.2 F L 97 14 155/70 99 08/21/17 11:26 08/21/17 11:26 08/21/17 11:26 08/21/17 11:26 08/21/17 11:26 General appearance: Present: no acute distress - Head Head Exam: Present: normal inspection, normocephalic - Eye Eye exam: Present: normal appearance, PERRL - Respiratory Respiratory exam: Present: decreased breath sounds, CTAB - Cardiovascular Cardiovascular exam: Present: +S1, +S2 - GI/Abdominal Exam additional comments: PD cath and PEG present and intact - Extremities Exam Extremities exam: Present: normal capillary refill, normal inspection - Neurological Exam Neurological exam: Present: alert, oriented X3, strengths equal and symetr throughout - Psychiatric Psychiatric exam: Present: normal affect, normal mood - Skin Skin exam: Present: dry, warm Internal Medicine - CN: Reslt - Labs CBC & Chem 7: 08/21/17 05:59 08/21/17 05:59 Labs: Short CBC 08/21/17 Range/Units 05:59 WBC 9.9 (4.3-11.1) K/mcL Hgb 8.3 L (12.9-16.9) g/dL Hct 26.1 L (37.5-50.1) % Plt Count 253 (140-400) K/mcL BMP 08/21/17 08/21/17 05:59 05:59 Sodium 139 138 Potassium 4.3 4.3 Chloride 110 H 110 H Carbon Dioxide 17 L 17 L BUN 84 H 86 H Creatinine 3.67 H 3.72 H Glucose 188 H 191 H Calcium 8.3 L 8.1 L Liver Function 08/21/17 Range/Units 05:59 Total Bilirubin 0.3 (0.2-1.2) mg/dL AST 16 (5-34) Units/L ALT 14 (0-55) Units/L Alkaline Phosphatase 69 (38-126) Units/L Albumin 2.6 L (3.5-5.0) g/dL - ABG Interpretation ABG results: PT/INR, D-dimer PT 11.1 Seconds (9.4-12.1) 08/20/17 06:54 - Impressions Impressions Gastrostomy Tube Placement 08/20/17 00:00 IMPRESSION: Successful fluoroscopically-guided placement of a percutaneous gastrostomy tube. D/ /21/2017 09:28:46 Guy Yan MD / [facility] Interpreting Provider: Guy Yan MD Guidance Needle Placement Ultrasound 08/20/17 00:00 IMPRESSION: Successful fluoroscopically-guided placement of a percutaneous gastrostomy tube. D/ /21/2017 09:28:46 Guy Yan MD / [place] Interpreting Provider: Guy Yan MD Consult Discharge Plan - Plan Referrals: Figueroa Navarro DO [Primary Care Provider] - (patient will call for an appt. per [facility]) Palliative Quality Palliative Quality: Screen for Code Status: Yes, Screen for Goals of Care: Yes, Screen for Pain: Yes, If Pain Regimen Started, Initiate Bowel Regimen: Yes, Screen for Nausea/Vomitting: Yes Code Status: 08/20/17 18:34 CODE [Resuscitation Status: Active] [RES] Routine Comment: Resuscitation Status: DNR-Comfort Care
[2017-08-21] MEDS ORDERED: Artificial Tears SOLN 15 ML BOTTLE BOTH EYES PRN (22:21)
[2017-08-22] MEDS: *HR* Heparin 5,000 UNIT/ML VIAL SQ SCH (05:32)
[2017-08-22] MEDS: Dexamethasone 4 MG/ML VIAL IVP SCH ×3 (05:33→15:00)
[2017-08-22] MEDS: Famotidine 20 MG TABLET PO SCH (05:40)
[2017-08-22] MEDS: *HR* Morphine 2 MG/ML SYRINGE IVP PRN ×2 (05:40→08:50)
[2017-08-22 06:49] LABS: Hematocrit 23.3 % (37.5-50.1); Hemoglobin 7.4 g/dL (12.9-16.9); Mean Corpuscular HGB Conc 31.8 g/dL (31.6-35.5); Mean Corpuscular Hemoglobin 29.2 pg (28.0-33.3); Mean Corpuscular Volume 92.1 fL (83.0-100.0); Mean Platelet Volume 11.6 fL (9.4-12.4); Platelet Count 218 K/mcL (140-400); Red Blood Count 2.53 M/mcL (4.19-5.50); Red Cell Distribution Width 19.3 % (11.5-14.5)
[2017-08-22 07:42] LABS: Anisocytosis 1+ (Not Present); Lymphocytes # 0.3 K/mcL (0.6-4.6); Neutrophils # 7.6 K/mcL (1.6-8.9); Platelet Estimate Normal (Normal)
[2017-08-22] MEDS ORDERED: *HR* HYDROmorphone 2 MG TABLET GTUBE PRN ×4 (10:49→11:06)
[2017-08-22] MEDS: D5% in 0.45% NACL 1,000 ML IVC SCH (10:51)
--- NOTE | 2017-08-22 10:55 | Palliative Progress Note ---
Date of Encounter: 08/22/17 Time of Encounter: 10:50 - Assessment and plan (1) Cancer associated pain Current Visit: Yes Status: Acute Assessment and plan: Will D/C IV Morphine and transition to medication by tube. Morphine not best opioid r/t renal function. His refuses Oxycodone r/t [facility] event. He has utilized Hydromorphone previously and tolerated. Will begin Hydromorphone 2 or 4 mg per PEG PRN and monitor. (2) ESRD (end stage renal disease) on dialysis Current Visit: No Status: Chronic (3) Goals of care, counseling/discussion Current Visit: No Status: Acute Assessment and plan: Patient's has made phone call to [facility] physician, but has not spoken with anyone yet. Patient does not want to go to [facility] and desires to go home. Based on sensitivity results, if he requires and wants IV antibiotics, he will have to utilize home health. If he can do atb per tube, he could re- enroll with hospice, and follow up with [facility] physician. If he decided to pursue more aggressive care or restarts peritoneal dialysis, he will not be able to continue with hospice. (4) Laryngeal cancer Current Visit: No Status: Chronic (5) Sepsis Current Visit: No Status: Acute Qualifiers: Sepsis type: sepsis due to unspecified organism Qualified Code(s): A41.9 - Sepsis, unspecified organism - Time Spent With Patient Total time spent is greater than 50% in coordination of care (as documented) at patient's floor/unit and/or counseling patient: - Subjective Interval history: Patient up in room. C/o pain left side of face and neck. Tolerating tube feeds. at bedside. States pt doesn't want to go to [facility] and wants to go home. States someone from oncology was in this am, but no note on chart as of yet. - Constitutional Vitals: Abnormal lab results RBC 2.53 M/mcL (4.19-5.50) L 08/22/17 06:10 Hgb 7.4 g/dL (12.9-16.9) L 08/22/17 06:10 Hct 23.3 % (37.5-50.1) L 08/22/17 06:10 RDW 19.3 % (11.5-14.5) H 08/22/17 06:10 Lymphocytes # 0.3 K/mcL (0.6-4.6) L 08/22/17 06:10 Anisocytosis 1+ (Not Present) A 08/22/17 06:10 Chloride 110 mEq/L (98-109) H 08/21/17 05:59 Carbon Dioxide 17 mEq/L (19-29) L 08/21/17 05:59 BUN 86 mg/dL (8-26) H 08/21/17 05:59 Creatinine 3.72 mg/dL (0.72-1.25) H 08/21/17 05:59 Est GFR ( Amer) 20 (> 60) L 08/21/17 05:59 Est GFR (Non-Af Amer) 16 (> 60) L 08/21/17 05:59 Glucose 191 mg/dL (70-99) H 08/21/17 05:59 Calculated Osmolality 317 (280-300) H 08/21/17 05:59 Calcium 8.1 mg/dL (8.6-10.8) L 08/21/17 05:59 Serum Total Protein 5.7 g/dL (6.0-8.3) L 08/21/17 05:59 Albumin 2.6 g/dL (3.5-5.0) L 08/21/17 05:59 Albumin/Globulin Ratio 0.8 (1.1-2.2) L 08/21/17 05:59 Urine Protein >=300 mg/dL (Neg-Trace) H 08/18/17 21:44 Urine Blood Trace (Negative) H 08/18/17 21:44 Urine Microscopic RBC 5-15 per hpf (0-3) H 08/18/17 21:44 Urine Microscopic WBC 5-15 per hpf (0-3) H 08/18/17 21:44 Ur Squamous Epith Cells Many per lpf (None-Few) H 08/18/17 21:44 Urine Bacteria Many per hpf (None-Few) H 08/18/17 21:44 Urine Yeast Moderate per hpf (None Seen) H 08/18/17 21:44 General appearance: Present: no acute distress - ENT Additional comments: Dressing to left neck wound D/I - Respiratory Respiratory exam: Present: decreased breath sounds, CTAB - Cardiovascular Cardiovascular exam: Present: +S1, +S2 - GI/Abdominal GI/Abdominal exam: Present: normal bowel sounds, soft Additional comments: PEG patent/ PD cath present - Extremities Exam Extremities exam: Present: normal capillary refill, normal inspection - Neurological Exam Neurological exam: Present: alert, oriented X3 - Skin Skin exam: Present: dry, warm Palliative Quality Palliative Quality: Screen for Code Status: Yes, Screen for Goals of Care: Yes, Screen for Pain: Yes, If Pain Regimen Started, Initiate Bowel Regimen: Yes, Screen for Nausea/Vomitting: Yes Code Status: 08/20/17 18:34 CODE [Resuscitation Status: Active] [RES] Routine Comment: Resuscitation Status: DNR-Comfort Care - Labs CBC & Chem 7: 08/22/17 06:10 08/21/17 05:59 Labs: Laboratory Results - last 24 hr 08/22/17 08/22/17 06:10 07:30 WBC 7.9 RBC 2.53 L Hgb 7.4 L Hct 23.3 L MCV 92.1 MCH 29.2 MCHC 31.8 RDW 19.3 H Plt Count 218 MPV 11.6 Immature Gran % Test Not Performed Seg Neutrophils % 96.0 Lymphocytes % 4.0 Monocytes % Test Not Performed Eosinophils % Test Not Performed Basophils % Test Not Performed Neutrophils # 7.6 Lymphocytes # 0.3 L Monocytes # Test Not Performed Eosinophils # Test Not Performed Basophils # Test Not Performed Platelet Estimate Normal Anisocytosis 1+ A Specimen Rejected Container - ABG Interpretation ABG results: PT/INR, D-dimer PT 11.1 Seconds (9.4-12.1) 08/20/17 06:54 Consult Discharge Plan - Plan Referrals: Figueroa Navarro DO [Primary Care Provider] - (patient will call for an appt. per [facility])
[2017-08-22 11:03] LABS: Hematocrit 26.8 % (37.5-50.1); Hemoglobin 8.7 g/dL (12.9-16.9)
[2017-08-22] MEDS: Cefepime HCl 1,000 MG in D5% in Water (Mini-Bag+) 100 ML IVPB SCH (11:23)
[2017-08-22 11:45] VITALS: BP 146/69
[2017-08-22 12:15] LABS: Calcium 8.1 mg/dL (8.6-10.8); Magnesium 1.9 mg/dL (1.6-2.6); Phosphorous 4.7 mg/dL (2.3-4.7); Potassium 4.5 mEq/L (3.5-4.5)
--- NOTE | 2017-08-22 13:26 | Oncology Inp Consult Note ---
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 Patient has not been up to schedule with his treatments previously per [facility] records due to infectious complications, bleeding issues, comorbid conditions. -He appears combative and anxious and is not clear to this point what he wants done/goals of care. - is aware that chemotherapy/immunotherapy are not options at this point, but her concern is regarding his neck wound and if some procedure can be done through his oral cavity/mucosa to close communication to skin. She does not want ENT consulted here, but she wishes to take him as an outpatient to [facility] and she is contacting her physicians. -We will discuss with rad onc if re-irradiation is possible for palliation and if patient is agreeable. -On haldol prn for anxiety and dilaudid for pain control, adequate. - Data of Consult Requesting Physician: Beth De Jesus MD Primary Care Provider: Figueroa Blunt [facility] - Consult Narrative Reason for consult: recurrent head and neck cancer History of present illness: Mr. Porras 66 -year-old male with diagnosis chronic kidney disease on peritoneal dialysis, hypothyroidism, history of DVT, history of iron deficiency , arthritis, syncopal episode, history of valve endocarditis, status post lumbar laminectomy, status post stent placement, Dr. Mauricio, with history of recurrent hypopharyngeal cancer. Patient was initially diagnosed in 2014 when he was treated with the dose reduced cisplatin due to dialysis and radiation therapy. He underwent a salvage total laryngectomy by Dr. Ely in February 2016. 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 Patient has refused to receive re-radiation at that point prior [facility] notes. He underwent in 06/27--transnasal esophagoscopy and placement of voice prosthesis. Per records, he had not started chemo due to endocarditis and bleeding issues from mouth, due to elevated INR. She was seen again at [facility] in January [address] scan of the chest showed no evidence of intrathoracic metastatic disease is circumferential thickening of distal esophagus with esophagitis, gene profiling was completed he was initiated on everolimus in ---?clinical trial. Patients reports that he taken 2 weeks off the oral medication and developed breaking out of skin in the neck/ discharge from left neck. He has continued to take the pill for over a month or so hospitalization. He is on peritoneal dialysis daily had declined hospice and readmitted with cx--pseudomonas/infection in the left neck. The patient appears agitated this morning, gives most part of the history. He has some discomfort in the left jaw area. CT imaging neck---08/28 [employer] at left level 2, nearly envelopes a portion of the left internal carotid artery stent, fullness of the rt tongue/ irregularity of tongue base suggestive of recurrence. Per family there his feedings come back nasally and through the neck wound Past Med Surg Social Fam HX - Past Medical History Medical history: cancer, DVT, dialysis, hyperlipidemia, hypertension, malignancy , renal disease, thyroid disease Psychiatric history: anxiety, depression - Past Surgical History Surgical History: cancer surgery, cataract, cholecystectomy, tracheostomy, other - Social History Smoking Status: Former smoker Smokeless Tobacco Status: No Alcohol use: none Drug use: none - Family History Mother Adopted: No Family Member Ethnicity: Non- Living Status: Hx Family Cardiac Disorders: No Hx Family Respiratory Disorders: No Hx Family Cancer: No Hx Family GI Disorders: No Hx Family Endocrine Disorder: No Hx Family Neuromuscular Disorders: No Hx Family Neurologic Disorders: Yes (Alzheimer's disease) Hx Family HEENT Disorders: No Hx Family Autoimmune Disorders: No Brother Hx Family Cardiac Disorders: Yes (Hypertension) Hx Family Cancer: Yes (colon and prostate) Medications and Allergies Aspirin [Lo-Dose Aspirin EC] 81 mg PO DAILY 08/19/17 [History] Dexamethasone [Decadron] 4 mg PO DAILY 08/19/17 [History] Docusate Sodium [Dok] 100 mg PO BID 08/19/17 [History] Haloperidol Oral Conc [Haldol] 1 mg PO Q4H PRN 08/19/17 [History] LORazepam [Ativan] 0.5 mg PO Q6H PRN 08/19/17 [History] Levothyroxine Sodium [Levoxyl] 125 mcg PO DAILY 08/19/17 [History] Morphine Oral CONC [Roxanol] 5 - 20 mg PO Q1H PRN 08/19/17 [History] Morphine Sulfate SR (12 HR) [MS Contin] 1 tab PO Q8HR 08/19/17 [History] Omeprazole [PriLOSEC] 20 mg PO DAILY 08/19/17 [History] Sennosides [Senna] 17.2 mg PO DAILY PRN 08/19/17 [History] 3 Allergy/AdvReac Type Severity Reaction Status Date / Time diazepam Allergy Intermediate Agitated Verified 08/18/17 21:03 Zolpidem [From Ambien] AdvReac Hallucinati Verified 08/18/17 21:03 ng ROS unobtainable: other Review of systems: limited due to communication difficulty with patient Oncology - Exam - Constitutional Vitals: Temp Pulse Resp BP Pulse Ox 98.2 F 78 16 146/69 95 08/22/17 11:44 08/22/17 11:44 08/22/17 11:44 08/22/17 11:44 08/22/17 11:44 General appearance: average body habitus, mild distress - Head Additional comments: left facial swelling and left neck fungating growth in dressing - Eye Eye exam: Present: sclera anicteric - ENT ENT exam: Present: mucous membranes dry - Neck Additional comments: adenopathy and as above - Respiratory Respiratory exam: Present: CTAB - GI/Abdominal GI/Abdominal exam: Present: soft Additional comments: g tube - Extremities Exam Additional comments: trace edema - Neurological Exam Neurological exam: Present: alert, no focal deficits - Psychiatric Psychiatric exam: Present: agitated Oncology - Results Labs: Short CBC 08/22/17 08/22/17 Range/Units 06:10 10:46 WBC 7.9 (4.3-11.1) K/mcL Hgb 7.4 L 8.7 L (12.9-16.9) g/dL Hct 23.3 L 26.8 L (37.5-50.1) % Plt Count 218 (140-400) K/mcL Neutrophils # 7.6 (1.6-8.9) K/mcL BMP 08/22/17 10:46 Sodium 134 L Potassium 4.5 Chloride 106 Carbon Dioxide 15 L BUN 93 H Creatinine 3.79 H Glucose 151 H Calcium 8.1 L Consult Discharge Plan - Plan Referrals: [facility],Figueroa Blunt DO [Primary Care Provider] - (patient will call for an appt. per [facility])
--- NOTE | 2017-08-22 13:52 | Discharge Summary ---
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 (3) Anemia Priority: Secondary Status: Chronic Qualifiers: Anemia type: due to chronic kidney disease Chronic kidney disease stage: stage 5, not on chronic dialysis Qualified Code(s): N18.5 - Chronic kidney disease, stage 5; D63.1 - Anemia in chronic kidney disease; D63.1 - Anemia in chronic kidney disease (4) CKD (chronic kidney disease) stage 5, GFR less than 15 ml/min Priority: Secondary Status: Chronic (5) Goals of care, counseling/discussion Priority: Secondary Status: Acute (6) Hypertension Priority: Secondary Status: Chronic Qualifiers: Hypertension type: essential hypertension Qualified Code(s): I10 - Essential (primary) hypertension (7) Hypothyroidism Priority: Secondary Status: Chronic Qualifiers: Hypothyroidism type: unspecified Qualified Code(s): E03.9 - Hypothyroidism , unspecified (8) 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 (9) DVT prophylaxis Priority: Secondary Status: Acute - Discharge Medications Prescriptions: Cefepime HCl/D5w [Cefepime-Dextrose 1 gm/50 ml] 1 gm IV DAILY #11 mls Home Medications: Aspirin [Lo-Dose Aspirin EC] 81 mg PO DAILY 08/19/17 [History] Dexamethasone [Decadron] 4 mg PO DAILY 08/19/17 [History] Docusate Sodium [Dok] 100 mg PO BID 08/19/17 [History] Haloperidol Oral Conc [Haldol] 1 mg PO Q4H PRN 08/19/17 [History] LORazepam [Ativan] 0.5 mg PO Q6H PRN 08/19/17 [History] Levothyroxine Sodium [Levoxyl] 125 mcg PO DAILY 08/19/17 [History] Omeprazole [PriLOSEC] 20 mg PO DAILY 08/19/17 [History] Sennosides [Senna] 17.2 mg PO DAILY PRN 08/19/17 [History] Cefepime HCl/D5w [Cefepime-Dextrose 1 gm/50 ml] 1 gm IV DAILY #11 mls 08/22/17 [ Rx] HYDROmorphone [Dilaudid] 4 mg GTUBE Q4HR PRN #60 tablet 08/22/17 [Rx] Allergies/Adverse Reactions: 3 Allergy/AdvReac Type Severity Reaction Status Date / Time diazepam Allergy Intermediate Agitated Verified 08/18/17 21:03 Zolpidem [From Ambien] AdvReac Hallucinati Verified 08/18/17 21:03 ng Procedures/tests Complete & Pending: Procedures Performed prior 72 hours Category Date Time Status IR tube place gastro perc [IR] Routine IR 08/20/17 Draft IR us guide needle place [IR] Routine IR 08/20/17 Draft Date of admission: 08/19/17 01:30 Primary care physician: Figueroa Navarro Consults: 08/19/17 01:48 Consult to Nephrology [CONS] Routine Consulting Provider: Kidney Mary Jo/ALEJANDRA/KRISTA/STEVE Reason for Consult: CKD-5 Call Completed: No 08/19/17 02:15 Consult to Nutrition [CONS] Routine Comment: Consulting Provider: NUTRITION Reason for Dietary Consult: MST Score Other Other:: DIFFICULTY SWALLOWING;L NECK MASS Consult to Pastoral Services [CONS] Routine 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 Consult to Beef Boner [CONS] Routine Reason for SW Consult: HAS [facility] HOME 08/19/17 10:15 Consult to Interventional Radiology [CONS] Routine Consulting Provider: Radiology Interventional Cols Reason for Consult: PEG tube Call Completed: No 08/20/17 12:45 Consult to Nutrition [CONS] Routine Comment: Consulting Provider: NUTRITION Reason for Dietary Consult: TF Start and Manage 08/21/17 07:40 Consult to Palliative Care [CONS] Routine Comment: Consulting Provider: Palliative Care Isabella Reason for Consult: goals of care/code status Call Completed: Yes 08/21/17 15:11 Consult to Oncology Hematology [CONS] Routine Consulting Provider: Iram Mendoza Reason for Consult: lung cancer Call Completed: Yes Discharging clinician: Beth De Jesus Anticipated date of discharge: 08/22/17 - Patient Status Disposition: Home Health Service Condition: Good Functional capacity at discharge: independent ambulation Overall status at discharge: patient is back to baseline - Discharge Instructions Follow Up With: Figueroa Navarro DO [Primary Care Provider] - (patient will call for an appt. per [facility]) Additional Instructions: Please follow up with your primary care physician and oncologist within five days after your discharge from the hospital. Please continue IV antibiotics as prescribed for 11 more days. Please ask your primary care physician to evaluation your neck wound and evaluate the need for antibiotics for a longer duration as needed. Resume all your home medications as prescribed by your primary care physician. Continue tube feedings - Diet and Activity Activity: increase activity as tolerated Hospital course: Mr. Porras is a 66 year old male with extensive PMH including laryngeal cancer with metastatic disease who was admitted for infected neck wound. He was found to have infected neck open wound positive for Pseudomonas and E.Coli and was started on IV abx. He is unable to swallow given his underlying chronic illness due to which he had a PEG tube placed. Pt has history of ESRD and was on PD however care was withdrawn when pt had decided to pursue hospice care, however pt and withdrew from hospice and came to the hospital for placement of feeding tube and possible continuation of dialysis. Palliative care was consulted to establish goals of care. I had extensive conversation with the patient in regards to his goals of care. At this time, patient states he just wants his infection treated and wants to go home. He does not want to do anything else at this time. wants to pursue other options however pt is adamant about wanting to go home with Iv abx and does not want any further intervention. Palliative care is setting up home health services upon discharge and pt wants to transition to hospice care again after discharge. His home meds were changed by palliative care team. Pt will be discharged to home later today once home health is arranged for IV abx. Pt and demonstrate understanding of the diagnosis and agree with the current discharge care and plan. - Time Spent with Patient Total time spent providing and/or coordinating discharge services: Greater than 30 minutes - Constitutional Vitals: Temp Pulse Resp BP Pulse Ox 98.2 F 78 16 146/69 95 08/22/17 11:44 08/22/17 11:44 08/22/17 11:44 08/22/17 11:44 08/22/17 11:44 General appearance: Present: A&O X 3, no acute distress, answers questions appropriately - Head Head exam: Present: atraumatic, normocephalic - Eye Eye exam: Present: conjuntiva pink, sclera anicteric - Neck Additional comments: neck mass-dressing intact - Respiratory Respiratory exam: Present: CTAB. Absent: respiratory distress, wheezes - Cardiovascular Cardiovascular exam: Present: RRR, +S1, +S2. Absent: diastolic murmur, gallop, rubs, systolic murmur - GI/Abdominal GI/Abdominal exam: Present: normal bowel sounds, soft. Absent: tenderness (PEG tube in place) - Extremities Exam Extremities exam: Present: warm, radial pulses palpable and symmetrical. Absent : calf tenderness - Neurological Exam Neurological exam: Present: alert, oriented X3
--- NOTE | 2017-08-22 14:07 | Physician Discharge Referral ---
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 For more information, call the [place] Tobacco Quit Line at 8-107-DRPB-NOW. - Services Needed Following services are medically necessary services: Nursing, Home Health Aide, Physical Therapy, Occupational Therapy, Home Infusion - Transfer Medications Prescriptions: HYDROmorphone [Dilaudid] 4 mg GTUBE Q4HR PRN #60 tablet PRN Reason: cancer associated pain Cefepime HCl/D5w [Cefepime-Dextrose 1 gm/50 ml] 1 gm IV DAILY #11 mls Home Medications: Aspirin [Lo-Dose Aspirin EC] 81 mg PO DAILY 08/19/17 [History] Dexamethasone [Decadron] 4 mg PO DAILY 08/19/17 [History] Docusate Sodium [Dok] 100 mg PO BID 08/19/17 [History] Haloperidol Oral Conc [Haldol] 1 mg PO Q4H PRN 08/19/17 [History] LORazepam [Ativan] 0.5 mg PO Q6H PRN 08/19/17 [History] Levothyroxine Sodium [Levoxyl] 125 mcg PO DAILY 08/19/17 [History] Omeprazole [PriLOSEC] 20 mg PO DAILY 08/19/17 [History] Sennosides [Senna] 17.2 mg PO DAILY PRN 08/19/17 [History] Cefepime HCl/D5w [Cefepime-Dextrose 1 gm/50 ml] 1 gm IV DAILY #11 mls 08/22/17 [ Rx] HYDROmorphone [Dilaudid] 4 mg GTUBE Q4HR PRN #60 tablet 08/22/17 [Rx] Allergies/Adverse Reactions: 3 Allergy/AdvReac Type Severity Reaction Status Date / Time diazepam Allergy Intermediate Agitated Verified 08/18/17 21:03 Zolpidem [From Ambien] AdvReac Hallucinati Verified 08/18/17 21:03 ng Certification: Further, I certify that my clinical findings support that this patient is homebound (i.e. absences from home require considerable and taxing effort and are for medical reasons or [facility] or infrequently or short duration when for other reasons) because: Homebound Reason: Patient requires assistance of a person or device to safely leave home Attestation: My signature below is to certify that this patient is under my care and that I, or nurse practitioner, or a physician's legal assistant working with me, has a face-to -face encounter with this patient.
[2017-08-22] MEDS ORDERED: Cefepime HCl 1,000 MG in D5% in Water (Mini-Bag+) 100 ML IVPB SCH (19:00)
== END 2017-08-22 16:10 | disposition home health service (06) | DRG 602 ==
LOC: EMEROO 20:58 → 3ANU 20:58 → 2ANU 08-19 01:16 → SUATTDRO 08-19 01:30
PROVIDERS: ADMIT Family Medicine; ATTEND Internal Medicine